=== PATIENT | female | born 1985 | race Caucasian/White ===

== ENCOUNTER 2016-06-29 08:20 | Emergency (ER) | payer OTHER ==
[2016-06-29] MEDS ORDERED: IPRATROPIUM 0.5MG/ALBUTEROL 2.5MG INH SOL UD 3ML (DUONEB)(J7620) As Ordered ONE (09:00)
[2016-06-29] MEDS ORDERED: methylPREDNISolone INJ 125 MG/2 ML VIAL (J2930) As Ordered ONE (09:15)
[2016-06-29 09:34] LABS: BASO % 0.3 % (0.0-1.0); EOS # 0.1 K/mm3 (0.0-0.50); EOS % 0.8 % (0.0-3.0); LARGE UNSTAINED CELL # 0.2 K/mm3 (0.0-0.4); LARGE UNSTAINED CELL % 2.2 % (0.0-4.0); LYMPH # 3.1 K/mm3 (1.5-4.5); LYMPH % 33.6 % (24.0-44.0); MEAN CORPUSCULAR HEMOGLOBIN 22.7 pg (27.0-33.0); MEAN CORPUSCULAR HGB CONC 31.3 g/dl (32.0-36.5); MEAN CORPUSCULAR VOLUME 72.8 fl (80.0-96.0); MONO # 0.4 K/mm3 (0.0-0.8); MONO % 4.6 % (0.0-5.0); NEUTROPHILS # 5.3 K/mm3 (1.8-7.7); NEUTROPHILS % 58.5 % (36.0-66.0); PLATELET COUNT, AUTOMATED 290 k/mm3 (150-450); RED CELL DISTRIBUTION WIDTH 16.3 % (11.5-14.5); WHITE BLOOD COUNT 9.1 K/mm3 (4.0-10.0)
[2016-06-29 10:00] LABS: ANION GAP 11 MEQ/L (8-16); BLOOD UREA NITROGEN 15 MG/DL (7-18); CALCIUM LEVEL 8.4 MG/DL (8.5-10.1); CARBON DIOXIDE LEVEL 25 MEQ/L (21-32); CHLORIDE LEVEL 105 MEQ/L (98-107); CREATININE FOR GFR 0.94 MG/DL (0.55-1.02); GLOMERULAR FILTRATION RATE > 60.0 (>60); GLUCOSE, FASTING 104 MG/DL (70-105); POTASSIUM SERUM 3.2 MEQ/L (3.5-5.1); SODIUM LEVEL 141 MEQ/L (136-145)
--- NOTE | 2016-06-29 10:22 | REP ---
Chest x-ray: Two views. History: Shortness of breath. Comparison study: June 05, 2016. Findings: EKG monitoring electrodes overlie the chest. The lungs are symmetrically aerated and clear. Heart is not enlarged. Pulmonary vasculature is not increased. No significant bony abnormality is seen. Impression: No active disease. Signed by Kristofer Garcia MD 06/29/2016 10:13 A
[2016-06-29] MEDS ORDERED: POTASSIUM CHLORIDE 10 MEQ SR TABLET As Ordered ONE (10:34)
[2016-06-29] MEDS ORDERED: guaiFENesin SYRUP 200 MG/10 ML UDC As Ordered ONE (11:12)
--- NOTE | 2016-06-29 11:29 | EDDOCDS ---
Nurse's Notes [facility] Name: Conchis Morel Age: 31 yrs Sex: Female : 1985 Arrival Date: 06/29/2016 Time: 08:20 Bed 9 Private MD: Reema Parra Diagnosis: Unspecified asthma with (acute) exacerbation;Shortness of breath;Hypokalemia Presentation: 06/29 08:27 Presenting complaint: Patient states: Pt presents stating difficulty breathing this dls morning pt uses oxygen most of the time has had several breathing treatment this morning and still feels SOB. Adult Sepsis Screening: The patient does not have new or worsening altered mentation. Patient's respiratory rate is less than 22. Systolic blood pressure is greater than 100. Patient has a qSOFA score of 0- Negative Sepsis Screen. Suicide/Homicide risk assessment- the patient denies having any suicidal and/or homicidal ideations and does not present with any other emotional, behavioral or mental health complaints. Status: The patient is a dependent. Transition of care: patient was not received from another setting of care. 08:27 Acuity: BOOGIE Level 3 dls 08:27 Method Of Arrival: Walkin/Carried/Asstd dls Triage Assessment: 08:34 General: Appears in no apparent distress, Behavior is cooperative. Pain: Denies pain. dls HIV screening NA for this visit Offered previously. 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 Lasix 40 mg oral tab 1 tab once daily 2. lisinopril 10 mg oral tab 1 tab once daily 3. Singulair 10 mg Oral tab 1 tab once daily 4. Breo Ellipta 200-25 mcg/dose inhalation dsdv 1 puff once daily 5. Flonase 50 mcg/actuation Nasal spsn 1 spray 2 times per day 6. vivance 40mg daily 7. Topamax 50 mg oral tab 1 tab daily 8. Claritin 10 mg oral tab 1 tab once daily 9. Topamax 100 mg Oral tab 1 tab nightly 10. albuterol sulfate 90 mcg/actuation Inhl HFAA 2 puffs every 4 hours 11. albuterol sulfate 2.5 mg /3 mL (0.083 %) Inhl nebu 3 mL as needed 12. Nexium 20 mg Oral cpDR 1 cap once daily - PMHx: Asthma; Hypertension; Sleep Apnea w/ CPAP; - PSHx: Appendectomy; eye surgery; Tonsillectomy; deviated septum; D & C; lung biopsy; - Social history: Smoking status: Patient/guardian denies using No barriers to communication noted, The patient speaks fluent Swedish. - Family history: Not pertinent. - : The pt / caregiver states he / she is not on anticoagulants. Home medication list is obtained from the patient, [employer] import data. - Exposure Risk Screening:: None identified. Screenin:25 Screening information is obtained from the patient. Fall risk: No risks identified. jf3 Assistance ADL's: requires no assistance with activities of daily living. Abuse/DV Screen: The patient / caregiver reports he/she is: not in a situation that causes fear, pain or injury. Nutritional screening: No deficits noted. Advance Directives: There is no active DNR order. home support is adequate. Assessment: 11:25 General: Appears in no apparent distress, comfortable, Behavior is cooperative. Pain: jf3 Denies pain. Neurological: Level of Consciousness is awake, alert, Oriented to person, place, time. Cardiovascular: Capillary refill < 3 seconds. Respiratory: Airway is patent Respiratory effort is even, unlabored, Denies shortness of breath at rest. Derm: Skin is pink, warm & dry. Vital Signs: 08:34 BP 134 / 75; Pulse 94; Resp 20; Temp 96.9(O); Pulse Ox 97% on NC; Weight 122.02 kg (R); dls Height 4 ft. 10 in. (147.32 cm); Pain 0/10; 08:46 BP 130 / 81 (auto/); ml6 08:46 Pulse 106 MON; Resp 20; Pulse Ox 96% on 3 lpm NC; ml6 09:01 BP 108 / 64 (auto/); ml6 09:01 Pulse 104 MON; Resp 20; Pulse Ox 94% on 3 lpm NC; ml6 09:23 BP 116 / 55 (auto/); ml6 09:23 Pulse 92 MON; Resp 20; Pulse Ox 96% on 3 lpm NC; ml6 09:46 BP 127 / 60 (auto/); ml6 09:46 Pulse 88 MON; Resp 20; Pulse Ox 96% on 3 lpm NC; ml6 11:14 BP 106 / 57; Pulse 84; Resp 18; Temp 97.5(O); Pulse Ox 100% on 3 lpm NC; Pain 0/10; ct3 08:34 Body Mass Index 56.22 (122.02 kg, 147.32 cm) [facility] Vitals: 08:34 Log In Time: June 29, 2016 at 08:18. dls ED Course: 08:21 Patient visited by Loan Perez Reg. lg 08:21 Reema Parra is Private Physician. lg 08:21 Patient moved to Waiting lg 08:29 Triage Initiated dls 08:37 Patient moved to 9 dls 08:41 Erlinda Hardy PA-C is PHCP. dt4 08:41 Stevie Vyas MD is Attending Physician. dt4 08:41 Patient visited by Erlinda Hardy PA-C. dt4 08:48 Pt greeted and oriented to ED. Patient advised of names of staff involved in care, dem1 location of call hall, wait times and NPO status. Patient has correct armband on for positive identification. Placed in gown. Bed in low position. ekg monitor tech on. Pulse ox on. NIBP on. 08:49 Patient visited by Freida Lin. dem1 09:10 Inserted peripheral IV: 18gauge IV in right antecubital area and blood collected. ml6 Patient tolerated the procedure well. 09:30 [facility] [place] Agreement was scanned into [employer] and attached to record. dm19 09:31 Patient visited by Matt Garcia RN. ml6 09:31 Cardiac Injury Profile Sent. ml6 09:31 Troponin Sent. ml6 09:31 Basic Metabolic Profile Sent. ml6 09:33 Matt Garcia, RN is Primary Nurse. ml6 10:09 Patient visited by Fabiola Jones PCA. ct3 10:37 Patient visited by Erlinda Hardy PA-C. dt4 10:39 Paulino Dominique DO is Referral Physician. dt4 10:56 Chest, 2 View (pa\E\lat) Returned. EDMS 11:15 Patient visited by Fabiola Jones PCA. ct3 11:25 The patient / caregiver is instructed regarding the plan of care and ED course. jf3 11:25 Discontinued IV lock intact, bleeding controlled, pressure dressing applied, No jf3 redness/swelling at site. No procedures done that require assistance. Administered Medications: 09:00 Drug: Albuterol-Ipratropium 1 neb [ipratropium-albuterol 0.5 mg-3 mg(2.5 mg base)/3 mL kt1 nebulization soln (1 neb)] Route: Nebulizer; 09:10 Drug: Solu-MEDROL 125 mg [Solu-Medrol 500 mg intravenous solution (125 mg)] Route: IVP; ml6 Site: right antecubital; 10:10 Drug: Potassium Chloride 40 mEq [potassium chloride ER 10 mEq tablet,extended release ml6 (4 tabs)] Route: PO; 11:25 Drug: guaiFENesin 200 mg [guaifenesin 100 mg/5 mL oral liquid (10 mL)] Route: PO; jf3 RT: 09:00 Initial Med Neb Given as ordered Patient was instructed and evaluated on procedure. kt1 Respiratory: No deficits noted. Breath sounds are clear bilaterally. Order Results: Lab Order: CBC with Diff; SPEC'M 06/29/16 09:27 Test: WHITE BLOOD COUNT; Value: 9.1; Range: 4.0-10.0; Units: K/mm3; Status: F Test: RED BLOOD COUNT; Value: 4.95; Range: 4.00-5.40; Units: M/mm3; Status: F Test: HEMOGLOBIN; Value: 11.3; Range: 12.0-16.0; Abnormal: Below low normal; Units: g/dl; Status: F Test: HEMATOCRIT; Value: 36.0; Range: 36.0-47.0; Units: %; Status: F Test: MEAN CORPUSCULAR VOLUME; Value: 72.8; Range: 80.0-96.0; Abnormal: Below low normal; Units: fl; Status: F Test: MEAN CORPUSCULAR HEMOGLOBIN; Value: 22.7; Range: 27.0-33.0; Abnormal: Below low normal; Units: pg; Status: F Test: MEAN CORPUSCULAR HGB CONC; Value: 31.3; Range: 32.0-36.5; Abnormal: Below low normal; Units: g/dl; Status: F Test: RED CELL DISTRIBUTION WIDTH; Value: 16.3; Range: 11.5-14.5; Abnormal: Above high normal; Units: %; Status: F Test: PLATELET COUNT, AUTOMATED; Value: 290; Range: 150-450; Units: k/mm3; Status: F Test: NEUTROPHILS %; Value: 58.5; Range: 36.0-66.0; Units: %; Status: F Test: LYMPH %; Value: 33.6; Range: 24.0-44.0; Units: %; Status: F Test: MONO %; Value: 4.6; Range: 0.0-5.0; Units: %; Status: F Test: EOS %; Value: 0.8; Range: 0.0-3.0; Units: %; Status: F Test: BASO %; Value: 0.3; Range: 0.0-1.0; Units: %; Status: F Test: LARGE UNSTAINED CELL %; Value: 2.2; Range: 0.0-4.0; Units: %; Status: F Test: NEUTROPHILS #; Value: 5.3; Range: 1.8-7.7; Units: K/mm3; Status: F Test: LYMPH #; Value: 3.1; Range: 1.5-4.5; Units: K/mm3; Status: F Test: MONO #; Value: 0.4; Range: 0.0-0.8; Units: K/mm3; Status: F Test: EOS #; Value: 0.1; Range: 0.0-0.50; Units: K/mm3; Status: F Test: BASO #; Value: 0.0; Range: 0.0-0.2; Units: K/mm3; Status: F Test: LARGE UNSTAINED CELL #; Value: 0.2; Range: 0.0-0.4; Units: K/mm3; Status: F Lab Order: Basic Metabolic Profile; [facility]'06/29/16 09:27 Test: GLUCOSE, FASTING; Value: 104; Range: 70-105; Units: MG/DL; Status: F Test: BLOOD UREA NITROGEN; Value: 15; Range: 7-18; Units: MG/DL; Status: F Test: CREATININE FOR GFR; Value: 0.94; Range: 0.55-1.02; Units: MG/DL; Status: F Test: GLOMERULAR FILTRATION RATE; Value: > 60.0; Range: >60; Status: F Test: SODIUM LEVEL; Value: 141; Range: 136-145; Units: MEQ/L; Status: F Test: POTASSIUM SERUM; Value: 3.2; Range: 3.5-5.1; Abnormal: Below low normal; Units: MEQ/L; Status: F Test: CHLORIDE LEVEL; Value: 105; Range: 98-107; Units: MEQ/L; Status: F Test: CARBON DIOXIDE LEVEL; Value: 25; Range: 21-32; Units: MEQ/L; Status: F Test: ANION GAP; Value: 11; Range: 8-16; Units: MEQ/L; Status: F Test: CALCIUM LEVEL; Value: 8.4; Range: 8.5-10.1; Abnormal: Below low normal; Units: MG/DL; Status: F Test Note: ; Units are mL/min/1.73 m2 Chronic Kidney Disease Staging per NKF: Stage I & II GFR >=60 Normal to Mildly Decreased Stage III GFR 30-59 Moderately Decreased Stage IV GFR 15-29 Severely Decreased Stage V GFR <15 Very Little GFR Left ESRD GFR <15 on SPEEDER OPERATOR Lab Order: Troponin; SPEC'M 06/29/16 09:27 Test: TROPONIN I; Value: < 0.02; Range: < 0.10; Units: NG/ML; Status: F Test Note: ; Troponin I Reference Interval for Calm LOCI: 99th Percentile= 0.00-0.045 ng/ml Risk Stratification: <= 0.10 ng/ml Decreased Risk for Adverse Clinical Events. 0.10-1.50 ng/ml Increased Risk for Adverse Clinical Events. Evaluation of additional criterion and/or repeat testing in 2-6 hours is suggested to rule out myocardial damage. >= 1.50 ng/ml Indicative of Myocardial Injury. Lab Order: Cardiac Injury Profile; SPEC'M 06/29/16 09:27 Test: CPK CREATINE PHOSPHOKINASE; Value: 125; Range: 26-192; Units: U/L; Status: F Test: CK-MB VALUE MASS; Value: 1.0; Range: 0.0-3.6; Units: NG/ML; Status: F Test: MB/CK RELATIVE INDEX; Value: 0.80; Range: < OR =4; Status: F Test Note: ; DIAGNOSIS CRITERIA MMB ng/ml Relative Index (RI) NON-AMI < or = 5 N/A PAREDES ZONE > 5 < or = 4 AMI > 5 > 4 Radiology Order: Chest, 2 View (pa\E\lat) Test: Chest, 2 View (pa\E\lat) REASON FOR EXAMINATION: Shortness of Breath; Chest x-ray: Two views.; ; History: Shortness of breath.; ; Comparison study: June 05, 2016.; ; Findings: EKG monitoring electrodes overlie the chest. The lungs are; symmetrically aerated and clear. Heart is not enlarged. Pulmonary vasculature; is not increased. No significant bony abnormality is seen.; ; Impression:; ; No active disease.; ; ; Signed by; Kristofer Garcia MD 06/29/2016 10:13 A; Outcome: 10:40 Discharge ordered by Provider. dt4 11:27 Discharge Assessment: Patient awake, alert and oriented x 3. No cognitive and/or jf3 functional deficits noted. Patient verbalized understanding of disposition instructions. patient administered narcotics - no. The following High Risk Discharge criteria are identified: None. Discharged to home via wheelchair, with significant other. Condition: stable. Discharge instructions given to patient, significant other, Instructed on discharge instructions, follow up and referral plans. medication usage, Demonstrated understanding of instructions, medications, Pt was receptive of discharge instructions/ teaching. No special radiology studies were completed. Property :Personal belongings accompany Pt. 11:27 Patient left the ED. jf3 Signatures: Dispatcher [employer] EDDina Garcia, OSVALDO RN Loan Franklin, Arabella Gonzales lg kt1 Matt Garcia RN RN ml6 Fabiola Jones, LOCKSTITCH POCKET SETTER LOCKSTITCH POCKET SETTER ct3 Freida Lin dem1 Erlinda Hardy, PASamra PA-C dt4 Jon Gonzalez RN RN jf3 Erlinda Heck dm19 MTDD
--- NOTE | 2016-06-29 11:29 | EDDOCDS ---
Physician Documentation [facility] Name: Conchis Morel Age: 31 yrs Sex: Female : 1985 Arrival Date: 06/29/2016 Time: 08:20 Bed 9 Private MD: Reema Parra Disposition: 06/29/16 10:40 Discharged to Home/Self Care. Impression: Unspecified asthma with (acute) exacerbation, Shortness of breath, Hypokalemia. - Condition is Stable. - Discharge Instructions: Asthma, Adult, Shortness of Breath, Hypokalemia. - Prescriptions for Prednisone 20 mg Oral Tablet - take 3 tablets by ORAL route once daily for 4 days START ON 06/30/16; 12 tablet. ipratropium- albuterol 0.5 mg-3 mg(2.5 mg base)/3 mL Inhalation Solution for Nebulization - inhale 1 ampule by INHALATION route 3-4 times daily As needed; 1 box. - Medication Reconciliation, Local Pharmacy Hours form. - Follow up: Emergency Department; When: As needed; Reason: Worsening of conditions. Follow up: Private Physician; When: 1 - 2 days; Reason: Wound/Symptom Recheck, Recheck today's complaints, Continuance of care. Follow up: Paulino Olivo DO; When: AT YOUR SCHEDULED APPOINTMENT ON 07/02/[address]; Reason: Wound/Symptom Recheck, Further diagnostic work-up, Recheck today's complaints, Continuance of care. - Problem is new. - Symptoms have improved. - Notes: YOUR CHEST XRAY SHOWED NO ABNORMALITIES TODAY. THIS IS MOST LIKELY AN ASTHMA EXACERBATION. YOU HAVE BEEN PRESCRIBED THE DUONE[employer] NEBULIZER TREATMENTS. YOU MAY USE THESE DIRECTED IN PLACE OF THE REGULAR ALBUTEROL NEBULIZERS. THIS MAY HELP YOUR SYMPTOMS MORE THAN THE ALBUTEROL ALONE. FOLLOW UP FOR YOUR CT SCAN WITH DR. OLIVO NEXT WEEK AND RETURN TO THE ER WITH ANY WORSENING SYMPTOMS. Historical: - Allergies: Codeine Sulfate; - Home Meds: 1. Lasix 40 mg oral tab 1 tab once daily 2. lisinopril 10 mg oral tab 1 tab once daily 3. Singulair 10 mg Oral tab 1 tab once daily 4. Breo Ellipta 200-25 mcg/dose inhalation dsdv 1 puff once daily 5. Flonase 50 mcg/actuation Nasal spsn 1 spray 2 times per day 6. vivance 40mg daily 7. Topamax 50 mg oral tab 1 tab daily 8. Claritin 10 mg oral tab 1 tab once daily 9. Topamax 100 mg Oral tab 1 tab nightly 10. albuterol sulfate 90 mcg/actuation Inhl HFAA 2 puffs every 4 hours 11. albuterol sulfate 2.5 mg /3 mL (0.083 %) Inhl nebu 3 mL as needed 12. Nexium 20 mg Oral cpDR 1 cap once daily - PMHx: Asthma; Hypertension; Sleep Apnea w/ CPAP; - PSHx: Appendectomy; eye surgery; Tonsillectomy; deviated septum; D & C; lung biopsy; - Social history: Smoking status: Patient/guardian denies using No barriers to communication noted, The patient speaks fluent Icelandic. - Family history: Not pertinent. - : The pt / caregiver states he / she is not on anticoagulants. Home medication list is obtained from the patient, [employer] import data. - Exposure Risk Screening:: None identified. 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 10 in. (147.32 cm); Pain 0/10; 08:46 BP 130 / 81 (auto/); ml6 08:46 Pulse 106 MON; Resp 20; Pulse Ox 96% on 3 lpm NC; ml6 09:01 BP 108 / 64 (auto/); ml6 09:01 Pulse 104 MON; Resp 20; Pulse Ox 94% on 3 lpm NC; ml6 09:23 BP 116 / 55 (auto/); ml6 09:23 Pulse 92 MON; Resp 20; Pulse Ox 96% on 3 lpm NC; ml6 09:46 BP 127 / 60 (auto/); ml6 09:46 Pulse 88 MON; Resp 20; Pulse Ox 96% on 3 lpm NC; ml6 11:14 BP 106 / 57; Pulse 84; Resp 18; Temp 97.5(O); Pulse Ox 100% on 3 lpm NC; Pain 0/10; ct3 08:34 Body Mass Index 56.22 (122.02 kg, 147.32 cm) dls MDM: 08:52 IV Saline Lock ordered. dt4 08:52 Solu-MEDROL 125 mg IVP once ordered. dt4 08:52 Albuterol-Ipratropium 1 neb Nebulizer every 20 minutes x3 ordered. dt4 08:52 Call Respiratory ordered. dt4 08:53 Call Respiratory complete. ar3 08:53 Chest, 2 View (pa\E\lat) Ordered. EDMS 08:53 CBC with Diff Ordered. EDMS 08:53 Basic Metabolic Profile Ordered. EDMS 08:53 Troponin Ordered. EDMS 08:53 Cardiac Injury Profile Ordered. EDMS 08:57 Physical Security Specialist ordered. dt4 09:30 [facility] Payment Agreement was scanned into [employer] and attached to record. dm19 09:30 Financial registration complete. dm19 10:04 Potassium Chloride Extended Release Tablet 40 mEq PO once ordered. dt4 10:37 guaiFENesin Liquid 200 mg PO once ordered. dt4 Administered Medications: 09:00 Drug: Albuterol-Ipratropium 1 neb [ipratropium-albuterol 0.5 mg-3 mg(2.5 mg base)/3 mL kt1 nebulization soln (1 neb)] Route: Nebulizer; 09:10 Drug: Solu-MEDROL 125 mg [Solu-Medrol 500 mg intravenous solution (125 mg)] Route: IVP; ml6 Site: right antecubital; 10:10 Drug: Potassium Chloride 40 mEq [potassium chloride ER 10 mEq tablet,extended release ml6 (4 tabs)] Route: PO; 11:25 Drug: guaiFENesin 200 mg [guaifenesin 100 mg/5 mL oral liquid (10 mL)] Route: PO; jf3 Signatures: Dispatcher [employer] EDMS Dina Parra RN RN dls Tomasa Wong, STUDENT SERVICES COORDINATOR STUDENT SERVICES COORDINATOR ar3 Erlinda Hardy, PAMagoC PA-C dt4 Jon Gonzalez RN RN jf3 Erlinda Heck dm19 Arabella Flaherty kt1 Matt Garcia RN ml6 The chart was reviewed and I authenticate all verbal orders and agree with the evaluation and treatment provided.Attachments: 09:30 [facility] Payment Agreement dm19 MTDD
--- NOTE | 2016-07-02 10:55 | EDDOCDS ---
Nurse's Notes [facility] Name: Conchis Morel Age: 31 yrs Sex: Female : 1985 Arrival Date: 06/29/2016 Time: 08:20 Bed 9 Private MD: Reema Parra Diagnosis: Unspecified asthma with (acute) exacerbation;Shortness of breath;Hypokalemia Presentation: 06/29 08:27 Presenting complaint: Patient states: Pt presents stating difficulty breathing this dls morning pt uses oxygen most of the time has had several breathing treatment this morning and still feels SOB. Adult Sepsis Screening: The patient does not have new or worsening altered mentation. Patient's respiratory rate is less than 22. Systolic blood pressure is greater than 100. Patient has a qSOFA score of 0- Negative Sepsis Screen. Suicide/Homicide risk assessment- the patient denies having any suicidal and/or homicidal ideations and does not present with any other emotional, behavioral or mental health complaints. Status: The patient is a dependent. Transition of care: patient was not received from another setting of care. 08:27 Acuity: BOOGIE Level 3 dls 08:27 Method Of Arrival: Walkin/Carried/Asstd dls Triage Assessment: 08:34 General: Appears in no apparent distress, Behavior is cooperative. Pain: Denies pain. dls HIV screening NA for this visit Offered previously. 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 Lasix 40 mg oral tab 1 tab once daily 2. lisinopril 10 mg oral tab 1 tab once daily 3. Singulair 10 mg Oral tab 1 tab once daily 4. Breo Ellipta 200-25 mcg/dose inhalation dsdv 1 puff once daily 5. Flonase 50 mcg/actuation Nasal spsn 1 spray 2 times per day 6. vivance 40mg daily 7. Topamax 50 mg oral tab 1 tab daily 8. Claritin 10 mg oral tab 1 tab once daily 9. Topamax 100 mg Oral tab 1 tab nightly 10. albuterol sulfate 90 mcg/actuation Inhl HFAA 2 puffs every 4 hours 11. albuterol sulfate 2.5 mg /3 mL (0.083 %) Inhl nebu 3 mL as needed 12. Nexium 20 mg Oral cpDR 1 cap once daily - PMHx: Asthma; Hypertension; Sleep Apnea w/ CPAP; - PSHx: Appendectomy; eye surgery; Tonsillectomy; deviated septum; D & C; lung biopsy; - Social history: Smoking status: Patient/guardian denies using No barriers to communication noted, The patient speaks fluent Georgian. - Family history: Not pertinent. - : The pt / caregiver states he / she is not on anticoagulants. Home medication list is obtained from the patient, [email or web address] import data. - Exposure Risk Screening:: None identified. Screenin:25 Screening information is obtained from the patient. Fall risk: No risks identified. jf3 Assistance ADL's: requires no assistance with activities of daily living. Abuse/DV Screen: The patient / caregiver reports he/she is: not in a situation that causes fear, pain or injury. Nutritional screening: No deficits noted. Advance Directives: There is no active DNR order. home support is adequate. Assessment: 11:25 General: Appears in no apparent distress, comfortable, Behavior is cooperative. Pain: jf3 Denies pain. Neurological: Level of Consciousness is awake, alert, Oriented to person, place, time. Cardiovascular: Capillary refill < 3 seconds. Respiratory: Airway is patent Respiratory effort is even, unlabored, Denies shortness of breath at rest. Derm: Skin is pink, warm & dry. Vital Signs: 08:34 BP 134 / 75; Pulse 94; Resp 20; Temp 96.9(O); Pulse Ox 97% on NC; Weight 122.02 kg (R); dls Height 4 ft. 10 in. (147.32 cm); Pain 0/10; 08:46 BP 130 / 81 (auto/); ml6 08:46 Pulse 106 MON; Resp 20; Pulse Ox 96% on 3 lpm NC; ml6 09:01 BP 108 / 64 (auto/); ml6 09:01 Pulse 104 MON; Resp 20; Pulse Ox 94% on 3 lpm NC; ml6 09:23 BP 116 / 55 (auto/); ml6 09:23 Pulse 92 MON; Resp 20; Pulse Ox 96% on 3 lpm NC; ml6 09:46 BP 127 / 60 (auto/); ml6 09:46 Pulse 88 MON; Resp 20; Pulse Ox 96% on 3 lpm NC; ml6 11:14 BP 106 / 57; Pulse 84; Resp 18; Temp 97.5(O); Pulse Ox 100% on 3 lpm NC; Pain 0/10; ct3 08:34 Body Mass Index 56.22 (122.02 kg, 147.32 cm) [facility] Vitals: 08:34 Log In Time: June 29, 2016 at 08:18. dls ED Course: 08:21 Patient visited by Loan Perez Reg. lg 08:21 Reema Parra is Private Physician. lg 08:21 Patient moved to Waiting lg 08:29 Triage Initiated dls 08:37 Patient moved to 9 dls 08:41 Erlinda Hardy PA-C is PHCP. dt4 08:41 Stevie Vyas MD is Attending Physician. dt4 08:41 Patient visited by Erlinda Hardy PA-C. dt4 08:48 Pt greeted and oriented to ED. Patient advised of names of staff involved in care, dem1 location of call hall, wait times and NPO status. Patient has correct armband on for positive identification. Placed in gown. Bed in low position. 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 Pulse ox on. NIBP on. 08:49 Patient visited by Freida Lin. dem1 09:10 Inserted peripheral IV: 18gauge IV in right antecubital area and blood collected. ml6 Patient tolerated the procedure well. 09:30 [facility] [place] was scanned into [employer] and attached to record. dm19 09:31 Patient visited by Matt Garcia RN. ml6 09:31 Cardiac Injury Profile Sent. ml6 09:31 Troponin Sent. ml6 09:31 Basic Metabolic Profile Sent. ml6 09:33 Matt Garcia, RN is Primary Nurse. ml6 10:09 Patient visited by Fabiola Jones PCA. ct3 10:37 Patient visited by Erlinda Hardy PA-C. dt4 10:39 Paulino Dominique DO is Referral Physician. dt4 10:56 Chest, 2 View (pa\E\lat) Returned. EDMS 11:15 Patient visited by Fabiola Jones PCA. ct3 11:25 The patient / caregiver is instructed regarding the plan of care and ED course. jf3 11:25 Discontinued IV lock intact, bleeding controlled, pressure dressing applied, No jf3 redness/swelling at site. No procedures done that require assistance. 11:36 T-Sheet-- Draft Copy was scanned into [employer] and attached to record. seh Administered Medications: 09:00 Drug: Albuterol-Ipratropium 1 neb [ipratropium-albuterol 0.5 mg-3 mg(2.5 mg base)/3 mL kt1 nebulization soln (1 neb)] Route: Nebulizer; 09:10 Drug: Solu-MEDROL 125 mg [Solu-Medrol 500 mg intravenous solution (125 mg)] Route: IVP; ml6 Site: right antecubital; 10:10 Drug: Potassium Chloride 40 mEq [potassium chloride ER 10 mEq tablet,extended release ml6 (4 tabs)] Route: PO; 11:25 Drug: guaiFENesin 200 mg [guaifenesin 100 mg/5 mL oral liquid (10 mL)] Route: PO; jf3 RT: 09:00 Initial Med Neb Given as ordered Patient was instructed and evaluated on procedure. kt1 Respiratory: No deficits noted. Breath sounds are clear bilaterally. Order Results: Lab Order: CBC with Diff; SPEC'M 06/29/16 09:27 Test: WHITE BLOOD COUNT; Value: 9.1; Range: 4.0-10.0; Units: K/mm3; Status: F Test: RED BLOOD COUNT; Value: 4.95; Range: 4.00-5.40; Units: M/mm3; Status: F Test: HEMOGLOBIN; Value: 11.3; Range: 12.0-16.0; Abnormal: Below low normal; Units: g/dl; Status: F Test: HEMATOCRIT; Value: 36.0; Range: 36.0-47.0; Units: %; Status: F Test: MEAN CORPUSCULAR VOLUME; Value: 72.8; Range: 80.0-96.0; Abnormal: Below low normal; Units: fl; Status: F Test: MEAN CORPUSCULAR HEMOGLOBIN; Value: 22.7; Range: 27.0-33.0; Abnormal: Below low normal; Units: pg; Status: F Test: MEAN CORPUSCULAR HGB CONC; Value: 31.3; Range: 32.0-36.5; Abnormal: Below low normal; Units: g/dl; Status: F Test: RED CELL DISTRIBUTION WIDTH; Value: 16.3; Range: 11.5-14.5; Abnormal: Above high normal; Units: %; Status: F Test: PLATELET COUNT, AUTOMATED; Value: 290; Range: 150-450; Units: k/mm3; Status: F Test: NEUTROPHILS %; Value: 58.5; Range: 36.0-66.0; Units: %; Status: F Test: LYMPH %; Value: 33.6; Range: 24.0-44.0; Units: %; Status: F Test: MONO %; Value: 4.6; Range: 0.0-5.0; Units: %; Status: F Test: EOS %; Value: 0.8; Range: 0.0-3.0; Units: %; Status: F Test: BASO %; Value: 0.3; Range: 0.0-1.0; Units: %; Status: F Test: LARGE UNSTAINED CELL %; Value: 2.2; Range: 0.0-4.0; Units: %; Status: F Test: NEUTROPHILS #; Value: 5.3; Range: 1.8-7.7; Units: K/mm3; Status: F Test: LYMPH #; Value: 3.1; Range: 1.5-4.5; Units: K/mm3; Status: F Test: MONO #; Value: 0.4; Range: 0.0-0.8; Units: K/mm3; Status: F Test: EOS #; Value: 0.1; Range: 0.0-0.50; Units: K/mm3; Status: F Test: BASO #; Value: 0.0; Range: 0.0-0.2; Units: K/mm3; Status: F Test: LARGE UNSTAINED CELL #; Value: 0.2; Range: 0.0-0.4; Units: K/mm3; Status: F Lab Order: Basic Metabolic Profile; SPEC'M 06/29/16 09:27 Test: GLUCOSE, FASTING; Value: 104; Range: 70-105; Units: MG/DL; Status: F Test: BLOOD UREA NITROGEN; Value: 15; Range: 7-18; Units: MG/DL; Status: F Test: CREATININE FOR GFR; Value: 0.94; Range: 0.55-1.02; Units: MG/DL; Status: F Test: GLOMERULAR FILTRATION RATE; Value: > 60.0; Range: >60; Status: F Test: SODIUM LEVEL; Value: 141; Range: 136-145; Units: MEQ/L; Status: F Test: POTASSIUM SERUM; Value: 3.2; Range: 3.5-5.1; Abnormal: Below low normal; Units: MEQ/L; Status: F Test: CHLORIDE LEVEL; Value: 105; Range: 98-107; Units: MEQ/L; Status: F Test: CARBON DIOXIDE LEVEL; Value: 25; Range: 21-32; Units: MEQ/L; Status: F Test: ANION GAP; Value: 11; Range: 8-16; Units: MEQ/L; Status: F Test: CALCIUM LEVEL; Value: 8.4; Range: 8.5-10.1; Abnormal: Below low normal; Units: MG/DL; Status: F Test Note: ; Units are mL/min/1.73 m2 Chronic Kidney Disease Staging per NKF: Stage I & II GFR >=60 Normal to Mildly Decreased Stage III GFR 30-59 Moderately Decreased Stage IV GFR 15-29 Severely Decreased Stage V GFR <15 Very Little GFR Left ESRD GFR <15 on FACILITY REHAB DIRECTOR Lab Order: Troponin; SPEC'M 06/29/16 09:27 Test: TROPONIN I; Value: < 0.02; Range: < 0.10; Units: NG/ML; Status: F Test Note: ; Troponin I Reference Interval for [place] LOCI: 99th Percentile= 0.00-0.045 ng/ml Risk Stratification: <= 0.10 ng/ml Decreased Risk for Adverse Clinical Events. 0.10-1.50 ng/ml Increased Risk for Adverse Clinical Events. Evaluation of additional criterion and/or repeat testing in 2-6 hours is suggested to rule out myocardial damage. >= 1.50 ng/ml Indicative of Myocardial Injury. Lab Order: Cardiac Injury Profile; SPEC'M 06/29/16 09:27 Test: CPK CREATINE PHOSPHOKINASE; Value: 125; Range: 26-192; Units: U/L; Status: F Test: CK-MB VALUE MASS; Value: 1.0; Range: 0.0-3.6; Units: NG/ML; Status: F Test: MB/CK RELATIVE INDEX; Value: 0.80; Range: < OR =4; Status: F Test Note: ; DIAGNOSIS CRITERIA MMB ng/ml Relative Index (RI) NON-AMI < or = 5 N/A PAREDES ZONE > 5 < or = 4 AMI > 5 > 4 Radiology Order: Chest, 2 View (pa\E\lat) Test: Chest, 2 View (pa\E\lat) REASON FOR EXAMINATION: Shortness of Breath; Chest x-ray: Two views.; ; History: Shortness of breath.; ; Comparison study: June 05, 2016.; ; Findings: EKG monitoring electrodes overlie the chest. The lungs are; symmetrically aerated and clear. Heart is not enlarged. Pulmonary vasculature; is not increased. No significant bony abnormality is seen.; ; Impression:; ; No active disease.; ; ; Signed by; Kristofer Garcia MD 06/29/2016 10:13 A; Outcome: 10:40 Discharge ordered by Provider. dt4 11:27 Discharge Assessment: Patient awake, alert and oriented x 3. No cognitive and/or jf3 functional deficits noted. Patient verbalized understanding of disposition instructions. patient administered narcotics - no. The following High Risk Discharge criteria are identified: None. Discharged to home via wheelchair, with significant other. Condition: stable. Discharge instructions given to patient, significant other, Instructed on discharge instructions, follow up and referral plans. medication usage, Demonstrated understanding of instructions, medications, Pt was receptive of discharge instructions/ teaching. No special radiology studies were completed. Property :Personal belongings accompany Pt. 11:27 Patient left the ED. jf3 Signatures: Dispatcher [employer] EDDina Garcia, RN RN Loan Franklin, Ernesto Reg Arabella Clarke kt1 Matt Garcia RN RN ml6 Fabiola Jones, PRODUCTION SHIFT SUPERVISOR PRODUCTION SHIFT SUPERVISOR ct3 Freida Lin1 Erlinda Hardy, PA-Edgar PA-C dt4 Jon Gonzalez,OSVALDO RN jf3 Yara Suero Diane dm19 Chart Complete MTDD
--- NOTE | 2016-07-02 10:55 | EDDOCDS ---
Physician Documentation [facility] Name: Conchis Morel Age: 31 yrs Sex: Female : 1985 Arrival Date: 06/29/2016 Time: 08:20 Bed 9 Private MD: Reema Parra Disposition: 06/29/16 10:40 Discharged to Home/Self Care. Impression: Unspecified asthma with (acute) exacerbation, Shortness of breath, Hypokalemia. - Condition is Stable. - Discharge Instructions: Asthma, Adult, Shortness of Breath, Hypokalemia. - Prescriptions for Prednisone 20 mg Oral Tablet - take 3 tablets by ORAL route once daily for 4 days START ON 06/30/16; 12 tablet. ipratropium- albuterol 0.5 mg-3 mg(2.5 mg base)/3 mL Inhalation Solution for Nebulization - inhale 1 ampule by INHALATION route 3-4 times daily As needed; 1 box. - Medication Reconciliation, Local Pharmacy Hours form. - Follow up: Emergency Department; When: As needed; Reason: Worsening of conditions. Follow up: Private Physician; When: 1 - 2 days; Reason: Wound/Symptom Recheck, Recheck today's complaints, Continuance of care. Follow up: Paulino Olivo DO; When: AT YOUR SCHEDULED APPOINTMENT ON 07/02/[address]; Reason: Wound/Symptom Recheck, Further diagnostic work-up, Recheck today's complaints, Continuance of care. - Problem is new. - Symptoms have improved. - Notes: YOUR CHEST XRAY SHOWED NO ABNORMALITIES TODAY. THIS IS MOST LIKELY AN ASTHMA EXACERBATION. YOU HAVE BEEN PRESCRIBED THE DUONEB NEBULIZER TREATMENTS. YOU MAY USE THESE DIRECTED IN PLACE OF THE REGULAR ALBUTEROL NEBULIZERS. THIS MAY HELP YOUR SYMPTOMS MORE THAN THE ALBUTEROL ALONE. FOLLOW UP FOR YOUR CT SCAN WITH DR. OLIVO NEXT WEEK AND RETURN TO THE ER WITH ANY WORSENING SYMPTOMS. Historical: - Allergies: Codeine Sulfate; - Home Meds: 1. Lasix 40 mg oral tab 1 tab once daily 2. lisinopril 10 mg oral tab 1 tab once daily 3. Singulair 10 mg Oral tab 1 tab once daily 4. Breo Ellipta 200-25 mcg/dose inhalation dsdv 1 puff once daily 5. Flonase 50 mcg/actuation Nasal spsn 1 spray 2 times per day 6. vivance 40mg daily 7. Topamax 50 mg oral tab 1 tab daily 8. Claritin 10 mg oral tab 1 tab once daily 9. Topamax 100 mg Oral tab 1 tab nightly 10. albuterol sulfate 90 mcg/actuation Inhl HFAA 2 puffs every 4 hours 11. albuterol sulfate 2.5 mg /3 mL (0.083 %) Inhl nebu 3 mL as needed 12. Nexium 20 mg Oral cpDR 1 cap once daily - PMHx: Asthma; Hypertension; Sleep Apnea w/ CPAP; - PSHx: Appendectomy; eye surgery; Tonsillectomy; deviated septum; D & C; lung biopsy; - Social history: Smoking status: Patient/guardian denies using No barriers to communication noted, The patient speaks fluent Egyptian. - Family history: Not pertinent. - : The pt / caregiver states he / she is not on anticoagulants. Home medication list is obtained from the patient, [employer] import data. - Exposure Risk Screening:: None identified. 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 10 in. (147.32 cm); Pain 0/10; 08:46 BP 130 / 81 (auto/); ml6 08:46 Pulse 106 MON; Resp 20; Pulse Ox 96% on 3 lpm NC; ml6 09:01 BP 108 / 64 (auto/); ml6 09:01 Pulse 104 MON; Resp 20; Pulse Ox 94% on 3 lpm NC; ml6 09:23 BP 116 / 55 (auto/); ml6 09:23 Pulse 92 MON; Resp 20; Pulse Ox 96% on 3 lpm NC; ml6 09:46 BP 127 / 60 (auto/); ml6 09:46 Pulse 88 MON; Resp 20; Pulse Ox 96% on 3 lpm NC; ml6 11:14 BP 106 / 57; Pulse 84; Resp 18; Temp 97.5(O); Pulse Ox 100% on 3 lpm NC; Pain 0/10; ct3 08:34 Body Mass Index 56.22 (122.02 kg, 147.32 cm) dls MDM: 08:52 IV Saline Lock ordered. dt4 08:52 Solu-MEDROL 125 mg IVP once ordered. dt4 08:52 Albuterol-Ipratropium 1 neb Nebulizer every 20 minutes x3 ordered. dt4 08:52 Call Respiratory ordered. dt4 08:53 Call Respiratory complete. ar3 08:53 Chest, 2 View (pa\E\lat) Ordered. EDMS 08:53 CBC with Diff Ordered. EDMS 08:53 Basic Metabolic Profile Ordered. EDMS 08:53 Troponin Ordered. EDMS 08:53 Cardiac Injury Profile Ordered. EDMS 08:57 Airline Counter Agent ordered. dt4 09:30 [facility] Payment Agreement was scanned into [employer] and attached to record. dm19 09:30 Financial registration complete. dm19 10:04 Potassium Chloride Extended Release Tablet 40 mEq PO once ordered. dt4 10:37 guaiFENesin Liquid 200 mg PO once ordered. dt4 11:36 T-Sheet-- Draft Copy was scanned into [employer] and attached to record. [facility] Administered Medications: 09:00 Drug: Albuterol-Ipratropium 1 neb [ipratropium-albuterol 0.5 mg-3 mg(2.5 mg base)/3 mL kt1 nebulization soln (1 neb)] Route: Nebulizer; 09:10 Drug: Solu-MEDROL 125 mg [Solu-Medrol 500 mg intravenous solution (125 mg)] Route: IVP; ml6 Site: right antecubital; 10:10 Drug: Potassium Chloride 40 mEq [potassium chloride ER 10 mEq tablet,extended release ml6 (4 tabs)] Route: PO; 11:25 Drug: guaiFENesin 200 mg [guaifenesin 100 mg/5 mL oral liquid (10 mL)] Route: PO; jf3 Signatures: Dispatcher [employer] EDMS Dina Parra RN RN dls Tomasa Wong, DELVIN SPECIALIST ICU ar3 Erlinda Hardy, PA-C PA-C dt4 Jon Gonzalez RN RN jf3 Yara Suero Diane dm19 Arabella Flaherty kt1 Matt Garcia RN ml6 The chart was reviewed and I authenticate all verbal orders and agree with the evaluation and treatment provided.Attachments: 09:30 [facility] [place] dm19 11:36 T-Sheet-- Draft Copy [facility] Chart Complete MTDD
--- NOTE | 2016-07-02 10:55 | EDDOCDS ---
Physician Documentation [facility] Name: Conchis Morel Age: 31 yrs Sex: Female : 1985 Arrival Date: 06/29/2016 Time: 08:20 Bed 9 Private MD: Reema Parra Disposition: 06/29/16 10:40 Discharged to Home/Self Care. Impression: Unspecified asthma with (acute) exacerbation, Shortness of breath, Hypokalemia. - Condition is Stable. - Discharge Instructions: Asthma, Adult, Shortness of Breath, Hypokalemia. - Prescriptions for Prednisone 20 mg Oral Tablet - take 3 tablets by ORAL route once daily for 4 days START ON 06/30/16; 12 tablet. ipratropium- albuterol 0.5 mg-3 mg(2.5 mg base)/3 mL Inhalation Solution for Nebulization - inhale 1 ampule by INHALATION route 3-4 times daily As needed; 1 box. - Medication Reconciliation, Local Pharmacy Hours form. - Follow up: Emergency Department; When: As needed; Reason: Worsening of conditions. Follow up: Private Physician; When: 1 - 2 days; Reason: Wound/Symptom Recheck, Recheck today's complaints, Continuance of care. Follow up: Paulino Olivo DO; When: AT YOUR SCHEDULED APPOINTMENT ON 07/02/[address]; Reason: Wound/Symptom Recheck, Further diagnostic work-up, Recheck today's complaints, Continuance of care. - Problem is new. - Symptoms have improved. - Notes: YOUR CHEST XRAY SHOWED NO ABNORMALITIES TODAY. THIS IS MOST LIKELY AN ASTHMA EXACERBATION. YOU HAVE BEEN PRESCRIBED THE DUONEB NEBULIZER TREATMENTS. YOU MAY USE THESE DIRECTED IN PLACE OF THE REGULAR ALBUTEROL NEBULIZERS. THIS MAY HELP YOUR SYMPTOMS MORE THAN THE ALBUTEROL ALONE. FOLLOW UP FOR YOUR CT SCAN WITH DR. OLIVO NEXT WEEK AND RETURN TO THE ER WITH ANY WORSENING SYMPTOMS. Historical: - Allergies: Codeine Sulfate; - Home Meds: 1. Lasix 40 mg oral tab 1 tab once daily 2. lisinopril 10 mg oral tab 1 tab once daily 3. Singulair 10 mg Oral tab 1 tab once daily 4. Breo Ellipta 200-25 mcg/dose inhalation dsdv 1 puff once daily 5. Flonase 50 mcg/actuation Nasal spsn 1 spray 2 times per day 6. vivance 40mg daily 7. Topamax 50 mg oral tab 1 tab daily 8. Claritin 10 mg oral tab 1 tab once daily 9. Topamax 100 mg Oral tab 1 tab nightly 10. albuterol sulfate 90 mcg/actuation Inhl HFAA 2 puffs every 4 hours 11. albuterol sulfate 2.5 mg /3 mL (0.083 %) Inhl nebu 3 mL as needed 12. Nexium 20 mg Oral cpDR 1 cap once daily - PMHx: Asthma; Hypertension; Sleep Apnea w/ CPAP; - PSHx: Appendectomy; eye surgery; Tonsillectomy; deviated septum; D & C; lung biopsy; - Social history: Smoking status: Patient/guardian denies using No barriers to communication noted, The patient speaks fluent Bolivian. - Family history: Not pertinent. - : The pt / caregiver states he / she is not on anticoagulants. Home medication list is obtained from the patient, [employer] import data. - Exposure Risk Screening:: None identified. 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 10 in. (147.32 cm); Pain 0/10; 08:46 BP 130 / 81 (auto/); ml6 08:46 Pulse 106 MON; Resp 20; Pulse Ox 96% on 3 lpm NC; ml6 09:01 BP 108 / 64 (auto/); ml6 09:01 Pulse 104 MON; Resp 20; Pulse Ox 94% on 3 lpm NC; ml6 09:23 BP 116 / 55 (auto/); ml6 09:23 Pulse 92 MON; Resp 20; Pulse Ox 96% on 3 lpm NC; ml6 09:46 BP 127 / 60 (auto/); ml6 09:46 Pulse 88 MON; Resp 20; Pulse Ox 96% on 3 lpm NC; ml6 11:14 BP 106 / 57; Pulse 84; Resp 18; Temp 97.5(O); Pulse Ox 100% on 3 lpm NC; Pain 0/10; ct3 08:34 Body Mass Index 56.22 (122.02 kg, 147.32 cm) dls MDM: 08:52 IV Saline Lock ordered. dt4 08:52 Solu-MEDROL 125 mg IVP once ordered. dt4 08:52 Albuterol-Ipratropium 1 neb Nebulizer every 20 minutes x3 ordered. dt4 08:52 Call Respiratory ordered. dt4 08:53 Call Respiratory complete. ar3 08:53 Chest, 2 View (pa\E\lat) Ordered. EDMS 08:53 CBC with Diff Ordered. EDMS 08:53 Basic Metabolic Profile Ordered. EDMS 08:53 Troponin Ordered. EDMS 08:53 Cardiac Injury Profile Ordered. EDMS 08:57 Tablet Technician ordered. dt4 09:30 [facility] Payment Agreement was scanned into [employer] and attached to record. dm19 09:30 Financial registration complete. dm19 10:04 Potassium Chloride Extended Release Tablet 40 mEq PO once ordered. dt4 10:37 guaiFENesin Liquid 200 mg PO once ordered. dt4 11:36 T-Sheet-- Draft Copy was scanned into [employer] and attached to record. [facility] Administered Medications: 09:00 Drug: Albuterol-Ipratropium 1 neb [ipratropium-albuterol 0.5 mg-3 mg(2.5 mg base)/3 mL kt1 nebulization soln (1 neb)] Route: Nebulizer; 09:10 Drug: Solu-MEDROL 125 mg [Solu-Medrol 500 mg intravenous solution (125 mg)] Route: IVP; ml6 Site: right antecubital; 10:10 Drug: Potassium Chloride 40 mEq [potassium chloride ER 10 mEq tablet,extended release ml6 (4 tabs)] Route: PO; 11:25 Drug: guaiFENesin 200 mg [guaifenesin 100 mg/5 mL oral liquid (10 mL)] Route: PO; jf3 Signatures: Dispatcher [employer] EDMS Dina Parra RN RN dls Tomasa Wong, DELVIN LOGISTICS ANALYST ar3 Erlinda Hardy, PA-C PA-C dt4 Jon Gonzalez RN RN jf3 Yara Suero Diane dm19 Arabella Flaherty kt1 Matt Garcia RN ml6 The chart was reviewed and I authenticate all verbal orders and agree with the evaluation and treatment provided.Attachments: 09:30 [facility] [place] dm19 11:36 T-Sheet-- Draft Copy [facility] Chart Complete MTDD
== END 2016-06-29 11:27 | disposition home or self-care (01) ==
LOC: M ED 08:20
DX: J45.901 Unspecified asthma with (acute) exacerbation (principal); E87.6 Hypokalemia; I10 Essential (primary) hypertension; G47.30 Sleep apnea, unspecified; E66.01 Morbid (severe) obesity due to excess calories; Z79.899 Other long term (current) drug therapy; Z79.51 Long term (current) use of inhaled steroids; Z88.5 Allergy status to narcotic agent; F17.200 Nicotine dependence, unspecified, uncomplicated; Z68.43 Body mass index [BMI] 50.0-59.9, adult
CPT/HCPCS: 36415; 71020; 80048; 82550; 82553; 85025; 93041; 94640; 96374; 99284; J2930

== ENCOUNTER → 2016-07-02 | Outpatient (CLI) | payer OTHER ==
--- NOTE | 2016-07-02 17:33 | REP ---
CT chest without contrast, 07/02/2016: Indication: Severe persistent asthma, uncomplicated. Comparison made with prior CT s of chest 05/22/2016, 04/27/2015, CTA chest 11/25/2014. Technique: 3 mm contiguous spiral axial sections performed through chest without contrast. Findings: The thoracic aorta is without aneurysm. There are no pathologically enlarged mediastinal hilar lymph nodes. The heart is of normal size. Mild patchy interstitial infiltrates are seen bilaterally, slightly improved from prior studies 05/22/2016 and 04/27/2015, and significantly improved when compared with 11/25/2014. Mild bibasilar fibroatelectatic changes and/or scarring are also noted. There are no alveolar infiltrates or pleural effusions. 4 mm pulmonary nodule present within the lateral basilar segment left lower lobe on image 71, series 201 and abutting the major fissure, unchanged. Visualized portions of the liver, spleen, pancreas, gallbladder, and adrenal glands are normal. There are no lytic or blastic lesions of bone. Impression: 1. Mild bilateral patchy interstitial infiltrates which have not improved compared with prior studies. 2. Mild bibasilar fibroatelectatic changes. 3. Stable 4 mm pulmonary nodule in the lateral basilar segment of the left lower lobe, unchanged from CT 04/27/2015. May consider follow up CT chest in 12 months for pulmonary nodule. Signed by Nayeli Albarado MD 07/02/2016 10:04 P
== END ==
LOC: M RAD 14:52
PROVIDERS: ATTEND Internal Medicine Pulmonary Disease
DX: J45.50 Severe persistent asthma, uncomplicated (principal); R91.1 Solitary pulmonary nodule

== ENCOUNTER 2016-07-14 15:34 | Inpatient (IN) | payer OTHER ==
[~2016-07-14] VITALS: Ht 147.3 cm; Wt 116.0 kg
[2016-07-14 16:38] LABS: MEAN CORPUSCULAR HEMOGLOBIN 22.2 pg (27.0-33.0); MEAN CORPUSCULAR VOLUME 74.1 fl (80.0-96.0); RED CELL DISTRIBUTION WIDTH 17.7 % (11.5-14.5); WHITE BLOOD COUNT 12.3 K/mm3 (4.0-10.0)
[2016-07-14 16:51] LABS: CONTROL LINE HCG INT CTR LINE PRESENT
[2016-07-14 17:07] LABS: ALBUMIN 4.2 GM/DL (3.2-5.2); ALBUMIN/GLOBULIN RATIO 1.31 (1.00-1.93); ALKALINE PHOSPHATASE 83 U/L (45-117); ALT/SGPT 37 U/L (12-78); ANION GAP 13 MEQ/L (8-16); AST/SGOT 18 U/L (15-37); BILIRUBIN,DIRECT 0.3 MG/DL (0.0-0.2); BILIRUBIN,TOTAL 1.3 MG/DL (0.2-1.0); BLOOD UREA NITROGEN 13 MG/DL (7-18); CALCIUM LEVEL 8.9 MG/DL (8.5-10.1); CARBON DIOXIDE LEVEL 25 MEQ/L (21-32); CHLORIDE LEVEL 103 MEQ/L (98-107); GLOMERULAR FILTRATION RATE > 60.0 (>60); GLUCOSE, FASTING 92 MG/DL (70-105); POTASSIUM SERUM 3.6 MEQ/L (3.5-5.1); SODIUM LEVEL 141 MEQ/L (136-145); TOTAL PROTEIN 7.4 GM/DL (6.4-8.2)
[2016-07-14 18:32] LABS: AMPHETAMINES LEVEL URINE NEGATIVE (NEGATIVE); BENZODIAZEPINES URINE NEGATIVE (NEGATIVE); COCAINE METABOLITE URINE NEGATIVE (NEGATIVE); CONTROL LINE INT CTR LINE PRESENT; METHADONE URINE NEGATIVE (NEGATIVE); OPIATES URINE NEGATIVE (NEGATIVE); TRICYCLIC ANTIDEPRESS URINE NEGATIVE (NEGATIVE)
[2016-07-14] MEDS ORDERED: QUEtiapine FUMARATE 100 MG TAB PO PRN (19:30)
[2016-07-14] MEDS ORDERED: MAALOX 30 ML SUSP *UDC PO PRN (19:30)
[2016-07-14] MEDS ORDERED: MOM 30ML SUSPENSION UDC PO PRN (19:30)
[2016-07-14] MEDS ORDERED: ACETAMINOPHEN TAB 650MG DOSE (2X325MG) PO PRN (19:30)
[2016-07-14] MEDS ORDERED: TOPA100T8 PO (19:35)
[2016-07-14] MEDS ORDERED: TOPA50TA7 PO (19:35)
[2016-07-14] MEDS ORDERED: SING10TA32 PO (19:40)
[2016-07-14] MEDS ORDERED: PRED10PA PO (19:40)
[2016-07-14] MEDS ORDERED: PROA1AER INH (19:40)
[2016-07-14] MEDS ORDERED: CLAR1TAB2 PO (19:40)
[2016-07-14] MEDS ORDERED: LISI10TA4 PO (19:40)
[2016-07-14] MEDS ORDERED: ALBU83IN INH (19:40)
[2016-07-14] MEDS ORDERED: BREO1INH3 INH (19:40)
[2016-07-14] MEDS ORDERED: VYVA40CA3 PO (19:40)
[2016-07-14] MEDS ORDERED: NEXI20CA PO (19:40)
[2016-07-14] MEDS ORDERED: LASI40TA PO (19:40)
[2016-07-14] MEDS ORDERED: FLON1SPR (19:40)
--- NOTE | 2016-07-14 20:19 | EDDOCDS ---
Nurse's Notes [facility] Name: Conchis Morel Age: 31 yrs Sex: Female : 1985 Arrival Date: 07/14/2016 Time: 15:34 Bed [facility] Private MD: Reema Parra ANP- Diagnosis: Unspecified psychosis not due to a substance or known physiological condition Presentation: 07/14 15:50 Presenting complaint: Patient states: stopped Vyvance and Topamax on Friday because she kr3 ' was not loosing weight'. Reports wants to get closer to God and her plan was to burn all her stuffed animals and smashed TV's in home. Denies SI or HI. Reports has been fasting and has had only sips of water for several days. Reports had depression and anxiety as teenager with admission but no recent problems. [employer] for reports he was contacted by patient's father in law of because of his concern. is in [place] for training and he was contacted and spoke with . Again today father in law contacted [employer] because of bizarre phone conversation and was contacted. was concerned because he thought patient may have killed a dog in the home. Mental Health Triage Level: Level 2: see note. Adult Sepsis Screening: The patient does not have new or worsening altered mentation. Patient's respiratory rate is less than 22. Systolic blood pressure is greater than 100. Patient has a qSOFA score of 0- Negative Sepsis Screen. Suicide/Homicide risk assessment- The patient reports that he/she has not been admitted to an inpatient mental health facility in the last 30 days. Status: The patient is a dependent. Transition of care: patient was not received from another setting of care. 15:50 Acuity: BOOGIE Level 3 kr3 15:50 Method Of Arrival: Walkin/Carried/Asstd kr3 16:18 Red Flag criteria, patient assessed and taken directly to a bed. kr3 Triage Assessment: 15:55 General: Appears in no apparent distress, comfortable, Behavior is cooperative. Pain: kr3 Denies pain. HIV screening NA for this visit Offered previously. The patient is triaged at the bedside. See Assessment in Nurses Notes section of ED record. Neurological: Level of Consciousness is awake, alert. Respiratory: Respiratory effort is even, unlabored. Derm: Skin is normal. REGISTRAR NURSES' REGISTRY: 15:56 patient reports menses is 'all the time'. kr3 Historical: - Allergies: Codeine Sulfate; - Home Meds: 1. Topamax 50 mg Oral tab 1 tab daily stopped on Friday 2. Topamax 100 mg Oral tab 1 tab nightly stopped on Friday 3. Vyvanse 40 mg oral cap 1 cap once daily stopped on Friday 4. albuterol sulfate 90 mcg/actuation Inhl HFAA 2 puffs every 4 hours pt reports she forgot to take her meds for the last couple. (Last dose: Unknown) 5. albuterol sulfate 2.5 mg /3 mL (0.083 %) Inhl nebu 3 mL as needed pt reports she forgot to take her meds for the last couple. (Last dose: Unknown) 6. Breo Ellipta 200-25 mcg/dose inhalation dsdv 1 puff once daily pt reports she forgot to take her meds for the last couple. (Last dose: Unknown) 7. Claritin 10 mg Oral tab 1 tab once daily pt reports she forgot to take her meds for the last couple. (Last dose: Unknown) 8. Flonase 50 mcg/actuation Nasal spsn 1 spray 2 times per day pt reports she forgot to take her meds for the last couple. (Last dose: Unknown) 9. Lasix 40 mg Oral tab 1 tab once daily pt reports she forgot to take her meds for the last couple. (Last dose: Unknown) 10. lisinopril 10 mg Oral tab 1 tab once daily pt reports she forgot to take her meds for the last couple. (Last dose: Unknown) 11. Nexium 20 mg Oral cpDR 1 cap once daily pt reports she forgot to take her meds for the last couple. (Last dose: Unknown) 12. Singulair 10 mg Oral tab 1 tab once daily pt reports she forgot to take her meds for the last couple. (Last dose: Unknown) 13. vivance 40mg daily - PMHx: Asthma; Hypertension; Sleep Apnea w/ CPAP; Depression; Anxiety; - PSHx: Appendectomy; eye surgery; Tonsillectomy; deviated septum; D & C; lung biopsy; - Social history: Smoking status: Patient states was never smoker of tobacco. No barriers to communication noted, The patient speaks fluent Vietnamese, Speaks appropriately for age. - Family history: No immediate family members are acutely ill. - : The pt / caregiver states he / she is not on anticoagulants. Home medication list is obtained from the patient. - Exposure Risk Screening:: None identified. Screenin:39 Screening information is obtained from the patient. Fall risk: No risks identified. mb9 Assistance ADL's: requires no assistance with activities of daily living. Abuse/DV Screen: The patient / caregiver reports he/she is: not in a situation that causes fear, pain or injury. Nutritional screening: No deficits noted. Advance Directives: There is no active DNR order. home support is adequate. Assessment: 16:35 General: Appears in no apparent distress, Behavior is flat. General: when asked why she mb9 is here pt states, "I did some things I shouldn't have done". when asked to elaborate pt states, "I gave all the money we have to the [employer]. I was gonna burn all of my stuffed animals because they were idols and god told me to. I was also gonna burn the tree. I think my is gonna divorce me.". . Pain: Denies pain. Respiratory: Airway is patent Respiratory effort is even, unlabored. 18:38 Reassessment: Patient appears in no apparent distress at this time. General: Appears in mb9 no apparent distress, Behavior is appropriate for age, cooperative, pt resting comfortably. security observing.. Respiratory: Airway is patent Respiratory effort is even, unlabored. 20:08 General: Appears in no apparent distress, comfortable, Behavior is appropriate for age, mf4 cooperative, resting on stretcher awaiting for admission to [facility] . Respiratory: Airway is patent Respiratory effort is even, unlabored. Mental Health Eval: 16:52 Status: The patient is a dependent. [facility] Behavioral Health: The jl patient is not an established patient of [facility] Behavioral Health. Referral Information: Evaluation referral is generated by her [id number] (Mohan Morel: [phone]). The patient was referred for evaluation because her [id number] reported that his son (the patient's , who is currently in [place] for training) contacted him with concerns. He reported that patient's stated that he feared that patient may have killed one of their dogs & asked that he go & check on her. He stated that patient had been acting oddly for a couple of days, & when he met with her today, appeared to have deteriorated further. Subjective: The patients chief complaint is "I think I've went a little nuts". Delusions are elicited, generally religiously based. Patient's mood is anxious. hallucinations are denied, and not evident during the interview. Patient is easily approached, although difficult to follow at times & is somewhat loose in her associations. She states that she had been on Vivance & Topmax for weight loss, prescribed her PCP. She denies having any psychiatric hx since being in High School, when she was briefly admitted for depression & self-mutilation. She states that her phoned her from [place] on Friday & told her to flush her medications down the toilet,& she has been without them since. She relates feeling "odd" since the meds were D/C'd. She reports that she emptied their bank accounts ($500-$600) and gave it away to a foundation "That will help rebuild [place]". This occurred either Friday or yesterday, she is unable to recall which day. She states that she had planned to burn their [place] tree & all of her stuffed animals, as well as smashing the televisions, in order to be, "Close to God". When asked to elaborate, she became flustered & unable to explain this. She denied being a temple person, noting, "I believe in God, but I don't go to taoism or anything". She then continued to say that she wanted to find a way to be closer to God several times. She said that she went to several churches today, "But none felt right, so I left". She is grossly oriented, however appears to be having difficulty with her thoughts. She is currently staying alone in her 's absence. Mental Health history: depression, self -mutilation, Mental Health Admissions: [place], as a teenager Current Outpatient Mental Health Services: None. Current living environment is The patient currently lives with her , who is away for several weeks at [facility]. Patient presents to Emergency Department with the following symptoms within the past 2 weeks: anxiety, delusions of temple theme. non-compliance, poor concentration, sleep disturbance - erratic. Substance abuse: Pt denies. Mental status exam: Patients appearance is obese, Patient's behavior is cooperative, Speech is unspontaneous Affect is broad. Mood is anxious. Hallucinations are denied. Appetite is normal. Memory is fair. Energy level is normal. Content of thought is religiously preoccupied Thought process is loose. Cognitive level is oriented to person, place, time and situation Patient's insight is poor. Judgement is poor. Rapport with interviewer is good. Suicidal Ideation is denied. Homicidal ideation is denied. 19:04 Disposition: Medically cleared for disposition by Tone Rebolledo MD Psychiatric Consult jl is performed by phone with Dr Isac Garcia MD. [facility] Admission Criteria: The patient displays symptoms of severe psychiatric disorder resulting in disordered behavior and significant interference with his / her ability to maintain self care. Delusions. The patient requires continuous observation and/or control to protect self, others or property. The patient's care requires a multi-modal treatment plan under close supervision and coordination due to the complexity and severity of the patient's symptoms. Legal Status: Patient's legal status will be Emergency admission: 39. [place] Safe [place] Safe [place] is not applicable because the patient does not display any suicidal or homicidal ideations and does not pose a risk to self or others. DSM-V Differential Diagnosis: Unspecified Psychotic Disorder (F29). Insurance Pre-Certification: Not Required. Social Work Consult: 17:54 Social Work Note: [employer] contacted by this va underwriter. Per Maddy Arcos [facility] ac human resources representative, message will be given to pt's and his chain of command requesting that pt's return from [facility] in [place], [place]. Reference # is [id number]. Vital Signs: 15:36 BP 148 / 86; Pulse 104; Resp 18 S; Temp 99.6(O); Pulse Ox 92% on R/A; Weight 115.67 kg gr2 (R); Height 4 ft. 10 in. (147.32 cm) (R); Pain 3/10; 18:39 BP 140 / 92; Pulse 91; Resp 17; Temp 99.4; Pulse Ox 97% ; Pain 0/10; mb9 15:36 Body Mass Index 53.29 (115.67 kg, 147.32 cm) gr2 Vitals: 15:36 Log In Time: July 14, 2016 at 15:36. RN notified that patient meets Red Flag gr2 criteria. ED Course: 15:35 Patient visited by Sheryl Godinez. gr2 15:35 Reema Parra is Private Physician. gr2 15:35 Patient moved to Waiting gr2 15:40 Patient visited by Sheryl Godinez. gr2 15:40 Patient moved to Pre RCE gr2 15:41 Patient moved to [facility] dpm 15:43 Tone Rebolledo MD is Attending Physician. br1 15:55 Triage Initiated kr3 16:04 Patient visited by Zia Payne. dpm 16:06 Pt greeted and oriented to ED. Patient advised of names of staff involved in care, dpm location of call hall, wait times and NPO status. Patient has correct armband on for positive identification. Placed in gown. Placed in psych safe attire. Side rails up X 1. Security observing. Property removed, inventory done, secured in belongings bag- placed in locked locker. Placed in locker 3. Chelsea (HYDRAULIC ELEVATOR CONSTRUCTOR) observed pt while changing. Psych Safety Check: Location: Psych Room. Visual Assessment: Cooperative. 16:13 Patient visited by Tone Rebolledo MD. br1 16:27 Patient visited by Zia Payne. dpm 16:35 Acetaminophen Level Sent. mb9 16:35 Basic Metabolic Profile Sent. mb9 16:39 The patient / caregiver is instructed regarding the plan of care and ED course. mb9 16:40 [facility] Payment Agreement was scanned into [employer] and attached to record. ks16 16:43 Patient visited by Zia Payne. dpm 16:58 Patient visited by Zia Payne. dpm 17:13 Patient visited by Zia Payne. dpm 17:39 Patient visited by Zia Payne. dpm 17:56 Patient visited by Chelsea Valenzuela. nb2 17:56 Psych Safety Check: Location: Psych Room. Visual Assessment: Cooperative. nb2 18:10 Patient visited by Zia Payne. dpm 18:29 Patient visited by Zia Payne. dpm 18:44 Patient visited by Zia Payne. dpm 18:55 Isac Garcia MD is Hospitalizing Provider. br1 18:57 Patient visited by Zia Payne. dpm 19:10 Patient visited by Vlad Crawley. rn1 19:22 E Legal paperwork was scanned into [employer] and attached to record. jl 19:23 Patient visited by Vlad Crawley. rn1 19:31 Patient visited by Vlad Crawley. rn1 19:45 Patient visited by Vlad Crawley. rn1 19:59 Patient visited by Vlad Crawley. rn1 20:17 No IV's were initiated during this patient's visit. No procedures done that require 4 assistance. Attachments: 19:22 [facility] Legal paperwork jl Order Results: Lab Order: Acetaminophen Level; SPEC'M 07/14/16 16:23 Test: ACETAMINOPHEN LEVEL; Value: < 2.0; Range: 10.0-30.0; Abnormal: Below low normal; Units: UG/ML; Status: F Lab Order: Basic Metabolic Profile; SPEC'M 07/14/16 16:23 Test: GLUCOSE, FASTING; Value: 92; Range: 70-105; Units: MG/DL; Status: F Test: BLOOD UREA NITROGEN; Value: 13; Range: 7-18; Units: MG/DL; Status: F Test: CREATININE FOR GFR; Value: 1.00; Range: 0.55-1.02; Units: MG/DL; Status: F Test: SODIUM LEVEL; Range: 136-145; Units: MEQ/L; Status: I Test: POTASSIUM SERUM; Range: 3.5-5.1; Units: MEQ/L; Status: I Test: CHLORIDE LEVEL; Range: 98-107; Units: MEQ/L; Status: I Test: CARBON DIOXIDE LEVEL; Range: 21-32; Units: MEQ/L; Status: I Test: ANION GAP; Range: 8-16; Units: MEQ/L; Status: I Test: CALCIUM LEVEL; Range: 8.5-10.1; Units: MG/DL; Status: I Test: GLOMERULAR FILTRATION RATE; Value: > 60.0; Range: >60; Status: F Test: SODIUM LEVEL; Value: 141; Range: 136-145; Units: MEQ/L; Status: F Test: POTASSIUM SERUM; Value: 3.6; Range: 3.5-5.1; Units: MEQ/L; Status: F Test: CHLORIDE LEVEL; Value: 103; Range: 98-107; Units: MEQ/L; Status: F Test: CARBON DIOXIDE LEVEL; Value: 25; Range: 21-32; Units: MEQ/L; Status: F Test: ANION GAP; Value: 13; Range: 8-16; Units: MEQ/L; Status: F Test: CALCIUM LEVEL; Value: 8.9; Range: 8.5-10.1; Units: MG/DL; Status: F Test Note: ; Units are mL/min/1.73 m2 Chronic Kidney Disease Staging per NKF: Stage I & II GFR >=60 Normal to Mildly Decreased Stage III GFR 30-59 Moderately Decreased Stage IV GFR 15-29 Severely Decreased Stage V GFR <15 Very Little GFR Left ESRD GFR <15 on LINE PULLER Lab Order: Complete Blood Count; SPEC'M 07/14/16 16:23 Test: WHITE BLOOD COUNT; Value: 12.3; Range: 4.0-10.0; Abnormal: Above high normal; Units: K/mm3; Status: F Test: RED BLOOD COUNT; Value: 5.31; Range: 4.00-5.40; Units: M/mm3; Status: F Test: HEMOGLOBIN; Value: 11.8; Range: 12.0-16.0; Abnormal: Below low normal; Units: g/dl; Status: F Test: HEMATOCRIT; Value: 39.3; Range: 36.0-47.0; Units: %; Status: F Test: MEAN CORPUSCULAR VOLUME; Value: 74.1; Range: 80.0-96.0; Abnormal: Below low normal; Units: fl; Status: F Test: MEAN CORPUSCULAR HEMOGLOBIN; Value: 22.2; Range: 27.0-33.0; Abnormal: Below low normal; Units: pg; Status: F Test: MEAN CORPUSCULAR HGB CONC; Value: 30.0; Range: 32.0-36.5; Abnormal: Below low normal; Units: g/dl; Status: F Test: RED CELL DISTRIBUTION WIDTH; Value: 17.7; Range: 11.5-14.5; Abnormal: Above high normal; Units: %; Status: F Test: PLATELET COUNT, AUTOMATED; Value: 301; Range: 150-450; Units: k/mm3; Status: F Lab Order: Drug Eval Toxicology ED Only; SPEC'M 07/14/16 18:07 Test: AMPHETAMINES LEVEL URINE; Value: NEGATIVE; Range: NEGATIVE; Status: F Test: BARBITURATES URINE; Value: NEGATIVE; Range: NEGATIVE; Status: F Test: BENZODIAZEPINES URINE; Value: NEGATIVE; Range: NEGATIVE; Status: F Test: CANNABINOIDS URINE; Value: NEGATIVE; Range: NEGATIVE; Status: F Test: COCAINE METABOLITE URINE; Value: NEGATIVE; Range: NEGATIVE; Status: F Test: METHADONE URINE; Value: NEGATIVE; Range: NEGATIVE; Status: F Test: OPIATES URINE; Value: NEGATIVE; Range: NEGATIVE; Status: F Test: TRICYCLIC ANTIDEPRESS URINE; Value: NEGATIVE; Range: NEGATIVE; Status: F Test Note: ; ALL PRESUMPTIVE POSITIVE FINDINGS ARE UNCONFIRMED NORMAL VALUES THRESHOLD IN NG/ML AMPHETAMINES 1000 METHAMPHETAMINES 1000 BARBITURATES 300 BENZODIAZEPINES 300 CANNABINOIDS (THC) 50 COCAINE METABOLITE 300 METHADONE 300 OPIATES 300 PHENCYCLIDINE 25 TRICYCLIC ANTIDEPRESSANTS 1000 RESULTS ARE FOR MEDICAL PURPOSES ONLY. ALL URINE SPECIMENS WILL BE SAVED FOR 3 DAYS. IF CONFIRMATION OF A PRESUMPTIVE POSTIVE SCREEN RESULT IS DESIRED, CALL CHEMISTRY ([phone]) AND REQUEST URINE TO BE SENT TO REFERENCE LAB. FOR A LIST OF CLOSELY RELATED COMPOUNDS PLEASE CALL THE LAB. Lab Order: Ethyl Alcohol (ethanol); SPEC'M 07/14/16 16:23 Test: ETHYL ALCOHOL (ETHANOL); Value: < 0.003; Range: 0.000-0.010; Units: %; Status: F Lab Order: HCG,Serum Qualitative; SPEC'M 07/14/16 16:23 Test: HCG, SERUM QUALITATIVE; Value: NEGATIVE; Range: NEGATIVE; Status: F Lab Order: Liver Profile; SPEC'M 07/14/16 16:23 Test: AST/SGOT; Value: 18; Range: 15-37; Units: U/L; Status: F Test: ALT/SGPT; Value: 37; Range: 12-78; Units: U/L; Status: F Test: ALKALINE PHOSPHATASE; Value: 83; Range: 45-117; Units: U/L; Status: F Test: BILIRUBIN,TOTAL; Value: 1.3; Range: 0.2-1.0; Abnormal: Above high normal; Units: MG/DL; Status: F Test: BILIRUBIN,DIRECT; Value: 0.3; Range: 0.0-0.2; Abnormal: Above high normal; Units: MG/DL; Status: F Test: TOTAL PROTEIN; Value: 7.4; Range: 6.4-8.2; Units: GM/DL; Status: F Test: ALBUMIN; Value: 4.2; Range: 3.2-5.2; Units: GM/DL; Status: F Test: ALBUMIN/GLOBULIN RATIO; Value: 1.31; Range: 1.00-1.93; Status: F Lab Order: Salicylate Level; SPEC'M 07/14/16 16:23 Test: SALICYLATE LEVEL; Value: < 1.7; Range: 5.0-30.0; Abnormal: Below low normal; Units: MG/DL; Status: F Lab Order: Thyroid Stimulating Hormone; SPEC'M 07/14/16 16:23 Test: THYROID STIMULATING HORMONE; Value: 1.740; Range: 0.358-3.740; Units: uIU/ML; Status: F Outcome: 18:55 Decision to Hospitalize by Provider. br1 20:17 Discharge Assessment: Patient awake, alert and oriented x 3. No cognitive and/or mf4 functional deficits noted. Patient verbalized understanding of disposition instructions. patient administered narcotics - no. The following High Risk Discharge criteria are identified: None. Admitted to Psych accompanied by tech, via wheelchair. Condition: good Condition: stable. No special radiology studies were completed. 20:19 Patient left the ED. mf4 Signatures: Lorenzo Dsouza, PSA PSA Henri Mendieta PSA PSA Yvonne Albert,OSVALDO RN kr3 Tone Rebolledo MD MD br1 Lenny Irby,CURT HERCULESN mf4 Zia Payne dpm, Gainslee gr2 Dean Ruvalcaba,OSVALDO RN mb9 Vlad Crawley rn1 Janee More, Reg Reg ks16 Chelsea Valenzuela nb2 Corrections: (The following items were deleted from the chart) 19:21 16:52 Subjective: The patients chief complaint is "I think I've went a little nuts". jl Delusions are elicited, generally religiously based. Patient's mood is anxious. hallucinations are denied, and not evident during the interview. Patient is easily approached, although difficult to follow at times & is somewhat loose in her associations. She states that she had been on Vivance & Topmax for weight loss, prescribed her PCP. She denies having any psychiatric hx since being in [employer], when she was briefly admitted for depression & self-mutilation. She states that her phoned her from [place] on Friday & told her to flush her medications down the toilet,& she has been without them since. She relates feeling "odd" since the meds were D/C'd. She states that she had planned to burn their [place] tree & all of her stuffed animals, as well as smashing the televisions, in order to be, "Close to God". When asked to elaborate, she became flustered & unable to explain this. She denied being a temple person, noting, "I believe in God, but I don't go to taoism or anything". She then continued to say that she wanted to find a way to be closer to God several times. She said that she went to several churches today, "But none felt right, so I left". She is grossly oriented, however appears to be having difficulty with her thoughts. She is currently staying alone in her 's absence. misa MTDD
--- NOTE | 2016-07-14 20:19 | EDDOCDS ---
Physician Documentation [facility] Name: Conchis Morel Age: 31 yrs Sex: Female : 1985 Arrival Date: 07/14/2016 Time: 15:34 Bed [facility] Private MD: [facility] Disposition: 07/14/16 18:55 Hospitalization ordered by Isac Garcia for Inpatient Admission. Preliminary diagnosis is Unspecified psychosis not due to a substance or known physiological condition. - Bed requested for Admit. - Status is Inpatient Admission. mf4 - Condition is Stable. - Problem is new. - Symptoms are unchanged. Historical: - Allergies: Codeine Sulfate; - Home Meds: 1. Topamax 50 mg Oral tab 1 tab daily stopped on Friday 2. Topamax 100 mg Oral tab 1 tab nightly stopped on Friday 3. Vyvanse 40 mg oral cap 1 cap once daily stopped on Friday 4. albuterol sulfate 90 mcg/actuation Inhl HFAA 2 puffs every 4 hours pt reports she forgot to take her meds for the last couple. (Last dose: Unknown) 5. albuterol sulfate 2.5 mg /3 mL (0.083 %) Inhl nebu 3 mL as needed pt reports she forgot to take her meds for the last couple. (Last dose: Unknown) 6. Breo Ellipta 200-25 mcg/dose inhalation dsdv 1 puff once daily pt reports she forgot to take her meds for the last couple. (Last dose: Unknown) 7. Claritin 10 mg Oral tab 1 tab once daily pt reports she forgot to take her meds for the last couple. (Last dose: Unknown) 8. Flonase 50 mcg/actuation Nasal spsn 1 spray 2 times per day pt reports she forgot to take her meds for the last couple. (Last dose: Unknown) 9. Lasix 40 mg Oral tab 1 tab once daily pt reports she forgot to take her meds for the last couple. (Last dose: Unknown) 10. lisinopril 10 mg Oral tab 1 tab once daily pt reports she forgot to take her meds for the last couple. (Last dose: Unknown) 11. Nexium 20 mg Oral cpDR 1 cap once daily pt reports she forgot to take her meds for the last couple. (Last dose: Unknown) 12. Singulair 10 mg Oral tab 1 tab once daily pt reports she forgot to take her meds for the last couple. (Last dose: Unknown) 13. vivance 40mg daily - PMHx: Asthma; Hypertension; Sleep Apnea w/ CPAP; Depression; Anxiety; - PSHx: Appendectomy; eye surgery; Tonsillectomy; deviated septum; D & C; lung biopsy; - Social history: Smoking status: Patient states was never smoker of tobacco. No barriers to communication noted, The patient speaks fluent Dominican, Speaks appropriately for age. - Family history: No immediate family members are acutely ill. - : The pt / caregiver states he / she is not on anticoagulants. Home medication list is obtained from the patient. - Exposure Risk Screening:: None identified. 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 kr3 Vital Signs: 15:36 BP 148 / 86; Pulse 104; Resp 18 S; Temp 99.6(O); Pulse Ox 92% on R/A; Weight 115.67 kg gr2 / 255.01 lbs (R); Height 4 ft. 10 in. (147.32 cm) (R); Pain 3/10; 18:39 BP 140 / 92; Pulse 91; Resp 17; Temp 99.4; Pulse Ox 97% ; Pain 0/10; mb9 15:36 Body Mass Index 53.29 (115.67 kg, 147.32 cm) gr2 MDM: 16:04 REGULAR DIET PLASTIC NIEVES+DIET ordered. EDMS 16:13 Consult PFS/PSA/High School Social Studies Teacher ordered. br1 16:13 Consult PFS/PSA/High School Social Studies Teacher: Patient's case requires discussion with on-call br1 Psychiatrist ordered. 16:13 PSA/PFS to call Nursing Adult Basic Education Instructor, to enter patient data on [place] Safe [place] if patient br1 involuntarily admitted or transferred for SI or HI ordered. 16:13 Confirm accurate psychiatric medication list and times of last dosage ordered. br1 16:13 Detain Pt Until Medically/PFS Cleared ordered. br1 16:14 Acetaminophen Level Ordered. EDMS 16:14 Basic Metabolic Profile Ordered. EDMS 16:14 Complete Blood Count Ordered. EDMS 16:14 Drug Eval Toxicology ED Only Ordered. EDMS 16:14 Ethyl Alcohol (ethanol) Ordered. EDMS 16:14 HCG,Serum Qualitative Ordered. EDMS 16:14 Liver Profile Ordered. EDMS 16:14 Salicylate Level Ordered. EDMS 16:14 Thyroid Stimulating Hormone Ordered. EDMS 16:39 Financial registration complete. [email or web address] 16:40 [facility] Payment Agreement was scanned into [employer] and attached to record. [email or web address] 17:08 Complete Blood Count Reviewed. br1 17:08 HCG,Serum Qualitative Reviewed. br1 17:20 Acetaminophen Level Reviewed. br1 17:20 Liver Profile Reviewed. br1 17:20 Salicylate Level Reviewed. br1 17:20 Basic Metabolic Profile Reviewed. br1 17:20 Ethyl Alcohol (ethanol) Reviewed. br1 17:20 HCG,Serum Qualitative Reviewed. br1 17:20 Thyroid Stimulating Hormone Reviewed. br1 18:48 Drug Eval Toxicology ED Only Reviewed. br1 19:17 Admit to [facility]: ordered. EDMS 19:22 [facility] Legal paperwork was scanned into [employer] and attached to record. jl 19:29 REGULAR DIET ordered. EDMS 19:30 Consult PFS/PSA/High School Social Studies Teacher complete. jl 19:30 Consult PFS/PSA/High School Social Studies Teacher: Patient's case requires discussion with on-call jl Psychiatrist complete. 19:30 PSA/PFS to call Nursing Adult Basic Education Instructor, to enter patient data [place] Safe [place] if patient jl involuntarily admitted or transferred for SI or HI complete. Signatures: Dispatcher [employer] EDCO Henri Chew, PSA PSA Yvonne Albert,OSVALDO RN kr3 Tone Rebolledo MD MD br1 Lenny Irby,SENIOR BRANCH MANAGER SENIOR BRANCH MANAGER mf4 Dean Ruvalcaba RN RN mb9 Janee More, Reg Reg [email or web address] The chart was reviewed and I authenticate all verbal orders and agree with the evaluation and treatment provided.Attachments: 16:40 [facility] Payment Agreement [email or web address] MTDD
[2016-07-14 20:31] VITALS: BP 139/82
[2016-07-14] MEDS ORDERED: ALBUTEROL SULFATE 2.5 MG/0.5 ML INH NEB SOLN NEB PRN (21:00)
[2016-07-14] MEDS ORDERED: ALBUTEROL 90 MCG/ACT 8GM HFA INHALER INH PRN (21:00)
[2016-07-14] MEDS: FLUTICASONE PROP 0.05% NASAL SPRAY 16 GM (FLONASE) SCH (22:23)
[2016-07-14] MEDS: risperiDONE 1 MG TAB PO SCH (22:23)
[2016-07-15 06:32] VITALS: BP 113/53
[2016-07-15] MEDS: LORATADINE 10 MG TAB PO SCH (08:03)
[2016-07-15] MEDS: FLUTICASONE PROP 0.05% NASAL SPRAY 16 GM (FLONASE) SCH ×2 (08:04→21:47)
[2016-07-15] MEDS: OMEPRAZOLE 20 MG CAP PO SCH (08:04)
[2016-07-15] MEDS: MONTELUKAST 10 MG TAB PO SCH (08:04)
[2016-07-15] MEDS: FUROSEMIDE 40 MG TAB PO SCH (08:04)
[2016-07-15] MEDS: risperiDONE 1 MG TAB PO SCH ×2 (08:04→21:47)
[2016-07-15] MEDS: LISINOPRIL 10 MG TAB PO SCH (08:04)
[2016-07-15] MEDS ORDERED: BREO ELIPTA INH SCH (09:00)
[2016-07-15] MEDS: ADVAIR DISKUS 100/50 INH PWD INH SCH ×2 (09:00→21:47)
--- NOTE | 2016-07-15 10:13 | HPEPDOC ---
Medical History and Physical Date of Admission Jul 14, 2016 at 20:20 History and Physical PCP: Manuel Parra NP ATTENDING: Dr. Hardy Munguia HPI: 31yoF admitted to [facility] for Unspecified psychosis, being medically examined today. Patient states she has had some loose stools for the past couple of weeks. She denies any fevers or chills. Denies any abdominal pain. She has been eating and drinking. No nausea or vomiting. No melena or hematochezia. Denies any fevers, chills, weakness, fatigue, CAMPOS, CP, SOB, cough, palpitations, changes in bladder habits. PMHx: Depression Anxiety Self mutilation Asthma Allergic rhinitis HTN GERD JERI/CPAP Obesity, BMI 53.2 PSHX: Appendectomy eye surgery tonsillectomy deviated septum D&C Lung biopsy- Dr Dominique- chronic inflammation/interstitial fibrosis. 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 ROS: As noted in HPI, otherwise 11pt ROS of systems reviewed and remarkable only for LMP unknown. PE: GEN: 31 yo F, appears stated age. Well-nourished, well developed. No acute distress. Alert and oriented x 3. Pleasant, interactive. HEENT: Normocephalic, atraumatic. Pupils are equal, round, and reactive to light. Extraocular movements are intact. No nystagmus appreciated. Sclera are nonicteric. Conjunctiva without injection. Nose midline. Nasal turbinates without bogginess. EACs both patent BL. TMs both visualized and randall with good cone of light, no bulging or erythema. No facial asymmetry. Moist mucous membranes. Dentition fair. Pharynx pink and moist, no cobblestoning. Neck supple , trachea midline. No lymphadenopathy or thyromegaly appreciated. CHEST: Regular rate and rhythm, +S1, +S2 LUNGS: Clear to auscultation bilaterally. No wheezes, rales, or rhonchi. Breathing appears symmetric and easy. Patient is speaking in full sentences. No accessory muscle use. ABD: Round, soft, non-tender, non-distended. +Bowel sounds throughout. No rebound or guarding. No costovertebral angle tenderness. EXT: Pulses 2+ bilaterally dorsalis pedis and radial. No lower extremity edema appreciated. SKIN: [place], dry, warm. Capillary refill <2sec. No rashes. NEURO: Alert and oriented x 3. Cranial nerves III-XII are intact. No focal deficits appreciated. EKG: Pending. A&P: 31yoF admitted to [facility] for Unspecified psychosis 1. Psych. Plan per Psychiatry. Obtain baseline EKG to assure the safety of psychiatric medications as they can prolong the QT interval. Add RPR/Vitamin B12. Pt has not had any previous imaging of the brain completed. 2. Asthma. Continue albuterol 2 puffs every 4 hours as needed. Continue albuterol nebulizer every 4 hours as needed. Advair 100/50 one inhalation twice a day. Singulair 10 mg daily. 3. JERI/CPAP. CPAP from home with home settings. 4. GERD. Continue PPI daily. 5. Hypertension. Continue Lasix 40 mg daily. Lisinopril 10 mg daily with hold parameters. 6. Obesity. BMI 53.2. Complicates care. 7. Loose stool. Patient is somewhat vague with details. She does not report any abdominal pain, nausea, vomiting, fevers, chills. No abdominal discomfort on exam. Recheck CBC/CMP. GI panel. Encourage by mouth fluids. 8. Leukocytosis. Recheck CBC. Add UA/UC. 9. Follow up with PCP on discharge. Manuel Parra NP. 10. Staff member was present throughout exam,Josie RILEY. Vital Signs Vital Signs Label Value Date Time Patient Temperature 99.4 degrees F 07/15/16 0632 Temperature Source Tympanic 07/15/16 0632 Pulse 94 07/15/16 0632 Respiratory Rate 18 bpm 07/15/16 0632 Blood Pressure Assessment 113/53 (73) 07/15/16 0632 Laboratory Data Labs 24H Laboratory Tests 2 07/14/16 16:23: Acetaminophen Level < 2.0L, Aspartate Amino Transf (AST/SGOT) 18, Alanine Aminotransferase (ALT/SGPT) 37, Alkaline Phosphatase 83, Total Bilirubin 1.3H, Direct Bilirubin 0.3H, Albumin 4.2, Albumin/Globulin Ratio 1.31, Anion Gap 13, Calcium Level 8.9, Ethyl Alcohol Level < 0.003, Glomerular Filtration Rate > 60.0, Human Chorionic Gonadotropin, Qual NEGATIVE, Salicylates Level < 1.7L, Thyroid Stimulating Hormone (TSH) 1.740, Total Protein 7.4 07/14/16 18:07: Urine Amphetamine Level NEGATIVE, Urine Benzodiazepines Screen NEGATIVE, Urine Cannabinoids NEGATIVE, Urine Cocaine Metabolite NEGATIVE, Urine Opiates Screen NEGATIVE, Urine Barbiturates, Qualitative NEGATIVE, Urine Methadone Screen NEGATIVE, Urine Tricyclic Antidepressants NEGATIVE CBC/BMP Laboratory Tests 07/14/16 16:23 Red Blood Count 5.31, Mean Corpuscular Volume 74.1 L, Mean Corpuscular Hemoglobin 22.2 L, Mean Corpuscular Hemoglobin Concent 30.0 L, Red Cell Distribution Width 17.7 H Home Medications Scheduled (Vyvanse) 40 Mg Cap 40 MG PO DAILY (Flonase Allergy Relief) 50 Mcg/Act Spr 50 MCG NA BID Esomeprazole Magnesium Trihydr (Nexium) 20 Mg Cap 20 MG PO DAILY Fluticasone/Vilanterol (Breo Ellipta 200-25 Mcg/INH) 1 Inh Inh 1 PUFF INH DAILY Furosemide (Lasix) 40 Mg Tab 40 MG PO DAILY Lisinopril (Lisinopril) 10 Mg Tab 10 MG PO DAILY Loratadine (Claritin) 10 Mg Tab 10 MG PO DAILY Montelukast Sodium (Singulair) 10 Mg Tab 10 MG PO DAILY Prednisone (Prednisone) 10 Mg Oscar 10 MG PO ASDIRECTED pt on tapering dose. unsure when she started. last taken 07/12 Topiramate (Topamax) 50 Mg Tab 50 MG PO DAILY Topiramate (Topamax) 100 Mg Tab 100 MG PO QHS Scheduled PRN Albuterol Sulfate (Proair Hfa) 108 Mcg/Act Aer 2 PUFF INH Q4H PRN PRN SHORTNESS OF BREATH Albuterol Sulfate (Albuterol Sulfate) 2.5 Mg/3 Ml Nebu 2.5 MG INH PRN PRN PRN SHORTNESS OF BREATH Allergies Coded Allergies: Codeine (Verified Allergy, Unknown, 01/24/14) Ami Navarrete Jul 15, 2016 10:13
[2016-07-15 12:10] LABS: VITAMIN B12 LEVEL 1144 PG/ML (247-911)
[2016-07-15 18:00] VITALS: BP 135/60
--- NOTE | 2016-07-15 18:15 | HPEPDOC ---
[facility] History & Physical History and Physical DATE OF ADMISSION: Jul 14, 2016 at 20:20 Patient name: BRIDGETTE PAYNE CHIEF COMPLAINT: "[Acute onset of psychotic symptoms in association with newly started prescription Vyvanse]." HISTORY OF THE PRESENT ILLNESS: [31]-year-old [ female with no past psychiatric history presents to [facility] emergency department, brought by her 's captain. Patient presented after calling her mother-in- law to whom she expressed symptoms of increased agitation, confusion, insomnia, and racing thoughts. Per [id number] patient had been displaying these symptoms for the last 7 days or so. Per patient, she had recently been seen by a new provider in [facility]. She was referred to this provider by her PCM, Yon Parra, for weight loss counseling. Patient reports that the appointment was 06/23/2016. She reports that at this appointment she was prescribed Vyvanse and her prescription of Topamax, started by her PCM, was increased from 50 mg twice a day to 50 mg every morning and 100 mg po at bedtime. Patient reports that she finally discontinued these 2 medications on , 07/11/2016. Patient endorsed increased insomnia reporting sleeping 2- 3 hours per night over the last week. She reported to her xhjqsr-ny-ovy and erfehf-sf-bqx that she felt people were tunneling under her home and getting into her food and water poisoning her. She also expressed thoughts of burning all her stuffed animals as she felt they were "false idols". She also was noted to be religiously preoccupied attending advent 3-4 times per day. She attended advent 3 times on day of admission. Patient had also reported donating over $ 2000 to restorationist programs to help Jews in [place]. Per patient's opzyvd-xm-aqm, patient and her mother had been fighting which is usually a trigger for patient. Patient reports she had thoughts of getting closer to God and endorses that she had been experiencing racing thoughts and increasing anxiety. In the emergency department patient denied suicidal and homicidal ideations. Patient also reports a history of anxiety and depression in high school but denies any symptoms since high school. Per cwpfji-tr-hsa patient had called her who is in [place] on maneuvers. During this discussion she reported thoughts to kill the dogs and cats in their home. This prompted to call his captvasyl, who was able to bring patient into the emergency department for psychiatric evaluation. 's name is Timbo phone number #[phone]. This provider attempted to call patient's Cody but the call went to voicemail. This provider was unable to leave a voicemail at phone number provided #[phone] for patient's Cody. On interview this afternoon, patient denies ongoing racing thoughts. She reports some sedation but was told this was likely secondary to newly started Risperdal 1 mg by mouth twice a day. Patient informed Vyvanse and Topamax were discontinued. Patient reports the referral to weight loss counseling was supposed to be purely for counseling but that provider started her on Vyvanse and increased Topamax as well. Patient denies current paranoid ideations. She denies history of auditory or visual hallucinations. She currently denies, and denied in the emergency department, any suicidal or homicidal ideations. Patient has history of asthma, COPD, and ARDS. This provider will call Capt. Izquierdo again to ask if he is available to bring patient's CPAP machine and for use during this admission.] PAST PSYCHIATRIC HISTORY: [[facility]. ] Patient seen for the first time 06/23/2016. This is patient's only contact with outpatient or inpatient mental health care. Patient was on Vyvanse and Topamax for weight loss purposes. Patient reports history of depression and anxiety in high school. She reports no ongoing symptoms associated with depression or anxiety since high school. Patient reports no history of other psychotropic medication use. SUICIDE HX: denies Trauma HX: Patient denies history of physical abuse, emotional abuse, and sexual abuse. MEDICAL HISTORY: [Asthma, ARDS, obesity] HOME MEDICATIONS: Topamax Vyvanse ALLERGIES: Codeine FAMILY PSYCHIATRIC HISTORY: Polysubstance abuse issues reported with father. Anxiety and depression issues reported by patient with mother. SOCIAL HISTORY: [Patient lives with her and her animals dogs and cats. 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 Patient's father passed due to complications with polysubstance abuse. Patient and mother have a tumultuous relationship. She reports she does not want medical information shared with her mother should she call. Patient's is away in [place] for maneuvers. Patient reports no medical legal or occupational stressors currently. She reports average financial stressors currently. ] SUBSTANCE ABUSE HISTORY: [Patient denies substance abuse issues.] LEGAL HISTORY: [no current issues.] VITAL SIGNS: Within normal limits LABORATORY DATA: Within normal limits REVIEW OF SYSTEMS: [Please see physical exam findings documented by emergency department provider on emergency department H&P.] MENTAL STATUS EXAMINATION: pleasant, cooperative, well kempt, obese female, looks stated age, in NAD. Speech: Is RRR. Thought processes: [Linear and goal directed] Rate of thoughts: [wnl]. Thought content: [Appropriate]. Abstract reasoning: [Intact]. Abnormal or psychotic thoughts: [Denies current paranoid delusions but paranoid delusions were reported on admission.] Judgment: [Fair] Insight: [Fair] Oriented to: [A&O 3] Recent and Remote Memory: [Immediate, short-term and long-term memory is intact] . Attention Span and Concentration: [Fair]. Fund of knowledge: [Adequate] Mood: [Anxious]. Affect: [Anxious]. PROBLEM LIST: 1. [Resolving psychosis]. 2. [Anxiety]. 3. [Obesity, with desire to lose weight by diet/exercise means at this point]. ASSESSMENT: [Medication induced psychotic disorder (Vyvanse)]. MANAGEMENT PLAN: 1. [Admitted to inpatient mental health unit]. 2. [Discontinued Topamax and Vyvanse]. Continue all remaining home medications as prescribed. 3. [Start Risperdal 1 mg by mouth twice a day for agitation and psychotic symptoms]. 4. Collateral information from Cody and stepfather Mohan. 5. Contact Capt. Izquierdo for his ability to bring patient's CPAP machine to the unit for patient's use during this admission. 6. CPAP while asleep. 7. Oxygen sats twice a day. 8. Diet education per dietary consult. ESTIMATED LENGTH OF STAY: [3]-[5] days. Laboratory Data 24H Labs Laboratory Tests 2 07/14/16 18:07: Urine Amphetamine Level NEGATIVE, Urine Benzodiazepines Screen NEGATIVE, Urine Cannabinoids NEGATIVE, Urine Cocaine Metabolite NEGATIVE, Urine Opiates Screen NEGATIVE, Urine Barbiturates, Qualitative NEGATIVE, Urine Methadone Screen NEGATIVE, Urine Tricyclic Antidepressants NEGATIVE 07/15/16 00:00: Urine Amorphous Sediment SMALLH, Urine Appearance CLEAR, Urine Color SHARYN, Urine pH 6.0, Urine Specific [place] 1.003, Urine Protein NEGATIVE, Urine Glucose (UA) NEGATIVE, Urine Ketones NEGATIVE, Urine Urobilinogen 0.2, Urine Bilirubin NEGATIVE, Urine Leukocyte Esterase 1+H, Urine Bacteria (Auto) 1+H, Urine Blood 3+H, Urine Calcium Carbonate Cryst(Auto) , Urine Calcium Oxalate Cryst (Auto) , Urine Calcium Phosphate Saima (Auto) , Urine Cellular Casts , Urine Cystine Crystals , Urine Granular Casts (Auto) , Urine Hyaline Casts (Auto ) 0, Urine Leucine Crystals , Urine Mucus (Auto) , Urine Nitrite NEGATIVE, Urine Oval Fat Bodies (Auto) , Urine RBC (Auto) 4H, Urine Renal Epithelial Cells , Urine Sperm (Auto) , Urine Squamous Epithelial Cells 1, Urine Transitional Epithelial Cells , Urine Trichomonas (Auto) , Urine Triple Phosphate Cryst (Auto) , Urine Tyrosine Crystals , Urine Uric Acid Crystals ( Auto) , Urine WBC (Auto) 2, Urine Waxy Casts (Auto) , Urine Yeast-Like Cells ( Auto) Medications Scheduled (Vyvanse) 40 Mg Cap 40 MG PO DAILY (Reported) (Flonase Allergy Relief) 50 Mcg/Act Spr 50 MCG NA BID (Reported) Esomeprazole Magnesium Trihydr (Nexium) 20 Mg Cap 20 MG PO DAILY (Reported) Fluticasone/Vilanterol (Breo Ellipta 200-25 Mcg/INH) 1 Inh Inh 1 PUFF INH DAILY (Reported) Furosemide (Lasix) 40 Mg Tab 40 MG PO DAILY (Reported) Lisinopril (Lisinopril) 10 Mg Tab 10 MG PO DAILY (Reported) Loratadine (Claritin) 10 Mg Tab 10 MG PO DAILY (Reported) Montelukast Sodium (Singulair) 10 Mg Tab 10 MG PO DAILY (Reported) Prednisone (Prednisone) 10 Mg Oscar 10 MG PO ASDIRECTED (Reported) pt on tapering dose. unsure when she started. last taken 07/12 Topiramate (Topamax) 50 Mg Tab 50 MG PO DAILY (Reported) Topiramate (Topamax) 100 Mg Tab 100 MG PO QHS (Reported) Scheduled PRN Albuterol Sulfate (Proair Hfa) 108 Mcg/Act Aer 2 PUFF INH Q4H PRN PRN SHORTNESS OF BREATH (Reported) Albuterol Sulfate (Albuterol Sulfate) 2.5 Mg/3 Ml Nebu 2.5 MG INH PRN PRN PRN SHORTNESS OF BREATH (Reported) Allergies Coded Allergies: Codeine (Verified Allergy, Unknown, 01/24/14) KARMEN CEDILLO MD Jul 15, 2016 18:15
--- NOTE | 2016-07-15 18:43 | ECGEPIP ---
Stationary ECG Study [facility] Test Date: 2016-07-15 Pat Name: BRIDGETTE PAYNE Department: Room: [place] [id number] Gender: F [employer]ist: : 1985 Requested By: Ami Navarrete Order Number: [id number] Reading MD: Alex Rivera Measurements Intervals [place] Rate: 85 P: 20 CT: 166 QRS: 88 QRSD: 99 T: 7 QT: 351 QTc: 419 Interpretive Statements SINUS RHYTHM INCOMPLETE RIGHT BUNDLE BRANCH BLOCK NONSPECIFIC T-WAVE ABNORMALITY NO PRIOR TRACING Electronically Signed On 07-15-2016 18:42:48 EST by Alex Rivera
[2016-07-16 06:21] VITALS: BP 124/60
[2016-07-16 07:39] LABS: BASO % 0.3 % (0.0-1.0); EOS # 0.1 K/mm3 (0.0-0.50); EOS % 0.6 % (0.0-3.0); LARGE UNSTAINED CELL # 0.2 K/mm3 (0.0-0.4); LARGE UNSTAINED CELL % 1.9 % (0.0-4.0); LYMPH # 2.1 K/mm3 (1.5-4.5); LYMPH % 22.4 % (24.0-44.0); MEAN CORPUSCULAR HEMOGLOBIN 22.9 pg (27.0-33.0); MEAN CORPUSCULAR VOLUME 73.8 fl (80.0-96.0); MONO # 0.4 K/mm3 (0.0-0.8); MONO % 4.1 % (0.0-5.0); NEUTROPHILS # 6.6 K/mm3 (1.8-7.7); NEUTROPHILS % 70.7 % (36.0-66.0); PLATELET COUNT, AUTOMATED 261 k/mm3 (150-450); RED CELL DISTRIBUTION WIDTH 16.5 % (11.5-14.5); WHITE BLOOD COUNT 9.3 K/mm3 (4.0-10.0)
[2016-07-16 08:06] LABS: ALBUMIN 3.9 GM/DL (3.2-5.2); ALBUMIN/GLOBULIN RATIO 1.34 (1.00-1.93); ALKALINE PHOSPHATASE 71 U/L (45-117); ALT/SGPT 36 U/L (12-78); ANION GAP 12 MEQ/L (8-16); AST/SGOT 16 U/L (15-37); BILIRUBIN,TOTAL 1.2 MG/DL (0.2-1.0); BLOOD UREA NITROGEN 12 MG/DL (7-18); CALCIUM LEVEL 8.9 MG/DL (8.5-10.1); CARBON DIOXIDE LEVEL 27 MEQ/L (21-32); CHLORIDE LEVEL 102 MEQ/L (98-107); GLOMERULAR FILTRATION RATE > 60.0 (>60); GLUCOSE, FASTING 94 MG/DL (70-105); POTASSIUM SERUM 3.2 MEQ/L (3.5-5.1); SODIUM LEVEL 141 MEQ/L (136-145); TOTAL PROTEIN 6.8 GM/DL (6.4-8.2)
[2016-07-16] MEDS: ADVAIR DISKUS 100/50 INH PWD INH SCH ×2 (08:42→21:27)
[2016-07-16] MEDS: MONTELUKAST 10 MG TAB PO SCH (08:42)
[2016-07-16] MEDS: LORATADINE 10 MG TAB PO SCH (08:42)
[2016-07-16] MEDS: LISINOPRIL 10 MG TAB PO SCH (08:42)
[2016-07-16] MEDS: OMEPRAZOLE 20 MG CAP PO SCH (08:42)
[2016-07-16] MEDS: risperiDONE 1 MG TAB PO SCH ×2 (08:42→21:27)
[2016-07-16] MEDS: FUROSEMIDE 40 MG TAB PO SCH (08:43)
[2016-07-16] MEDS: FLUTICASONE PROP 0.05% NASAL SPRAY 16 GM (FLONASE) SCH ×2 (08:43→21:27)
[2016-07-16] MEDS ORDERED: POTASSIUM CHLORIDE 10 MEQ SR TABLET PO ONE (10:30)
[2016-07-16 18:00] VITALS: BP 123/67
--- NOTE | 2016-07-16 21:20 | EDDOCDS ---
Physician Documentation [facility] Name: Conchis Morel Age: 31 yrs Sex: Female : 1985 Arrival Date: 07/14/2016 Time: 15:34 Bed [facility] Disposition: 07/14/16 18:55 Hospitalization ordered by Isac Garcia for Inpatient Admission. Preliminary diagnosis is Unspecified psychosis not due to a substance or known physiological condition. - Bed requested for Admit. - Status is Inpatient Admission. mf4 - Condition is Stable. - Problem is new. - Symptoms are unchanged. Historical: - Allergies: Codeine Sulfate; - Home Meds: 1. Topamax 50 mg Oral tab 1 tab daily stopped on Friday 2. Topamax 100 mg Oral tab 1 tab nightly stopped on Friday 3. Vyvanse 40 mg oral cap 1 cap once daily stopped on Friday 4. albuterol sulfate 90 mcg/actuation Inhl HFAA 2 puffs every 4 hours pt reports she forgot to take her meds for the last couple. (Last dose: Unknown) 5. albuterol sulfate 2.5 mg /3 mL (0.083 %) Inhl nebu 3 mL as needed pt reports she forgot to take her meds for the last couple. (Last dose: Unknown) 6. Breo Ellipta 200-25 mcg/dose inhalation dsdv 1 puff once daily pt reports she forgot to take her meds for the last couple. (Last dose: Unknown) 7. Claritin 10 mg Oral tab 1 tab once daily pt reports she forgot to take her meds for the last couple. (Last dose: Unknown) 8. Flonase 50 mcg/actuation Nasal spsn 1 spray 2 times per day pt reports she forgot to take her meds for the last couple. (Last dose: Unknown) 9. Lasix 40 mg Oral tab 1 tab once daily pt reports she forgot to take her meds for the last couple. (Last dose: Unknown) 10. lisinopril 10 mg Oral tab 1 tab once daily pt reports she forgot to take her meds for the last couple. (Last dose: Unknown) 11. Nexium 20 mg Oral cpDR 1 cap once daily pt reports she forgot to take her meds for the last couple. (Last dose: Unknown) 12. Singulair 10 mg Oral tab 1 tab once daily pt reports she forgot to take her meds for the last couple. (Last dose: Unknown) 13. vivance 40mg daily - PMHx: Asthma; Hypertension; Sleep Apnea w/ CPAP; Depression; Anxiety; - PSHx: Appendectomy; eye surgery; Tonsillectomy; deviated septum; D & C; lung biopsy; - Social history: Smoking status: Patient states was never smoker of tobacco. No barriers to communication noted, The patient speaks fluent Egyptian, Speaks appropriately for age. - Family history: No immediate family members are acutely ill. - : The pt / caregiver states he / she is not on anticoagulants. Home medication list is obtained from the patient. - Exposure Risk Screening:: None identified. 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 kr3 Vital Signs: 15:36 BP 148 / 86; Pulse 104; Resp 18 S; Temp 99.6(O); Pulse Ox 92% on R/A; Weight 115.67 kg gr2 / 255.01 lbs (R); Height 4 ft. 10 in. (147.32 cm) (R); Pain 3/10; 18:39 BP 140 / 92; Pulse 91; Resp 17; Temp 99.4; Pulse Ox 97% ; Pain 0/10; mb9 15:36 Body Mass Index 53.29 (115.67 kg, 147.32 cm) gr2 MDM: 16:04 REGULAR DIET PLASTIC NIEVES+DIET ordered. EDMS 16:13 Consult PFS/PSA/Punch Molder ordered. br1 16:13 Consult PFS/PSA/Punch Molder: Patient's case requires discussion with on-call br1 Psychiatrist ordered. 16:13 PSA/PFS to call Nursing Survey Party Chief, to enter patient data on [place] if patient br1 involuntarily admitted or transferred for SI or HI ordered. 16:13 Confirm accurate psychiatric medication list and times of last dosage ordered. br1 16:13 Detain Pt Until Medically/PFS Cleared ordered. br1 16:14 Acetaminophen Level Ordered. EDMS 16:14 Basic Metabolic Profile Ordered. EDMS 16:14 Complete Blood Count Ordered. EDMS 16:14 Drug Eval Toxicology ED Only Ordered. EDMS 16:14 Ethyl Alcohol (ethanol) Ordered. EDMS 16:14 HCG,Serum Qualitative Ordered. EDMS 16:14 Liver Profile Ordered. EDMS 16:14 Salicylate Level Ordered. EDMS 16:14 Thyroid Stimulating Hormone Ordered. EDMS 16:39 Financial registration complete. [email or web address] 16:40 [facility] Payment Agreement was scanned into [employer] and attached to record. [email or web address] 17:08 Complete Blood Count Reviewed. br1 17:08 HCG,Serum Qualitative Reviewed. br1 17:20 Acetaminophen Level Reviewed. br1 17:20 Liver Profile Reviewed. br1 17:20 Salicylate Level Reviewed. br1 17:20 Basic Metabolic Profile Reviewed. br1 17:20 Ethyl Alcohol (ethanol) Reviewed. br1 17:20 HCG,Serum Qualitative Reviewed. br1 17:20 Thyroid Stimulating Hormone Reviewed. br1 18:48 Drug Eval Toxicology ED Only Reviewed. br1 19:17 Admit to [facility]: ordered. EDMS 19:22 [facility] Legal paperwork was scanned into [email or web address] and attached to record. jl 19:29 REGULAR DIET ordered. EDMS 19:30 Consult PFS/PSA/Punch Molder complete. jl 19:30 Consult PFS/PSA/Punch Molder: Patient's case requires discussion with on-call jl Psychiatrist complete. 19:30 PSA/PFS to call Nursing Survey Party Chief, to enter patient data [place] Safe [place] if patient jl involuntarily admitted or transferred for SI or HI complete. 07/15 12:08 T-Sheet-- Draft Copy was scanned into [employer] and attached to record. gb Signatures: Dispatcher [employer] EDWV Henri Chew, PSA PSA jl Kiya Ching, Reg Reg gb Yvonne Rosa,RN RN kr3 Tone Rebolledo MD MD br1 Lenny Irby LPN PARLIAMENTARY ARCHIVIST mf4 Dean RuvalcabaRN RN mb9 Janee More, Reg Reg [email or web address] The chart was reviewed and I authenticate all verbal orders and agree with the evaluation and treatment provided.Attachments: 07/14 16:40 [facility] Payment Agreement [email or web address] 07/15 12:08 T-Sheet-- Draft Copy gb Chart Complete MTDD
--- NOTE | 2016-07-16 21:20 | EDDOCDS ---
Physician Documentation [facility] Name: Conchis Morel Age: 31 yrs Sex: Female : 1985 Arrival Date: 07/14/2016 Time: 15:34 Bed [facility] Disposition: 07/14/16 18:55 Hospitalization ordered by Isac Garcia for Inpatient Admission. Preliminary diagnosis is Unspecified psychosis not due to a substance or known physiological condition. - Bed requested for Admit. - Status is Inpatient Admission. mf4 - Condition is Stable. - Problem is new. - Symptoms are unchanged. Historical: - Allergies: Codeine Sulfate; - Home Meds: 1. Topamax 50 mg Oral tab 1 tab daily stopped on Friday 2. Topamax 100 mg Oral tab 1 tab nightly stopped on Friday 3. Vyvanse 40 mg oral cap 1 cap once daily stopped on Friday 4. albuterol sulfate 90 mcg/actuation Inhl HFAA 2 puffs every 4 hours pt reports she forgot to take her meds for the last couple. (Last dose: Unknown) 5. albuterol sulfate 2.5 mg /3 mL (0.083 %) Inhl nebu 3 mL as needed pt reports she forgot to take her meds for the last couple. (Last dose: Unknown) 6. Breo Ellipta 200-25 mcg/dose inhalation dsdv 1 puff once daily pt reports she forgot to take her meds for the last couple. (Last dose: Unknown) 7. Claritin 10 mg Oral tab 1 tab once daily pt reports she forgot to take her meds for the last couple. (Last dose: Unknown) 8. Flonase 50 mcg/actuation Nasal spsn 1 spray 2 times per day pt reports she forgot to take her meds for the last couple. (Last dose: Unknown) 9. Lasix 40 mg Oral tab 1 tab once daily pt reports she forgot to take her meds for the last couple. (Last dose: Unknown) 10. lisinopril 10 mg Oral tab 1 tab once daily pt reports she forgot to take her meds for the last couple. (Last dose: Unknown) 11. Nexium 20 mg Oral cpDR 1 cap once daily pt reports she forgot to take her meds for the last couple. (Last dose: Unknown) 12. Singulair 10 mg Oral tab 1 tab once daily pt reports she forgot to take her meds for the last couple. (Last dose: Unknown) 13. vivance 40mg daily - PMHx: Asthma; Hypertension; Sleep Apnea w/ CPAP; Depression; Anxiety; - PSHx: Appendectomy; eye surgery; Tonsillectomy; deviated septum; D & C; lung biopsy; - Social history: Smoking status: Patient states was never smoker of tobacco. No barriers to communication noted, The patient speaks fluent Macedonian, Speaks appropriately for age. - Family history: No immediate family members are acutely ill. - : The pt / caregiver states he / she is not on anticoagulants. Home medication list is obtained from the patient. - Exposure Risk Screening:: None identified. 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 kr3 Vital Signs: 15:36 BP 148 / 86; Pulse 104; Resp 18 S; Temp 99.6(O); Pulse Ox 92% on R/A; Weight 115.67 kg gr2 / 255.01 lbs (R); Height 4 ft. 10 in. (147.32 cm) (R); Pain 3/10; 18:39 BP 140 / 92; Pulse 91; Resp 17; Temp 99.4; Pulse Ox 97% ; Pain 0/10; mb9 15:36 Body Mass Index 53.29 (115.67 kg, 147.32 cm) gr2 MDM: 16:04 REGULAR DIET PLASTIC NIEVES+DIET ordered. EDMS 16:13 Consult PFS/PSA/Handyman ordered. br1 16:13 Consult PFS/PSA/Handyman: Patient's case requires discussion with on-call br1 Psychiatrist ordered. 16:13 PSA/PFS to call Nursing It Generalist, to enter [place] data [place] if patient br1 involuntarily admitted or transferred for SI or HI ordered. 16:13 Confirm accurate psychiatric medication list and times of last dosage ordered. br1 16:13 Detain Pt Until Medically/PFS Cleared ordered. br1 16:14 Acetaminophen Level Ordered. EDMS 16:14 Basic Metabolic Profile Ordered. EDMS 16:14 Complete Blood Count Ordered. EDMS 16:14 Drug Eval Toxicology ED Only Ordered. EDMS 16:14 Ethyl Alcohol (ethanol) Ordered. EDMS 16:14 HCG,Serum Qualitative Ordered. EDMS 16:14 Liver Profile Ordered. EDMS 16:14 Salicylate Level Ordered. EDMS 16:14 Thyroid Stimulating Hormone Ordered. EDMS 16:39 Financial registration complete. [email or web address] 16:40 [facility] Payment Agreement was scanned into [employer] and attached to record. [email or web address] 17:08 Complete Blood Count Reviewed. br1 17:08 HCG,Serum Qualitative Reviewed. br1 17:20 Acetaminophen Level Reviewed. br1 17:20 Liver Profile Reviewed. br1 17:20 Salicylate Level Reviewed. br1 17:20 Basic Metabolic Profile Reviewed. br1 17:20 Ethyl Alcohol (ethanol) Reviewed. br1 17:20 HCG,Serum Qualitative Reviewed. br1 17:20 Thyroid Stimulating Hormone Reviewed. br1 18:48 Drug Eval Toxicology ED Only Reviewed. br1 19:17 Admit to [facility]: ordered. EDMS 19:22 [facility] Legal paperwork was scanned into [email or web address] and attached to record. jl 19:29 REGULAR DIET ordered. EDMS 19:30 Consult PFS/PSA/Handyman complete. jl 19:30 Consult PFS/PSA/Handyman: Patient's case requires discussion with on-call jl Psychiatrist complete. 19:30 PSA/PFS to call Nursing It Generalist, to enter [place] data [place] if patient jl involuntarily admitted or transferred for SI or HI complete. 07/15 12:08 T-Sheet-- Draft Copy was scanned into [employer] and attached to record. gb Signatures: Dispatcher [employer] EDDC Henri Chew, PSA PSA jl Kiya Ching, Reg Reg gb Yvonne Rosa,RN RN kr3 Tone Rebolledo MD MD br1 Lenny Irby LPN ONCOLOGY REP SPECIALIST mf4 Dean RuvalcabaRN RN mb9 Janee More, Reg Reg [email or web address] The chart was reviewed and I authenticate all verbal orders and agree with the evaluation and treatment provided.Attachments: 07/14 16:40 [facility] Payment Agreement [email or web address] 07/15 12:08 T-Sheet-- Draft Copy gb Chart Complete MTDD
--- NOTE | 2016-07-16 21:20 | EDDOCDS ---
Nurse's Notes [facility] Name: Conchis Morel Age: 31 yrs Sex: Female : 1985 Arrival Date: 07/14/2016 Time: 15:34 Bed [facility] Private MD: Reema Parra ANP- Diagnosis: Unspecified psychosis not due to a substance or known physiological condition Presentation: 07/14 15:50 Presenting complaint: Patient states: stopped Vyvance and Topamax on Friday because she kr3 ' was not loosing weight'. Reports wants to get closer to God and her plan was to burn all her stuffed animals and smashed TV's in home. Denies SI or HI. Reports has been fasting and has had only sips of water for several days. Reports had depression and anxiety as teenager with admission but no recent problems. [employer] for reports he was contacted by patient's father in law of because of his concern. is in [place] for training and he was contacted and spoke with . Again today father in law contacted [employer] because of bizarre phone conversation and was contacted. was concerned because he thought patient may have killed a dog in the home. Mental Health Triage Level: Level 2: see note. Adult Sepsis Screening: The patient does not have new or worsening altered mentation. Patient's respiratory rate is less than 22. Systolic blood pressure is greater than 100. Patient has a qSOFA score of 0- Negative Sepsis Screen. Suicide/Homicide risk assessment- The patient reports that he/she has not been admitted to an inpatient mental health facility in the last 30 days. Status: The patient is a dependent. Transition of care: patient was not received from another setting of care. 15:50 Acuity: BOOGIE Level 3 kr3 15:50 Method Of Arrival: Walkin/Carried/Asstd kr3 16:18 Red Flag criteria, patient assessed and taken directly to a bed. kr3 Triage Assessment: 15:55 General: Appears in no apparent distress, comfortable, Behavior is cooperative. Pain: kr3 Denies pain. HIV screening NA for this visit Offered previously. The patient is triaged at the bedside. See Assessment in Nurses Notes section of ED record. Neurological: Level of Consciousness is awake, alert. Respiratory: Respiratory effort is even, unlabored. Derm: Skin is normal. 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 kr3 Historical: - Allergies: Codeine Sulfate; - Home Meds: 1. Topamax 50 mg Oral tab 1 tab daily stopped on Friday 2. Topamax 100 mg Oral tab 1 tab nightly stopped on Friday 3. Vyvanse 40 mg oral cap 1 cap once daily stopped on Friday 4. albuterol sulfate 90 mcg/actuation Inhl HFAA 2 puffs every 4 hours pt reports she forgot to take her meds for the last couple. (Last dose: Unknown) 5. albuterol sulfate 2.5 mg /3 mL (0.083 %) Inhl nebu 3 mL as needed pt reports she forgot to take her meds for the last couple. (Last dose: Unknown) 6. Breo Ellipta 200-25 mcg/dose inhalation dsdv 1 puff once daily pt reports she forgot to take her meds for the last couple. (Last dose: Unknown) 7. Claritin 10 mg Oral tab 1 tab once daily pt reports she forgot to take her meds for the last couple. (Last dose: Unknown) 8. Flonase 50 mcg/actuation Nasal spsn 1 spray 2 times per day pt reports she forgot to take her meds for the last couple. (Last dose: Unknown) 9. Lasix 40 mg Oral tab 1 tab once daily pt reports she forgot to take her meds for the last couple. (Last dose: Unknown) 10. lisinopril 10 mg Oral tab 1 tab once daily pt reports she forgot to take her meds for the last couple. (Last dose: Unknown) 11. Nexium 20 mg Oral cpDR 1 cap once daily pt reports she forgot to take her meds for the last couple. (Last dose: Unknown) 12. Singulair 10 mg Oral tab 1 tab once daily pt reports she forgot to take her meds for the last couple. (Last dose: Unknown) 13. vivance 40mg daily - PMHx: Asthma; Hypertension; Sleep Apnea w/ CPAP; Depression; Anxiety; - PSHx: Appendectomy; eye surgery; Tonsillectomy; deviated septum; D & C; lung biopsy; - Social history: Smoking status: Patient states was never smoker of tobacco. No barriers to communication noted, The patient speaks fluent Paragu[place], Speaks appropriately for age. - Family history: No immediate family members are acutely ill. - : The pt / caregiver states he / she is not on anticoagulants. Home medication list is obtained from the patient. - Exposure Risk Screening:: None identified. Screenin:39 Screening information is obtained from the patient. Fall risk: No risks identified. mb9 Assistance ADL's: requires no assistance with activities of daily living. Abuse/DV Screen: The patient / caregiver reports he/she is: not in a situation that causes fear, pain or injury. Nutritional screening: No deficits noted. Advance Directives: There is no active DNR order. home support is adequate. Assessment: 16:35 General: Appears in no apparent distress, Behavior is flat. General: when asked why she mb9 is here pt states, "I did some things I shouldn't have done". when asked to elaborate pt states, "I gave all the money we have to the [employer] [place]. I was gonna burn all of my stuffed animals because they were idols and god told me to. I was also gonna burn the tree. I think my is gonna divorce me.". . Pain: Denies pain. Respiratory: Airway is patent Respiratory effort is even, unlabored. 18:38 Reassessment: Patient appears in no apparent distress at this time. General: Appears in mb9 no apparent distress, Behavior is appropriate for age, cooperative, pt resting comfortably. security observing.. Respiratory: Airway is patent Respiratory effort is even, unlabored. 20:08 General: Appears in no apparent distress, comfortable, Behavior is appropriate for age, mf4 cooperative, resting on stretcher awaiting for admission to [facility] . Respiratory: Airway is patent Respiratory effort is even, unlabored. Mental Health Eval: 16:52 Status: The patient is a dependent. [facility] Behavioral Health: The jl patient is not an established patient of [facility] Behavioral Health. Referral Information: Evaluation referral is generated by her [id number] (Mohan Morel: [phone]). The patient was referred for evaluation because her [id number] reported that his son (the patient's , who is currently in [place] for training) contacted him with concerns. He reported that patient's stated that he feared that patient may have killed one of their dogs & asked that he go & check on her. He stated that patient had been acting oddly for a couple of days, & when he met with her today, appeared to have deteriorated further. Subjective: The patients chief complaint is "I think I've went a little nuts". Delusions are elicited, generally religiously based. Patient's mood is anxious. hallucinations are denied, and not evident during the interview. Patient is easily approached, although difficult to follow at times & is somewhat loose in her associations. She states that she had been on Vivance & Topmax for weight loss, prescribed her PCP. She denies having any psychiatric hx since being in High School, when she was briefly admitted for depression & self-mutilation. She states that her phoned her from [place] on Friday & told her to flush her medications down the toilet,& she has been without them since. She relates feeling "odd" since the meds were D/C'd. She reports that she emptied their bank accounts ($500-$600) and gave it away to a foundation "That will help rebuild [place]". This occurred either Friday or yesterday, she is unable to recall which day. She states that she had planned to burn their [place] tree & all of her stuffed animals, as well as smashing the televisions, in order to be, "Close to God". When asked to elaborate, she became flustered & unable to explain this. She denied being a christianity person, noting, "I believe in God, but I don't go to buddhist or anything". She then continued to say that she wanted to find a way to be closer to God several times. She said that she went to several churches today, "But none felt right, so I left". She is grossly oriented, however appears to be having difficulty with her thoughts. She is currently staying alone in her 's absence. Mental Health history: depression, self -mutilation, Mental Health Admissions: [place], as a teenager Current Outpatient Mental Health Services: None. Current living environment is The patient currently lives with her , who is away for several weeks at [facility]. Patient presents to Emergency Department with the following symptoms within the past 2 weeks: anxiety, delusions of christianity theme. non-compliance, poor concentration, sleep disturbance - erratic. Substance abuse: Pt denies. Mental status exam: Patients appearance is obese, Patient's behavior is cooperative, Speech is unspontaneous Affect is broad. Mood is anxious. Hallucinations are denied. Appetite is normal. Memory is fair. Energy level is normal. Content of thought is religiously preoccupied Thought process is loose. Cognitive level is oriented to person, place, time and situation Patient's insight is poor. Judgement is poor. Rapport with interviewer is good. Suicidal Ideation is denied. Homicidal ideation is denied. 19:04 Disposition: Medically cleared for disposition by Tone Rebolledo MD Psychiatric Consult jl is performed by phone with Dr Isac Garcia MD. [facility] Admission Criteria: The patient displays symptoms of severe psychiatric disorder resulting in disordered behavior and significant interference with his / her ability to maintain self care. Delusions. The patient requires continuous observation and/or control to protect self, others or property. The patient's care requires a multi-modal treatment plan under close supervision and coordination due to the complexity and severity of the patient's symptoms. Legal Status: Patient's legal status will be Emergency admission: 39. [place] Safe [place] because the patient does not display any suicidal or homicidal ideations and does not pose a risk to self or others. DSM-V Differential Diagnosis: Unspecified Psychotic Disorder (F29). Insurance Pre-Certification: Not Required. Social Work Consult: 17:54 Social Work Note: [place] contacted by this appeals writer. Per Maddy Arcos [facility] ac veterans contact representative, message will be given to pt's and his chain of command requesting that pt's return from [facility] in [place], [place]. Reference # is [id number]. Vital Signs: 15:36 BP 148 / 86; Pulse 104; Resp 18 S; Temp 99.6(O); Pulse Ox 92% on R/A; Weight 115.67 kg gr2 (R); Height 4 ft. 10 in. (147.32 cm) (R); Pain 3/10; 18:39 BP 140 / 92; Pulse 91; Resp 17; Temp 99.4; Pulse Ox 97% ; Pain 0/10; mb9 15:36 Body Mass Index 53.29 (115.67 kg, 147.32 cm) gr2 Vitals: 15:36 Log In Time: July 14, 2016 at 15:36. RN notified that patient meets Red Flag gr2 criteria. ED Course: 15:35 Patient visited by Sheryl Godinez. gr2 15:35 Reema Parra is Private Physician. gr2 15:35 Patient moved to Waiting gr2 15:40 Patient visited by Sheryl Godinez. gr2 15:40 Patient moved to Pre RCE gr2 15:41 Patient moved to [facility] dpm 15:43 Tone Rebolledo MD is Attending Physician. br1 15:55 Triage Initiated kr3 16:04 Patient visited by Zia Payne. dpm 16:06 Pt greeted and oriented to ED. Patient advised of names of staff involved in care, dpm location of call hall, wait times and NPO status. Patient has correct armband on for positive identification. Placed in gown. Placed in psych safe attire. Side rails up X 1. Security observing. Property removed, inventory done, secured in belongings bag- placed in locked locker. Placed in locker 3. Chelsea ([employer] INSPECTOR) observed pt while changing. Psych Safety Check: Location: Psych Room. Visual Assessment: Cooperative. 16:13 Patient visited by Tone Rebolledo MD. br1 16:27 Patient visited by Zia Payne. dpm 16:35 Acetaminophen Level Sent. mb9 16:35 Basic Metabolic Profile Sent. mb9 16:39 The patient / caregiver is instructed regarding the plan of care and ED course. mb9 16:40 [facility] Payment Agreement was scanned into [employer] and attached to record. ks16 16:43 Patient visited by Zia Payne. dpm 16:58 Patient visited by Zia Payne. dpm 17:13 Patient visited by Zia Payne. dpm 17:39 Patient visited by Zia Payne. dpm 17:56 Patient visited by Chelsea Valenzuela. nb2 17:56 Psych Safety Check: Location: Psych Room. Visual Assessment: Cooperative. nb2 18:10 Patient visited by Zia Payne. dpm 18:29 Patient visited by Zia Payne. dpm 18:44 Patient visited by Zia Payne. dpm 18:55 Isac Garcia MD is Hospitalizing Provider. br1 18:57 Patient visited by Zia Payne. dpm 19:10 Patient visited by Vlad Crawley. rn1 19:22 E Legal paperwork was scanned into [employer] and attached to record. jl 19:23 Patient visited by Vlad Crawley. rn1 19:31 Patient visited by Vlad Crawley. rn1 19:45 Patient visited by Vlad Crawley. rn1 19:59 Patient visited by Vlad Crawley. rn1 20:17 No IV's were initiated during this patient's visit. No procedures done that require 4 assistance. 07/15 12:08 T-Sheet-- Draft Copy was scanned into [employer] and attached to record. gb Attachments: 19:22 [facility] Legal paperwork jl Order Results: Lab Order: Acetaminophen Level; SPEC'M 07/14/16 16:23 Test: ACETAMINOPHEN LEVEL; Value: < 2.0; Range: 10.0-30.0; Abnormal: Below low normal; Units: UG/ML; Status: F Lab Order: Basic Metabolic Profile; SPEC'M 07/14/16 16:23 Test: GLUCOSE, FASTING; Value: 92; Range: 70-105; Units: MG/DL; Status: F Test: BLOOD UREA NITROGEN; Value: 13; Range: 7-18; Units: MG/DL; Status: F Test: CREATININE FOR GFR; Value: 1.00; Range: 0.55-1.02; Units: MG/DL; Status: F Test: SODIUM LEVEL; Range: 136-145; Units: MEQ/L; Status: I Test: POTASSIUM SERUM; Range: 3.5-5.1; Units: MEQ/L; Status: I Test: CHLORIDE LEVEL; Range: 98-107; Units: MEQ/L; Status: I Test: CARBON DIOXIDE LEVEL; Range: 21-32; Units: MEQ/L; Status: I Test: ANION GAP; Range: 8-16; Units: MEQ/L; Status: I Test: CALCIUM LEVEL; Range: 8.5-10.1; Units: MG/DL; Status: I Test: GLOMERULAR FILTRATION RATE; Value: > 60.0; Range: >60; Status: F Test: SODIUM LEVEL; Value: 141; Range: 136-145; Units: MEQ/L; Status: F Test: POTASSIUM SERUM; Value: 3.6; Range: 3.5-5.1; Units: MEQ/L; Status: F Test: CHLORIDE LEVEL; Value: 103; Range: 98-107; Units: MEQ/L; Status: F Test: CARBON DIOXIDE LEVEL; Value: 25; Range: 21-32; Units: MEQ/L; Status: F Test: ANION GAP; Value: 13; Range: 8-16; Units: MEQ/L; Status: F Test: CALCIUM LEVEL; Value: 8.9; Range: 8.5-10.1; Units: MG/DL; Status: F Test Note: ; Units are mL/min/1.73 m2 Chronic Kidney Disease Staging per NKF: Stage I & II GFR >=60 Normal to Mildly Decreased Stage III GFR 30-59 Moderately Decreased Stage IV GFR 15-29 Severely Decreased Stage V GFR <15 Very Little GFR Left ESRD GFR <15 on DATA SUPPORT SPECIALIST Lab Order: Complete Blood Count; [facility] 07/14/16 16:23 Test: WHITE BLOOD COUNT; Value: 12.3; Range: 4.0-10.0; Abnormal: Above high normal; Units: K/mm3; Status: F Test: RED BLOOD COUNT; Value: 5.31; Range: 4.00-5.40; Units: M/mm3; Status: F Test: HEMOGLOBIN; Value: 11.8; Range: 12.0-16.0; Abnormal: Below low normal; Units: g/dl; Status: F Test: HEMATOCRIT; Value: 39.3; Range: 36.0-47.0; Units: %; Status: F Test: MEAN CORPUSCULAR VOLUME; Value: 74.1; Range: 80.0-96.0; Abnormal: Below low normal; Units: fl; Status: F Test: MEAN CORPUSCULAR HEMOGLOBIN; Value: 22.2; Range: 27.0-33.0; Abnormal: Below low normal; Units: pg; Status: F Test: MEAN CORPUSCULAR HGB CONC; Value: 30.0; Range: 32.0-36.5; Abnormal: Below low normal; Units: g/dl; Status: F Test: RED CELL DISTRIBUTION WIDTH; Value: 17.7; Range: 11.5-14.5; Abnormal: Above high normal; Units: %; Status: F Test: PLATELET COUNT, AUTOMATED; Value: 301; Range: 150-450; Units: k/mm3; Status: F Lab Order: Drug Eval Toxicology ED Only; SPEC'M 07/14/16 18:07 Test: AMPHETAMINES LEVEL URINE; Value: NEGATIVE; Range: NEGATIVE; Status: F Test: BARBITURATES URINE; Value: NEGATIVE; Range: NEGATIVE; Status: F Test: BENZODIAZEPINES URINE; Value: NEGATIVE; Range: NEGATIVE; Status: F Test: CANNABINOIDS URINE; Value: NEGATIVE; Range: NEGATIVE; Status: F Test: COCAINE METABOLITE URINE; Value: NEGATIVE; Range: NEGATIVE; Status: F Test: METHADONE URINE; Value: NEGATIVE; Range: NEGATIVE; Status: F Test: OPIATES URINE; Value: NEGATIVE; Range: NEGATIVE; Status: F Test: TRICYCLIC ANTIDEPRESS URINE; Value: NEGATIVE; Range: NEGATIVE; Status: F Test Note: ; ALL PRESUMPTIVE POSITIVE FINDINGS ARE UNCONFIRMED NORMAL VALUES THRESHOLD IN NG/ML AMPHETAMINES 1000 METHAMPHETAMINES 1000 BARBITURATES 300 BENZODIAZEPINES 300 CANNABINOIDS (THC) 50 COCAINE METABOLITE 300 METHADONE 300 OPIATES 300 PHENCYCLIDINE 25 TRICYCLIC ANTIDEPRESSANTS 1000 RESULTS ARE FOR MEDICAL PURPOSES ONLY. ALL URINE SPECIMENS WILL BE SAVED FOR 3 DAYS. IF CONFIRMATION OF A PRESUMPTIVE POSTIVE SCREEN RESULT IS DESIRED, CALL CHEMISTRY ([phone]) AND REQUEST URINE TO BE SENT TO REFERENCE LAB. FOR A LIST OF CLOSELY RELATED COMPOUNDS PLEASE CALL THE LAB. Lab Order: Ethyl Alcohol (ethanol); SPEC'M 07/14/16 16:23 Test: ETHYL ALCOHOL (ETHANOL); Value: < 0.003; Range: 0.000-0.010; Units: %; Status: F Lab Order: HCG,Serum Qualitative; SPEC'M 07/14/16 16:23 Test: HCG, SERUM QUALITATIVE; Value: NEGATIVE; Range: NEGATIVE; Status: F Lab Order: Liver Profile; SPEC'M 07/14/16 16:23 Test: AST/SGOT; Value: 18; Range: 15-37; Units: U/L; Status: F Test: ALT/SGPT; Value: 37; Range: 12-78; Units: U/L; Status: F Test: ALKALINE PHOSPHATASE; Value: 83; Range: 45-117; Units: U/L; Status: F Test: BILIRUBIN,TOTAL; Value: 1.3; Range: 0.2-1.0; Abnormal: Above high normal; Units: MG/DL; Status: F Test: BILIRUBIN,DIRECT; Value: 0.3; Range: 0.0-0.2; Abnormal: Above high normal; Units: MG/DL; Status: F Test: TOTAL PROTEIN; Value: 7.4; Range: 6.4-8.2; Units: GM/DL; Status: F Test: ALBUMIN; Value: 4.2; Range: 3.2-5.2; Units: GM/DL; Status: F Test: ALBUMIN/GLOBULIN RATIO; Value: 1.31; Range: 1.00-1.93; Status: F Lab Order: Salicylate Level; SPEC'M 07/14/16 16:23 Test: SALICYLATE LEVEL; Value: < 1.7; Range: 5.0-30.0; Abnormal: Below low normal; Units: MG/DL; Status: F Lab Order: Thyroid Stimulating Hormone; SPEC'M 07/14/16 16:23 Test: THYROID STIMULATING HORMONE; Value: 1.740; Range: 0.358-3.740; Units: uIU/ML; Status: F Outcome: 07/14 18:55 Decision to Hospitalize by Provider. br1 20:17 Discharge Assessment: Patient awake, alert and oriented x 3. No cognitive and/or mf4 functional deficits noted. Patient verbalized understanding of disposition instructions. patient administered narcotics - no. The following High Risk Discharge criteria are identified: None. Admitted to Psych accompanied by tech, via wheelchair. Condition: good Condition: stable. No special radiology studies were completed. 20:19 Patient left the ED. mf4 Signatures: Lorenzo Dsouza, PSA PSA ac Henri Chew, PSA PSA jl Kiya Ching, Reg Reg gb Yvonne RosaRN RN kr3 Tone Rebolledo MD MD br1 Lenny Irby LPN LPN mf4 Zia Payne dpSheryl Yo gr2 Dean Ruvalcaba,OSVALDO RN mb9 Vlad Crawley rn1 Janee More, Reg Reg ks16 Chelsea Valenzuela nb2 Corrections: (The following items were deleted from the chart) 19:21 16:52 Subjective: The patients chief complaint is "I think I've went a little nuts". jl Delusions are elicited, generally religiously based. Patient's mood is anxious. hallucinations are denied, and not evident during the interview. Patient is easily approached, although difficult to follow at times & is somewhat loose in her associations. She states that she had been on Vivance & Topmax for weight loss, prescribed her PCP. She denies having any psychiatric hx since being in High School, when she was briefly admitted for depression & self-mutilation. She states that her phoned her from [place] on Friday & told her to flush her medications down the toilet,& she has been without them since. She relates feeling "odd" since the meds were D/C'd. She states that she had planned to burn their [place] tree & all of her stuffed animals, as well as smashing the televisions, in order to be, "Close to God". When asked to elaborate, she became flustered & unable to explain this. She denied being a christianity person, noting, "I believe in God, but I don't go to buddhist or anything". She then continued to say that she wanted to find a way to be closer to God several times. She said that she went to several churches today, "But none felt right, so I left". She is grossly oriented, however appears to be having difficulty with her thoughts. She is currently staying alone in her 's absence. misa Chart Complete MTDD
[2016-07-16] MEDS: traZODone 50 MG TAB PO SCH (21:27)
--- NOTE | 2016-07-16 23:17 | IPNPDOC ---
[facility] Progress Note Progress Note DATE: 07/16/16 SUBJECTIVE: Patient reports mood as anxious. Patient disclosed using breathing techniques as a coping mechanism for her ongoing anxiety. She has identified her 's absence due to deployment as a trigger, in association with having a negative reaction to newly rx'd Vyvanse as triggers for her recent psychotic symptoms. She has no history of mental health issues. She does recall her impulsive behaviors, odd thoughts, nondenominational preoccupations and paranoid delusions. Patient still focused on discharge. She expresses good judgment stating that for her, the most important thing is getting better mentally. She continues to express increased insight. She reports recently calling her mother and apologizing to her for their recent relational issues. She reports that she has been in touch with [facility] in regard to likely withdrawing from classes this semester. She reports future plans of focusing on losing weight via diet and exercise. Patient reports no medication side effects. She reports ongoing issues initiating and maintaining sleep. She reports approximately 4-5 hours of sleep last night. Appetite within normal limits. She denies issues with staff or peers on the unit. Patient denies SI/HI, she also denies AH/VH. No bizarre behavior, thoughts, affect, or delusional thoughts expressed during this interview. VITAL SIGNS: Please see below. CURRENT MEDICATIONS: See below. MENTAL STATUS EXAMINATION: Patient is a pleasant, cooperative, obese, causasian female in NAD]. Speech: Is RRR and spontaneous]. Thought processes: [Linear & Goal directed.] Thought content: [Logical, appropriate]. Description of associations: [Intact]. Description of abnormal or psychotic thoughts: [no perceptual issues] Judgment: [Fair] Insight: [Fair] Oriented to: [Time, place and person.] Recent and Remote Memory: [intact]. Attention Span and Concentration: [Fair]. Fund of knowledge: [Adequate] Mood: [Anxious]. Affect: [Anxious]. 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 PLAN: [-Start Trazodone 50mg po qhs for sleep latency/maintenance issues. -Continue remaining psychotropic regimen as currently written. -Continue CPAP while asleep. -Continue all home medical medications as written. EDOD: 07/18/16 to her home]. TIME SPENT: [30] minutes Vital Signs Vital Signs Date Time Temp Pulse Resp B/P Pulse Ox O2 Delivery O2 Flow Rate FiO2 07/16/16 18:00 98.6 90 16 123/67 94 07/16/16 06:54 Room Air Laboratory Data 24H Labs Laboratory Tests 2 07/16/16 07:17: Blood Urea Nitrogen 12, Creatinine 0.90, Sodium Level 141, Potassium Level 3.2L , Chloride Level 102, Carbon Dioxide Level 27, Calcium Level 8.9, Aspartate Amino Transf (AST/SGOT) 16, Alanine Aminotransferase (ALT/SGPT) 36, Alkaline Phosphatase 71, Total Bilirubin 1.2H, Total Protein 6.8, Albumin 3.9, Albumin/ Globulin Ratio 1.34, Anion Gap 12, White Blood Count 9.3, Red Blood Count 5.01, Hemoglobin 11.5L, Hematocrit 37.0, Mean Corpuscular Volume 73.8L, Mean Corpuscular Hemoglobin 22.9L, Mean Corpuscular Hemoglobin Concent 31.0L, Red Cell Distribution Width 16.5H, Platelet Count 261, Neutrophils (%) (Auto) 70.7H , Lymphocytes (%) (Auto) 22.4L, Monocytes (%) (Auto) 4.1, Eosinophils (%) (Auto ) 0.6, Basophils (%) (Auto) 0.3, Neutrophils # (Auto) 6.6, Lymphocytes # (Auto) 2.1, Monocytes # (Auto) 0.4, Eosinophils # (Auto) 0.1, Basophils # (Auto) 0.0, Glomerular Filtration Rate > 60.0, Large Unclassified Cells # 0.2, Large Unclassified Cells % 1.9 CBC/BMP Laboratory Tests 07/16/16 07:17 Calcium Level 8.9, Aspartate Amino Transf (AST/SGOT) 16, Alanine Aminotransferase (ALT/SGPT) 36, Alkaline Phosphatase 71, Total Bilirubin 1.2 H, Total Protein 6.8, Albumin 3.9, Red Blood Count 5.01, Mean Corpuscular Volume 73.8 L, Mean Corpuscular Hemoglobin 22.9 L, Mean Corpuscular Hemoglobin Concent 31.0 L, Red Cell Distribution Width 16.5 H, Neutrophils (%) (Auto) 70.7 H, Lymphocytes (%) (Auto) 22.4 L, Monocytes (%) (Auto) 4.1, Eosinophils (%) (Auto) 0.6, Basophils (%) (Auto) 0.3, Neutrophils # (Auto) 6.6, Lymphocytes # (Auto) 2.1, Monocytes # (Auto) 0.4, Eosinophils # (Auto) 0.1, Basophils # (Auto) 0.0 Current Medications Current Medications Acetaminophen (Tylenol) 650 mg Q6HP PRN PO HEADACHE or DISCOMFORT; Start at 19:30; Stop 08/13/16 at 19:29 Al Hydrox/Mg Hydrox/Simethicone (Mylanta) 30 ml Q4HP PRN PO HEARTBURN/ INDIGESTION; Start 07/14/16 at 19:30; Stop 08/13/16 at 19:29 Albuterol Sulfate (Proventil Neb) 2.5 mg Q4HP PRN NEB SOB/WHEEZING; Start 07/14 at 21:00; Stop 08/13/16 at 20:59 Albuterol Sulfate (Proventil, Ventolin Hfa) 2 puff Q4HP PRN INH SHORTNESS OF BREATH; Start 07/14/16 at 21:00; Stop 08/13/16 at 20:59 Fluticasone Propionate (Flonase 0.05% Nasal [place]) 1 spray BID NA Last administered on 07/16/16 21:27; Start 07/14/16 at 21:00; Stop 08/13/16 at 20:59 Furosemide (Lasix) 40 mg DAILY PO Last administered on 07/16/16 08:43; Start 07/15/16 at 09:00; Stop 08/14/16 at 08:59 Home Med (Med Rec Complete!) ASDIRECTED XX ; Start 07/14/16 at 19:45; Stop at 21:00; Status DC Lisinopril (Prinivil) 10 mg DAILY PO Last administered on 07/16/16 08:42; Start 07/15/16 at 09:00; Stop 08/14/16 at 08:59 Loratadine (Claritin) 10 mg DAILY PO Last administered on 07/16/16 08:42; Start 07/15/16 at 09:00; Stop 08/14/16 at 08:59 Magnesium Hydroxide (Milk Of Magnesia) 30 ml DAILYPRN PRN PO CONSTIPATION; Start 07/14/16 at 19:30; Stop 08/13/16 at 19:29 Miscellaneous (Unresolved Patient Own Med Order) SEE LABEL COMMENTS UNRESOLVED XX ; Start 07/14/16 at 00:01; Stop 07/15/16 at 10:38; Status DC Montelukast Sodium (Singulair) 10 mg DAILY PO Last administered on 07/16/16 08 :42; Start 07/15/16 at 09:00; Stop 08/14/16 at 08:59 Olanzapine (ZyPREXA ZYDIS) 5 mg Q6HP PRN PO High anxiety/agitation ; Start 07/14/16 at 19:30; Stop 08/13/16 at 19:29 Omeprazole (PriLOSEC) 20 mg DAILY PO Last administered on 07/16/16 08:42; Start 07/15/16 at 09:00; Stop 08/14/16 at 08:59 Patient Own Medication (Patient'S Own Med) 1 ea DAILY INH ; Start 07/15/16 at 09 :00; Stop 07/15/16 at 10:38; Status DC Quetiapine Fumarate (SEROquel) 100 mg QHSP PRN PO INSOMNIA; Start 07/14/16 at 19:30; Stop 08/13/16 at 19:29 Risperidone (RisperDAL) 1 mg BID PO Last administered on 07/16/16 21:27; Start 07/14/16 at 21:00; Stop 08/13/16 at 20:59 Salmeterol Xinafoate/ Fluticasone (Advair Diskus 100/50) 1 puff BID INH Last administered on 07/16/16 21:27; Start 07/15/16 at 09:00; Stop 08/14/16 at 08:59 Trazodone HCl (Desyrel) 50 mg QHS PO Last administered on 07/16/16 21:27; Start 07/16/16 at 21:00; Stop 08/15/16 at 20:59 Allergies Coded Allergies: Codeine (Verified Allergy, Unknown, 01/24/14) KARMEN CEDILLO MD Jul 16, 2016 23:17
[2016-07-17 06:25] VITALS: BP 144/94
[2016-07-17] MEDS: LORATADINE 10 MG TAB PO SCH (09:06)
[2016-07-17] MEDS: LISINOPRIL 10 MG TAB PO SCH (09:06)
[2016-07-17] MEDS: risperiDONE 1 MG TAB PO SCH ×2 (09:06→21:40)
[2016-07-17] MEDS: FLUTICASONE PROP 0.05% NASAL SPRAY 16 GM (FLONASE) SCH ×2 (09:06→20:05)
[2016-07-17] MEDS: OMEPRAZOLE 20 MG CAP PO SCH (09:06)
[2016-07-17] MEDS: MONTELUKAST 10 MG TAB PO SCH (09:06)
[2016-07-17] MEDS: FUROSEMIDE 40 MG TAB PO SCH (09:06)
[2016-07-17] MEDS: ADVAIR DISKUS 100/50 INH PWD INH SCH ×2 (09:06→21:40)
[2016-07-17 09:18] LABS: ANION GAP 11 MEQ/L (8-16); BLOOD UREA NITROGEN 10 MG/DL (7-18); CALCIUM LEVEL 9.2 MG/DL (8.5-10.1); CARBON DIOXIDE LEVEL 28 MEQ/L (21-32); CHLORIDE LEVEL 102 MEQ/L (98-107); CREATININE FOR GFR 0.92 MG/DL (0.55-1.02); GLOMERULAR FILTRATION RATE > 60.0 (>60); GLUCOSE, FASTING 96 MG/DL (70-105); POTASSIUM SERUM 3.7 MEQ/L (3.5-5.1); SODIUM LEVEL 141 MEQ/L (136-145)
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
[2016-07-17] MEDS: OLANZapine ORAL DISINTEGRATING TAB 5MG PO PRN (15:37)
[2016-07-17 18:24] VITALS: BP 110/56
[2016-07-17] MEDS: traZODone 50 MG TAB PO SCH (21:40)
[2016-07-18 06:51] VITALS: BP 125/73
[2016-07-18] MEDS: risperiDONE 1 MG TAB PO SCH ×2 (11:47→19:50)
[2016-07-18] MEDS: LISINOPRIL 10 MG TAB PO SCH (11:47)
[2016-07-18] MEDS: MONTELUKAST 10 MG TAB PO SCH (11:47)
[2016-07-18] MEDS: OMEPRAZOLE 20 MG CAP PO SCH (11:47)
[2016-07-18] MEDS: FUROSEMIDE 40 MG TAB PO SCH (11:48)
[2016-07-18] MEDS: FLUTICASONE PROP 0.05% NASAL SPRAY 16 GM (FLONASE) SCH ×2 (11:48→19:50)
[2016-07-18] MEDS: LORATADINE 10 MG TAB PO SCH (11:48)
[2016-07-18] MEDS: ADVAIR DISKUS 100/50 INH PWD INH SCH ×2 (11:48→19:51)
[2016-07-18 18:00] VITALS: BP_SYST 122; BP_SYST 139; BP_DIAS 84; BP_DIAS 88
[2016-07-18] MEDS: traZODone 50 MG TAB PO SCH (19:50)
--- NOTE | 2016-07-18 23:12 | IPNPDOC ---
[facility] Progress Note Progress Note DATE: 07/18/16 SUBJECTIVE: Patient reported feeling sedated on higher dose of Risperdal. She was encouraged to maintain compliance as she would notice lesser sedation daily as her body gets used to the new dose. Patient became abruptly agitated and responded "no I don't need medications and I want off this pill". Patient then stated "I'm not supposed to be here" and became tearful. Patient again commented on her belief that staff during yesterday's family meeting, who offered a an electric medication dispenser which beeps when med is due, was referring to sending her home with a bomb. When asked to explain why she felt staff would be trying to send her home with a bomb, patient responded "because you said it beeps when its ready" Pulse oximetry was taken at that time and O2 sat noted to be 90%. Patient denied CAMPOS/CP and SOB. Patient had fair sleep last night. Patient's home CPAP machine has been brought in by her . Patient denies SI/HI, she also denies AH/VH. Patient's asked this provider to again approach patient in regard to allowing keys to their rental car to be removed from hospital storage. Patient became agitated when requested she allow staff to get the rental car keys from her hospital locker. Per she stated she wanted a divorce and became agitated. He did not want to further agitate her, but reports the rental company will not replace the keys and needs the original keys and rental car returned. VITAL SIGNS: Please see below. CURRENT MEDICATIONS: See below. MENTAL STATUS EXAMINATION: Patient is a apprehensive, anxious ]. Speech: Is slow, but non-spontaneous]. Thought processes: [concrete, confused, disorganized, TOMAS] Thought content: [paraniod ideation that staff during yesterday's family meeting who offered a an electric medication dispenser which beeps when med is due, was referring to sending her home with a bomb. When asked to explain why she she felt staff would be trying to send her home with a bomb, patient responded "because you said it would beeps when its ready".]. Description of associations: [TOMAS]. Description of abnormal or psychotic thoughts: [paranoid ideations and disorganized thinking] Judgment: [poor] Insight: [poor] Oriented to: [place and person.] Recent and Remote Memory: [fair]. Attention Span and Concentration: [fair]. Fund of knowledge: [adequate] Mood: [irritable]. Affect: [agitated]. 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 PLAN: [-Continue Risperdal at 2mg po BID for psychosis. -Continue all psychotropic meds as written currently. -Continue CPAP while asleep. -Continue monitoring of pulse oximetry throughout the day. -Continue all home medical medications as written. EDOD: Friday07/24/2016. TIME SPENT: [30] minutes. Vital Signs Vital Signs Date Time Temp Pulse Resp B/P Pulse Ox O2 Delivery O2 Flow Rate FiO2 07/18/16 18:00 96.9 80 14 122/88 07/18/16 18:00 92 Room Air 07/18/16 06:51 95 Current Medications Current Medications Acetaminophen (Tylenol) 650 mg Q6HP PRN PO HEADACHE or DISCOMFORT; Start at 19:30; Stop 08/13/16 at 19:29 Al Hydrox/Mg Hydrox/Simethicone (Mylanta) 30 ml Q4HP PRN PO HEARTBURN/ INDIGESTION; Start 07/14/16 at 19:30; Stop 08/13/16 at 19:29 Albuterol Sulfate (Proventil Neb) 2.5 mg Q4HP PRN NEB SOB/WHEEZING; Start 07/14 at 21:00; Stop 08/13/16 at 20:59 Albuterol Sulfate (Proventil, Ventolin Hfa) 2 puff Q4HP PRN INH SHORTNESS OF BREATH; Start 07/14/16 at 21:00; Stop 08/13/16 at 20:59 Fluticasone Propionate (Flonase 0.05% Nasal [place]) 1 spray BID NA Last administered on 07/18/16 19:50; Start 07/14/16 at 21:00; Stop 08/13/16 at 20:59 Furosemide (Lasix) 40 mg DAILY PO Last administered on 07/18/16 11:48; Start 07/15/16 at 09:00; Stop 08/14/16 at 08:59 Home Med (Med Rec Complete!) ASDIRECTED XX ; Start 07/14/16 at 19:45; Stop at 21:00; Status DC Lisinopril (Prinivil) 10 mg DAILY PO Last administered on 07/18/16 11:47; Start 07/15/16 at 09:00; Stop 08/14/16 at 08:59 Loratadine (Claritin) 10 mg DAILY PO Last administered on 07/18/16 11:48; Start 07/15/16 at 09:00; Stop 08/14/16 at 08:59 Magnesium Hydroxide (Milk Of Magnesia) 30 ml DAILYPRN PRN PO CONSTIPATION; Start 07/14/16 at 19:30; Stop 08/13/16 at 19:29 Miscellaneous (Unresolved Patient Own Med Order) SEE LABEL COMMENTS UNRESOLVED XX ; Start 07/14/16 at 00:01; Stop 07/15/16 at 10:38; Status DC Montelukast Sodium (Singulair) 10 mg DAILY PO Last administered on 07/18/16 11 :47; Start 07/15/16 at 09:00; Stop 08/14/16 at 08:59 Olanzapine (ZyPREXA ZYDIS) 5 mg Q6HP PRN PO High anxiety/agitation Last administered on 07/17/16 15:37; Start 07/14/16 at 19:30; Stop 08/13/16 at 19:29 Omeprazole (PriLOSEC) 20 mg DAILY PO Last administered on 07/18/16 11:47; Start 07/15/16 at 09:00; Stop 08/14/16 at 08:59 Patient Own Medication (Patient'S Own Med) 1 ea DAILY INH ; Start 07/15/16 at 09 :00; Stop 07/15/16 at 10:38; Status DC Quetiapine Fumarate (SEROquel) 100 mg QHSP PRN PO INSOMNIA; Start 07/14/16 at 19:30; Stop 08/13/16 at 19:29 Risperidone (RisperDAL) 1 mg BID PO Last administered on 07/18/16 19:50; Start 1/22/17 at 21:00; Stop 08/13/16 at 20:59 Salmeterol Xinafoate/ Fluticasone (Advair Diskus 100/50) 1 puff BID INH Last administered on 07/18/16 19:51; Start 07/15/16 at 09:00; Stop 08/14/16 at 08:59 Trazodone HCl (Desyrel) 50 mg QHS PO Last administered on 07/18/16 19:50; Start 07/16/16 at 21:00; Stop 08/15/16 at 20:59 Allergies Coded Allergies: Codeine (Verified Allergy, Unknown, 01/24/14) KARMEN CEDILLO MD Jul 18, 2016 23:12
[2016-07-19] MEDS: LORATADINE 10 MG TAB PO SCH (09:00)
[2016-07-19] MEDS: ADVAIR DISKUS 100/50 INH PWD INH SCH ×2 (09:00→22:25)
[2016-07-19] MEDS: FLUTICASONE PROP 0.05% NASAL SPRAY 16 GM (FLONASE) SCH ×2 (09:00→22:25)
[2016-07-19] MEDS: FUROSEMIDE 40 MG TAB PO SCH (10:01)
[2016-07-19] MEDS: risperiDONE 1 MG TAB PO SCH (10:01)
[2016-07-19] MEDS: OMEPRAZOLE 20 MG CAP PO SCH (10:01)
[2016-07-19] MEDS: MONTELUKAST 10 MG TAB PO SCH (10:02)
[2016-07-19] MEDS: LISINOPRIL 10 MG TAB PO SCH (10:02)
[2016-07-19 18:22] VITALS: BP 120/80
[2016-07-19] MEDS ORDERED: risperiDONE 3 MG TAB PO SCH (21:00)
[2016-07-20 06:36] VITALS: BP 138/72
[2016-07-20] MEDS: LORATADINE 10 MG TAB PO SCH (09:00)
[2016-07-20] MEDS: MONTELUKAST 10 MG TAB PO SCH (09:00)
[2016-07-20] MEDS: FLUTICASONE PROP 0.05% NASAL SPRAY 16 GM (FLONASE) SCH ×2 (10:05→21:19)
[2016-07-20] MEDS: FUROSEMIDE 40 MG TAB PO SCH (10:05)
[2016-07-20] MEDS: ADVAIR DISKUS 100/50 INH PWD INH SCH ×2 (10:05→21:20)
[2016-07-20] MEDS: risperiDONE 1 MG TAB PO SCH (10:06)
[2016-07-20] MEDS: LISINOPRIL 10 MG TAB PO SCH (10:06)
[2016-07-20] MEDS: OMEPRAZOLE 20 MG CAP PO SCH (10:06)
[2016-07-20 18:16] VITALS: BP 120/60
[2016-07-20] MEDS: risperiDONE 2 MG TAB PO SCH (21:19)
[2016-07-21 06:07] VITALS: BP 121/64
[2016-07-21] MEDS: MONTELUKAST 10 MG TAB PO SCH (08:45)
[2016-07-21] MEDS: OMEPRAZOLE 20 MG CAP PO SCH (08:45)
[2016-07-21] MEDS: LISINOPRIL 10 MG TAB PO SCH (08:45)
[2016-07-21] MEDS: risperiDONE 1 MG TAB PO SCH (08:45)
[2016-07-21] MEDS: LORATADINE 10 MG TAB PO SCH (08:45)
[2016-07-21] MEDS: FUROSEMIDE 40 MG TAB PO SCH (08:46)
[2016-07-21] MEDS: ADVAIR DISKUS 100/50 INH PWD INH SCH ×2 (08:49→21:11)
[2016-07-21] MEDS: FLUTICASONE PROP 0.05% NASAL SPRAY 16 GM (FLONASE) SCH ×2 (08:49→21:11)
[2016-07-21 18:00] VITALS: BP 112/74
[2016-07-21] MEDS: risperiDONE 2 MG TAB PO SCH (21:10)
[2016-07-22 06:00] VITALS: BP 130/87
[2016-07-22] MEDS: FUROSEMIDE 40 MG TAB PO SCH (08:58)
[2016-07-22] MEDS: LISINOPRIL 10 MG TAB PO SCH (08:58)
[2016-07-22] MEDS: risperiDONE 1 MG TAB PO SCH (08:58)
[2016-07-22] MEDS: FLUTICASONE PROP 0.05% NASAL SPRAY 16 GM (FLONASE) SCH ×2 (08:58→22:23)
[2016-07-22] MEDS: ADVAIR DISKUS 100/50 INH PWD INH SCH ×2 (08:58→22:24)
[2016-07-22] MEDS: MONTELUKAST 10 MG TAB PO SCH (08:58)
[2016-07-22] MEDS: LORATADINE 10 MG TAB PO SCH (08:58)
[2016-07-22] MEDS: OMEPRAZOLE 20 MG CAP PO SCH (08:59)
[2016-07-22 18:00] VITALS: BP 132/84
[2016-07-22] MEDS: risperiDONE 2 MG TAB PO SCH (22:24)
[2016-07-23 06:00] VITALS: BP 112/56
--- NOTE | 2016-07-23 07:32 | IPNPDOC ---
[facility] Progress Note Progress Note DATE OF SERVICE: 07/19/16 SUBJECTIVE: Patient reports intolerable daytime sedation on 2 mg Risperdal in the morning and 2 mg of Risperdal every evening. Patient informed the dose would be changed to 1 mg in the morning and 3 mg every evening to lessen the significance of daytime sedation my having a larger dose at night help with sleep. Patient noted to be confused on interview. Pulse oximetry was taken at time of interview and noted to be within normal limits. Patient did not express paranoid ideations during interview. Patient's primary concern is sedation from Risperdal. Thought process is linear and goal-directed. No other signs of psychosis reported or noted on exam. Patient denies other medication side effects. Appetite and sleep are within normal limits. Patient denies SI/HI, she also denies AH/VH. OBJECTIVE: VITAL SIGNS: Please see below. CURRENT MEDICATIONS: See below. MENTAL STATUS EXAMINATION: Patient s/p short lived episode of confusion, looks stated age, in no acute distress]. Speech: Slow volume is soft, prosody within normal limits, speech is spontaneous ]. Thought processes: concrete, confused Thought content: concern with overwhelming sedation Description of associations: Appropriate. Description of abnormal or psychotic thoughts: No stated paranoid ideations today and no observed disorganized thinking today Judgment: fair Insight: poor Oriented to: place and person. Recent and Remote Memory: fair. Attention Span and Concentration: fair. 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 -Monitor for resolution of this date of side effect to Risperdal. -All scheduled pulse oximetry have been within normal limits. -Continue monitoring of pulse oximetry throughout the day. -Continue CPAP while asleep. -Continue all home medical medications as written. EDOD: 07/24/2016 TIME SPENT: 30 minutes. Vital Signs Vital Signs Date Time Temp Pulse Resp B/P Pulse Ox O2 Delivery O2 Flow Rate FiO2 07/23/16 06:00 98.4 82 16 112/56 97 Room Air 07/22/16 11:43 2.0 100 Current Medications Current Medications Medications (Trade) Dose Ordered Sig/Litzy Route PRN Reason Start Time Stop Time Status Last Admin Dose Admin Acetaminophen (Tylenol) 650 mg Q6HP PRN PO HEADACHE or DISCOMFORT 07/14/16 19:30 08/13/16 19:29 Al Hydrox/Mg Hydrox/Simethicone (Mylanta) 30 ml Q4HP PRN PO HEARTBURN/INDIGESTION 07/14/16 19:30 08/13/16 19:29 Albuterol Sulfate (Proventil Neb) 2.5 mg Q4HP PRN NEB SOB/WHEEZING 07/14/16 21:00 08/13/16 20:59 Albuterol Sulfate (Proventil, Ventolin Hfa) 2 puff Q4HP PRN INH SHORTNESS OF BREATH 07/14/16 21:00 08/13/16 20:59 07/22/16 11:36 Fluticasone Propionate (Flonase 0.05% Nasal [place]) 1 spray BID NA 07/14/16 21:00 08/13/16 20:59 07/22/16 22:23 Furosemide (Lasix) 40 mg DAILY PO 07/15/16 09:00 08/14/16 08:59 07/22/16 08:58 Home Med (Med Rec Complete!) ASDIRECTED XX 07/14/16 19:45 07/14/16 21:00 DC Lisinopril (Prinivil) 10 mg DAILY PO 07/15/16 09:00 08/14/16 08:59 07/22/16 08:58 Loratadine (Claritin) 10 mg DAILY PO 07/15/16 09:00 08/14/16 08:59 07/22/16 08:58 Magnesium Hydroxide (Milk Of Magnesia) 30 ml DAILYPRN PRN PO CONSTIPATION 07/14/16 19:30 08/13/16 19:29 Miscellaneous (Unresolved Patient Own Med Order) SEE LABEL COMMENTS UNRESOLVED XX 07/14/16 00:01 07/15/16 10:38 DC Montelukast Sodium (Singulair) 10 mg DAILY PO 07/15/16 09:00 08/14/16 08:59 07/22/16 08:58 Olanzapine (ZyPREXA ZYDIS) 5 mg Q6HP PRN PO High anxiety/agitation 07/14/16 19:30 08/13/16 19:29 07/17/16 15:37 Omeprazole (PriLOSEC) 20 mg DAILY PO 07/15/16 09:00 08/14/16 08:59 07/22/16 08:59 Patient Own Medication (Patient'S Own Med) 1 ea DAILY INH 07/15/16 09:00 07/15/16 10:38 DC Quetiapine Fumarate (SEROquel) 100 mg QHSP PRN PO INSOMNIA 07/14/16 19:30 07/19/16 12:47 DC Risperidone (RisperDAL) 1 mg BID PO 07/14/16 21:00 07/19/16 12:47 DC 07/19/16 10:01 Risperidone (RisperDAL) 1 mg QAM PO 07/20/16 09:00 08/19/16 08:59 07/22/16 08:58 Risperidone (RisperDAL) 2 mg QHS PO 07/20/16 21:00 08/19/16 20:59 07/22/16 22:24 Risperidone (RisperDAL) 3 mg QHS PO 07/19/16 21:00 07/20/16 12:08 DC 07/19/16 22:24 Salmeterol Xinafoate/ Fluticasone (Advair Diskus 100/50) 1 puff BID INH 07/15/16 09:00 08/14/16 08:59 07/22/16 22:24 Trazodone HCl (Desyrel) 50 mg QHS PO 07/16/16 21:00 07/19/16 12:48 DC 07/18/16 19:50 Allergies Coded Allergies: Codeine (Verified Allergy, Unknown, 01/24/14) KARMEN CEDILLO MD Jul 23, 2016 07:32 Coded Allergies: Codeine (Verified Allergy, Unknown, 01/24/14) KARMEN CEDILLO MD Jul 23, 2016 07:32
--- NOTE | 2016-07-23 07:49 | IPNPDOC ---
[facility] Progress Note Progress Note DATE OF SERVICE: 07/22/16 SUBJECTIVE: Patient reported feeling less sedated on Risperdal. Her dose over the weekend was 1 mg by mouth every a.m. and 2 mg by mouth every evening at bedtime. Today on interview patient reports confusion about her medications and their indications. These were explained and patient displayed less anxiety and reported understanding. Patient's affect is bright. Patient continues to be compliant with CPAP at night. Scheduled pulse oximetry values have all been within normal limits. Patient's confusion likely not associated with hypoxemia. Family history of psychosis. Patient likely has had some underlying psychosis manifesting as episodic confusion for some time now. No significant expression of paranoid ideations over the last 48 hours. Patient's primary issue with Risperdal, sedation, is resolving. Patient denies other medication side effects. Appetite and sleep are within normal limits. Patient denies SI/HI, she also denies AH/VH. OBJECTIVE: VITAL SIGNS: Please see below. CURRENT MEDICATIONS: See below. MENTAL STATUS EXAMINATION: Patient is superficially bright and affect, looks stated age, in no acute distress]. Speech: RRR, continuous]. Thought processes: concrete, confused Thought content: Expressed confusion regarding medications and their indications , once explained patient acknowledged understanding and was reassured. Description of associations: Appropriate. Description of abnormal or psychotic thoughts: No stated paranoid ideations today and no observed disorganized thinking Judgment: fair Insight: poor Oriented to: place and person. Recent and Remote Memory: fair. Attention Span and Concentration: fair. Fund of knowledge: adequate Mood: euthymic. Affect: broad. 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 -All scheduled pulse oximetry have been within normal limits. -Continue monitoring of pulse oximetry throughout the day. -Continue CPAP while asleep. -Continue all home medical medications as written. EDOD: 07/24/2016 TIME SPENT: 30 minutes. Vital Signs Vital Signs Date Time Temp Pulse Resp B/P Pulse Ox O2 Delivery O2 Flow Rate FiO2 07/23/16 06:00 98.4 82 16 112/56 97 Room Air 07/22/16 11:43 2.0 100 Current Medications Current Medications Medications (Trade) Dose Ordered Sig/Litzy Route PRN Reason Start Time Stop Time Status Last Admin Dose Admin Acetaminophen (Tylenol) 650 mg Q6HP PRN PO HEADACHE or DISCOMFORT 07/14/16 19:30 08/13/16 19:29 Al Hydrox/Mg Hydrox/Simethicone (Mylanta) 30 ml Q4HP PRN PO HEARTBURN/INDIGESTION 07/14/16 19:30 08/13/16 19:29 Albuterol Sulfate (Proventil Neb) 2.5 mg Q4HP PRN NEB SOB/WHEEZING 07/14/16 21:00 08/13/16 20:59 Albuterol Sulfate (Proventil, Ventolin Hfa) 2 puff Q4HP PRN INH SHORTNESS OF BREATH 07/14/16 21:00 08/13/16 20:59 07/22/16 11:36 Fluticasone Propionate (Flonase 0.05% Nasal [place]) 1 spray BID NA 07/14/16 21:00 08/13/16 20:59 07/22/16 22:23 Furosemide (Lasix) 40 mg DAILY PO 07/15/16 09:00 08/14/16 08:59 07/22/16 08:58 Home Med (Med Rec Complete!) ASDIRECTED XX 07/14/16 19:45 07/14/16 21:00 DC Lisinopril (Prinivil) 10 mg DAILY PO 07/15/16 09:00 08/14/16 08:59 07/22/16 08:58 Loratadine (Claritin) 10 mg DAILY PO 07/15/16 09:00 08/14/16 08:59 07/22/16 08:58 Magnesium Hydroxide (Milk Of Magnesia) 30 ml DAILYPRN PRN PO CONSTIPATION 07/14/16 19:30 08/13/16 19:29 Miscellaneous (Unresolved Patient Own Med Order) SEE LABEL COMMENTS UNRESOLVED XX 07/14/16 00:01 07/15/16 10:38 DC Montelukast Sodium (Singulair) 10 mg DAILY PO 07/15/16 09:00 08/14/16 08:59 07/22/16 08:58 Olanzapine (ZyPREXA ZYDIS) 5 mg Q6HP PRN PO High anxiety/agitation 07/14/16 19:30 08/13/16 19:29 07/17/16 15:37 Omeprazole (PriLOSEC) 20 mg DAILY PO 07/15/16 09:00 08/14/16 08:59 07/22/16 08:59 Patient Own Medication (Patient'S Own Med) 1 ea DAILY INH 07/15/16 09:00 07/15/16 10:38 DC Quetiapine Fumarate (SEROquel) 100 mg QHSP PRN PO INSOMNIA 07/14/16 19:30 07/19/16 12:47 DC Risperidone (RisperDAL) 1 mg BID PO 07/14/16 21:00 07/19/16 12:47 DC 07/19/16 10:01 Risperidone (RisperDAL) 1 mg QAM PO 07/20/16 09:00 08/19/16 08:59 07/22/16 08:58 Risperidone (RisperDAL) 2 mg QHS PO 07/20/16 21:00 08/19/16 20:59 07/22/16 22:24 Risperidone (RisperDAL) 3 mg QHS PO 07/19/16 21:00 07/20/16 12:08 DC 07/19/16 22:24 Salmeterol Xinafoate/ Fluticasone (Advair Diskus 100/50) 1 puff BID INH 07/15/16 09:00 08/14/16 08:59 07/22/16 22:24 Trazodone HCl (Desyrel) 50 mg QHS PO 07/16/16 21:00 07/19/16 12:48 DC 07/18/16 19:50 Allergies Coded Allergies: Codeine (Verified Allergy, Unknown, 01/24/14) KARMEN CEDILLO MD Jul 23, 2016 07:49
[2016-07-23] MEDS: ADVAIR DISKUS 100/50 INH PWD INH SCH ×2 (08:02→21:09)
[2016-07-23] MEDS: FUROSEMIDE 40 MG TAB PO SCH (08:03)
[2016-07-23] MEDS: risperiDONE 1 MG TAB PO SCH (08:03)
[2016-07-23] MEDS: FLUTICASONE PROP 0.05% NASAL SPRAY 16 GM (FLONASE) SCH ×2 (08:03→21:09)
[2016-07-23] MEDS: OMEPRAZOLE 20 MG CAP PO SCH (08:03)
[2016-07-23] MEDS: LORATADINE 10 MG TAB PO SCH (08:05)
[2016-07-23] MEDS: LISINOPRIL 10 MG TAB PO SCH (08:05)
[2016-07-23] MEDS: MONTELUKAST 10 MG TAB PO SCH (08:05)
[2016-07-23 18:00] VITALS: BP 139/76
[2016-07-23] MEDS: risperiDONE 2 MG TAB PO SCH (21:09)
[2016-07-24] MEDS: OLANZapine ORAL DISINTEGRATING TAB 5MG PO PRN (01:13)
[2016-07-24 06:40] VITALS: BP 153/95
[2016-07-24 08:19] VITALS: BP 153/95
[2016-07-24] MEDS: LISINOPRIL 10 MG TAB PO SCH (08:19)
[2016-07-24] MEDS: risperiDONE 1 MG TAB PO SCH (08:19)
[2016-07-24] MEDS: OMEPRAZOLE 20 MG CAP PO SCH (08:19)
[2016-07-24] MEDS: LORATADINE 10 MG TAB PO SCH (08:19)
[2016-07-24] MEDS: ADVAIR DISKUS 100/50 INH PWD INH SCH (08:20)
[2016-07-24] MEDS: MONTELUKAST 10 MG TAB PO SCH (08:20)
[2016-07-24] MEDS: FUROSEMIDE 40 MG TAB PO SCH (08:20)
[2016-07-24] MEDS: FLUTICASONE PROP 0.05% NASAL SPRAY 16 GM (FLONASE) SCH (08:20)
[2016-07-24] MEDS ORDERED: RISP1TAB41 PO (13:07)
[2016-07-24] MEDS ORDERED: RISP2TAB30 PO (13:07)
--- NOTE | 2016-07-29 06:21 | IPNPDOC ---
[facility] Progress Note Progress Note DATE OF SERVICE: 07/23/16 HISTORY: . VITAL SIGNS: See below. NEW TEST RESULTS: . CURRENT MEDICATIONS: See below. MENTAL STATUS EXAMINATION: Patient is a -year old female, who is [pleasant, cooperative, well kempt], [tall , overweight, thin, elderly, obese, frail build]. Speech: Is [pressured, tangential, circumstantial, flight of ideas, [normal in rate, volume, and articulation, and is coherent and spontaneous]. Language skills are [intact]. Thought processes including: [clear, Not goal-directed or Goal directed]. Thought content: [irrational, logical, illogical, tangential, paranoid]. Abstract reasoning, and computation: . Description of associations: [loose, tangential, circumstantial, intact]. Description of abnormal or psychotic thoughts: [hallucinations, delusions, preoccupation with violence, homicidal or suicidal ideation, and obsessions]. Judgment: [fair, good, very limited, poor,]. Insight: [very limited, good, fair. poor]. Orientation to [time, place and person]. Recent and remote memory: [Immediate, short-term and long-term memory is intact] . Attention span and concentration: [Poor, good, fair]. Language: [Normal]. Fund of knowledge: [adequate, intact, poor, fair, good]. Mood: [irrational, elated, irritable, distracted, depressed, anxious, restricted , neutral, fully communicative]. Affect: [appropriate, reactive, flat, constricted, animated, irrational, expansive, restricted, depressed, anxious, agitated, hypomania, lability]. DIAGNOSES: 1. . 2. . 3. . ASSESSMENT: MANAGEMENT PLAN: . TIME SPENT: minutes. Vital Signs Vital Signs Date Time Temp Pulse Resp B/P Pulse Ox O2 Delivery O2 Flow Rate FiO2 07/24/16 08:19 153/95 07/24/16 06:40 98.6 110 20 07/23/16 18:00 97 07/23/16 09:34 Room Air Current Medications Current Medications Medications (Trade) Dose Ordered Sig/Litzy Route PRN Reason Start Time Stop Time Status Last Admin Dose Admin Acetaminophen (Tylenol) 650 mg Q6HP PRN PO HEADACHE or DISCOMFORT 07/14/16 19:30 07/24/16 14:26 DC Al Hydrox/Mg Hydrox/Simethicone (Mylanta) 30 ml Q4HP PRN PO HEARTBURN/INDIGESTION 07/14/16 19:30 07/24/16 14:26 DC Albuterol Sulfate (Proventil Neb) 2.5 mg Q4HP PRN NEB SOB/WHEEZING 07/14/16 21:00 07/24/16 14:26 DC Albuterol Sulfate (Proventil, Ventolin Hfa) 2 puff Q4HP PRN INH SHORTNESS OF BREATH 07/14/16 21:00 07/24/16 14:26 DC 07/22/16 11:36 Fluticasone Propionate (Flonase 0.05% Nasal [place]) 1 spray BID NA 07/14/16 21:00 07/24/16 14:26 DC 07/24/16 08:20 Furosemide (Lasix) 40 mg DAILY PO 07/15/16 09:00 07/24/16 14:26 DC 07/24/16 08:20 Home Med (Med Rec Complete!) ASDIRECTED XX 07/14/16 19:45 07/14/16 21:00 DC Lisinopril (Prinivil) 10 mg DAILY PO 07/15/16 09:00 07/24/16 14:26 DC 07/24/16 08:19 Loratadine (Claritin) 10 mg DAILY PO 07/15/16 09:00 07/24/16 14:26 DC 07/24/16 08:19 Magnesium Hydroxide (Milk Of Magnesia) 30 ml DAILYPRN PRN PO CONSTIPATION 07/14/16 19:30 07/24/16 14:26 DC 07/23/16 08:45 Miscellaneous (Unresolved Patient Own Med Order) SEE LABEL COMMENTS UNRESOLVED XX 07/14/16 00:01 07/15/16 10:38 DC Montelukast Sodium (Singulair) 10 mg DAILY PO 07/15/16 09:00 07/24/16 14:26 DC 07/24/16 08:20 Olanzapine (ZyPREXA ZYDIS) 5 mg Q6HP PRN PO High anxiety/agitation 07/14/16 19:30 07/24/16 14:26 DC 07/24/16 01:13 Omeprazole (PriLOSEC) 20 mg DAILY PO 07/15/16 09:00 2/1/17 14:26 DC 07/24/16 08:19 Patient Own Medication (Patient'S Own Med) 1 ea DAILY INH 07/15/16 09:00 07/15/16 10:38 DC Quetiapine Fumarate (SEROquel) 100 mg QHSP PRN PO INSOMNIA 07/14/16 19:30 07/19/16 12:47 DC Risperidone (RisperDAL) 1 mg BID PO 07/14/16 21:00 07/19/16 12:47 DC 07/19/16 10:01 Risperidone (RisperDAL) 1 mg QAM PO 07/20/16 09:00 07/24/16 14:26 DC 07/24/16 08:19 Risperidone (RisperDAL) 2 mg QHS PO 07/20/16 21:00 07/24/16 14:26 DC 07/23/16 21:09 Risperidone (RisperDAL) 3 mg QHS PO 07/19/16 21:00 07/20/16 12:08 DC 07/19/16 22:24 Salmeterol Xinafoate/ Fluticasone (Advair Diskus 100/50) 1 puff BID INH 07/15/16 09:00 07/24/16 14:26 DC 07/24/16 08:20 Trazodone HCl (Desyrel) 50 mg QHS PO 07/16/16 21:00 07/19/16 12:48 DC 07/18/16 19:50 Allergies Coded Allergies: Codeine (Verified Allergy, Unknown, 01/24/14) Fluticasone (Unverified Adverse Reaction, Unknown, MAKES "LUNGS HURT", 07/27) Lisdexamfetamine (Unverified Adverse Reaction, Unknown, CONFUSION, 07/27/16) Salmeterol (Unverified Adverse Reaction, Unknown, MAKES "LUNGS HURT", ) Topiramate (Unverified Adverse Reaction, Unknown, CONFUSION, 07/27/16) KARMEN CEDILLO MD Jul 29, 2016 06:21
--- NOTE | 2016-07-29 06:22 | DS.PDOC ---
[facility] Discharge Summary Discharge Summary DATE OF ADMISSION: Jul 14, 2016 at 20:20 DATE OF DISCHARGE: Jul 24, 2016 at 13:49 DISCHARGE DIAGNOSES: [ -Psychotic d/o, unspecified r/o Schizophrenia -Anxiety d/o, unspecified]. HISTORY: [31]-year-old [ female with no past psychiatric history presents to [facility] emergency department, brought by her 's captain. Patient presented after calling her yvrwgd-ne-aem to whom she expressed symptoms of increased agitation, confusion, insomnia, and racing thoughts. Per [id number] patient had been displaying these symptoms for the last 7 days or so. Per patient, she had recently been seen by a new provider in [facility]. She was referred to this provider by her PCM, Yon Parra , for weight loss counseling. Patient reports that the appointment was 2016. She reports that at this appointment she was prescribed Vyvanse and her prescription of Topamax, started by her PCM, was increased from 50 mg twice a day to 50 mg every morning and 100 mg po at bedtime. Patient reports that she finally discontinued these 2 medications on , 07/11/2016. Patient endorsed increased insomnia reporting sleeping 2-3 hours per night over the last week. She reported to her gwgays-er-cyi and uvbswc-iz-pva that she felt people were tunneling under her home and getting into her food and water poisoning her. She also expressed thoughts of burning all her stuffed animals as she felt they were "false idols". She also was noted to be religiously preoccupied attending [employer] 3-4 times per day. She attended [employer] 3 times on day of admission. Patient had also reported donating over $2000 to orthodox programs to help Jews in [place]. Per patient's jcclzi-wo-gnb, patient and her mother had been fighting which is usually a trigger for patient. Patient reports she had thoughts of getting closer to God and endorses that she had been experiencing racing thoughts and increasing anxiety. In the emergency department patient denied suicidal and homicidal ideations. Patient also reports a history of anxiety and depression in high school but denies any symptoms since high school. Per puhsjg-td-one patient had called her who is in [place] on maneuvers. During this discussion she reported thoughts to kill the dogs and cats in their home. This prompted to call his captvasyl, who was able to bring patient into the emergency department for psychiatric evaluation. 's name is Timbo phone number #[phone]. This provider attempted to call patient's Cody but the call went to voicemail. This provider was unable to leave a voicemail at phone number provided #[phone] for patient's Cody. On interview this afternoon, patient denies ongoing racing thoughts. She reports some sedation but was told this was likely secondary to newly started Risperdal 1 mg by mouth twice a day. Patient informed Vyvanse and Topamax were discontinued. Patient reports the referral to weight loss counseling was supposed to be purely for counseling but that provider started her on Vyvanse and increased Topamax as well. Patient denies current paranoid ideations. She denies history of auditory or visual hallucinations. She currently denies, and denied in the emergency department, any suicidal or homicidal ideations. Patient has history of asthma, COPD, and ARDS. This provider will call Capt. Izquierdo again to ask if he is available to bring patient's CPAP machine and for use during this admission. HOSPITAL COURSE: Patient admitted to the inpatient mental health unit. She early in the admission frequently expressed paranoid ideations and was noticeably fearful around staff and peers. Vyvanse was discontinued, a likely cause of her increased anxiety / hypomanic / paranoid ideations. Patient started on Risperdal 1mg po BID which was uptitrated to 1mg po daily and 2mg po qhs for paranoia. Patient's episodes of paranoia and episodes of confusion/ disorganized thought slowly resolved over the course of the admission. Patient' s mood improved over the course of the admission. Patient's pulmonary meds continued inpatient as written at home. Patient refused to wear O2 when ambulating. Pulse oximetry wnl when checked BID as ordered. Patient compliant with CPAP at night. Patient on day of discharge had no confusion or paranoia for >48hrs. Patient was observed to be social with peers on the unit and she participated in groups. On day of discharge patient denied SI and HI. He was medication compliant and she reported no medication side effects on day of discharge. Sleep and appetite returned within normal limits. Patient will discharge to her home where she lives with her .. Outpatient mental healthcare and PCP follow-up appointments made by shoe lay out planner. ] PERTINENT LABS: All within normal limits CONSULTANTS: None MENTAL STATUS EXAMINATION on discharge: Patient's affect is bright, calm and cooperative, looks stated age, in no acute distress]. Speech: RRR, continuous]. Thought processes: concrete, confused Thought content: Expressed confusion regarding medications and their indications , once explained patient acknowledged understanding and was reassured. Description of associations: Appropriate. Description of abnormal or psychotic thoughts: No paranoid ideations expressed today, no noted episodes of confused or disorganized thinking Judgment: fair Insight: fair Oriented to: place, person, and time. Recent and Remote Memory: fair. Attention Span and Concentration: fair. Fund of knowledge: adequate Mood: euthymic. Affect: broad. MEDICATIONS ON DISCHARGE: -Continue Risperdal at 1mg po each morning and 2mg po qhs for psychosis. -Patient instructed to continue all home pulmonary meds and BP med as prescribed prior to admission. FOLLOWUP ARRANGEMENTS: Patient has mental health care and PCP follow-up appointments within 14 days of this discharge. Appointments arranged by shoe lay out planner. TIME SPENT: 60 minutes. Medications Scheduled (Flonase Allergy Relief) 50 Mcg/Act Spr 50 MCG NA BID Asthma (Reported) Azithromycin (Zithromax Z-Oscar) 250 Mg Tab #1 250 MG PO ASDIRECTED Day 1- take two tablets once. Day 2, 3, 4 , 5 take one tablet once daily Esomeprazole Magnesium Trihydr (Nexium) 20 Mg Cap 20 MG PO DAILY GERD (Reported ) Fluticasone/Vilanterol (Breo Ellipta 200-25 Mcg/INH) 1 Inh Inh 1 PUFF INH DAILY asthma (Reported) Furosemide (Lasix) 40 Mg Tab 40 MG PO DAILY HTN (Reported) Lisinopril (Lisinopril) 10 Mg Tab 10 MG PO DAILY Htn (Reported) Loratadine (Claritin) 10 Mg Tab 10 MG PO DAILY asthma (Reported) Montelukast Sodium (Singulair) 10 Mg Tab 10 MG PO DAILY asthma (Reported) Omalizumab (Xolair) 150 Mg Charisma 150 MG SC Q2WK (Reported) PT HASN'T RECEIVED IN MORE THAN 2 WEEKS Prednisone (Prednisone) 20 Mg Tab #3 20 MG PO DAILY Risperidone (Risperdal) 1 Mg Tab 1 MG PO QAM (Reported) Risperidone (Risperdal) 2 Mg Tab 2 MG PO QHS (Reported) Scheduled PRN Albuterol Sulfate (Proair Hfa) 108 Mcg/Act Aer 2 PUFF INH Q4H PRN PRN SHORTNESS OF BREATH (Reported) Albuterol/Ipratropium (Ipratropium [place]/Albut 0.5-2.5 (3) mg/3Ml) 1 Charisma Charisma 1 CHARISMA INH PRN SHORTNESS OF BREATH (Reported) Allergies Coded Allergies: Codeine (Verified Allergy, Unknown, 01/24/14) Fluticasone (Unverified Adverse Reaction, Unknown, MAKES "LUNGS HURT", 07/27) Lisdexamfetamine (Unverified Adverse Reaction, Unknown, CONFUSION, 07/27/16) Salmeterol (Unverified Adverse Reaction, Unknown, MAKES "LUNGS HURT", ) Topiramate (Unverified Adverse Reaction, Unknown, CONFUSION, 07/27/16) KARMEN CEDILLO MD Jul 29, 2016 06:22
== END 2016-07-24 13:49 | disposition home or self-care (01) | DRG 885 ==
LOC: M ED 15:34 → M PSY 20:20
PROVIDERS: ADMIT Psychiatry & Neurology Psychiatry; ATTEND Psychiatry & Neurology Psychiatry
DX: F29 Unspecified psychosis not due to a substance or known physiological condition (principal); Z68.43 Body mass index [BMI] 50.0-59.9, adult; K21.9 Gastro-esophageal reflux disease without esophagitis; G47.33 Obstructive sleep apnea (adult) (pediatric); J45.909 Unspecified asthma, uncomplicated; E66.9 Obesity, unspecified; I10 Essential (primary) hypertension

== ENCOUNTER 2016-07-27 10:06 | Inpatient (IN) | payer OTHER ==
[~2016-07-27] VITALS: Ht 147.3 cm; Wt 120.6 kg
[~2016-07-27 10:06] MED LIST: ALBU83IN INH; BREO1INH3 INH; CLAR1TAB2 PO; FLON1SPR; LASI40TA PO; LISI10TA4 PO; NEXI20CA PO; PRED10PA PO; PROA1AER INH; RISP1TAB41 PO; RISP2TAB30 PO; SING10TA32 PO; TOPA100T8 PO; TOPA50TA7 PO; VYVA40CA3 PO
[2016-07-27] MEDS ORDERED: methylPREDNISolone INJ 125 MG/2 ML VIAL (J2930) As Ordered ONE (10:51)
[2016-07-27] MEDS ORDERED: IPRATROPIUM 0.5MG/ALBUTEROL 2.5MG INH SOL UD 3ML (DUONEB)(J7620) As Ordered ONE (10:52)
[2016-07-27] MEDS ORDERED: RISP1TAB41 PO (11:21)
[2016-07-27] MEDS ORDERED: IPRASOL4 INH (11:21)
[2016-07-27] MEDS ORDERED: XOLA150S SC (11:21)
[2016-07-27] MEDS ORDERED: RISP2TAB30 PO (11:21)
[2016-07-27 11:42] LABS: BASO % 0.5 % (0.0-1.0); EOS # 0.1 K/mm3 (0.0-0.50); EOS % 1.2 % (0.0-3.0); LARGE UNSTAINED CELL # 0.2 K/mm3 (0.0-0.4); LARGE UNSTAINED CELL % 3.1 % (0.0-4.0); LYMPH # 2.6 K/mm3 (1.5-4.5); LYMPH % 36.4 % (24.0-44.0); MEAN CORPUSCULAR HEMOGLOBIN 22.4 pg (27.0-33.0); MEAN CORPUSCULAR HGB CONC 29.9 g/dl (32.0-36.5); MEAN CORPUSCULAR VOLUME 75.1 fl (80.0-96.0); MONO # 0.6 K/mm3 (0.0-0.8); MONO % 7.9 % (0.0-5.0); NEUTROPHILS # 3.6 K/mm3 (1.8-7.7); NEUTROPHILS % 50.9 % (36.0-66.0); PLATELET COUNT, AUTOMATED 277 k/mm3 (150-450); RED CELL DISTRIBUTION WIDTH 15.8 % (11.5-14.5)
[2016-07-27 12:01] LABS: ANION GAP 9 MEQ/L (8-16); BLOOD UREA NITROGEN 17 MG/DL (7-18); CALCIUM LEVEL 8.5 MG/DL (8.5-10.1); CARBON DIOXIDE LEVEL 27 MEQ/L (21-32); CHLORIDE LEVEL 106 MEQ/L (98-107); CREATININE FOR GFR 0.76 MG/DL (0.55-1.02); GLOMERULAR FILTRATION RATE > 60.0 (>60); GLUCOSE, FASTING 104 MG/DL (70-105); POTASSIUM SERUM 4.3 MEQ/L (3.5-5.1); SODIUM LEVEL 142 MEQ/L (136-145)
[2016-07-27] MEDS ORDERED: ISOVUE-370 76% 100ML VIAL (Q9967) As Ordered ONE (13:24)
[2016-07-27] MEDS ORDERED: IPRATROPIUM 0.5MG/ALBUTEROL 2.5MG INH SOL UD 3ML (DUONEB)(J7620) NEB PRN (13:30)
[2016-07-27] MEDS ORDERED: ACETAMINOPHEN TAB 650MG DOSE (2X325MG) PO PRN (13:30)
--- NOTE | 2016-07-27 13:49 | REP ---
CHEST X-RAY: Two views. HISTORY: Shortness of breath. Comparison study June 29, 2016. FINDINGS: EKG monitoring electrodes overlie the chest. The lungs are symmetrically aerated and free of infiltrate. Pleural angles are sharp. Heart size is normal. No significant bony abnormality is seen. IMPRESSION: No active disease. Signed by Kristofer Garcia MD 07/27/2016 02:28 P
--- NOTE | 2016-07-27 14:03 | REP ---
CT PULMONARY ANGIOGRAM: With IV contrast. HISTORY: Chest pain. COMPARISON STUDIES: Comparison CT study without contrast July 02, 2016. Contrast dose: 75 mL of Isovue [address] TECHNIQUE: Helical scanning is acquired and overlapping 1.5 mm and contiguous 3 mm axial images are reformatted. In addition, a 3- work station is deployed to generate thick slab maximum intensity projection images in sagittal and coronal imaging projections. CT PULMONARY ANGIOGRAPHIC FINDINGS: There is good opacification of the pulmonary arterial tree. There is no CT evidence of pulmonary embolism. Maximum intensity projection images show no vessel cutoff or filling defect to suggest a pulmonary arterial thrombus. Thoracic aorta is normal in course and caliber and enhances homogeneously. No aneurysm or dissection is seen. No hilar or mediastinal mass is observed. No pleural or pericardial effusion is seen. Visualized upper abdominal structures are unremarkable. There are patchy areas of ground-glass opacity throughout the lung meza consistent with diffuse alveolar pulmonary edema or developing infiltrates. There is gross abnormality with low inspiratory level and this is no doubt contributing as well. The prior study describes a 4 mm nodular density in the left lower lobe. This cannot be seen on today's study. IMPRESSION: 1. No CT evidence of pulmonary embolus. 2. Patchy areas of ground-glass opacity bilaterally. Relatively low inspiratory level is contributing, however, cannot exclude a diffuse alveolar edema or developing infiltrates. Signed by Kristofer Garcia MD 07/27/2016 02:29 P
[2016-07-27 14:12] LABS: ABG BASE EXCESS -2.4 (-2.0-2.0); ABG HCO3 20.9 MEQ/L (22.0-26.0); ABG PARTIAL PRESSURE CO2 31.4 mmHg (35.0-45.0); ABG STANDARD HCO3 22.4 MEQ/L (22.0-26.0); ABG TOTAL CO2 21.9 MEQ/L (22.0-29.0); ABG pH (ARTERIAL) 7.441 UNITS (7.350-7.450)
[2016-07-27 14:18] LABS: RETIC HEMOGLOBIN CONTENT CHr 21.8 PG (24-36)
--- NOTE | 2016-07-27 14:29 | HPEPDOC ---
General Date of Admission Jul 27, 2016 at 13:29 Chief Complaint The patient is a 31-year-old female Presented to the ER with complaints of shortness of breath and productive cough History of Present Illness Patient is a 31 year old female with a PMHx of Asthma, Allergic Rhinitis, HTn, GERD, JERI on CPAP, Obesity, Depression / Anxiety, Hx of ARDS who presented to the ER with complaints of shortness of breath and productive cough over the last 1 week duration. Patient noted that [facility] to [facility]24 and did not receive adequate medications there. She notes she was on Advair and not Breo; and attributes all her breathing difficulties to that. Patient noted that over the course of 1 week, her breathing has slowly deteriorated, and she developed a productive cough with yellow sputum. She denies any blood in the sputum. She has pleuritic chest pain, when she takes a deep breath or cough. She denies any fever or chills at home. No palpitations. She denies any recent immobility. At home she uses supplemental oxygen of 2 liters at night and with over eversion , she does not use it regularly. However over the past 1 week, she has been using it continuously. She denies any nausea, vomiting, abdominal pain, constipation, diarrhea or urinary symptoms. She does note heavy menstruation. Home Medications Scheduled (Flonase Allergy Relief) 50 Mcg/Act Spr 50 MCG NA BID Asthma (Reported) Esomeprazole Magnesium Trihydr (Nexium) 20 Mg Cap 20 MG PO DAILY GERD (Reported ) Fluticasone/Vilanterol (Breo Ellipta 200-25 Mcg/INH) 1 Inh Inh 1 PUFF INH DAILY asthma (Reported) Furosemide (Lasix) 40 Mg Tab 40 MG PO DAILY HTN (Reported) Lisinopril (Lisinopril) 10 Mg Tab 10 MG PO DAILY Htn (Reported) Loratadine (Claritin) 10 Mg Tab 10 MG PO DAILY asthma (Reported) Montelukast Sodium (Singulair) 10 Mg Tab 10 MG PO DAILY asthma (Reported) Omalizumab (Xolair) 150 Mg Charisma 150 MG SC Q2WK (Reported) PT HASN'T RECEIVED IN MORE THAN 2 WEEKS Risperidone (Risperdal) 1 Mg Tab 1 MG PO QAM (Reported) Risperidone (Risperdal) 2 Mg Tab 2 MG PO QHS (Reported) Scheduled PRN Albuterol Sulfate (Proair Hfa) 108 Mcg/Act Aer 2 PUFF INH Q4H PRN PRN SHORTNESS OF BREATH (Reported) Albuterol/Ipratropium (Ipratropium Panther/Albut 0.5-2.5 (3) mg/3Ml) 1 Charisma Charisma 1 CHARISMA INH PRN SHORTNESS OF BREATH (Reported) Allergies Coded Allergies: Codeine (Verified Allergy, Unknown, 01/24/14) [place] [facility] (Unverified Adverse Reaction, Unknown, CONFUSION, ) Fluticasone (Unverified Adverse Reaction, Unknown, MAKES "LUNGS HURT", 07/27) Lisdexamfetamine (Unverified Adverse Reaction, Unknown, CONFUSION, 07/27/16) Milk Protein Extract (Unverified Adverse Reaction, Unknown, MAKES "LUNGS HURT", 07/27/16) Red Dye (Unverified Adverse Reaction, Unknown, CONFUSION, 07/27/16) Salmeterol (Unverified Adverse Reaction, Unknown, MAKES "LUNGS HURT", ) Topiramate (Unverified Adverse Reaction, Unknown, CONFUSION, 07/27/16) Yellow Dye (Unverified Adverse Reaction, Unknown, CONFUSION, 07/27/16) Past Medical History Medical History Asthma, Allergic Rhinitis, HTn, GERD, JERI on CPAP, Obesity, Depression / Anxiety , Hx of ARDS Surgical History Appendectomy Bilateral eye surgeries for cross eye Tonsillectomy Deviated septum repair Dilatation and curettage Lung biopsy with Dr. Dominique (few months prior); found to have revealed inflammation and interstitial fibrosis Family History Family History - Mother with history of disability because of back problems - Father with a history of pancreatic cancer Social History Social History - Denies the use of alcohol or illicit drugs; Quit smoking; smoked for 10 years at less than 0.25 ppd - Denies recent travel or sick contacts - Lives with - Occupation; Student Review of Symptoms Other systems Constitutional: Denies weight loss, change in appetite, or recent trauma Eyes: No visual changes or eye pain Ears, Nose, Throat: Denies nose bleeds, or difficulty swallowing Cardiovascular: Denies chest pain, sweating, or orthopnea Respiratory: Positive productive cough, wheezing, and shortness of breath GI: Donaldo nausea, vomiting, abdominal pain, diarrhea or constipation : Denies pain with urination or frequency Musculoskeletal: Denies joint pain or swelling Neuro / Psych: Denies muscle weakness or sensory loss Skin: No skin rashes noted All other review of systems negative; otherwise stated in history of present illness Vital Signs - Vitals: BP 135/75, HR 76, RR 19, Sat 95%NC3L, Temp 98.1F - General: Lying in bed, No acute distress, Speaking in full sentences, AAOx3 - HEENT: NC, AT, PERRLA, EOMI - CVS: RRR, +S1S2, - Murmurs / rubs / gallops - Lungs: Fair air entry bilaterally, Clear to auscultation, No wheezing / rales / rhonchi - Abdomen: Soft, Non-distended, Non-tender, + Bowel sounds x 4 - Extremities: + PPx4, No lower extremity edema, No calf tenderness - Neuro: No focal motor or sensory deficit - Skin: No visible rashes Laboratory Data Labs 24H Laboratory Tests 2 07/27/16 11:23: Absolute Reticulocyte Count 94H, Percent Reticulocyte Count 2.00H, Reticulocyte Hgb Content (CHr) 21.8L 07/27/16 11:28: B-Type Natriuretic Peptide 19.5, White Blood Count 7.0, Red Blood Count 4.57, Hemoglobin 10.3L, Hematocrit 34.3L, Mean Corpuscular Volume 75.1L, Mean Corpuscular Hemoglobin 22.4L, Mean Corpuscular Hemoglobin Concent 29.9L, Red Cell Distribution Width 15.8H, Platelet Count 277, Neutrophils (%) (Auto) 50.9, Lymphocytes (%) (Auto) 36.4, Monocytes (%) (Auto) 7.9H, Eosinophils (%) (Auto) 1.2, Basophils (%) (Auto) 0.5, Neutrophils # (Auto) 3.6, Lymphocytes # (Auto) 2.6, Monocytes # (Auto) 0.6, Eosinophils # (Auto) 0.1, Basophils # (Auto) 0.0, Large Unclassified Cells # 0.2, Large Unclassified Cells % 3.1 07/27/16 11:29: Anion Gap 9, Blood Urea Nitrogen 17, Creatinine 0.76, Sodium Level 142, Potassium Level 4.3, Chloride Level 106, Carbon Dioxide Level 27, Calcium Level 8.5, Glomerular Filtration Rate > 60.0 07/27/16 14:04: Arterial Blood pH 7.441, Arterial Blood Partial Pressure CO2 31.4L, Arterial Blood Partial Pressure O2 76.0, Arterial Blood Total CO2 21.9L, Arterial Blood HCO3 20.9L, Arterial Blood Base Excess -2.4L, Arterial Blood Oxygen Saturation 95.1, Blood Gas Bicarbonate Standard 22.4 CBC/BMP Laboratory Tests 07/27/16 11:28 Red Blood Count 4.57, Mean Corpuscular Volume 75.1 L, Mean Corpuscular Hemoglobin 22.4 L, Mean Corpuscular Hemoglobin Concent 29.9 L, Red Cell Distribution Width 15.8 H, Neutrophils (%) (Auto) 50.9, Lymphocytes (%) (Auto) 36.4, Monocytes (%) (Auto) 7.9 H, Eosinophils (%) (Auto) 1.2, Basophils (%) ( Auto) 0.5, Neutrophils # (Auto) 3.6, Lymphocytes # (Auto) 2.6, Monocytes # (Auto ) 0.6, Eosinophils # (Auto) 0.1, Basophils # (Auto) 0.0 07/27/16 11:29 Calcium Level 8.5 Microbiology Microbiology 07/27/16 Blood Culture, Received Pending 07/27/16 Blood Culture, Received Pending 07/27/16 Influenza Virus Type A Antigen - Final, Complete 07/27/16 Influenza Virus Type B Antigen - Final, Complete Plan / VTE VTE Prophylaxis Ordered?: Yes Plan Plan Dyspnea likely 2/2 acute exacerbation of asthma, possible pneumonia - Presented to the hospital for shortness of breath, productive cough, no reported fevers - Physical exam currently does not reveal any wheezing or rhonchi, was noted to have wheezing upon arrival - Has received Solumedrol and Duoneb therapy in the ER - Will check sputum culture, blood cultures - Will start solumedrol, Duoneb and Levaquin for now Microcytic anemia likely 2/2 iron deficiency - History of heavy menstruation - Will check iron panel, reticulocyte count - Will monitor for now Allergic Rhinitis - c/w antihistamines - She takes Xolair every 2 weeks, last use was >4 weeks ago - Follows with Dr. Dominique as an outpatient HTN - Will c/w home BP meds (Lisinopril and Furosemide) with holding parameters JERI on CPAP - Allow home CPAP use Hx of ARDS - Reported that this occurred in 2010 - She was an inpatient for pneumonia and was on a ventilator in [facility] Obesity Depression / Anxiety - recent admission at [facility] - will c/w risperidone GERD - Will start protonix DVT prophylaxis - Will start Lovenox Will sign out to ZULAY Abreu MD Jul 27, 2016 14:29
[2016-07-27 14:31] LABS: PERCENT SATURATION 6.8 % (13.2-37.4)
--- NOTE | 2016-07-27 14:46 | EDDOCDS ---
Nurse's Notes [facility] Name: Conchis Morel Age: 31 yrs Sex: Female : 1985 Arrival Date: 07/27/2016 Time: 10:06 Bed 12 Private MD: Reema Parra Diagnosis: Asthma Presentation: 07/27 10:14 Presenting complaint: Patient states: feeling SOB x 2 days history of ARDS room air [facility] oxygen 83% using home oxygen 3l/min via nasal cannula up to 94%,Cough with yellow phlegm. Adult Sepsis Screening: The patient does not have new or worsening altered mentation. Patient's respiratory rate is less than 22. Systolic blood pressure is greater than 100. Patient has a qSOFA score of 0- Negative Sepsis Screen. Suicide/Homicide risk assessment- the patient denies having any suicidal and/or homicidal ideations and does not present with any other emotional, behavioral or mental health complaints. Status: The patient is a dependent. Transition of care: patient was not received from another setting of care. 10:14 Acuity: BOOGIE Level 3 [facility] 10:14 Method Of Arrival: Walkin/Carried/Asstd [facility] Triage Assessment: 10:24 General: Appears well nourished, well groomed, Behavior is appropriate for age. Pain: [facility] Location: lungs when she takes a deep breath Pain currently is 4 out of 10 on a pain scale. HIV screening NA for this visit Offered previously. Neurological: Level of Consciousness is awake, alert, Oriented to person, place, time. Respiratory: Onset: The symptoms/episode began/occurred 2 days ago, Reports cough that is yellow phlegm pain with respiration Pain is 4 out of 10 on a pain scale. Derm: Skin is pink, warm & dry. 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 albuterol sulfate 90 mcg/actuation Inhl HFAA 2 puffs every 4 hours pt reports she forgot to take her meds for the last couple. (Last dose: 07/26/2016) 2. albuterol sulfate 2.5 mg /3 mL (0.083 %) Inhl nebu 3 mL as needed (Last dose: 07/27/2016 09:00) 3. Breo Ellipta 200-25 mcg/dose inhalation dsdv 1 puff once daily . (Last dose: 07/27/2016 08:00) 4. Claritin 10 mg Oral tab 1 tab once daily (Last dose: 07/27/2016 08:00) 5. Flonase 50 mcg/actuation Nasal spsn 1 spray 2 times per day (Last dose: 07/27/2016 08:00) 6. Lasix 40 mg Oral tab 1 tab once daily (Last dose: 07/27/2016 08:00) 7. lisinopril 10 mg Oral tab 1 tab once daily (Last dose: 07/27/2016 08:00) 8. Nexium 20 mg Oral cpDR 1 cap once daily . (Last dose: 07/27/2016 08:00) 9. Singulair 10 mg Oral tab 1 tab once daily (Last dose: 07/27/2016 08:00) 10. antidepressant 1 mg AM and 2mg bedtime. (Last dose: 07/27/2016 08:00) - PMHx: ARDS; GERD; - PSHx: Appendectomy; eye surgery; Tonsillectomy; deviated septum; D & C; lung biopsy; - Social history: Smoking status: Patient states former smoker of tobacco. No barriers to communication noted, The patient speaks fluent Zambian. - Family history: Not pertinent. - : The pt / caregiver states he / she is not on anticoagulants. Home medication list is obtained from the patient, Note please call Tootie cardona for antidepressant med. - Exposure Risk Screening:: None identified. Screenin:49 Screening information is obtained from the patient. Fall risk: No risks identified. kr3 Assistance ADL's: requires no assistance with activities of daily living. Abuse/DV Screen: The patient / caregiver reports he/she is: not in a situation that causes fear, pain or injury. home support is adequate. 11:01 Nutritional screening: No deficits noted. Advance Directives: Currently, there is no kr3 health care proxy. There is no Power of [place]. Assessment: 10:59 General: Appears in no apparent distress, comfortable, Behavior is appropriate for age, kr3 cooperative. Neurological: Level of Consciousness is awake, alert. Cardiovascular: Rhythm is regular. Respiratory: Airway is patent Respiratory effort is even, labored, Reports shortness of breath on exertion. Respiratory: Reports shortness of breath. GI: Abdomen is obese. Derm: Skin is pink, warm & dry. 11:12 Pain: Location: lungs Pain currently is 6 out of 10 on a pain scale. kr3 11:41 Reassessment: ambulated to bathroom with assist of pushing wheelchair. kr3 12:30 Reassessment: Patient appears in no apparent distress at this time. resting on kr3 stretcher with eyes closed. 13:09 Reassessment: Patient appears in no apparent distress at this time. Respiratory: Airway kr3 is patent Respiratory effort is even, labored, Breath sounds are clear bilaterally. Derm: Skin is normal. 13:33 Reassessment: wheelchair to bathroom and than CT scan. Patient tolerated movement well. kr3 14:17 Reassessment: Patient appears in no apparent distress at this time. talking with Dr tammy flynn regarding admission. 14:38 Reassessment: Patient appears in no apparent distress at this time. Neurological: Level kr3 of Consciousness is awake, alert. Respiratory: Airway is patent Respiratory effort is even. Derm: Skin is normal. Vital Signs: 10:08 BP 137 / 70; Pulse 89; Resp 19; Temp 98.1(T); Pulse Ox 94% on 3 lpm NC; Weight 120.2 kg lr2 (R); Height 4 ft. 10 in. (147.32 cm); 10:49 Pulse Ox 96% on 3 lpm NC; kr3 10:50 Pulse Ox 95% on 3 lpm NC; kr3 10:51 BP 112 / 54 (auto/); kr3 11:06 BP 113 / 53 (auto/); kr3 11:06 Pulse 88 MON; Pulse Ox 93% on 3 lpm NC; kr3 11:21 BP 126 / 68 (auto/); kr3 11:21 Pulse 86 MON; Pulse Ox 92% on 3 lpm NC; kr3 11:32 Pulse 80 MON; Pulse Ox 90% on 3 lpm NC; kr3 11:39 BP 131 / 67 (auto/); kr3 12:09 BP 135 / 75 (auto/); kr3 12:09 Pulse 76 MON; Pulse Ox 95% on 3 lpm NC; kr3 13:09 BP 130 / 78 (auto/); kr3 13:09 Pulse 84 MON; Pulse Ox 95% on 3 lpm NC; kr3 13:16 Pulse 78 MON; Pulse Ox 94% on 3 lpm NC; kr3 13:32 BP 126 / 75 (auto/); kr3 14:02 BP 137 / 81 (auto/); kr3 14:03 Pulse 96 MON; Pulse Ox 94% on 3 lpm NC; kr3 14:12 Pulse 94 MON; Pulse Ox 97% on 3 lpm NC; kr3 14:32 BP 121 / 68 (auto/); kr3 14:33 Pulse 100 MON; Pulse Ox 91% on 3 lpm NC; kr3 10:08 Body Mass Index 55.38 (120.20 kg, 147.32 cm) lr2 Vitals: 10:15 Log In Time: July 27, 2016 at 10:06. lr2 ED Course: 10:07 Patient visited by Greta Londono. lr2 10:07 Patient moved to Waiting lr2 10:08 Reema Parra is Private Physician. lr2 10:10 Patient moved to Pre RCE lr2 10:17 Triage Initiated kpj 10:27 Yvonne Rosa,RN is Primary Nurse. kpj 10:27 Patient moved to 12 kpj 10:28 Yara Zabala MD is Attending Physician. sd1 10:44 Patient visited by Yara Zabala MD. sd1 10:49 The patient / caregiver is instructed regarding the plan of care and ED course. kr3 Accompanied by Family Member, Patient has correct armband on for positive identification. Placed in gown. Bed in low position. Call light in reach. Side rails up X 1. 10:49 -Blood Culture Sent. kr3 10:52 Patient visited by Freida Lin. dem1 10:52 Patient visited by Freida Lin. dem1 10:52 pumper gager on. Pulse ox on. NIBP on. dem1 10:52 EKG done. (by ED staff). Reviewed by Yara Zabala MD. dem1 10:56 Patient visited by Chelsea Valenzuela. nb2 11:06 Inserted peripheral IV: 20gauge IV in left forearm and blood collected. Patient ml6 tolerated the procedure well. 11:12 O2 via nasal cannula \T\ 3L/min. kr3 11:41 Patient visited by Yvonne Rosa RN. kr3 11:41 Assisted to bathroom. kr3 11:46 [place] [place] Agreement was scanned into [employer] and attached to record. mm15 12:31 Patient visited by Yvonne Rosa RN. kr3 13:08 Patient visited by Yvonne Rosa,OSVALDO. kr3 13:08 -Influenza A&B Rapid Antigen - Nose Sent. kr3 13:26 Jenni Flynn is Hospitalizing Provider. sd1 13:33 Assisted to bathroom. kr3 13:52 -Arterial Blood Gas Sent. cs15 14:00 Chest, 2 View (pa\E\lat) Returned. EDMS 14:18 No procedures done that require assistance. kr3 14:43 CT Chest Angio R/O PE Returned. EDMS Administered Medications: 10:50 Drug: Albuterol-Ipratropium 1 neb [ipratropium-albuterol 0.5 mg-3 mg(2.5 mg base)/3 mL kt1 nebulization soln (1 neb)] Route: Nebulizer; 11:00 Follow up: Response: Nebulizer completed kt1 11:05 Drug: Albuterol-Ipratropium 1 neb [ipratropium-albuterol 0.5 mg-3 mg(2.5 mg base)/3 mL kt1 nebulization soln (1 neb)] Route: Nebulizer; 11:15 Follow up: Response: Nebulizer completed kt1 11:11 Drug: Solu-MEDROL 125 mg [Solu-Medrol 500 mg intravenous solution (125 mg)] Route: IVP; kr3 Site: left forearm; 11:25 Drug: Albuterol-Ipratropium 1 neb [ipratropium-albuterol 0.5 mg-3 mg(2.5 mg base)/3 mL kt1 nebulization soln (1 neb)] Route: Nebulizer; RT: 10:57 Initial Med Neb Given as ordered Patient tolerated procedure well without adverse kt1 effect. Respiratory: No deficits noted. Breath sounds are clear bilaterally. 11:05 Subsequent Med Neb Given as ordered Patient tolerated procedure well without adverse kt1 effect. 11:05 Respiratory: Breath sounds are clear bilaterally. kt1 11:25 Subsequent Med Neb Given as ordered Patient tolerated procedure well without adverse kt1 effect. 13:52 ABG's drawn from left radial artery allens test done and positive pressure held for 5 cs15 minutes no bleeding noted pressure bandage applied specimen sent pt. tolerated well. 13:52 O2 via nasal cannula \T\ 2L/min. cs15 Order Results: Lab Order: B-Type Natiuretic Peptide; SPEC'M 07/27/16 11:28 Test: BRAIN NATRIURETIC PEPTIDE; Value: 19.5; Range: <100; Units: PG/ML; Status: F Lab Order: Basic Metabolic Profile; SPEC'M 07/27/16 11:29 Test: GLUCOSE, FASTING; Value: 104; Range: 70-105; Units: MG/DL; Status: F Test: BLOOD UREA NITROGEN; Value: 17; Range: 7-18; Units: MG/DL; Status: F Test: CREATININE FOR GFR; Value: 0.76; Range: 0.55-1.02; Units: MG/DL; Status: F Test: GLOMERULAR FILTRATION RATE; Value: > 60.0; Range: >60; Status: F Test: SODIUM LEVEL; Value: 142; Range: 136-145; Units: MEQ/L; Status: F Test: POTASSIUM SERUM; Value: 4.3; Range: 3.5-5.1; Units: MEQ/L; Status: F Test: CHLORIDE LEVEL; Value: 106; Range: 98-107; Units: MEQ/L; Status: F Test: CARBON DIOXIDE LEVEL; Value: 27; Range: 21-32; Units: MEQ/L; Status: F Test: ANION GAP; Value: 9; Range: 8-16; Units: MEQ/L; Status: F Test: CALCIUM LEVEL; Value: 8.5; Range: 8.5-10.1; Units: MG/DL; Status: F Test Note: ; Units are mL/min/1.73 m2 Chronic Kidney Disease Staging per NKF: Stage I & II GFR >=60 Normal to Mildly Decreased Stage III GFR 30-59 Moderately Decreased Stage IV GFR 15-29 Severely Decreased Stage V GFR <15 Very Little GFR Left ESRD GFR <15 on 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 Lab Order: CBC with Diff; SPEC'M 07/27/16 11:28 Test: WHITE BLOOD COUNT; Value: 7.0; Range: 4.0-10.0; Units: K/mm3; Status: F Test: RED BLOOD COUNT; Value: 4.57; Range: 4.00-5.40; Units: M/mm3; Status: F Test: HEMOGLOBIN; Value: 10.3; Range: 12.0-16.0; Abnormal: Below low normal; Units: g/dl; Status: F Test: HEMATOCRIT; Value: 34.3; Range: 36.0-47.0; Abnormal: Below low normal; Units: %; Status: F Test: MEAN CORPUSCULAR VOLUME; Value: 75.1; Range: 80.0-96.0; Abnormal: Below low normal; Units: fl; Status: F Test: MEAN CORPUSCULAR HEMOGLOBIN; Value: 22.4; Range: 27.0-33.0; Abnormal: Below low normal; Units: pg; Status: F Test: MEAN CORPUSCULAR HGB CONC; Value: 29.9; Range: 32.0-36.5; Abnormal: Below low normal; Units: g/dl; Status: F Test: RED CELL DISTRIBUTION WIDTH; Value: 15.8; Range: 11.5-14.5; Abnormal: Above high normal; Units: %; Status: F Test: PLATELET COUNT, AUTOMATED; Value: 277; Range: 150-450; Units: k/mm3; Status: F Test: NEUTROPHILS %; Value: 50.9; Range: 36.0-66.0; Units: %; Status: F Test: LYMPH %; Value: 36.4; Range: 24.0-44.0; Units: %; Status: F Test: MONO %; Value: 7.9; Range: 0.0-5.0; Abnormal: Above high normal; Units: %; Status: F Test: EOS %; Value: 1.2; Range: 0.0-3.0; Units: %; Status: F Test: BASO %; Value: 0.5; Range: 0.0-1.0; Units: %; Status: F Test: LARGE UNSTAINED CELL %; Value: 3.1; Range: 0.0-4.0; Units: %; Status: F Test: NEUTROPHILS #; Value: 3.6; Range: 1.8-7.7; Units: K/mm3; Status: F Test: LYMPH #; Value: 2.6; Range: 1.5-4.5; Units: K/mm3; Status: F Test: MONO #; Value: 0.6; Range: 0.0-0.8; Units: K/mm3; Status: F Test: EOS #; Value: 0.1; Range: 0.0-0.50; Units: K/mm3; Status: F Test: BASO #; Value: 0.0; Range: 0.0-0.2; Units: K/mm3; Status: F Test: LARGE UNSTAINED CELL #; Value: 0.2; Range: 0.0-0.4; Units: K/mm3; Status: F Lab Order: -Influenza A&B Rapid Antigen - Nose; SPEC'07/27/16 13:03 Test: INFLUENZA A RAPID SCR by ICA; Value: INFLUENZA A RESULTS NEGATIVE; Status: F Test: INFLUENZA A RAPID SCR by ICA; Value: Comments:; Status: F Test: INFLUENZA B RAPID SCR by ICA; Value: INFLUENZA B RESULTS NEGATIVE; Status: F Test Note: ; The Influenza test is a direct rapid immunoassay for the qualitative detection of Influenza viral antigen. Cell culture (Viral Culture) testing should be considered to confirm NEGATIVE results and to assist in detecting other viruses that can provide similar clinical symptoms. Please contact the lab within 24 hours ([phone]) if confirmatory testing is desired. Lab Order: TOTAL IRON BINDING CAPACIT; SPEC'07/27/16 11:23 Test: IRON (FE); Value: 22; Range: 50-170; Abnormal: Below low normal; Units: UG/DL; Status: F Test: TOTAL IRON BINDING CAPACITY; Value: 325; Range: 250-450; Units: UG/DL; Status: F Test: PERCENT SATURATION; Value: 6.8; Range: 13.2-37.4; Abnormal: Below low normal; Units: %; Status: F Lab Order: FERRITIN; SPEC07/27/16 11:23 Test: FERRITIN; Value: 3; Range: 8-252; Abnormal: Below low normal; Units: NG/ML; Status: F Lab Order: RETICULOCYTE COUNT; SPEC'07/27/16 11:23 Test: RETICULOCYTE % [id number]; Value: 2.00; Range: 0.5-1.5; Abnormal: Above high normal; Units: %; Status: F Test: RETICULOCYTE ABSOLUTE [id number]; Value: 94; Range: 17-77; Abnormal: Above high normal; Units: x10(9)/L; Status: F Test: RETIC HEMOGLOBIN CONTENT CHr; Value: 21.8; Range: 24-36; Abnormal: Below low normal; Units: PG; Status: F Lab Order: ARTERIAL BLOOD GAS; SPEC'M 07/27/16 14:04 Test: ABG pH (ARTERIAL); Value: 7.441; Range: 7.350-7.450; Units: UNITS; Status: F Test: ABG PARTIAL PRESSURE CO2; Value: 31.4; Range: 35.0-45.0; Abnormal: Below low normal; Units: mmHg; Status: F Test: ABG PARTIAL PRESSURE O2; Value: 76.0; Range: 75.0-100.0; Units: mmHg; Status: F Test: ABG TOTAL CO2; Value: 21.9; Range: 22.0-29.0; Abnormal: Below low normal; Units: MEQ/L; Status: F Test: ABG HCO3; Value: 20.9; Range: 22.0-26.0; Abnormal: Below low normal; Units: MEQ/L; Status: F Test: ABG BASE EXCESS; Value: -2.4; Range: -2.0-2.0; Abnormal: Below low normal; Status: F Test: ABG STANDARD HCO3; Value: 22.4; Range: 22.0-26.0; Units: MEQ/L; Status: F Test: ABG O2 SATURATION; Value: 95.1; Range: 95.0-99.0; Units: %; Status: F Radiology Order: Chest, 2 View (pa\E\lat) Test: Chest, 2 View (pa\E\lat) REASON FOR EXAMINATION: Shortness of Breath; CHEST X-RAY: Two views.; ; HISTORY: Shortness of breath.; ; Comparison study June 29, 2016.; ; FINDINGS: EKG monitoring electrodes overlie the chest. The lungs are; symmetrically aerated and free of infiltrate. Pleural angles are sharp. Heart; size is normal. No significant bony abnormality is seen.; ; IMPRESSION:; ; No active disease.; ; ; Signed by; Kristofer Garcia MD 07/27/2016 02:28 P; Radiology Order: CT Chest Angio R/O PE Test: CT Chest Angio R/O PE REASON FOR EXAMINATION: Chest Pain; CT PULMONARY ANGIOGRAM: With IV contrast.; ; HISTORY: Chest pain.; ; COMPARISON STUDIES: Comparison CT study without contrast July 02, 2016.; ; Contrast dose: 75 mL of Isovue 370 are administered intravenously.; ; CT TECHNIQUE: Helical scanning is acquired and overlapping 1.5 mm and contiguous; 3 mm axial images are reformatted. In addition, a 3- work station is deployed to; generate thick slab maximum intensity projection images in sagittal and coronal; imaging projections.; ; CT PULMONARY ANGIOGRAPHIC FINDINGS: There is good opacification of the pulmonary; arterial tree. There is no CT evidence of pulmonary embolism. Maximum intensity; projection images show no vessel cutoff or filling defect to suggest a pulmonary; arterial thrombus. Thoracic aorta is normal in course and caliber and enhances; homogeneously. No aneurysm or dissection is seen. No hilar or mediastinal mass; is observed. No pleural or pericardial effusion is seen. Visualized upper; abdominal structures are unremarkable.; ; There are patchy areas of ground-glass opacity throughout the lung meza; consistent with diffuse alveolar pulmonary edema or developing infiltrates.; There is gross abnormality with low inspiratory level and this is no doubt; contributing as well. The prior study describes a 4 mm nodular density in the; left lower lobe. This cannot be seen on today's study.; ; IMPRESSION:; ; 1. No CT evidence of pulmonary embolus.; ; 2. Patchy areas of ground-glass opacity bilaterally. Relatively low inspiratory; level is contributing, however, cannot exclude a diffuse alveolar edema or; developing infiltrates.; ; ; Signed by; Kristofer Garcia MD 07/27/2016 02:29 P; Outcome: 13:26 Decision to Hospitalize by Provider. sd1 13:34 CT Study completed. kr3 14:38 Discharge Assessment: patient administered narcotics - no. The following High Risk kr3 Discharge criteria are identified: None. Admitted to Med/Surg accompanied by tech, via wheelchair, with oxygen, with chart. Condition: stable. Property :Personal belongings accompany Pt. 14:45 Patient left the ED. kr3 Signatures: Dispatcher [employer] EDMS Yara Zabala MD MD sd1 Aubrie Garcia RN RN Arabella Pearson kt1 Yvonne Rosa,RN RN kr3 Matt Garcia, RN RN ml6 Freida Lin1 Nova Ramirez mm15 Michi Hernandez,RT RT cs15 Chelsea Valenzuela nb2 Greta Londono lr2 MTDD
--- NOTE | 2016-07-27 14:46 | EDDOCDS ---
Physician Documentation [facility] Name: Conchis Morel Age: 31 yrs Sex: Female : 1985 Arrival Date: 07/27/2016 Time: 10:06 Bed 12 Private MD: Reema Parra Disposition: 07/27/16 13:26 Hospitalization ordered by Jenni Woody for Inpatient Admission. Preliminary diagnosis is Asthma. - Bed requested for 5 Adams. - Status is Inpatient Admission. kr3 - Condition is Stable. - Problem is an acute exacerbation. - Symptoms are unchanged. Historical: - Allergies: Codeine Sulfate (Swelling); Vyvanse (confused); Topamax (confused); - Home Meds: 1. albuterol sulfate 90 mcg/actuation Inhl HFAA 2 puffs every 4 hours pt reports she forgot to take her meds for the last couple. (Last dose: 07/26/2016) 2. albuterol sulfate 2.5 mg /3 mL (0.083 %) Inhl nebu 3 mL as needed (Last dose: 07/27/2016 09:00) 3. Breo Ellipta 200-25 mcg/dose inhalation dsdv 1 puff once daily . (Last dose: 07/27/2016 08:00) 4. Claritin 10 mg Oral tab 1 tab once daily (Last dose: 07/27/2016 08:00) 5. Flonase 50 mcg/actuation Nasal spsn 1 spray 2 times per day (Last dose: 07/27/2016 08:00) 6. Lasix 40 mg Oral tab 1 tab once daily (Last dose: 07/27/2016 08:00) 7. lisinopril 10 mg Oral tab 1 tab once daily (Last dose: 07/27/2016 08:00) 8. Nexium 20 mg Oral cpDR 1 cap once daily . (Last dose: 07/27/2016 08:00) 9. Singulair 10 mg Oral tab 1 tab once daily (Last dose: 07/27/2016 08:00) 10. antidepressant 1 mg AM and 2mg bedtime. (Last dose: 07/27/2016 08:00) - PMHx: ARDS; GERD; - PSHx: Appendectomy; eye surgery; Tonsillectomy; deviated septum; D & C; lung biopsy; - Social history: Smoking status: Patient states former smoker of tobacco. No barriers to communication noted, The patient speaks fluent Mongolian. - Family history: Not pertinent. - : The pt / caregiver states he / she is not on anticoagulants. Home medication list is obtained from the patient, Note please call Tootie cardona for antidepressant med. - Exposure Risk Screening:: None identified. 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 10 in. (147.32 cm); 10:49 Pulse Ox 96% on 3 lpm NC; kr3 10:50 Pulse Ox 95% on 3 lpm NC; kr3 10:51 BP 112 / 54 (auto/); kr3 11:06 BP 113 / 53 (auto/); kr3 11:06 Pulse 88 MON; Pulse Ox 93% on 3 lpm NC; kr3 11:21 BP 126 / 68 (auto/); kr3 11:21 Pulse 86 MON; Pulse Ox 92% on 3 lpm NC; kr3 11:32 Pulse 80 MON; Pulse Ox 90% on 3 lpm NC; kr3 11:39 BP 131 / 67 (auto/); kr3 12:09 BP 135 / 75 (auto/); kr3 12:09 Pulse 76 MON; Pulse Ox 95% on 3 lpm NC; kr3 13:09 BP 130 / 78 (auto/); kr3 13:09 Pulse 84 MON; Pulse Ox 95% on 3 lpm NC; kr3 13:16 Pulse 78 MON; Pulse Ox 94% on 3 lpm NC; kr3 13:32 BP 126 / 75 (auto/); kr3 14:02 BP 137 / 81 (auto/); kr3 14:03 Pulse 96 MON; Pulse Ox 94% on 3 lpm NC; kr3 14:12 Pulse 94 MON; Pulse Ox 97% on 3 lpm NC; kr3 14:32 BP 121 / 68 (auto/); kr3 14:33 Pulse 100 MON; Pulse Ox 91% on 3 lpm NC; kr3 10:08 Body Mass Index 55.38 (120.20 kg, 147.32 cm) lr2 MDM: 10:43 -Blood Culture (Adults Only), peripheral from different site, or from device/port/PICC sd1 etc. if present ordered. 10:43 Traffic Attendant/Pulse Ox/q 15 min VS ordered. sd1 10:43 IV Saline Lock ordered. sd1 10:43 Oxygen at 4L/Min NC or Home dosage ordered. sd1 10:43 Rhythm Strip to chart ordered. sd1 10:43 Solu-MEDROL 125 mg IVP once ordered. sd1 10:43 Albuterol-Ipratropium 1 neb Nebulizer every 20 minutes x3 ordered. sd1 10:43 B-Type Natiuretic Peptide Ordered. EDMS 10:43 Basic Metabolic Profile Ordered. EDMS 10:43 CBC with Diff Ordered. EDMS 10:43 -Blood Culture Ordered. EDMS 10:44 Chest, 2 View (pa\E\lat) Ordered. EDMS 10:44 ECG WITH READING ER PHYS+CARDIAG ordered. EDMS 10:44 BED REQUEST+ADM ordered. EDMS 10:44 -Blood Culture (Adults Only), peripheral from different site, or from device/port/PICC ar3 etc. if present complete. 10:45 BLOOD CULTURES Ordered. EDMS 11:04 Financial registration complete. mm15 11:46 [facility] [place] Payment Agreement was scanned into [employer] and attached to record. mm15 12:07 CBC with Diff Reviewed. sd1 12:07 B-Type Natiuretic Peptide Reviewed. sd1 12:07 Basic Metabolic Profile Reviewed. sd1 12:37 -Influenza A&B Rapid Antigen - Nose Ordered. EDMS 13:11 Call Respiratory ordered. sd1 13:12 -Arterial Blood Gas Ordered. EDMS 13:12 Call Respiratory complete. ar3 13:16 CT Chest Angio R/O PE Ordered. EDMS 13:50 Admission / Observation Status ordered. EDMS 13:50 2 GRAM SODIUM DIET ordered. EDMS 13:58 SPUTUM CULTURE AND GRAM STAIN Ordered. EDMS 14:00 IRON (FE) Ordered. EDMS 14:00 TOTAL IRON BINDING CAPACIT Ordered. EDMS 14:00 FERRITIN Ordered. EDMS 14:00 RETICULOCYTE COUNT Ordered. EDMS 14:03 ARTERIAL BLOOD GAS Ordered. EDMS Administered Medications: 10:50 Drug: Albuterol-Ipratropium 1 neb [ipratropium-albuterol 0.5 mg-3 mg(2.5 mg base)/3 mL kt1 nebulization soln (1 neb)] Route: Nebulizer; 11:00 Follow up: Response: Nebulizer completed 11:05 Drug: Albuterol-Ipratropium 1 neb [ipratropium-albuterol 0.5 mg-3 mg(2.5 mg base)/3 mL kt1 nebulization soln (1 neb)] Route: Nebulizer; 11:15 Follow up: Response: Nebulizer completed 11:11 Drug: Solu-MEDROL 125 mg [Solu-Medrol 500 mg intravenous solution (125 mg)] Route: IVP; kr3 Site: left forearm; 11:25 Drug: Albuterol-Ipratropium 1 neb [ipratropium-albuterol 0.5 mg-3 mg(2.5 mg base)/3 mL kt1 nebulization soln (1 neb)] Route: Nebulizer; Signatures: Dispatcher [employer] [facility] Yara Zabala MD MD sd1 Aubrie Garcia, RN RN Yvonne Sterling,RN RN kr3 Tomasa Wong, RUG RENOVATOR RUG RENOVATOR ar3 Sarah Quach,RN RN js13 Nova Ramirez mm15 Arabella Flaherty kt1 The chart was reviewed and I authenticate all verbal orders and agree with the evaluation and treatment provided.Attachments: 11:46 [facility] Payment Agreement mm15 MTDD
[2016-07-27 14:50] VITALS: BP 134/66
[2016-07-27] MEDS: methylPREDNISolone INJ 125 MG/2 ML VIAL (J2930) IV SCH (17:00)
[2016-07-27] MEDS ORDERED: LevoFLOXacin 750 MG in APPROPRIATE DILUENT 1 EA IV SCH (17:00)
[2016-07-27 18:00] VITALS: BP 123/67
[2016-07-27] MEDS: IPRATROPIUM 0.5MG/ALBUTEROL 2.5MG INH SOL UD 3ML (DUONEB)(J7620) NEB SCH (19:23)
[2016-07-27] MEDS ORDERED: risperiDONE 2 MG TAB PO SCH (21:00)
[2016-07-27 22:00] VITALS: BP 127/68
[2016-07-27] MEDS: FLUTICASONE PROP 0.05% NASAL SPRAY 16 GM (FLONASE) SCH (23:56)
[2016-07-28] MEDS: methylPREDNISolone INJ 125 MG/2 ML VIAL (J2930) IV SCH ×2 (01:24→09:00)
[2016-07-28] MEDS: IPRATROPIUM 0.5MG/ALBUTEROL 2.5MG INH SOL UD 3ML (DUONEB)(J7620) NEB SCH ×3 (01:49→12:39)
[2016-07-28 02:00] VITALS: BP 120/62
[2016-07-28 06:00] VITALS: BP 112/55
--- NOTE | 2016-07-28 06:26 | ECGEPIP ---
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 RBBB NONSPECIFIC T-WAVE ABNORMALITIES SIMILAR TO 07/15/16 Electronically Signed On 07-28-2016 6:26:09 EST by Juan Manuel Perkins
[2016-07-28 06:40] LABS: BASO % 0.1 % (0.0-1.0); EOS % 0.1 % (0.0-3.0); LARGE UNSTAINED CELL % 0.4 % (0.0-4.0); LYMPH # 0.8 K/mm3 (1.5-4.5); LYMPH % 9.4 % (24.0-44.0); MEAN CORPUSCULAR HEMOGLOBIN 22.1 pg (27.0-33.0); MEAN CORPUSCULAR VOLUME 73.7 fl (80.0-96.0); MONO # 0.2 K/mm3 (0.0-0.8); NEUTROPHILS # 7.1 K/mm3 (1.8-7.7); NEUTROPHILS % 88.1 % (36.0-66.0); PLATELET COUNT, AUTOMATED 336 k/mm3 (150-450); RED CELL DISTRIBUTION WIDTH 15.6 % (11.5-14.5); WHITE BLOOD COUNT 8.1 K/mm3 (4.0-10.0)
[2016-07-28 06:59] LABS: ALBUMIN 3.3 GM/DL (3.2-5.2); ALBUMIN/GLOBULIN RATIO 1.14 (1.00-1.93); ALKALINE PHOSPHATASE 58 U/L (45-117); ALT/SGPT 32 U/L (12-78); ANION GAP 9 MEQ/L (8-16); AST/SGOT 13 U/L (15-37); BILIRUBIN,TOTAL 0.5 MG/DL (0.2-1.0); BLOOD UREA NITROGEN 12 MG/DL (7-18); CARBON DIOXIDE LEVEL 26 MEQ/L (21-32); CHLORIDE LEVEL 108 MEQ/L (98-107); CREATININE FOR GFR 0.82 MG/DL (0.55-1.02); GLOMERULAR FILTRATION RATE > 60.0 (>60); GLUCOSE, FASTING 138 MG/DL (70-105); MAGNESIUM LEVEL 1.4 MG/DL (1.8-2.4); POTASSIUM SERUM 4.3 MEQ/L (3.5-5.1); SODIUM LEVEL 143 MEQ/L (136-145); TOTAL PROTEIN 6.2 GM/DL (6.4-8.2)
[2016-07-28] MEDS ORDERED: FUROSEMIDE 40 MG TAB PO SCH (09:00)
[2016-07-28] MEDS ORDERED: risperiDONE 1 MG TAB PO SCH (09:00)
[2016-07-28] MEDS ORDERED: MONTELUKAST 10 MG TAB PO SCH (09:00)
[2016-07-28] MEDS ORDERED: PANTOPRAZOLE 40MG TAB (PROTONIX) PO SCH (09:00)
[2016-07-28] MEDS ORDERED: LORATADINE 10 MG TAB PO SCH (09:00)
[2016-07-28] MEDS ORDERED: LISINOPRIL 10 MG TAB PO SCH (09:00)
[2016-07-28] MEDS ORDERED: MAGNESIUM OXIDE 400 MG TAB (MAG-OX) PO SCH (09:00)
[2016-07-28] MEDS ORDERED: ENOXAPARIN 40 MG/0.4 ML SYRINGE (J1650) SC SCH (09:00)
[2016-07-28 09:30] LABS: ERYTHROCYTE SEDIMENTATION RATE 12 mm/hr (0-20)
[2016-07-28 10:17] VITALS: BP 112/55
[2016-07-28] MEDS: FLUTICASONE PROP 0.05% NASAL SPRAY 16 GM (FLONASE) SCH (10:18)
[2016-07-28 12:00] VITALS: BP 137/63
[2016-07-28] MEDS ORDERED: PRED20TA PO (12:14)
[2016-07-28] MEDS ORDERED: ZITHTAB PO (12:14)
--- NOTE | 2016-07-28 18:26 | DSES ---
DATE OF ADMISSION: 07/27/2016 DATE OF DISCHARGE: 07/28/2016 PRIMARY CARE PROVIDER: Lorenzo Parra. OUTPATIENT SEWER LINE PHOTO INSPECTOR: Dr. Paulino Dominique. CONSULTANTS: None. PROCEDURES: None. COMPLICATIONS: None. ADMISSION/DISCHARGE DIAGNOSES: 1. Asthma exacerbation. 2. Bilateral pleural infiltrate. 3. Hypertension. 4. Obstructive sleep apnea (JERI) on continuous positive airway pressure (CPAP). 5. Morbid obesity. 6. Anxiety/depression. 7. History of acute respiratory distress syndrome (ARDS ). 8. History of allergic rhinitis. 9. Interstitial fibrosis. HOSPITALIZATION COURSE: The patient is a 31-year-old female with recent hospitalization in the inpatient mental health unit (IM) from 07/14/2016, to 07/24/2016, for medication-related psychosis. Per patient, when the patient was in the IM, her medication regimen and medical treatment had not been the same as her regular home medication, and the patient was given Advair instead of Breo, all the changes causing her to have worsening difficulty breathing, and the patient came to [facility] on 07/27/2016, for acute shortness of breath with productive cough. During admission, CT angiogram done found the patient has a patchy area of ground-glass opacity bilaterally. The patient was admitted to the medical surgical floor, and patient was started on Levaquin with intravenous (IV) steroids. The patient was started on intermittent nebulizer treatment as needed. With all the medical management, the patient stated she has significant improvement of her breathing. The patient was able to wean off oxygen support from the nasal cannula. On 07/28/2016, the patient is breathing comfortably on room air, and after discussion with the patient's and the patient, the patient has a secure appointment with Dr. Paulino Dominique on 07/29/2016, around 10:30 a.m., and the patient feels stable to go home with tapering steroids and oral antibiotics. OBJECTIVE: VITAL SIGNS: Temperature is 99, pulse 84, respirations 18, blood pressure 112/55, pulse oximetry 94% on room air. GENERAL: No sign of acute distress. Alert and oriented times three. Morbidly obese. HEENT: Normocephalic, atraumatic. Extraocular motor grossly intact. CARDIOVASCULAR: Positive S1, S2. Regular rate. LUNGS: Still mild expiratory wheezes. No rhonchi. ABDOMEN: Obese, soft, nontender, nondistended. Bowel sounds present. EXTREMITIES: No edema, no cyanosis. LABORATORY DATA: WBC 8.1, hemoglobin 10.5, hematocrit 34.9, platelet count 336. Sodium 143, potassium 4.3, chloride 108, carbon dioxide 26, BUN 12, creatinine 0.82, GFR greater than 60, fasting glucose 138, calcium 9, magnesium 1.4. AST is 13, ALT 32, alkaline phosphatase 58. C-reactive protein 0.5. Total protein is 6.2, albumin 3.3. MICROBIOLOGY: Influenza is negative. Blood cultures negative after 24 hours times two sets. IMAGING: Chest x-ray showed no acute disease. CT angiogram of the chest showed no evidence of pulmonary embolism (PE). Patchy area of ground-glass opacity bilaterally. Relative low inspiratory level is contributing; however, cannot exclude diffuse alveolar edema or developing infiltrate. DISCHARGE INSTRUCTIONS: Discontinue lines. Discharge home. Activity as tolerated. Low-salt diet as tolerated. The patient shall follow with Dr. Paulino Dominique on 07/29/2016, in the morning. The patient shall follow with primary care provider, Lorenzo Parra, on 08/01/2016. All appointments are made and confirmed by the patient. DISCHARGE MEDICATIONS: - Z-Oscar one pack as instructed - prednisone 20 mg by mouth daily for three days and taper after the shot examiner followup - ProAir two puff inhalation every four hours as needed - albuterol/ipratropium inhalation as needed for shortness of breath - Nexium 20 mg by mouth daily - Flonase 15 mcg per nasal twice a day - Breo one puff inhalation daily - Lasix 40 mg by mouth daily - lisinopril 10 mg by mouth daily - Claritin 10 mg by mouth daily - Singulair 10 mg by mouth daily - Xolair 150 mg subcutaneous every two weeks - risperidone 1 mg by mouth every morning - risperidone 2 mg by mouth at bedtime CONDITION ON DISCHARGE: Stable. DISCHARGE TIME: Greater than 30 minutes.
--- NOTE | 2016-07-29 15:45 | EDDOCDS ---
Physician Documentation [facility] Name: Conchis Morel Age: 31 yrs Sex: Female : 1985 Arrival Date: 07/27/2016 Time: 10:06 Bed 12 Private MD: Reema Parra Disposition: 07/27/16 13:26 Hospitalization ordered by Jenni Woody for Inpatient Admission. Preliminary diagnosis is Asthma. - Bed requested for 5 Adams. - Status is Inpatient Admission. kr3 - Condition is Stable. - Problem is an acute exacerbation. - Symptoms are unchanged. Historical: - Allergies: Codeine Sulfate (Swelling); Vyvanse (confused); Topamax (confused); - Home Meds: 1. albuterol sulfate 90 mcg/actuation Inhl HFAA 2 puffs every 4 hours pt reports she forgot to take her meds for the last couple. (Last dose: 07/26/2016) 2. albuterol sulfate 2.5 mg /3 mL (0.083 %) Inhl nebu 3 mL as needed (Last dose: 07/27/2016 09:00) 3. Breo Ellipta 200-25 mcg/dose inhalation dsdv 1 puff once daily . (Last dose: 07/27/2016 08:00) 4. Claritin 10 mg Oral tab 1 tab once daily (Last dose: 07/27/2016 08:00) 5. Flonase 50 mcg/actuation Nasal spsn 1 spray 2 times per day (Last dose: 07/27/2016 08:00) 6. Lasix 40 mg Oral tab 1 tab once daily (Last dose: 07/27/2016 08:00) 7. lisinopril 10 mg Oral tab 1 tab once daily (Last dose: 07/27/2016 08:00) 8. Nexium 20 mg Oral cpDR 1 cap once daily . (Last dose: 07/27/2016 08:00) 9. Singulair 10 mg Oral tab 1 tab once daily (Last dose: 07/27/2016 08:00) 10. antidepressant 1 mg AM and 2mg bedtime. (Last dose: 07/27/2016 08:00) - PMHx: ARDS; GERD; - PSHx: Appendectomy; eye surgery; Tonsillectomy; deviated septum; D & C; lung biopsy; - Social history: Smoking status: Patient states former smoker of tobacco. No barriers to communication noted, The patient speaks fluent Greek. - Family history: Not pertinent. - : The pt / caregiver states he / she is not on anticoagulants. Home medication list is obtained from the patient, Note please call Tootie cardona for antidepressant med. - Exposure Risk Screening:: None identified. HATCH SUPERVISOR: 07/27 10:24 L[facility] Vital Signs: 10:08 BP 137 / 70; Pulse 89; Resp 19; Temp 98.1(T); Pulse Ox 94% on 3 lpm NC; Weight 120.2 kg lr2 / 265 lbs (R); Height 4 ft. 10 in. (147.32 cm); 10:49 Pulse Ox 96% on 3 lpm NC; kr3 10:50 Pulse Ox 95% on 3 lpm NC; kr3 10:51 BP 112 / 54 (auto/); kr3 11:06 BP 113 / 53 (auto/); kr3 11:06 Pulse 88 MON; Pulse Ox 93% on 3 lpm NC; kr3 11:21 BP 126 / 68 (auto/); kr3 11:21 Pulse 86 MON; Pulse Ox 92% on 3 lpm NC; kr3 11:32 Pulse 80 MON; Pulse Ox 90% on 3 lpm NC; kr3 11:39 BP 131 / 67 (auto/); kr3 12:09 BP 135 / 75 (auto/); kr3 12:09 Pulse 76 MON; Pulse Ox 95% on 3 lpm NC; kr3 13:09 BP 130 / 78 (auto/); kr3 13:09 Pulse 84 MON; Pulse Ox 95% on 3 lpm NC; kr3 13:16 Pulse 78 MON; Pulse Ox 94% on 3 lpm NC; kr3 13:32 BP 126 / 75 (auto/); kr3 14:02 BP 137 / 81 (auto/); kr3 14:03 Pulse 96 MON; Pulse Ox 94% on 3 lpm NC; kr3 14:12 Pulse 94 MON; Pulse Ox 97% on 3 lpm NC; kr3 14:32 BP 121 / 68 (auto/); kr3 14:33 Pulse 100 MON; Pulse Ox 91% on 3 lpm NC; kr3 10:08 Body Mass Index 55.38 (120.20 kg, 147.32 cm) lr2 MDM: 10:43 -Blood Culture (Adults Only), peripheral from different site, or from device/port/PICC sd1 etc. if present ordered. 10:43 Dance Artist/Pulse Ox/q 15 min VS ordered. sd1 10:43 IV Saline Lock ordered. sd1 10:43 Oxygen at 4L/Min NC or Home dosage ordered. sd1 10:43 Rhythm Strip to chart ordered. sd1 10:43 Solu-MEDROL 125 mg IVP once ordered. sd1 10:43 Albuterol-Ipratropium 1 neb Nebulizer every 20 minutes x3 ordered. sd1 10:43 B-Type Natiuretic Peptide Ordered. EDMS 10:43 Basic Metabolic Profile Ordered. EDMS 10:43 CBC with Diff Ordered. EDMS 10:43 -Blood Culture Ordered. EDMS 10:44 Chest, 2 View (pa\E\lat) Ordered. EDMS 10:44 ECG WITH READING ER PHYS+CARDIAG ordered. EDMS 10:44 BED REQUEST+ADM ordered. EDMS 10:44 -Blood Culture (Adults Only), peripheral from different site, or from device/port/PICC ar3 etc. if present complete. 10:45 BLOOD CULTURES Ordered. EDMS 11:04 Financial registration complete. mm15 11:46 [facility] Payment Agreement was scanned into [employer] and attached to record. mm15 12:07 CBC with Diff Reviewed. sd1 12:07 B-Type Natiuretic Peptide Reviewed. sd1 12:07 Basic Metabolic Profile Reviewed. sd1 12:37 -Influenza A&B Rapid Antigen - Nose Ordered. EDMS 13:11 Call Respiratory ordered. sd1 13:12 -Arterial Blood Gas Ordered. EDMS 13:12 Call Respiratory complete. ar3 13:16 CT Chest Angio R/O PE Ordered. EDMS 13:50 Admission / Observation Status ordered. EDMS 13:50 2 GRAM SODIUM DIET ordered. EDMS 13:58 SPUTUM CULTURE AND GRAM STAIN Ordered. EDMS 14:00 IRON (FE) Ordered. EDMS 14:00 TOTAL IRON BINDING CAPACIT Ordered. EDMS 14:00 FERRITIN Ordered. EDMS 14:00 RETICULOCYTE COUNT Ordered. EDMS 14:03 ARTERIAL BLOOD GAS Ordered. EDMS 17:46 T-Sheet-- Draft Copy was scanned into [employer] and attached to record. klr Administered Medications: 10:50 Drug: Albuterol-Ipratropium 1 neb [ipratropium-albuterol 0.5 mg-3 mg(2.5 mg base)/3 mL kt1 nebulization soln (1 neb)] Route: Nebulizer; 11:00 Follow up: Response: Nebulizer completed kt1 11:05 Drug: Albuterol-Ipratropium 1 neb [ipratropium-albuterol 0.5 mg-3 mg(2.5 mg base)/3 mL kt1 nebulization soln (1 neb)] Route: Nebulizer; 11:15 Follow up: Response: Nebulizer completed kt1 11:11 Drug: Solu-MEDROL 125 mg [Solu-Medrol 500 mg intravenous solution (125 mg)] Route: IVP; kr3 Site: left forearm; 11:25 Drug: Albuterol-Ipratropium 1 neb [ipratropium-albuterol 0.5 mg-3 mg(2.5 mg base)/3 mL kt1 nebulization soln (1 neb)] Route: Nebulizer; Signatures: Dispatcher [employer] EDVA Yara Zabala MD MD sd1 Aubrie Garcia RN RN Yvonne Sterling,RN RN kr3 Tomasa Wong, DELVIN CHIEF COMMUNICATIONS OFFICER ar3 Sarah QuachRN RN [id number] Nova Ramirez mm15 Vandana Easley Kristin 1 The chart was reviewed and I authenticate all verbal orders and agree with the evaluation and treatment provided.Attachments: 11:46 [facility] Payment Agreement mm15 17:46 T-Sheet-- Draft Copy klr Chart Complete MTDD
--- NOTE | 2016-07-29 15:45 | EDDOCDS ---
Physician Documentation [facility] Name: Conchis Morel Age: 31 yrs Sex: Female : 1985 Arrival Date: 07/27/2016 Time: 10:06 Bed 12 Private MD: Reema Parra Disposition: 07/27/16 13:26 Hospitalization ordered by Jenni Woody for Inpatient Admission. Preliminary diagnosis is Asthma. - Bed requested for 5 Adams. - Status is Inpatient Admission. kr3 - Condition is Stable. - Problem is an acute exacerbation. - Symptoms are unchanged. Historical: - Allergies: Codeine Sulfate (Swelling); Vyvanse (confused); Topamax (confused); - Home Meds: 1. albuterol sulfate 90 mcg/actuation Inhl HFAA 2 puffs every 4 hours pt reports she forgot to take her meds for the last couple. (Last dose: 07/26/2016) 2. albuterol sulfate 2.5 mg /3 mL (0.083 %) Inhl nebu 3 mL as needed (Last dose: 07/27/2016 09:00) 3. Breo Ellipta 200-25 mcg/dose inhalation dsdv 1 puff once daily . (Last dose: 07/27/2016 08:00) 4. Claritin 10 mg Oral tab 1 tab once daily (Last dose: 07/27/2016 08:00) 5. Flonase 50 mcg/actuation Nasal spsn 1 spray 2 times per day (Last dose: 07/27/2016 08:00) 6. Lasix 40 mg Oral tab 1 tab once daily (Last dose: 07/27/2016 08:00) 7. lisinopril 10 mg Oral tab 1 tab once daily (Last dose: 07/27/2016 08:00) 8. Nexium 20 mg Oral cpDR 1 cap once daily . (Last dose: 07/27/2016 08:00) 9. Singulair 10 mg Oral tab 1 tab once daily (Last dose: 07/27/2016 08:00) 10. antidepressant 1 mg AM and 2mg bedtime. (Last dose: 07/27/2016 08:00) - PMHx: ARDS; GERD; - PSHx: Appendectomy; eye surgery; Tonsillectomy; deviated septum; D & C; lung biopsy; - Social history: Smoking status: Patient states former smoker of tobacco. No barriers to communication noted, The patient speaks fluent Thai. - Family history: Not pertinent. - : The pt / caregiver states he / she is not on anticoagulants. Home medication list is obtained from the patient, Note please call Tootie cardona for antidepressant med. - Exposure Risk Screening:: None identified. 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 10 in. (147.32 cm); 10:49 Pulse Ox 96% on 3 lpm NC; kr3 10:50 Pulse Ox 95% on 3 lpm NC; kr3 10:51 BP 112 / 54 (auto/); kr3 11:06 BP 113 / 53 (auto/); kr3 11:06 Pulse 88 MON; Pulse Ox 93% on 3 lpm NC; kr3 11:21 BP 126 / 68 (auto/); kr3 11:21 Pulse 86 MON; Pulse Ox 92% on 3 lpm NC; kr3 11:32 Pulse 80 MON; Pulse Ox 90% on 3 lpm NC; kr3 11:39 BP 131 / 67 (auto/); kr3 12:09 BP 135 / 75 (auto/); kr3 12:09 Pulse 76 MON; Pulse Ox 95% on 3 lpm NC; kr3 13:09 BP 130 / 78 (auto/); kr3 13:09 Pulse 84 MON; Pulse Ox 95% on 3 lpm NC; kr3 13:16 Pulse 78 MON; Pulse Ox 94% on 3 lpm NC; kr3 13:32 BP 126 / 75 (auto/); kr3 14:02 BP 137 / 81 (auto/); kr3 14:03 Pulse 96 MON; Pulse Ox 94% on 3 lpm NC; kr3 14:12 Pulse 94 MON; Pulse Ox 97% on 3 lpm NC; kr3 14:32 BP 121 / 68 (auto/); kr3 14:33 Pulse 100 MON; Pulse Ox 91% on 3 lpm NC; kr3 10:08 Body Mass Index 55.38 (120.20 kg, 147.32 cm) lr2 MDM: 10:43 -Blood Culture (Adults Only), peripheral from different site, or from device/port/PICC sd1 etc. if present ordered. 10:43 Needle Leader/Pulse Ox/q 15 min VS ordered. sd1 10:43 IV Saline Lock ordered. sd1 10:43 Oxygen at 4L/Min NC or Home dosage ordered. sd1 10:43 Rhythm Strip to chart ordered. sd1 10:43 Solu-MEDROL 125 mg IVP once ordered. sd1 10:43 Albuterol-Ipratropium 1 neb Nebulizer every 20 minutes x3 ordered. sd1 10:43 B-Type Natiuretic Peptide Ordered. EDMS 10:43 Basic Metabolic Profile Ordered. EDMS 10:43 CBC with Diff Ordered. EDMS 10:43 -Blood Culture Ordered. EDMS 10:44 Chest, 2 View (pa\E\lat) Ordered. EDMS 10:44 ECG WITH READING ER PHYS+CARDIAG ordered. EDMS 10:44 BED REQUEST+ADM ordered. EDMS 10:44 -Blood Culture (Adults Only), peripheral from different site, or from device/port/PICC ar3 etc. if present complete. 10:45 BLOOD CULTURES Ordered. EDMS 11:04 Financial registration complete. mm15 11:46 [facility] was scanned into [employer] and attached to record. mm15 12:07 CBC with Diff Reviewed. sd1 12:07 B-Type Natiuretic Peptide Reviewed. sd1 12:07 Basic Metabolic Profile Reviewed. sd1 12:37 -Influenza A&B Rapid Antigen - Nose Ordered. EDMS 13:11 Call Respiratory ordered. sd1 13:12 -Arterial Blood Gas Ordered. EDMS 13:12 Call Respiratory complete. ar3 13:16 CT Chest Angio R/O PE Ordered. EDMS 13:50 Admission / Observation Status ordered. EDMS 13:50 2 GRAM SODIUM DIET ordered. EDMS 13:58 SPUTUM CULTURE AND GRAM STAIN Ordered. EDMS 14:00 IRON (FE) Ordered. EDMS 14:00 TOTAL IRON BINDING CAPACIT Ordered. EDMS 14:00 FERRITIN Ordered. EDMS 14:00 RETICULOCYTE COUNT Ordered. EDMS 14:03 ARTERIAL BLOOD GAS Ordered. EDMS 17:46 T-Sheet-- Draft Copy was scanned into [employer] and attached to record. klr Administered Medications: 10:50 Drug: Albuterol-Ipratropium 1 neb [ipratropium-albuterol 0.5 mg-3 mg(2.5 mg base)/3 mL kt1 nebulization soln (1 neb)] Route: Nebulizer; 11:00 Follow up: Response: Nebulizer completed kt1 11:05 Drug: Albuterol-Ipratropium 1 neb [ipratropium-albuterol 0.5 mg-3 mg(2.5 mg base)/3 mL kt1 nebulization soln (1 neb)] Route: Nebulizer; 11:15 Follow up: Response: Nebulizer completed kt1 11:11 Drug: Solu-MEDROL 125 mg [Solu-Medrol 500 mg intravenous solution (125 mg)] Route: IVP; kr3 Site: left forearm; 11:25 Drug: Albuterol-Ipratropium 1 neb [ipratropium-albuterol 0.5 mg-3 mg(2.5 mg base)/3 mL kt1 nebulization soln (1 neb)] Route: Nebulizer; Signatures: Dispatcher [employer] EDGA Yara Zabala MD MD sd1 Aubrie Garcia RN RN Yvonne Sterling,RN RN kr3 Tomasa Wong, [employer] SERVICES ASSOCIATE ar3 Sarah QuachRN RN [id number] Nova Ramirez mm15 Vandana Easley Kristin 1 The chart was reviewed and I authenticate all verbal orders and agree with the evaluation and treatment provided.Attachments: 11:46 [facility] [place] Agreement mm15 17:46 T-Sheet-- Draft Copy klr Chart Complete MTDD
--- NOTE | 2016-07-29 15:45 | EDDOCDS ---
Nurse's Notes [facility] Name: Conchis Morel Age: 31 yrs Sex: Female : 1985 Arrival Date: 07/27/2016 Time: 10:06 Bed 12 Private MD: Reema Parra Diagnosis: Asthma Presentation: 07/27 10:14 Presenting complaint: Patient states: feeling SOB x 2 days history of ARDS room air [facility] oxygen 83% using home oxygen 3l/min via nasal cannula up to 94%,Cough with yellow phlegm. Adult Sepsis Screening: The patient does not have new or worsening altered mentation. Patient's respiratory rate is less than 22. Systolic blood pressure is greater than 100. Patient has a qSOFA score of 0- Negative Sepsis Screen. Suicide/Homicide risk assessment- the patient denies having any suicidal and/or homicidal ideations and does not present with any other emotional, behavioral or mental health complaints. Status: The patient is a dependent. Transition of care: patient was not received from another setting of care. 10:14 Acuity: BOOGIE Level 3 [facility] 10:14 Method Of Arrival: Walkin/Carried/Asstd [facility] Triage Assessment: 10:24 General: Appears well nourished, well groomed, Behavior is appropriate for age. Pain: [facility] Location: lungs when she takes a deep breath Pain currently is 4 out of 10 on a pain scale. HIV screening NA for this visit Offered previously. Neurological: Level of Consciousness is awake, alert, Oriented to person, place, time. Respiratory: Onset: The symptoms/episode began/occurred 2 days ago, Reports cough that is yellow phlegm pain with respiration Pain is 4 out of 10 on a pain scale. Derm: Skin is pink, warm & dry. 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 albuterol sulfate 90 mcg/actuation Inhl HFAA 2 puffs every 4 hours pt reports she forgot to take her meds for the last couple. (Last dose: 07/26/2016) 2. albuterol sulfate 2.5 mg /3 mL (0.083 %) Inhl nebu 3 mL as needed (Last dose: 07/27/2016 09:00) 3. Breo Ellipta 200-25 mcg/dose inhalation dsdv 1 puff once daily . (Last dose: 07/27/2016 08:00) 4. Claritin 10 mg Oral tab 1 tab once daily (Last dose: 07/27/2016 08:00) 5. Flonase 50 mcg/actuation Nasal spsn 1 spray 2 times per day (Last dose: 07/27/2016 08:00) 6. Lasix 40 mg Oral tab 1 tab once daily (Last dose: 07/27/2016 08:00) 7. lisinopril 10 mg Oral tab 1 tab once daily (Last dose: 07/27/2016 08:00) 8. Nexium 20 mg Oral cpDR 1 cap once daily . (Last dose: 07/27/2016 08:00) 9. Singulair 10 mg Oral tab 1 tab once daily (Last dose: 07/27/2016 08:00) 10. antidepressant 1 mg AM and 2mg bedtime. (Last dose: 07/27/2016 08:00) - PMHx: ARDS; GERD; - PSHx: Appendectomy; eye surgery; Tonsillectomy; deviated septum; D & C; lung biopsy; - Social history: Smoking status: Patient states former smoker of tobacco. No barriers to communication noted, The patient speaks fluent Croatian. - Family history: Not pertinent. - : The pt / caregiver states he / she is not on anticoagulants. Home medication list is obtained from the patient, Note please call Tootie cardona for antidepressant med. - Exposure Risk Screening:: None identified. Screenin:49 Screening information is obtained from the patient. Fall risk: No risks identified. kr3 Assistance ADL's: requires no assistance with activities of daily living. Abuse/DV Screen: The patient / caregiver reports he/she is: not in a situation that causes fear, pain or injury. home support is adequate. 11:01 Nutritional screening: No deficits noted. Advance Directives: Currently, there is no kr3 health care proxy. There is no Power of Search Optimization Analyst. Assessment: 10:59 General: Appears in no apparent distress, comfortable, Behavior is appropriate for age, kr3 cooperative. Neurological: Level of Consciousness is awake, alert. Cardiovascular: Rhythm is regular. Respiratory: Airway is patent Respiratory effort is even, labored, Reports shortness of breath on exertion. Respiratory: Reports shortness of breath. GI: Abdomen is obese. Derm: Skin is pink, warm & dry. 11:12 Pain: Location: lungs Pain currently is 6 out of 10 on a pain scale. kr3 11:41 Reassessment: ambulated to bathroom with assist of pushing wheelchair. kr3 12:30 Reassessment: Patient appears in no apparent distress at this time. resting on kr3 stretcher with eyes closed. 13:09 Reassessment: Patient appears in no apparent distress at this time. Respiratory: Airway kr3 is patent Respiratory effort is even, labored, Breath sounds are clear bilaterally. Derm: Skin is normal. 13:33 Reassessment: wheelchair to bathroom and than CT scan. Patient tolerated movement well. kr3 14:17 Reassessment: Patient appears in no apparent distress at this time. talking with Dr tammy flynn regarding admission. 14:38 Reassessment: Patient appears in no apparent distress at this time. Neurological: Level kr3 of Consciousness is awake, alert. Respiratory: Airway is patent Respiratory effort is even. Derm: Skin is normal. Vital Signs: 10:08 BP 137 / 70; Pulse 89; Resp 19; Temp 98.1(T); Pulse Ox 94% on 3 lpm NC; Weight 120.2 kg lr2 (R); Height 4 ft. 10 in. (147.32 cm); 10:49 Pulse Ox 96% on 3 lpm NC; kr3 10:50 Pulse Ox 95% on 3 lpm NC; kr3 10:51 BP 112 / 54 (auto/); kr3 11:06 BP 113 / 53 (auto/); kr3 11:06 Pulse 88 MON; Pulse Ox 93% on 3 lpm NC; kr3 11:21 BP 126 / 68 (auto/); kr3 11:21 Pulse 86 MON; Pulse Ox 92% on 3 lpm NC; kr3 11:32 Pulse 80 MON; Pulse Ox 90% on 3 lpm NC; kr3 11:39 BP 131 / 67 (auto/); kr3 12:09 BP 135 / 75 (auto/); kr3 12:09 Pulse 76 MON; Pulse Ox 95% on 3 lpm NC; kr3 13:09 BP 130 / 78 (auto/); kr3 13:09 Pulse 84 MON; Pulse Ox 95% on 3 lpm NC; kr3 13:16 Pulse 78 MON; Pulse Ox 94% on 3 lpm NC; kr3 13:32 BP 126 / 75 (auto/); kr3 14:02 BP 137 / 81 (auto/); kr3 14:03 Pulse 96 MON; Pulse Ox 94% on 3 lpm NC; kr3 14:12 Pulse 94 MON; Pulse Ox 97% on 3 lpm NC; kr3 14:32 BP 121 / 68 (auto/); kr3 14:33 Pulse 100 MON; Pulse Ox 91% on 3 lpm NC; kr3 10:08 Body Mass Index 55.38 (120.20 kg, 147.32 cm) lr2 Vitals: 10:15 Log In Time: July 27, 2016 at 10:06. lr2 ED Course: 10:07 Patient visited by Greta Londono. lr2 10:07 Patient moved to Waiting lr2 10:08 Reema Parra is Private Physician. lr2 10:10 Patient moved to Pre RCE lr2 10:17 Triage Initiated kpj 10:27 Yvonne Rosa,RN is Primary Nurse. kpj 10:27 Patient moved to 12 kpj 10:28 Yara Zabala MD is Attending Physician. sd1 10:44 Patient visited by Yara Zabala MD. sd1 10:49 The patient / caregiver is instructed regarding the plan of care and ED course. kr3 Accompanied by Family Member, Patient has correct armband on for positive identification. Placed in gown. Bed in low position. Call light in reach. Side rails up X 1. 10:49 -Blood Culture Sent. kr3 10:52 Patient visited by Freida Lin. dem1 10:52 Patient visited by Freida Lin. 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 Pulse ox on. NIBP on. dem1 10:52 EKG done. (by ED staff). Reviewed by Yara Zabala MD. dem1 10:56 Patient visited by Chelsea Valenzuela. nb2 11:06 Inserted peripheral IV: 20gauge IV in left forearm and blood collected. Patient ml6 tolerated the procedure well. 11:12 O2 via nasal cannula \T\ 3L/min. kr3 11:41 Patient visited by Yvonne Rosa RN. kr3 11:41 Assisted to bathroom. kr3 11:46 [facility] [place] Agreement was scanned into [employer] and attached to record. mm15 12:31 Patient visited by Yvonne Rosa RN. kr3 13:08 Patient visited by Yvonne Rosa,OSVALDO. kr3 13:08 -Influenza A&B Rapid Antigen - Nose Sent. kr3 13:26 Jenni Flynn is Hospitalizing Provider. sd1 13:33 Assisted to bathroom. kr3 13:52 -Arterial Blood Gas Sent. cs15 14:00 Chest, 2 View (pa\E\lat) Returned. EDMS 14:18 No procedures done that require assistance. kr3 14:43 CT Chest Angio R/O PE Returned. EDMS 17:46 T-Sheet-- Draft Copy was scanned into [employer] and attached to record. klr Administered Medications: 10:50 Drug: Albuterol-Ipratropium 1 neb [ipratropium-albuterol 0.5 mg-3 mg(2.5 mg base)/3 mL kt1 nebulization soln (1 neb)] Route: Nebulizer; 11:00 Follow up: Response: Nebulizer completed kt1 11:05 Drug: Albuterol-Ipratropium 1 neb [ipratropium-albuterol 0.5 mg-3 mg(2.5 mg base)/3 mL kt1 nebulization soln (1 neb)] Route: Nebulizer; 11:15 Follow up: Response: Nebulizer completed kt1 11:11 Drug: Solu-MEDROL 125 mg [Solu-Medrol 500 mg intravenous solution (125 mg)] Route: IVP; kr3 Site: left forearm; 11:25 Drug: Albuterol-Ipratropium 1 neb [ipratropium-albuterol 0.5 mg-3 mg(2.5 mg base)/3 mL kt1 nebulization soln (1 neb)] Route: Nebulizer; RT: 10:57 Initial Med Neb Given as ordered Patient tolerated procedure well without adverse kt1 effect. Respiratory: No deficits noted. Breath sounds are clear bilaterally. 11:05 Subsequent Med Neb Given as ordered Patient tolerated procedure well without adverse kt1 effect. 11:05 Respiratory: Breath sounds are clear bilaterally. kt1 11:25 Subsequent Med Neb Given as ordered Patient tolerated procedure well without adverse kt1 effect. 13:52 ABG's drawn from left radial artery allens test done and positive pressure held for 5 cs15 minutes no bleeding noted pressure bandage applied specimen sent pt. tolerated well. 13:52 O2 via nasal cannula \T\ 2L/min. cs15 Order Results: Lab Order: B-Type Natiuretic Peptide; SPEC'M 07/27/16 11:28 Test: BRAIN NATRIURETIC PEPTIDE; Value: 19.5; Range: <100; Units: PG/ML; Status: F Lab Order: Basic Metabolic Profile; SPEC'M 07/27/16 11:29 Test: GLUCOSE, FASTING; Value: 104; Range: 70-105; Units: MG/DL; Status: F Test: BLOOD UREA NITROGEN; Value: 17; Range: 7-18; Units: MG/DL; Status: F Test: CREATININE FOR GFR; Value: 0.76; Range: 0.55-1.02; Units: MG/DL; Status: F Test: GLOMERULAR FILTRATION RATE; Value: > 60.0; Range: >60; Status: F Test: SODIUM LEVEL; Value: 142; Range: 136-145; Units: MEQ/L; Status: F Test: POTASSIUM SERUM; Value: 4.3; Range: 3.5-5.1; Units: MEQ/L; Status: F Test: CHLORIDE LEVEL; Value: 106; Range: 98-107; Units: MEQ/L; Status: F Test: CARBON DIOXIDE LEVEL; Value: 27; Range: 21-32; Units: MEQ/L; Status: F Test: ANION GAP; Value: 9; Range: 8-16; Units: MEQ/L; Status: F Test: CALCIUM LEVEL; Value: 8.5; Range: 8.5-10.1; Units: MG/DL; Status: F Test Note: ; Units are mL/min/1.73 m2 Chronic Kidney Disease Staging per NKF: Stage I & II GFR >=60 Normal to Mildly Decreased Stage III GFR 30-59 Moderately Decreased Stage IV GFR 15-29 Severely Decreased Stage V GFR <15 Very Little GFR Left ESRD GFR <15 on SLAB TRIPPER Lab Order: CBC with Diff; SPEC'M 07/27/16 11:28 Test: WHITE BLOOD COUNT; Value: 7.0; Range: 4.0-10.0; Units: K/mm3; Status: F Test: RED BLOOD COUNT; Value: 4.57; Range: 4.00-5.40; Units: M/mm3; Status: F Test: HEMOGLOBIN; Value: 10.3; Range: 12.0-16.0; Abnormal: Below low normal; Units: g/dl; Status: F Test: HEMATOCRIT; Value: 34.3; Range: 36.0-47.0; Abnormal: Below low normal; Units: %; Status: F Test: MEAN CORPUSCULAR VOLUME; Value: 75.1; Range: 80.0-96.0; Abnormal: Below low normal; Units: fl; Status: F Test: MEAN CORPUSCULAR HEMOGLOBIN; Value: 22.4; Range: 27.0-33.0; Abnormal: Below low normal; Units: pg; Status: F Test: MEAN CORPUSCULAR HGB CONC; Value: 29.9; Range: 32.0-36.5; Abnormal: Below low normal; Units: g/dl; Status: F Test: RED CELL DISTRIBUTION WIDTH; Value: 15.8; Range: 11.5-14.5; Abnormal: Above high normal; Units: %; Status: F Test: PLATELET COUNT, AUTOMATED; Value: 277; Range: 150-450; Units: k/mm3; Status: F Test: NEUTROPHILS %; Value: 50.9; Range: 36.0-66.0; Units: %; Status: F Test: LYMPH %; Value: 36.4; Range: 24.0-44.0; Units: %; Status: F Test: MONO %; Value: 7.9; Range: 0.0-5.0; Abnormal: Above high normal; Units: %; Status: F Test: EOS %; Value: 1.2; Range: 0.0-3.0; Units: %; Status: F Test: BASO %; Value: 0.5; Range: 0.0-1.0; Units: %; Status: F Test: LARGE UNSTAINED CELL %; Value: 3.1; Range: 0.0-4.0; Units: %; Status: F Test: NEUTROPHILS #; Value: 3.6; Range: 1.8-7.7; Units: K/mm3; Status: F Test: LYMPH #; Value: 2.6; Range: 1.5-4.5; Units: K/mm3; Status: F Test: MONO #; Value: 0.6; Range: 0.0-0.8; Units: K/mm3; Status: F Test: EOS #; Value: 0.1; Range: 0.0-0.50; Units: K/mm3; Status: F Test: BASO #; Value: 0.0; Range: 0.0-0.2; Units: K/mm3; Status: F Test: LARGE UNSTAINED CELL #; Value: 0.2; Range: 0.0-0.4; Units: K/mm3; Status: F Lab Order: -Influenza A&B Rapid Antigen - Nose; SPEC'07/27/16 13:03 Test: INFLUENZA A RAPID SCR by ICA; Value: INFLUENZA A RESULTS NEGATIVE; Status: F Test: INFLUENZA A RAPID SCR by ICA; Value: Comments:; Status: F Test: INFLUENZA B RAPID SCR by ICA; Value: INFLUENZA B RESULTS NEGATIVE; Status: F Test Note: ; The Influenza test is a direct rapid immunoassay for the qualitative detection of Influenza viral antigen. Cell culture (Viral Culture) testing should be considered to confirm NEGATIVE results and to assist in detecting other viruses that can provide similar clinical symptoms. Please contact the lab within 24 hours ([phone]) if confirmatory testing is desired. Lab Order: TOTAL IRON BINDING CAPACIT; SPEC'M 07/27/16 11:23 Test: IRON (FE); Value: 22; Range: 50-170; Abnormal: Below low normal; Units: UG/DL; Status: F Test: TOTAL IRON BINDING CAPACITY; Value: 325; Range: 250-450; Units: UG/DL; Status: F Test: PERCENT SATURATION; Value: 6.8; Range: 13.2-37.4; Abnormal: Below low normal; Units: %; Status: F Lab Order: FERRITIN; SPEC'07/27/16 11:23 Test: FERRITIN; Value: 3; Range: 8-252; Abnormal: Below low normal; Units: NG/ML; Status: F Lab Order: RETICULOCYTE COUNT; SPEC'07/27/16 11:23 Test: RETICULOCYTE % [id number]; Value: 2.00; Range: 0.5-1.5; Abnormal: Above high normal; Units: %; Status: F Test: RETICULOCYTE ABSOLUTE [id number]; Value: 94; Range: 17-77; Abnormal: Above high normal; Units: x10(9)/L; Status: F Test: RETIC HEMOGLOBIN CONTENT CHr; Value: 21.8; Range: 24-36; Abnormal: Below low normal; Units: PG; Status: F Lab Order: ARTERIAL BLOOD GAS; SPEC'M 07/27/16 14:04 Test: ABG pH (ARTERIAL); Value: 7.441; Range: 7.350-7.450; Units: UNITS; Status: F Test: ABG PARTIAL PRESSURE CO2; Value: 31.4; Range: 35.0-45.0; Abnormal: Below low normal; Units: mmHg; Status: F Test: ABG PARTIAL PRESSURE O2; Value: 76.0; Range: 75.0-100.0; Units: mmHg; Status: F Test: ABG TOTAL CO2; Value: 21.9; Range: 22.0-29.0; Abnormal: Below low normal; Units: MEQ/L; Status: F Test: ABG HCO3; Value: 20.9; Range: 22.0-26.0; Abnormal: Below low normal; Units: MEQ/L; Status: F Test: ABG BASE EXCESS; Value: -2.4; Range: -2.0-2.0; Abnormal: Below low normal; Status: F Test: ABG STANDARD HCO3; Value: 22.4; Range: 22.0-26.0; Units: MEQ/L; Status: F Test: ABG O2 SATURATION; Value: 95.1; Range: 95.0-99.0; Units: %; Status: F Radiology Order: Chest, 2 View (pa\E\lat) Test: Chest, 2 View (pa\E\lat) REASON FOR EXAMINATION: Shortness of Breath; CHEST X-RAY: Two views.; ; HISTORY: Shortness of breath.; ; Comparison study June 29, 2016.; ; FINDINGS: EKG monitoring electrodes overlie the chest. The lungs are; symmetrically aerated and free of infiltrate. Pleural angles are sharp. Heart; size is normal. No significant bony abnormality is seen.; ; IMPRESSION:; ; No active disease.; ; ; Signed by; Kristofer Garcia MD 07/27/2016 02:28 P; Radiology Order: CT Chest Angio R/O PE Test: CT Chest Angio R/O PE REASON FOR EXAMINATION: Chest Pain; CT PULMONARY ANGIOGRAM: With IV contrast.; ; HISTORY: Chest pain.; ; COMPARISON STUDIES: Comparison CT study without contrast July 02, 2016.; ; Contrast dose: 75 mL of Isovue 370 are administered intravenously.; ; CT TECHNIQUE: Helical scanning is acquired and overlapping 1.5 mm and contiguous; 3 mm axial images are reformatted. In addition, a 3- work station is deployed to; generate thick slab maximum intensity projection images in sagittal and coronal; imaging projections.; ; CT PULMONARY ANGIOGRAPHIC FINDINGS: There is good opacification of the pulmonary; arterial tree. There is no CT evidence of pulmonary embolism. Maximum intensity; projection images show no vessel cutoff or filling defect to suggest a pulmonary; arterial thrombus. Thoracic aorta is normal in course and caliber and enhances; homogeneously. No aneurysm or dissection is seen. No hilar or mediastinal mass; is observed. No pleural or pericardial effusion is seen. Visualized upper; abdominal structures are unremarkable.; ; There are patchy areas of ground-glass opacity throughout the lung meza; consistent with diffuse alveolar pulmonary edema or developing infiltrates.; There is gross abnormality with low inspiratory level and this is no doubt; contributing as well. The prior study describes a 4 mm nodular density in the; left lower lobe. This cannot be seen on today's study.; ; IMPRESSION:; ; 1. No CT evidence of pulmonary embolus.; ; 2. Patchy areas of ground-glass opacity bilaterally. Relatively low inspiratory; level is contributing, however, cannot exclude a diffuse alveolar edema or; developing infiltrates.; ; ; Signed by; Kristofer Garcia MD 07/27/2016 02:29 P; Outcome: 13:26 Decision to Hospitalize by Provider. sd1 13:34 CT Study completed. kr3 14:38 Discharge Assessment: patient administered narcotics - no. The following High Risk kr3 Discharge criteria are identified: None. Admitted to Med/Surg accompanied by tech, via wheelchair, with oxygen, with chart. Condition: stable. Property :Personal belongings accompany Pt. 14:45 Patient left the ED. kr3 Signatures: Dispatcher [employer] EDYara Kenney MD MD sd1 Aburie Garcia, RN RN kpj Arabella Flaherty kt1 Yvonne Rosa,RN RN kr3 Matt Garcia, OSVALDO RN ml6 Riley, Freida white1 Nova Ramirez mm15 Michi Hernandez,RT RT cs15 Tracee, Chelsea Burks2 Greta Londono lr2 Chart Complete MTDD
== END 2016-07-28 13:45 | disposition home or self-care (01) | DRG 203 ==
LOC: M ED 10:06 → M ED INP 13:29 → M MS5PR 14:45
PROVIDERS: ADMIT Internal Medicine; ATTEND Internal Medicine
DX: J45.901 Unspecified asthma with (acute) exacerbation (principal); E66.01 Morbid (severe) obesity due to excess calories; F41.9 Anxiety disorder, unspecified; F32.9 Major depressive disorder, single episode, unspecified; I10 Essential (primary) hypertension; G47.33 Obstructive sleep apnea (adult) (pediatric); J84.10 Pulmonary fibrosis, unspecified; Z79.899 Other long term (current) drug therapy; K21.9 Gastro-esophageal reflux disease without esophagitis; D50.9 Iron deficiency anemia, unspecified

== ENCOUNTER 2016-08-01 14:14 | Inpatient (IN) | payer OTHER ==
[~2016-08-01 14:14] MED LIST changes: +IPRASOL4 INH; +PRED20TA PO; +XOLA150S SC; +ZITHTAB PO
[2016-08-01] MEDS ORDERED: ACETAMINOPHEN TAB 650MG DOSE (2X325MG) PO PRN (14:30)
[2016-08-01] MEDS ORDERED: BISACODYL 5 MG TAB PO PRN (14:30)
[2016-08-01] MEDS ORDERED: BISACODYL 10 MG SUPP PR PRN (14:30)
[2016-08-01] MEDS ORDERED: ONDANSETRON 4 MG TAB (S0181) PO PRN (14:30)
[2016-08-01] MEDS ORDERED: FLUCONAZOLE 50MG TABLET PO ONE (15:00)
[2016-08-01] MEDS ORDERED: IPRATROPIUM 0.5MG/ALBUTEROL 2.5MG INH SOL UD 3ML (DUONEB)(J7620) NEB PRN (15:00)
[2016-08-01 16:30] LABS: MEAN CORPUSCULAR HEMOGLOBIN 21.8 pg (27.0-33.0); MEAN CORPUSCULAR VOLUME 73.7 fl (80.0-96.0); WHITE BLOOD COUNT 12.4 K/mm3 (4.0-10.0)
[2016-08-01 16:31] LABS: ADD MORPHOLOGY? NO; BASO % 0.2 % (0.0-1.0); DIFF SLIDE NUMBER 272; EOS # 0.1 K/mm3 (0.0-0.50); EOS % 0.6 % (0.0-3.0); LARGE UNSTAINED CELL # 0.2 K/mm3 (0.0-0.4); LARGE UNSTAINED CELL % 1.7 % (0.0-4.0); LYMPH % 24.2 % (24.0-44.0); MEAN CORPUSCULAR HGB CONC 29.6 g/dl (32.0-36.5); MONO # 0.5 K/mm3 (0.0-0.8); MONO % 3.8 % (0.0-5.0); NEUTROPHILS # 8.7 K/mm3 (1.8-7.7); NEUTROPHILS % 69.6 % (36.0-66.0); PLATELET COUNT, AUTOMATED 357 k/mm3 (150-450); RED CELL DISTRIBUTION WIDTH 15.5 % (11.5-14.5)
[2016-08-01 16:39] LABS: INR 0.9
[2016-08-01] MEDS ORDERED: RISP1TAB3 PO (16:48)
[2016-08-01 16:50] LABS: ABG BASE EXCESS 1.2 (-2.0-2.0); ABG HCO3 24.8 MEQ/L (22.0-26.0); ABG PARTIAL PRESSURE CO2 35.8 mmHg (35.0-45.0); ABG PARTIAL PRESSURE O2 81.6 mmHg (75.0-100.0); ABG STANDARD HCO3 25.5 MEQ/L (22.0-26.0); ABG TOTAL CO2 25.9 MEQ/L (22.0-29.0); ABG pH (ARTERIAL) 7.459 UNITS (7.350-7.450)
[2016-08-01 17:03] VITALS: BP 135/80
[2016-08-01 17:04] LABS: ALBUMIN 3.4 GM/DL (3.2-5.2); ALBUMIN/GLOBULIN RATIO 1.17 (1.00-1.93); ALKALINE PHOSPHATASE 67 U/L (45-117); ALT/SGPT 27 U/L (12-78); ANION GAP 10 MEQ/L (8-16); AST/SGOT 11 U/L (15-37); BILIRUBIN,TOTAL 0.5 MG/DL (0.2-1.0); BLOOD UREA NITROGEN 19 MG/DL (7-18); CALCIUM LEVEL 8.7 MG/DL (8.5-10.1); CARBON DIOXIDE LEVEL 29 MEQ/L (21-32); CHLORIDE LEVEL 104 MEQ/L (98-107); CHOLESTEROL LEVEL 156 MG/DL (< 200); CREATININE FOR GFR 0.87 MG/DL (0.55-1.02); GLOMERULAR FILTRATION RATE > 60.0 (>60); GLUCOSE, FASTING 84 MG/DL (70-105); MAGNESIUM LEVEL 1.7 MG/DL (1.8-2.4); PHOSPHORUS LEVEL 4.3 MG/DL (2.5-4.9); POTASSIUM SERUM 3.9 MEQ/L (3.5-5.1); SODIUM LEVEL 143 MEQ/L (136-145); TOTAL PROTEIN 6.3 GM/DL (6.4-8.2); TRIGLYCERIDES LEVEL 329 MG/DL (<150)
[2016-08-01 17:16] LABS: ERYTHROCYTE SEDIMENTATION RATE 13 mm/hr (0-20)
[2016-08-01] MEDS: methylPREDNISolone INJ 125 MG/2 ML VIAL (J2930) IV SCH (17:40)
[2016-08-01] MEDS: IPRATROPIUM 0.5MG/ALBUTEROL 2.5MG INH SOL UD 3ML (DUONEB)(J7620) NEB SCH (20:00)
[2016-08-01] MEDS: BUDESONIDE 0.5 MG/2 ML INHALATION SUSPENSION INH SCH (20:37)
[2016-08-01] MEDS: FORMOTEROL FUMARATE 20 MCG/2 ML INHALATION SOLUTION (PERFOROMIST) INH SCH (20:37)
--- NOTE | 2016-08-01 20:39 | HPE ---
DATE OF ADMISSION: 08/01/2016 Raina is a 31-year-old female who is well known to my pulmonary service for three reasons, most pressing is her history of steroid responsive interstitial lung disease. Her first visit with me was in October of 2014 after she was found to have significant nocturnal hypoxia despite being treated for obstructive sleep apnea. She states at that time she had been on oxygen since she had pneumonia in 2010. There was some history of acute respiratory distress syndrome (ARDS), prolonged intubation requiring tracheostomy. Eventually in December of 2014, she had evidence of interstitial lung disease which had progressed into ground glass infiltrates. She underwent bronchoscopy by myself which showed fragments of lung parenchyma with chronic inflammation and interstitial fibrosis. Due to my suspicion of possible underlying pulmonary edema, she had a cardiology evaluation at that point in time. Cardiology felt this was noncardiogenic pulmonary edema, very likely similar to her prior presentation. She had been worked up for connective tissue disorders along with hypersensitivity pneumonitis at that time. Gradually her symptoms improved with steroids. We did discuss open lung biopsy, however, she wanted to see how she did on steroid therapy, which did improve her symptoms. After her interstitial lung disease significantly improved on chest CT and her diffusion impairment improved, she had symptoms of bronchospasm and asthma. She did carry a diagnosis of asthma. She underwent methacholine challenge which was positive for PC20 of 1.49. Since that time she has been worked up for severe persistent asthma and due to an elevated IGE and persistent symptoms was started on Xolair. She did well on Xolair and was actually off oxygen up until a few months ago. In June she noticed low peak flows into the 200s when she is usually above 400. She went to the emergency room. CT scan showed air trapping, but no significant recurrent interstitial lung disease. She was then sent to my office. I prescribed her prolonged steroid taper and she was on antibiotics at that point in time. Her therapy finished and unfortunately she had psychiatric symptoms from toxicity of her medication, was admitted to inpatient mental health unit (IMHU). She states that she did not receive her inhaled therapy as prescribed or prednisone and she just started getting more short of breath. She was shortly thereafter discharged, then came into the hospital on July 27 to the emergency room with worsening shortness of breath, symptoms of pleurisy and a cough that was minimally intermittently productive. She now complains of muscle aches, body aches and just feeling awful. She was started on steroids on Friday and states she took 60 mg prednisone yesterday. She denies headache, chills, but does feel overall cold. No chest discomfort currently. No lower extremity edema or calf pain. PAST MEDICAL HISTORY: 1. History of recurrent steroid responsive interstitial lung disease without significant fibrotic change on imaging. Status post bronchoscopy December 2014 with biopsy showing chronic inflammation with interstitial fibrosis. 2. History of severe persistent asthma. On Xolair therapy. 3. History of pneumonia with ARDS. Prolonged intubation requiring tracheostomy and percutaneous endoscopic gastrostomy (PEG) tube placement 2010. 4. Reported history of recurrent pneumonia which I suspect was recurrent interstitial lung disease. 5. Obstructive sleep apnea, on CPAP at 8. Compliant with therapy. 6. Remote history of eye surgery. 7. History of septal deviation with correction and soft palate reconstruction. 8. Appendectomy. 9. Tonsillectomy. 10. Hypothyroidism. 11. History of dilation and curettage (D and C). 12. Polycystic ovarian syndrome. 13. Anxiety and depression. 14. Gastroesophageal reflux. 15. Environmental allergies. 16. Restrictive impairment from obesity. CURRENT MEDICATIONS: - Xolair 300 mg every two weeks - Brio 200/25 inhaled daily - Nexium 20 mg by mouth daily - ProAir HFA every 4 hours as needed - DuoNebs as needed - Flonase 50 mcg intranasally twice a day - Lasix 40 mg by mouth daily - lisinopril 10 mg by mouth daily - loratadine 10 mg by mouth daily - montelukast 10 mg by mouth daily - Risperdal 1 mg by mouth every a.m. and 1 mg by mouth nightly ALLERGIES: CODEINE, SALMETEROL, TOPIRAMATE, LISDEXAMFETAMINE. SOCIAL HISTORY: Very remote history of smoking. No recent smoking. No alcohol use. Her is in the . Has been in [employer] training in [place] and often returns home. No significant respiratory symptoms in her . She has a cockatiel at home, but has been previously screened for hypersensitivity pneumonitis. She has two dogs, two cats. She reports a Freon exposure in 2010. She states she grew up around chickens and goats and she has been using a wood pellet stove for the past three months. No significant vinyl chloride exposures. No known asbestos exposures. 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 FAMILY HISTORY: Father had coronary artery disease and pancreatic cancer. Family history also positive for hypercholesterolemia and diabetes. REVIEW OF SYSTEMS: CONSTITUTIONAL: The patient has had obesity for some time. No fever or weight loss. She feels cold, but no shaking chills. EYES: No visual disturbance. No symptoms of uveitis. She wears glasses. HEENT: She denies hearing loss, tinnitus. No change in taste. She does have a sore throat. PULMONARY: As per HPI, but no hemoptysis, no history of tuberculosis exposures. GASTROINTESTINAL (GI): No abdominal pain, change in bowel habits, change in stool. No dysphagia. She does have occasional reflux. No history of jaundice or bloody stools. No vomiting. GENITOURINARY (): She has been having recent dysuria without hematuria. No incontinence or nocturia. No polyuria or oliguria. ENDOCRINE: She has polycystic ovarian syndrome or at least was diagnosed at one point in time. At this point in time she is on no treatment for this. Previously was on metformin. She does have a history of hypothyroidism. She denies any polyuria or polydipsia. No tremor. NEUROLOGICAL: She denies headache, numbness, tingling, vertigo. No unilateral weakness. No history of seizure activity. PSYCHIATRIC: She has been having difficulty with anxiety and depression and after starting medication had some psychosis. This may have been exacerbated by prednisone. ALLERGY/IMMUNOLOGY: Has recurrent history of pneumonias which I had suspected was recurrent exacerbations of interstitial lung disease. She has environmental allergies, frequent respiratory infections. No known immunodeficiency. HEME: Denies easy bruising, bleeding. No history of lymphadenopathy. She has not required blood transfusions. SKIN: Some dry skin on her hands from frequent hand washing. No other rashes, jaundice or bruising. No pruritic skin lesions. SLEEP: Has obstructive sleep apnea. Compliant with therapy. No new excessive daytime somnolence. PHYSICAL EXAMINATION: Temperature is 97.0, pulse 88, respiratory rate 20, blood pressure is 137/63, oxygen saturation was 96% on 3 liters. GENERAL: The patient is morbidly obese. Barrel chested. Sitting comfortably at bedside with oxygen placed. EYES: Pupils equal, reactive to light. Mucous membranes moist without lesions. ENT: Oral. There is minimal erythema of the posterior pharynx. No evidence of pustules. Tongue is midline. Mallampati 4. NECK: Trachea midline. No thyromegaly. Jugular veins are not distended. PULMONARY: Fairly clear to auscultation, surprisingly with few bibasilar rales. There is increased AP diameter. No rhonchi. No wheeze. There is a slight prolongation of the expiratory phase. CARDIOVASCULAR: Regular S1, S2 without audible murmur, rub or gallop. The point of maximal impulse (PMI) is difficult to palpate. I do not appreciate a heart murmur. She has normal carotid upstroke. ABDOMEN: Obese, soft, nontender, protuberant. No discernable masses or hepatosplenomegaly. MUSCULOSKELETAL: Ambulates with a normal gait for body habitus. No significant kyphosis, scoliosis. Motor strength appears normal. SKIN: Pale. No rashes, jaundice, bruising. NEUROLOGICAL: Oriented to person, place and time. Mood and affect are normal. EKG was ordered. Chest x-ray is ordered along with electrolytes panel and CBC, all pending. I reviewed CT scans from July 27, 2016 performed here at [facility] and compared it to CT scan performed July 02, 2016. There has been significant increase in pulmonary infiltrates suggesting acute inflammatory phenomenon. There is a chronic 4 mm nodule that has been present for some time. No significant fibrotic change. No honeycombing. No significant adenopathy. No pleural effusions. IMPRESSION: 1. 31-year-old female with interstitial lung disease, recurrent. Pulmonary infiltrates that are steroid responsive, now with worsening infiltrates on chest CT. Does not appear that she has infectious symptoms. However, she has some muscle aches. I will rule out a viral illness with a viral panel. However, I believe most likely her symptoms are secondary to an acute interstitial lung disease. I have initiated IV steroids, however, due to the recurrence of these findings, I fluoroscopic lung biopsy versus open lung biopsy is the best course of action at this point in time to help facilitate treatment of her recurrent disease. She has had significant side effects from prednisone therapy including weight gain and altered mood, even to the point of possibly psychosis. Hopefully the biopsy will be informative enough to help us as physicians to know how to further treat her recurrent disease. She did have some minimal clinical improvement with Lasix previously, therefore, while I have prescribed Lasix, I am ordering a BMP. Cardiology has seen her in the past, felt this was noncardiogenic pulmonary edema. I have ordered and echocardiogram to compare to her prior echocardiogram from 2015. Differential includes cryptogenic organizing pneumonia, nonspecific interstitial pneumonia, other idiopathic interstitial lung diseases, hypersensitivity pneumonitis, however, has been screened numerous times for this and interstitial lung disease secondary to connective tissue disorders, previous ANAs have been negative. She has also been screened for vasculitic diseases and has had negative ANCAs in the past. She remains hypoxic. We will continue to monitor her oxygen requirements. At this point in time, I believe it is ideal for biopsy prior to her becoming more hypoxic. At this point in time I believe she would tolerate one lung ventilation. 2. Gastroesophageal reflux. I have continued Protonix to help with GI prophylaxis especially while on steroids. 3. History of severe asthma. I have replaced her Breo with nebulized budesonide and formoterol. She will also have nebulized albuterol Ipratropium combination as needed. I do not believe she has any significant bronchospasm that would suggest an asthma exacerbation. She has been without her Xolair for a month and a half. I have held her Singulair due to the rare occurrence of interstitial lung disease associated with Singulair. 4. Obesity. 5. Obstructive sleep apnea. The patient will be maintained on her usual CPAP of 8 cm. 6. Hypothyroidism. Previously on levothyroxine, however, this is not on her medication list currently. I will check a TSH here in the hospital. 7. Hypertension. Will continue lisinopril.
--- NOTE | 2016-08-01 21:07 | CR ---
DATE OF CONSULTATION: 08/01/2016 REFERRING PHYSICIAN: Dr. Paulino Dominique CONSULTING PHYSICIAN: Vlad Brantley MD REASON FOR CONSULTATION: Persisting shortness of breath. HISTORY: The patient's most present story starts in the beginning of June when she appeared at the emergency room complaining of shortness of breath, which had gradually increased over a period of two days. She supposedly had known asthma and was on oxygen at home. At the time, she was given increased steroids. She was administered nebulizer treatments. Shortly thereafter she went to an unknown provider in [place] for consultation for weight control as she is morbidly obese. She was put on Vyvanse and her Topamax which had already been prescribed was increased. Shortly thereafter she appeared in the emergency room overtly psychotic and paranoid. She was admitted to the inpatient mental health unit (IMHU) and her Vyvanse and Topamax were discontinued. She was started on Risperdal. Her mental status markedly improved and she was then discharged home. She was again seen in the emergency room on 07/27/2016, again with increasing shortness of breath where she was admitted overnight for observation. She underwent a CT scan at that point in time which showed ground glass opacities throughout her entire lung. Nonetheless she was discharged with a diagnosis of asthma exacerbation. She was placed on a Z-pack along with prednisone 20 mg every day and her Breo along with her other medications were restarted. She was seen in Dr. Dominique' office this afternoon with increasing shortness of breath. She states she had been coughing throughout the last few days was bringing up yellow to white sputum. She does not complain of chest discomfort or chest pain. She is short of breath with the most minimal of exertion. She is wearing oxygen. Because of her steroid use she has gained 20 pounds. She is already morbidly obese. There has been no dysphagia and no fever, chills or sweats. On reviewing her CT scan in the office, Dr. Dominique came to the conclusion that the CT scan was completely incompatible with asthma so as her condition was deteriorating immediately placed in the hospital. Her respiratory history probably starts in 2010 when she was in [place] and complained of generalized aches and malaise. She was seen in the emergency room at [facility] in [place] three times where she was finally admitted. Evidently this happened in late June of 2010 and she remembers nothing between then and early August when she emerged from a coma in the ICU with a tracheostomy. I have no other information from [facility]. She does have two dogs, two cats and a bird at home. The bird is a cockatiel and she obtained the bird in 2009, approximately 6 months prior to her suffering the unknown illness in [place]. PAST MEDICAL ILLNESSES: 1. She is listed as having asthma, though that might be questioned. 2. Allergic rhinitis. 3. Hypertension. 4. Gastroesophageal reflux disease (GERD). 5. Obstructive sleep apnea (JERI), on continuous positive airway pressure (CPAP). 6. Morbid obesity. 7. Depression and anxiety. 8. The above history of probable acute respiratory distress syndrome (ARDS). PAST SURGICAL HISTORY: 1. Appendectomy. 2. Bilateral eye surgery for stigmatism. 3. Tonsillectomy. 4. Deviated septum repair. 5. Dilation and curettage (D and C). Secondary to a 6 week miscarriage. 6. Prior bronchoscopies where inflammation and interstitial fibrosis was found. ALLERGIES: CODEINE. FLUCONAZOLE, SALMETEROL, TOPIRAMATE AND LISDEXAMFETAMINE. FAMILY HISTORY: Father of pancreatic cancer. Mother is alive with various and numerous medical illnesses which the patient thinks is hypochondriasis. TRAVEL HISTORY: [place] [facility], [place] and [place]. She was born and raised in [place]. 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 There is no asbestos exposure. 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 MEDICATIONS AT HOME: - ProAir HFA 2 puffs every 4 hours as needed shortness of breath - Ipratropium albuterol 1 puff as needed - Nexium 20 mg every day - Flonase 50 mg twice a day - Breo Ellipta 200/25 1 puff every day - Lasix 40 mg every day - Lisinopril 10 mg every day - loratadine 10 mg every day - Singulair 10 mg every day - Xolair 150 mg subcutaneous every other week - Risperdal 1 mg every morning and 1 mg nightly HABITS: Smoked about a half pack per day for five years. Stopped in 2010. Denies alcohol intake. REVIEW OF SYSTEMS: Constitutional: Without fever, chills sweats or night sweats. With 20 pound weight gain. Eyes: Has astigmatism, without transient monocular blindness or prior jaundice. Nose: Without epistaxis. Mouth: Has her own teeth. Pulmonary: See HPI. Cardiac: Without orthopnea or paroxysmal nocturnal dyspnea. Without prior myocardial infarctions. She has been told her legs swell up although she is not aware of it. Gastrointestinal (GI): Without nausea, vomiting, diarrhea, constipation, melena or hematochezia, hematemesis or abdominal pain. She does have gallstones. Genitourinary (): Without hematuria, dysuria or prior history of renal stones. Endocrine: Without diabetes, but has been told that she has hypothyroidism, but was not able to refill her prescriptions as there were no refills called in. Neurologic: Without seizures, parlayses, or paresthesias. She has chronic weakness in the left ankle from being in a circular bed during her time in [place]. Psychiatric: Thought to have bipolar syndrome and attention deficit/hyperactivity disorder (ADHD). Hematological: Without prolonged bleeding times. Lymphatics: Without lumps, bumps in the neck, axilla or groin that she has noted. PHYSICAL EXAMINATION: Well-developed overly nourished white female who is morbidly obese who has trouble with conversation in that she is short of breath at rest. Vital signs: Temperature is 97.0, heart rate is 91 in a sinus rhythm. Respiratory rate that is 20, without the use of accessory muscles. She is 94% saturated on 4 liters nasal cannula and her blood pressure is 135/80. Eyes: Pupils equal, round and reactive to light. Extraocular muscles intact. Sclera anicteric. Nose: Without deformity. Head: Normocephalic. Mouth: Shows her mucous membranes to be pink and moist. Lips and commissures are without lesions. There is no thrush. Teeth are in good repair. Neck is supple. There is no jugular venous distention, no subcutaneous emphysema. Trachea is midline. There is no lymphadenopathy and no thyromegaly. She has 2+ carotid upstrokes and there are no carotid bruits. Lungs: Shows fine Velcro crackles during inspiration on both sides particularly in the lower lobes. Breath sounds are quite distant on the sides secondary to her morbid obesity. Percussion notes are full to the diaphragm. Cardiac examination: Shows distant heart sounds without murmurs, clicks, gallops or rubs. I cannot feel his point of maximal impulse (PMI), S1 and S2 are normal. Abdomen: Soft and nontender. Bowel sounds are positive. There is no hepatomegaly. There is no costovertebral angle (CVA) tenderness. No aortic or renal bruits. Extremities: Show maybe trace pretibial edema, although I think there is just a large amount of subcutaneous tissue. No differential swelling of the upper extremities. No calf tenderness. Neuro: Shows her to be awake and alert, oriented times three with appropriate mood, affect and conversational. Lymphatics: Show no cervical, supraclavicular, infraclavicular or axillary lymphadenopathy. There is no epitrochlear lymphadenopathy. Her white count today is 12.4 up from 8.1 on 07/28. Hemoglobin and hematocrit ate 10.3 and 34.8, essentially unchanged from that on 07/28. Platelet count is 357 and her differential shows 69% neutrophils, 24% lymphocytes. There are no immature forms or toxic granulations. ESR is 13. Her electrolytes today are normal with a BUN and creatinine of 19 and 0.87, a glucose of 84 and a calcium of 8.7 with a corresponding albumin of 3.4. Her TSH is elevated at 6.1. Her PT and INR are 12.3 and 0.9 respectively. Blood gases today show a pH of 7.46, pCO2 of 35, and pO2 of 81 on 4 liters nasal cannula with a base excess of 1.1. Her urinalysis on 07/15 showed 3+ urine blood, 1+ urine bacteria and 1+ leukocyte esterase. Her P ANCA and X ANCA are pending as are double stranded RNA and SCI-70 scleroderma antibody. Her KRISTAN screen on 12/16/2014 was negative. Her C-reactive protein on 07/28/2016 was 0.5, which was just outside the upper limits of normal in this institution. Her chest x-ray on 07/27 showed her lungs fully expanded to the chest wall. Given her morbid obesity, the costophrenic angles are clear and I do not see any specific infiltrates. She does have a little bit more haze in the lower hemithoraces. Her lateral chest x-ray may show some posterior infiltrative patterns, although it is difficult to see through her morbid obesity. Chest CT done under angiographic protocol shows bilateral ground glass opacities evenly distributed throughout the entire lung. There is no dependence seen. On top of these ground glass opacities there are other more opaque opacities, still looking alveolar. These are particularly notable in the middle lobe and in the lower lobe. I do not see mediastinal lymphadenopathy. There are no emphysematous changes. Great vessels are intact. There is no pericardial effusion. Below the diaphragm, her liver has no, there are no lesions and her adrenals have a normal configuration. The portion of her kidneys that are seen look to be normal. I do not see any gallstones in that portion of the gallbladder that is visualized on the study. IMPRESSION: 1. Bilateral ground glass infiltrates consistent with interstitial lung disease, unknown etiology. 2. Hypertension. 3. History of asthma, although that diagnosis may be doubtful. 4. Morbid obesity. 5. Gastroesophageal reflux disease. 6. Obstructive sleep apnea on CPAP. 7. Depression and anxiety. 8. Paranoid psychoses secondary to Vyvanse, now discontinued and resolved. 9. Hypothyroidism. PLAN AND DISCUSSION: We do not have any real idea as to what this ground glass appearance represents. Her shortness of breath has in the past been responsive to steroids, however, it does not seem to be this time. She does have the notable history of having obtained a cockatiel about six months prior to a very prolonged respiratory malady in [place]. We do not know what that illness was other than that she required ventilation and a tracheostomy and she was in a coma for nearly a month. This does not sound infectious, neither fungal or bacterial. There are no constitutional symptoms consistent with infection. She does have a positive travel history to the [place] [facility] and particularly the [facility] along with [place] where she could have been exposed to either histoplasmosis or coccidiomycosis. There is no mediastinal lymphadenopathy found on her chest CT however. I will start her on Synthroid if she has not been started already. Dr. Dominique needs to know the pathologic diagnosis. This does not look like interstitial fibrosis, but rather interstitial lung disease. I will therefore take her to the operating room tomorrow where we will undertake hopefully a video assisted thoracic surgery (VATS) wedge resection on the right side. I have explained to Ms. Veramaryjane the risks and benefits of the operation including the risk that she could be ventilator dependent in addition to the usual mortality, bleeding and infection, and pneumonia risks. She understands and is willing to proceed. I have also spoken to her in the accompaniment of her and he also understands.
[2016-08-01 21:23] VITALS: BP 130/75
[2016-08-01] MEDS ORDERED: HEPARIN SOD (PORCINE) 5000 UNITS/ML VIAL SC SCH ×2 (22:00)
[2016-08-01 23:59] VITALS: BP_SYST 133; BP_SYST 158; BP_DIAS 70; BP_DIAS 78
[2016-08-02] MEDS ORDERED: SLF 3 ML SYR IV PRN
[2016-08-02] MEDS: methylPREDNISolone INJ 125 MG/2 ML VIAL (J2930) IV SCH ×3 (00:31→16:39)
--- NOTE | 2016-08-02 02:15 | REP ---
Clinical: History of interstitial lung disease . Comparison: 07/27/2016 . Technique: PA and lateral. Findings: The mediastinum and cardiac silhouette are normal. The lung meza are clear and without acute consolidation, effusion, or pneumothorax. The skeletal structures are intact and normal. Impression: 1. No acute cardiopulmonary process. Signed by Alfonzo Gardiner MD 08/02/2016 02:08 A
[2016-08-02] MEDS: IPRATROPIUM 0.5MG/ALBUTEROL 2.5MG INH SOL UD 3ML (DUONEB)(J7620) NEB SCH ×4 (02:31→20:00)
[2016-08-02 04:42] VITALS: BP 139/75
[2016-08-02] MEDS ORDERED: MUPIROCIN 2% OINT 22 GM TUBE TOP SCH (06:00)
[2016-08-02] MEDS ORDERED: ceFAZolin SOD 1 GM in D5W MINI-BAG PLUS 50 ML IV SCH (06:00)
[2016-08-02 06:01] LABS: EOS # 0.1 K/mm3 (0.0-0.50); EOS % 0.5 % (0.0-3.0); LARGE UNSTAINED CELL # 0.1 K/mm3 (0.0-0.4); LARGE UNSTAINED CELL % 0.4 % (0.0-4.0); LYMPH # 1.2 K/mm3 (1.5-4.5); LYMPH % 8.5 % (24.0-44.0); MEAN CORPUSCULAR HEMOGLOBIN 21.9 pg (27.0-33.0); MEAN CORPUSCULAR HGB CONC 30.1 g/dl (32.0-36.5); MEAN CORPUSCULAR VOLUME 72.7 fl (80.0-96.0); MONO # 0.3 K/mm3 (0.0-0.8); NEUTROPHILS # 11.6 K/mm3 (1.8-7.7); NEUTROPHILS % 88.5 % (36.0-66.0); PLATELET COUNT, AUTOMATED 402 k/mm3 (150-450); RED CELL DISTRIBUTION WIDTH 15.7 % (11.5-14.5); WHITE BLOOD COUNT 13.2 K/mm3 (4.0-10.0)
[2016-08-02 06:21] LABS: ALBUMIN 3.1 GM/DL (3.2-5.2); ALBUMIN/GLOBULIN RATIO 0.91 (1.00-1.93); ALKALINE PHOSPHATASE 61 U/L (45-117); ALT/SGPT 25 U/L (12-78); ANION GAP 10 MEQ/L (8-16); AST/SGOT 11 U/L (15-37); BILIRUBIN,TOTAL 0.5 MG/DL (0.2-1.0); BLOOD UREA NITROGEN 17 MG/DL (7-18); CALCIUM LEVEL 8.8 MG/DL (8.5-10.1); CARBON DIOXIDE LEVEL 27 MEQ/L (21-32); CHLORIDE LEVEL 105 MEQ/L (98-107); CREATININE FOR GFR 0.77 MG/DL (0.55-1.02); GLOMERULAR FILTRATION RATE > 60.0 (>60); GLUCOSE, FASTING 143 MG/DL (70-105); POTASSIUM SERUM 4.2 MEQ/L (3.5-5.1); SODIUM LEVEL 142 MEQ/L (136-145); TOTAL PROTEIN 6.5 GM/DL (6.4-8.2)
[2016-08-02] MEDS: SLF 3 ML SYR IV SCH ×2 (06:48→09:15)
[2016-08-02] MEDS: FORMOTEROL FUMARATE 20 MCG/2 ML INHALATION SOLUTION (PERFOROMIST) INH SCH ×2 (07:29→20:53)
[2016-08-02] MEDS: BUDESONIDE 0.5 MG/2 ML INHALATION SUSPENSION INH SCH ×2 (07:29→20:53)
[2016-08-02 08:00] VITALS: BP 131/66
[2016-08-02] MEDS: PANTOPRAZOLE 40MG TAB (PROTONIX) PO SCH (09:12)
[2016-08-02] MEDS: LISINOPRIL 10 MG TAB PO SCH (09:12)
--- NOTE | 2016-08-02 09:37 | REP ---
CT study of the chest without contrast: History: Interstitial lung disease. Comparison CT studies are from July 27, 2016 and July 02, 2016. Comparison CT study is reviewed from May 22, 2016 and April 27, [address] findings: On today's CT study, the ground-glass opacity pattern described on the most recent study of July 27, 2016 is much improved. There are coarse linear fibrotic densities in the lower lobes bilaterally and to a lesser extent in the upper lobes in a pattern which is similar to July 02, 2016. Minimal ground-glass pattern persists in the upper lobes and lower lobes. There is no evidence of interlobular septal fibrosis or thickening. No evidence of bronchiectasis or endobronchial disease is seen. No new focal infiltrate is seen. No pleural or pericardial effusion is appreciated. Impression: The recent prominent pattern of ground-glass opacity/pulmonary edema is much improved. Findings today are essentially unchanged from the July 02, 2016 prior study where there are areas of linear fibrosis in the upper and lower lobes bilaterally. Some subtle ground-glass opacity changes persist. No new infiltrate. Signed by Kristofer Garcia MD 08/02/2016 10:25 A
[2016-08-02 10:39] LABS: FREE T4 0.99 NG/DL (0.76-1.46)
[2016-08-02] MEDS: FUROSEMIDE 40 MG TAB PO SCH (11:57)
[2016-08-02 12:00] VITALS: BP 129/68
[2016-08-02 14:37] LABS: INR 1.04
[2016-08-02 16:00] VITALS: BP 120/61
[2016-08-02 20:00] VITALS: BP 115/56
[2016-08-03] VITALS: BP 114/62
[2016-08-03] MEDS: methylPREDNISolone INJ 125 MG/2 ML VIAL (J2930) IV SCH ×2 (00:09→10:06)
[2016-08-03] MEDS: SLF 3 ML SYR IV SCH ×2 (00:09→06:43)
[2016-08-03] MEDS: IPRATROPIUM 0.5MG/ALBUTEROL 2.5MG INH SOL UD 3ML (DUONEB)(J7620) NEB SCH ×2 (02:33→07:08)
[2016-08-03 04:00] VITALS: BP 138/66
[2016-08-03] MEDS: FORMOTEROL FUMARATE 20 MCG/2 ML INHALATION SOLUTION (PERFOROMIST) INH SCH (07:07)
[2016-08-03] MEDS: BUDESONIDE 0.5 MG/2 ML INHALATION SUSPENSION INH SCH (07:07)
[2016-08-03 07:10] VITALS: BP_SYST 107; BP_SYST 123; BP_DIAS 64; BP_DIAS 68
[2016-08-03] MEDS ORDERED: PRED20TA PO (08:04)
[2016-08-03] MEDS ORDERED: BREO1INH3 INH (08:17)
--- NOTE | 2016-08-03 08:38 | DSES ---
DATE OF ADMISSION: 08/01/2016 DATE OF DISCHARGE: 08/03/2016 ADMISSION DIAGNOSES: Acute interstitial lung disease and hypoxia. HOSPITAL COURSE: Conchis is a 31-year-old female with recurrent interstitial lung disease that appears to be steroid responsive. She had increased shortness of breath and on Friday presented to the emergency room with a chest CT that showed significant ground glass opacities consistent with her acute interstitial lung disease. She then was sent home on steroids, followed up in my office. On presentation to my office, she was found to be hypoxic, short of breath and on review of the chest CT is felt that it was best that she be admitted for intravenous (IV) steroids and consideration of lung biopsy. Thoracic surgery was consulted for lung biopsy. However, the patient had such radiographic improvement and it was deemed that the surgical biopsy would not be informative enough compared to the risk of the surgery. There is serologic workup pending. My ultimate suspicion is that of either ABPA given her documented history of asthma with a positive methacholine challenge and evidence of bronchiectasis on chest CT versus a cryptogenic organizing pneumonia. Her CT abnormalities have always been significantly responsive to steroids. However, she has significant side effects from steroids, including morbid obesity and occasionally psychosis. She has been doing well on IV steroids. Will convert to oral prednisone with close clinical followup as an outpatient. Aspergillus panel, hypersensitivity pneumonitis panel and connective tissue disorder workup is still pending. She has been through connective tissue workup and hypersensitivity pneumonitis workup previously without any remarkable findings. DISCHARGE DIAGNOSES: 1. Acute interstitial lung disease steroid responsive. 2. Hypoxia requiring oxygen acute on chronic. 3. Severe persistent asthma. 4. Obstructive sleep apnea, compliant on continuous positive airway pressure (CPAP) of 8. 5. Gastroesophageal reflux. 6. Recent hospitalization for psychosis. 7. Restrictive lung impairment from obesity. 8. Remote history of hypothyroidism. Free T4 was normal off levothyroxine in the hospital. 9. History of polycystic ovarian syndrome. 10. Chronic rhinitis. 11. Hypertension. DISCHARGE MEDICATIONS: - New prescription prednisone 20 mg, 2 tablets by mouth daily for 2 weeks, 1-1/2 tablet daily for 2 weeks, then 1 tablet daily for 2 weeks until seen in followup. - albuterol sulfate inhaled every 2 hours as needed, shortness of breath - ipratropium albuterol nebulized every 4 hours as needed, shortness of breath - Breo 1 puff inhaled daily - Nexium 20 mg by mouth daily - Flonase 50 mcg spray 1 spray each nostril daily - Lasix 40 mg by mouth daily - loratadine 10 mg by mouth daily - montelukast 10 mg by mouth daily - Xolair 150 mg every 2 weeks (I will resume this in the office after followup.) - Stopped medication Lisinopril 10 mg by mouth daily and risperidone. HOME INSTRUCTIONS: Patient has been referred to [facility] for occupational therapy and will refer to pulmonary rehabilitation to improve conditioning with her underlying lung disease. Patient instruction; she was advised to call the office with any side effects from the prednisone or increased shortness of breath. We have extensively reviewed the potential side effects of the prednisone and discussed infectious surveillance. She expresses understanding. She will be discharged to the care of her .
[2016-08-03] MEDS: FUROSEMIDE 40 MG TAB PO SCH (10:05)
[2016-08-03] MEDS: PANTOPRAZOLE 40MG TAB (PROTONIX) PO SCH (10:05)
[2016-08-03 10:06] VITALS: BP 107/64
[2016-08-03] MEDS: LISINOPRIL 10 MG TAB PO SCH (10:06)
[2016-08-07 00:14] LABS: M003-IGE ASPERGILLUS fumigatus 0.19 kU/L (Class 0/I)
== END 2016-08-03 11:45 | disposition home health service (06) | DRG 198 ==
LOC: M PCU 14:44
PROVIDERS: ADMIT Internal Medicine Pulmonary Disease; ATTEND Internal Medicine Pulmonary Disease
DX: J84.9 Interstitial pulmonary disease, unspecified (principal); R09.02 Hypoxemia; G47.33 Obstructive sleep apnea (adult) (pediatric); K21.9 Gastro-esophageal reflux disease without esophagitis; J45.50 Severe persistent asthma, uncomplicated; I10 Essential (primary) hypertension; E66.9 Obesity, unspecified; J31.0 Chronic rhinitis; E28.2 Polycystic ovarian syndrome; E03.9 Hypothyroidism, unspecified; F41.8 Other specified anxiety disorders; Z79.899 Other long term (current) drug therapy; Z79.51 Long term (current) use of inhaled steroids; Z79.52 Long term (current) use of systemic steroids; Z99.89 Dependence on other enabling machines and devices; Z87.01 Personal history of pneumonia (recurrent); Z88.5 Allergy status to narcotic agent; Z88.8 Allergy status to other drugs, medicaments and biological substances; Z87.891 Personal history of nicotine dependence; Z82.49 Family history of ischemic heart disease and other diseases of the circulatory system; Z83.3 Family history of diabetes mellitus; Z83.49 Family history of other endocrine, nutritional and metabolic diseases; Z99.81 Dependence on supplemental oxygen

== ENCOUNTER 2016-08-08 21:40 | Emergency (ER) | payer OTHER ==
[~2016-08-08 21:40] MED LIST changes: +RISP1TAB3 PO
--- NOTE | 2016-08-08 22:47 | EDDOCDS ---
Nurse's Notes [facility] Name: Conchis Morel Age: 31 yrs Sex: Female : 1985 Arrival Date: 08/08/2016 Time: 21:40 Bed 4 Private MD: Reema Parra Diagnosis: Presentation: 08/08 21:43 Presenting complaint: states: anxiety, confusion for 2 days. recently admitted rs3 for lung inflammation discharged last Friday by Dr. Dominique. reports of breathing difficulty, on home oxygen 3L/nc 24 hrs. Mental Health Triage Level: Not applicable. Adult Sepsis Screening: The patient does not have new or worsening altered mentation. Patient's respiratory rate is less than 22. Systolic blood pressure is greater than 100. Patient has a qSOFA score of 0- Negative Sepsis Screen. Mental Health Triage Level: Not applicable. Suicide/Homicide risk assessment- the patient denies having any suicidal and/or homicidal ideations and does not present with any other emotional, behavioral or mental health complaints. Status: The patient is a dependent. Transition of care: patient was not received from another setting of care. 21:43 Acuity: BOOGIE Level 3 rs3 21:43 Method Of Arrival: Walkin/Carried/Asstd rs3 Triage Assessment: 21:50 General: Appears in no apparent distress. Pain: Denies pain. HIV screening NA for this rs3 visit Offered previously. 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 albuterol sulfate 90 mcg/actuation Inhl HFAA 2 puffs every 4 hours pt reports she forgot to take her meds for the last couple. 2. albuterol sulfate 2.5 mg /3 mL (0.083 %) Inhl nebu 3 mL as needed 3. Breo Ellipta 200-25 mcg/dose inhalation dsdv 1 puff once daily . 4. Singulair 10 mg Oral tab 1 tab once daily 5. Lasix 40 mg Oral tab 1 tab once daily 6. Nexium 20 mg Oral cpDR 1 cap once daily . 7. Flonase 50 mcg/actuation Nasal spsn 1 spray 2 times per day 8. Claritin 10 mg Oral tab 1 tab once daily 9. prednisone 20 mg Oral tab once daily - PMHx: ARDS; GERD; - PSHx: Appendectomy; eye surgery; Tonsillectomy; deviated septum; D & C; lung biopsy; - Social history: Smoking status: Patient states former smoker of tobacco. No barriers to communication noted, The patient speaks fluent Cymro. - Family history: Not pertinent. - : The pt / caregiver states he / she is not on anticoagulants. Home medication list is obtained from family members. - Exposure Risk Screening:: None identified. Screenin:02 Screening information is obtained from the patient. Fall risk: No risks identified. cf2 Assistance ADL's: requires no assistance with activities of daily living. Abuse/DV Screen: The patient / caregiver reports he/she is: not in a situation that causes fear, pain or injury. Nutritional screening: No deficits noted. Advance Directives: Further advance directive information is declined. home support is adequate. Assessment: 21:50 General: Appears obese, well developed, well groomed, Behavior is anxious. Pain: Denies cf2 pain. Neurological: No deficits noted. EENT: No deficits noted. Cardiovascular: No deficits noted. Respiratory: Onset: The symptoms/episode began/occurred yesterday, Airway is patent Respiratory effort is pursed lip, Respiratory pattern is tachypnea Breath sounds are clear Reports Patient states "increased anxiety over the past few days". GI: No deficits noted. Vital Signs: 21:42 BP 135 / 67; Pulse 92; Resp 20; Temp 98.0(O); Pulse Ox 95% on 3 lpm NC; Weight 120.2 kg lr2 (R); Height 4 ft. 10 in. (147.32 cm) (R); Pain 0/10; 22:01 BP 131 / 82 (auto/); cf2 22:02 Pulse 88 MON; Pulse Ox 94% ; cf2 22:08 Pulse 82 MON; Pulse Ox 93% ; cf2 22:13 Pulse 88 MON; Pulse Ox 95% ; cf2 22:16 Pulse 88 MON; Pulse Ox 95% ; cf2 22:18 Pulse 84 MON; Pulse Ox 93% ; cf2 22:20 Pulse 86 MON; Pulse Ox 93% ; cf2 21:42 Body Mass Index 55.38 (120.20 kg, 147.32 cm) lr2 Vitals: 21:42 Log In Time: August 08, 2016 at 21:40. lr2 ED Course: 21:41 Patient visited by Greta Londono. lr2 21:41 Patient moved to Waiting lr2 21:42 Reema Parra is Private Physician. lr2 21:42 Patient moved to Pre RCE lr2 21:47 Triage Initiated rs3 21:52 Patient moved to 4 ck1 21:53 Riaz Leblanc DO is Attending Physician. cs11 21:53 Patient visited by Riaz Leblanc DO. cs11 21:55 Elyse Dewitt,OSVALDO is Primary Nurse. cf2 21:55 Patient visited by Elyse Dewitt RN. cf2 22:02 The patient / caregiver is instructed regarding the plan of care and ED course. Patient cf2 has correct armband on for positive identification. Placed in gown. Bed in low position. Call light in reach. Side rails up X 1. Side rails up X2. Adult w/ patient. monitor technician on. Pulse ox on. NIBP on. Property :Personal belongings accompany Pt. Diet: Patient is NPO. 22:02 No IV's were initiated during this patient's visit. No procedures done that require cf2 assistance. 22:16 Patient visited by Elyse Dewitt RN. cf2 22:38 Patient visited by Elyse Dewitt,OSVALDO. cf2 22:45 Riaz Leblanc DO is Referral Physician. cf2 Order Results: There are currently no results for this order. Outcome: 22:02 Discharge Assessment: Patient awake, alert and oriented x 3. No cognitive and/or cf2 functional deficits noted. Patient verbalized understanding of disposition instructions. Patient awake and alert. Oriented to person, place and time. patient administered narcotics - no. The following High Risk Discharge criteria are identified: None. Discharged to. LWOT With Intervention: feels better. Condition: good Condition: stable. No special radiology studies were completed. 22:46 Patient left against medical advice. cf2 22:46 Patient left the ED. cf2 Signatures: Jennifer BuenrostroRN RN ck1 Shira Antunez RN RN rs3 Riaz Leblanc DO DO cs11 Elyse Dewitt,OSVALDO RN cf2 Greta Londono lr2 JESICA
--- NOTE | 2016-08-08 22:47 | EDDOCDS ---
Physician Documentation [facility] Name: Conchis Morel Age: 31 yrs Sex: Female : 1985 Arrival Date: 08/08/2016 Time: 21:40 Bed 4 Private MD: Reema Parra Disposition: 08/08/16 22:46 Patient has left against medical advice. - Patients states they are going to Home/Self Care. - Condition is Good. Medication Reconciliation, Local Pharmacy Hours form. Historical: - Allergies: Codeine Sulfate (Swelling); Topamax (confused); Vyvanse (confused); Advair Diskus (lung inflammation); - Home Meds: 1. albuterol sulfate 90 mcg/actuation Inhl HFAA 2 puffs every 4 hours pt reports she forgot to take her meds for the last couple. 2. albuterol sulfate 2.5 mg /3 mL (0.083 %) Inhl nebu 3 mL as needed 3. Breo Ellipta 200-25 mcg/dose inhalation dsdv 1 puff once daily . 4. Singulair 10 mg Oral tab 1 tab once daily 5. Lasix 40 mg Oral tab 1 tab once daily 6. Nexium 20 mg Oral cpDR 1 cap once daily . 7. Flonase 50 mcg/actuation Nasal spsn 1 spray 2 times per day 8. Claritin 10 mg Oral tab 1 tab once daily 9. prednisone 20 mg Oral tab once daily - PMHx: ARDS; GERD; - PSHx: Appendectomy; eye surgery; Tonsillectomy; deviated septum; D & C; lung biopsy; - Social history: Smoking status: Patient states former smoker of tobacco. No barriers to communication noted, The patient speaks fluent Setswana. - Family history: Not pertinent. - : The pt / caregiver states he / she is not on anticoagulants. Home medication list is obtained from family members. - Exposure Risk Screening:: None identified. 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 10 in. (147.32 cm) (R); Pain 0/10; 22:01 BP 131 / 82 (auto/); cf2 22:02 Pulse 88 MON; Pulse Ox 94% ; cf2 22:08 Pulse 82 MON; Pulse Ox 93% ; cf2 22:13 Pulse 88 MON; Pulse Ox 95% ; cf2 22:16 Pulse 88 MON; Pulse Ox 95% ; cf2 22:18 Pulse 84 MON; Pulse Ox 93% ; cf2 22:20 Pulse 86 MON; Pulse Ox 93% ; cf2 21:42 Body Mass Index 55.38 (120.20 kg, 147.32 cm) lr2 MDM: 22:15 Call Respiratory ordered. cs11 22:16 Chest, 2 View (pa\E\lat) Ordered. EDMS 22:16 -Arterial Blood Gas Ordered. EDMS 22:19 Call Respiratory complete. nb2 Signatures: Dispatcher [employer] EDMS Shira Antunez RN RN rs3 Riaz Leblanc, DO DO cs11 Elyse Dewitt RN RN cf2 Chelsea Valenzuela nb2 MTDD
--- NOTE | 2016-08-10 23:47 | EDDOCDS ---
Physician Documentation [facility] Name: Conchis Morel Age: 31 yrs Sex: Female : 1985 Arrival Date: 08/08/2016 Time: 21:40 Bed 4 Private MD: Reema Parra Disposition: 08/08/16 22:46 Patient has left against medical advice. - Patients states they are going to Home/Self Care. - Condition is Good. Medication Reconciliation, Local Pharmacy Hours form. Historical: - Allergies: Codeine Sulfate (Swelling); Topamax (confused); Vyvanse (confused); Advair Diskus (lung inflammation); - Home Meds: 1. albuterol sulfate 90 mcg/actuation Inhl HFAA 2 puffs every 4 hours pt reports she forgot to take her meds for the last couple. 2. albuterol sulfate 2.5 mg /3 mL (0.083 %) Inhl nebu 3 mL as needed 3. Breo Ellipta 200-25 mcg/dose inhalation dsdv 1 puff once daily . 4. Singulair 10 mg Oral tab 1 tab once daily 5. Lasix 40 mg Oral tab 1 tab once daily 6. Nexium 20 mg Oral cpDR 1 cap once daily . 7. Flonase 50 mcg/actuation Nasal spsn 1 spray 2 times per day 8. Claritin 10 mg Oral tab 1 tab once daily 9. prednisone 20 mg Oral tab once daily - PMHx: ARDS; GERD; - PSHx: Appendectomy; eye surgery; Tonsillectomy; deviated septum; D & C; lung biopsy; - Social history: Smoking status: Patient states former smoker of tobacco. No barriers to communication noted, The patient speaks fluent Indonesian. - Family history: Not pertinent. - : The pt / caregiver states he / she is not on anticoagulants. Home medication list is obtained from family members. - Exposure Risk Screening:: None identified. 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 10 in. (147.32 cm) (R); Pain 0/10; 22:01 BP 131 / 82 (auto/); cf2 22:02 Pulse 88 MON; Pulse Ox 94% ; cf2 22:08 Pulse 82 MON; Pulse Ox 93% ; cf2 22:13 Pulse 88 MON; Pulse Ox 95% ; cf2 22:16 Pulse 88 MON; Pulse Ox 95% ; cf2 22:18 Pulse 84 MON; Pulse Ox 93% ; cf2 22:20 Pulse 86 MON; Pulse Ox 93% ; cf2 21:42 Body Mass Index 55.38 (120.20 kg, 147.32 cm) lr2 MDM: 22:15 Call Respiratory ordered. cs11 22:16 Chest, 2 View (pa\E\lat) Ordered. EDMS 22:16 -Arterial Blood Gas Ordered. EDMS 22:19 Call Respiratory complete. nb2 Signatures: Dispatcher [employer] EDMS Shira Antunez RN RN rs3 Riaz Leblanc, DO DO cs11 Elyse Dewitt RN RN cf2 Chelsea Valenzuela nb2 Chart Complete [facility]
--- NOTE | 2016-08-10 23:47 | EDDOCDS ---
Nurse's Notes [facility] Name: Conchis Morel Age: 31 yrs Sex: Female : 1985 Arrival Date: 08/08/2016 Time: 21:40 Bed 4 Private MD: Reema Parra Diagnosis: Presentation: 08/08 21:43 Presenting complaint: states: anxiety, confusion for 2 days. recently admitted rs3 for lung inflammation discharged last Friday by Dr. Dominique. reports of breathing difficulty, on home oxygen 3L/nc 24 hrs. Mental Health Triage Level: Not applicable. Adult Sepsis Screening: The patient does not have new or worsening altered mentation. Patient's respiratory rate is less than 22. Systolic blood pressure is greater than 100. Patient has a qSOFA score of 0- Negative Sepsis Screen. Mental Health Triage Level: Not applicable. Suicide/Homicide risk assessment- the patient denies having any suicidal and/or homicidal ideations and does not present with any other emotional, behavioral or mental health complaints. Status: The patient is a dependent. Transition of care: patient was not received from another setting of care. 21:43 Acuity: BOOGIE Level 3 rs3 21:43 Method Of Arrival: Walkin/Carried/Asstd rs3 Triage Assessment: 21:50 General: Appears in no apparent distress. Pain: Denies pain. HIV screening NA for this rs3 visit Offered previously. 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 albuterol sulfate 90 mcg/actuation Inhl HFAA 2 puffs every 4 hours pt reports she forgot to take her meds for the last couple. 2. albuterol sulfate 2.5 mg /3 mL (0.083 %) Inhl nebu 3 mL as needed 3. Breo Ellipta 200-25 mcg/dose inhalation dsdv 1 puff once daily . 4. Singulair 10 mg Oral tab 1 tab once daily 5. Lasix 40 mg Oral tab 1 tab once daily 6. Nexium 20 mg Oral cpDR 1 cap once daily . 7. Flonase 50 mcg/actuation Nasal spsn 1 spray 2 times per day 8. Claritin 10 mg Oral tab 1 tab once daily 9. prednisone 20 mg Oral tab once daily - PMHx: ARDS; GERD; - PSHx: Appendectomy; eye surgery; Tonsillectomy; deviated septum; D & C; lung biopsy; - Social history: Smoking status: Patient states former smoker of tobacco. No barriers to communication noted, The patient speaks fluent Spanish. - Family history: Not pertinent. - : The pt / caregiver states he / she is not on anticoagulants. Home medication list is obtained from family members. - Exposure Risk Screening:: None identified. Screenin:02 Screening information is obtained from the patient. Fall risk: No risks identified. cf2 Assistance ADL's: requires no assistance with activities of daily living. Abuse/DV Screen: The patient / caregiver reports he/she is: not in a situation that causes fear, pain or injury. Nutritional screening: No deficits noted. Advance Directives: Further advance directive information is declined. home support is adequate. Assessment: 21:50 General: Appears obese, well developed, well groomed, Behavior is anxious. Pain: Denies cf2 pain. Neurological: No deficits noted. EENT: No deficits noted. Cardiovascular: No deficits noted. Respiratory: Onset: The symptoms/episode began/occurred yesterday, Airway is patent Respiratory effort is pursed lip, Respiratory pattern is tachypnea Breath sounds are clear Reports Patient states "increased anxiety over the past few days". GI: No deficits noted. Social Work Consult: 23:05 LWBS/AMA AMA: Patient is refusing further stabilizing treatment at [facility], although cl offered treatment regardless of method of payment or ability to pay. Patient is aware that this action is being undertaken against the advice of the medical staff at [facility]. Pt. has capacity to understand the potential consequences of this choice. pt did notify ED staff. Patient / guardian did sign Refusal of Services form. Pt left before being seen by PSA. Vital Signs: 21:42 BP 135 / 67; Pulse 92; Resp 20; Temp 98.0(O); Pulse Ox 95% on 3 lpm NC; Weight 120.2 kg lr2 (R); Height 4 ft. 10 in. (147.32 cm) (R); Pain 0/10; 22:01 BP 131 / 82 (auto/); cf2 22:02 Pulse 88 MON; Pulse Ox 94% ; cf2 22:08 Pulse 82 MON; Pulse Ox 93% ; cf2 22:13 Pulse 88 MON; Pulse Ox 95% ; cf2 22:16 Pulse 88 MON; Pulse Ox 95% ; cf2 22:18 Pulse 84 MON; Pulse Ox 93% ; cf2 22:20 Pulse 86 MON; Pulse Ox 93% ; cf2 21:42 Body Mass Index 55.38 (120.20 kg, 147.32 cm) lr2 Vitals: 21:42 Log In Time: August 08, 2016 at 21:40. lr2 ED Course: 21:41 Patient visited by Greta Londono. lr2 21:41 Patient moved to Waiting lr2 21:42 Reema Parra is Private Physician. lr2 21:42 Patient moved to Pre RCE lr2 21:47 Triage Initiated rs3 21:52 Patient moved to 4 ck1 21:53 Riaz Leblanc DO is Attending Physician. cs11 21:53 Patient visited by Riaz Leblanc DO. cs11 21:55 Elyse Dewitt,OSVALDO is Primary Nurse. cf2 21:55 Patient visited by Elyse Dewitt,OSVALDO. cf2 22:02 The patient / caregiver is instructed regarding the plan of care and ED course. Patient cf2 has correct armband on for positive identification. Placed in gown. Bed in low position. Call light in reach. Side rails up X 1. Side rails up X2. Adult w/ patient. awake overnight monitor on. Pulse ox on. NIBP on. Property :Personal belongings accompany Pt. Diet: Patient is NPO. 22:02 No IV's were initiated during this patient's visit. No procedures done that require cf2 assistance. 22:16 Patient visited by Elyse Dewitt,OSVALDO. cf2 22:38 Patient visited by Elyse Dewitt,OSVALDO. cf2 22:45 Riaz Leblanc DO is Referral Physician. cf2 Order Results: There are currently no results for this order. Outcome: 22:02 Discharge Assessment: Patient awake, alert and oriented x 3. No cognitive and/or cf2 functional deficits noted. Patient verbalized understanding of disposition instructions. Patient awake and alert. Oriented to person, place and time. patient administered narcotics - no. The following High Risk Discharge criteria are identified: None. Discharged to. LWOT With Intervention: feels better. Condition: good Condition: stable. No special radiology studies were completed. 22:46 Patient left against medical advice. cf2 22:46 Patient left the ED. cf2 Signatures: Jae Buck, PSA PSA cl Jennifer BuenrostroRN RN ck1 Shira Antunez RN RN rs3 Riaz Leblanc, DO cs11 Elyse Dewitt RN RN cf2 Greta Londono [facility] Chart Complete MTDD
--- NOTE | 2016-08-10 23:47 | EDDOCDS ---
Physician Documentation [facility] Name: Conchis Morel Age: 31 yrs Sex: Female : 1985 Arrival Date: 08/08/2016 Time: 21:40 Bed 4 Private MD: Reema Parra Disposition: 08/08/16 22:46 Patient has left against medical advice. - Patients states they are going to Home/Self Care. - Condition is Good. Medication Reconciliation, Local Pharmacy Hours form. Historical: - Allergies: Codeine Sulfate (Swelling); Topamax (confused); Vyvanse (confused); Advair Diskus (lung inflammation); - Home Meds: 1. albuterol sulfate 90 mcg/actuation Inhl HFAA 2 puffs every 4 hours pt reports she forgot to take her meds for the last couple. 2. albuterol sulfate 2.5 mg /3 mL (0.083 %) Inhl nebu 3 mL as needed 3. Breo Ellipta 200-25 mcg/dose inhalation dsdv 1 puff once daily . 4. Singulair 10 mg Oral tab 1 tab once daily 5. Lasix 40 mg Oral tab 1 tab once daily 6. Nexium 20 mg Oral cpDR 1 cap once daily . 7. Flonase 50 mcg/actuation Nasal spsn 1 spray 2 times per day 8. Claritin 10 mg Oral tab 1 tab once daily 9. prednisone 20 mg Oral tab once daily - PMHx: ARDS; GERD; - PSHx: Appendectomy; eye surgery; Tonsillectomy; deviated septum; D & C; lung biopsy; - Social history: Smoking status: Patient states former smoker of tobacco. No barriers to communication noted, The patient speaks fluent Romanian. - Family history: Not pertinent. - : The pt / caregiver states he / she is not on anticoagulants. Home medication list is obtained from family members. - Exposure Risk Screening:: None identified. 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 10 in. (147.32 cm) (R); Pain 0/10; 22:01 BP 131 / 82 (auto/); cf2 22:02 Pulse 88 MON; Pulse Ox 94% ; cf2 22:08 Pulse 82 MON; Pulse Ox 93% ; cf2 22:13 Pulse 88 MON; Pulse Ox 95% ; cf2 22:16 Pulse 88 MON; Pulse Ox 95% ; cf2 22:18 Pulse 84 MON; Pulse Ox 93% ; cf2 22:20 Pulse 86 MON; Pulse Ox 93% ; cf2 21:42 Body Mass Index 55.38 (120.20 kg, 147.32 cm) lr2 MDM: 22:15 Call Respiratory ordered. cs11 22:16 Chest, 2 View (pa\E\lat) Ordered. EDMS 22:16 -Arterial Blood Gas Ordered. EDMS 22:19 Call Respiratory complete. nb2 Signatures: Dispatcher [employer] EDMS Shira Antunez RN RN rs3 Riaz Leblanc, DO DO cs11 Elyse Dewitt RN RN cf2 Chelsea Valenzuela nb2 Chart [facility]
== END 2016-08-08 22:46 | disposition left against medical advice (07) ==
LOC: M ED 21:40
DX: F41.9 Anxiety disorder, unspecified (principal); K21.9 Gastro-esophageal reflux disease without esophagitis; J45.909 Unspecified asthma, uncomplicated; Z79.899 Other long term (current) drug therapy; Z87.891 Personal history of nicotine dependence; Z88.8 Allergy status to other drugs, medicaments and biological substances

== ENCOUNTER 2016-08-09 01:46 | Emergency (ER) | payer OTHER ==
[2016-08-09] MEDS ORDERED: LORazepam 1 MG TAB As Ordered ONE (03:05)
--- NOTE | 2016-08-09 03:24 | EDDOCDS ---
Physician Documentation [facility] Name: Conchis Morel Age: 31 yrs Sex: Female : 1985 Arrival Date: 08/09/2016 Time: 01:46 Bed 30 Private MD: Disposition: 08/09/16 03:09 Discharged to Home/Self Care. Impression: Anxiety disorder, unspecified. - Condition is Stable. - Medication Reconciliation, Local Pharmacy Hours form. - Follow up: Private Physician; When: As previously arranged. - Problem is an ongoing problem. - Symptoms have improved. Historical: - Allergies: Advair Diskus (lung inflammation); Codeine Sulfate (Swelling); Topamax (confused); Vyvanse (confused); - Home Meds: 1. albuterol sulfate 90 mcg/actuation Inhl HFAA 2 puffs every 4 hours pt reports she forgot to take her meds for the last couple. 2. albuterol sulfate 2.5 mg /3 mL (0.083 %) Inhl nebu 3 mL as needed 3. Claritin 10 mg Oral tab 1 tab once daily 4. Breo Ellipta 200-25 mcg/dose inhalation dsdv 1 puff once daily . 5. Flonase 50 mcg/actuation Nasal spsn 1 spray 2 times per day 6. Lasix 40 mg Oral tab 1 tab once daily 7. Nexium 20 mg Oral cpDR 1 cap once daily . 8. prednisone 20 mg Oral tab once daily 9. Singulair 10 mg Oral tab 1 tab once daily - PMHx: ARDS; GERD; Anxiety; - PSHx: Appendectomy; - Social history: Smoking status: Patient states former smoker of tobacco. No barriers to communication noted, The patient speaks fluent Spanish. - Family history: Not pertinent. - : The pt / caregiver states he / she is not on anticoagulants. Home medication list is obtained from [employer] import data. - Exposure Risk Screening:: None identified. 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 10 in. (147.32 cm); Pain 0/10; 03:22 BP 124 / 89; Pulse 80; Resp 18; Pulse Ox 96% on R/A; Pain 0/10; slm 01:54 Body Mass Index 55.38 (120.20 kg, 147.32 cm) ajs MDM: 03:03 LORazepam 2 mg PO once ordered. cs11 03:23 Financial registration complete. hs2 Administered Medications: 03:09 Drug: LORazepam 2 mg [lorazepam 1 mg tablet (2 tabs)] Route: PO; [facility] 03:21 Follow up: Response: Pt left department before re-evaluation is appropriate [facility] Signatures: Riaz Leblanc, DO cs11 Elizabeth Bentley,GAS OPERATIONS ANALYST GAS OPERATIONS ANALYST sl Nicole Gaines, Reg Reg hs2 Argentina Lynn,RN RN tm5 MTDD
--- NOTE | 2016-08-09 03:24 | EDDOCDS ---
Nurse's Notes [facility] Name: Conchis Morel Age: 31 yrs Sex: Female : 1985 Arrival Date: 08/09/2016 Time: 01:46 Bed 30 Private MD: Diagnosis: Anxiety disorder, unspecified Presentation: 08/09 01:54 Presenting complaint: Patient states: PER PT SHE WAS SEEN HERE EARLIER & SIGNED OUT AMA tm5 SAID THAT SHE WAS HERE FOR DIFFICULTLY BREATHING & ANXIETY ISSUES, PT HERE TONIGHT WITH SEEING DIFFERENT COLORS & STATES THAT SHE IS CONFUSED TO WHY THE COLORS ARE THERE. Presenting complaint: Patient states: PT'S STATES THAT ABOUT 20 HAT SHE WANTED TO COMMIT SUICIDE BUT PT DENIES SAYING THAT PT STATES THAT SHE DOESN'T REMEMBER SAYING THAT. Mental Health Triage Level: Level 1- Pt displays no suicidal or homicidal ideations and does not appear to be a danger to self or others. Adult Sepsis Screening: The patient does not have new or worsening altered mentation. Patient's respiratory rate is less than 22. Systolic blood pressure is greater than 100. Patient has a qSOFA score of 0- Negative Sepsis Screen. Mental Health Triage Level: Level 1- Pt displays no suicidal or homicidal ideations and does not appear to be a danger to self or others. Suicide/Homicide risk assessment- the patient denies having any suicidal and/or homicidal ideations and does not present with any other emotional, behavioral or mental health complaints. Status: Patient is not a community service director or dependent. Transition of care: patient was not received from another setting of care. 01:54 Acuity: BOOGIE Level 4 tm5 01:54 Method Of Arrival: Walkin/Carried/Asstd tm5 Triage Assessment: 02:04 General: Appears in no apparent distress, Behavior is anxious, cooperative. Pain: tm5 Denies pain. HIV screening NA for this visit Offered previously. The patient is triaged at the bedside. See Assessment in Nurses Notes section of ED record. Neurological: Level of Consciousness is awake, alert, Oriented to person, place, time. Respiratory: Airway is patent Respiratory effort is even, unlabored, Respiratory pattern is regular, symmetrical, Breath sounds are clear bilaterally. PT WEARING O2 \\T\\ 2L NC WHICH SHE WEARS ALL THE TIME. Derm: Skin is pink, warm & dry. 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 albuterol sulfate 90 mcg/actuation Inhl HFAA 2 puffs every 4 hours pt reports she forgot to take her meds for the last couple. 2. albuterol sulfate 2.5 mg /3 mL (0.083 %) Inhl nebu 3 mL as needed 3. Claritin 10 mg Oral tab 1 tab once daily 4. Breo Ellipta 200-25 mcg/dose inhalation dsdv 1 puff once daily . 5. Flonase 50 mcg/actuation Nasal spsn 1 spray 2 times per day 6. Lasix 40 mg Oral tab 1 tab once daily 7. Nexium 20 mg Oral cpDR 1 cap once daily . 8. prednisone 20 mg Oral tab once daily 9. Singulair 10 mg Oral tab 1 tab once daily - PMHx: ARDS; GERD; Anxiety; - PSHx: Appendectomy; - Social history: Smoking status: Patient states former smoker of tobacco. No barriers to communication noted, The patient speaks fluent Fijian. - Family history: Not pertinent. - : The pt / caregiver states he / she is not on anticoagulants. Home medication list is obtained from [employer] import data. - Exposure Risk Screening:: None identified. Screenin:06 Screening information is obtained from the patient. Fall risk: No risks identified. tm5 Assistance ADL's: requires no assistance with activities of daily living. Abuse/DV Screen: The patient / caregiver reports he/she is: not in a situation that causes fear, pain or injury. Nutritional screening: No deficits noted. Advance Directives: Currently, there is a health care proxy, PAULA HER . There is no active DNR order. home support is adequate. Assessment: 02:06 General: SEE TRIAGE ASSESSMENT . tm5 02:54 General: Appears Behavior is anxious, cooperative. Respiratory: Airway is patent slm Respiratory effort is even, unlabored. Derm: Skin is pink, warm & dry. 02:56 General: Appears in no apparent distress, Behavior is cooperative, Pt sitting on sls1 stretcher, SO at bedside, no apparent distress, will continue to monitor. Neurological: Level of Consciousness is awake, alert, Oriented to person, place, time. Respiratory: Airway is patent Respiratory effort is even, unlabored, Respiratory pattern is regular, symmetrical. Derm: No deficits noted. 03:22 Reassessment: Patient appears in no apparent distress at this time. General: pt appears slm calm at this time d/c instructions given d/c home with S/O . Psych: 02:08 Mental Health Triage Level: Level 1- Pt displays no suicidal or homicidal ideations and tm5 does not appear to be a danger to self or others. 02:08 Subjective: The patients chief complaint is PT STATES " I AM SEEING COLORS FOR NO REASON & I AM ANXIOUS ABOUT IT". Delusions are denied. Patient's mood is anxious. 02:08 Objective: Patient is cooperative, using poor eye contact, Speech is normal. Affect is appropriate. 02:08 Consultation: ED MD notified of patients status, 02:09 Emergency MH Worker made aware of pt status. Vital Signs: 01:54 BP 110 / 57; Pulse 97; Resp 18; Temp 96.4; Pulse Ox 96% ; Weight 120.2 kg; Height 4 ft. ajs 10 in. (147.32 cm); Pain 0/10; 03:22 BP 124 / 89; Pulse 80; Resp 18; Pulse Ox 96% on R/A; Pain 0/10; slm 01:54 Body Mass Index 55.38 (120.20 kg, 147.32 cm) [facility] Vitals: 02:04 Log In Time: August 09, 2016 at 02:06. tm5 ED Course: 01:50 Patient visited by Cortez Proctor, Reg. pm4 01:50 Patient moved to Waiting pm4 01:51 Patient moved to 30 sls1 01:54 Patient visited by Argentina Lynn,OSVALDO. tm5 01:55 Patient visited by Jasmyn Tobias. ajs 01:55 Pt greeted and oriented to ED. Patient advised of names of staff involved in care, aj location of call hall, wait times and NPO status. Accompanied by Family Member, Patient has correct armband on for positive identification. Bed in low position. Call light in reach. Side rails up X 1. 01:59 Triage Initiated tm5 02:02 Patient visited by Argentina Lynn RN. tm5 02:03 Patient visited by Matice,Argentina,RN. tm5 02:04 Family accompanied patient. tm5 02:06 Awaiting ED physician evaluation. tm5 02:06 The patient / caregiver is instructed regarding the plan of care and ED course. tm5 02:57 Patient visited by Meena Wilkinson RN. sls1 02:57 Riaz Leblanc DO is Attending Physician. cs11 02:57 Patient visited by Riaz Leblanc DO. cs11 03:21 Elizabeth Bentley LPN is Primary Nurse. m 03:23 Patient visited by Elizabeth Bentley LPN. slm 03:23 No IV's were initiated during this patient's visit. No procedures done that require slm assistance. Administered Medications: 03:09 Drug: LORazepam 2 mg [lorazepam 1 mg tablet (2 tabs)] Route: PO; slm 03:21 Follow up: Response: Pt left department before re-evaluation is appropriate slm Order Results: There are currently no results for this order. Outcome: 03:09 Discharge ordered by Provider. 11 03:23 Discharge Assessment: Patient awake, alert and oriented x 3. No cognitive and/or slm functional deficits noted. Patient verbalized understanding of disposition instructions. Patient awake and alert. patient administered narcotics - yes. Pt provided with safe discharge. The following High Risk Discharge criteria are identified: None. Discharged to home ambulatory, with significant other. Condition: good Condition: improved. Discharge instructions given to patient, Instructed on discharge instructions, follow up and referral plans. Demonstrated understanding of instructions, Pt was receptive of discharge instructions/ teaching. No special radiology studies were completed. Property :Personal belongings accompany Pt. 03:23 Patient left the ED. slm Signatures: Jasmyn Tobias Shannon, RN RN sls1 Riaz Leblanc DO DO cs11 Elizabeth Bentley LPN LPN [facility] Argentina Lynn,RN RN tm5 Cortez Proctor, Reg Reg pm4 [facility]
--- NOTE | 2016-08-11 04:24 | EDDOCDS ---
Nurse's Notes [facility] Name: Conchis Morel Age: 31 yrs Sex: Female : 1985 Arrival Date: 08/09/2016 Time: 01:46 Bed 30 Private MD: Diagnosis: Anxiety disorder, unspecified Presentation: 08/09 01:54 Presenting complaint: Patient states: PER PT SHE WAS SEEN HERE EARLIER & SIGNED OUT AMA tm5 SAID THAT SHE WAS HERE FOR DIFFICULTLY BREATHING & ANXIETY ISSUES, PT HERE TONIGHT WITH SEEING DIFFERENT COLORS & STATES THAT SHE IS CONFUSED TO WHY THE COLORS ARE THERE. Presenting complaint: Patient states: PT'S STATES THAT ABOUT 20 HAT SHE WANTED TO COMMIT SUICIDE BUT PT DENIES SAYING THAT PT STATES THAT SHE DOESN'T REMEMBER SAYING THAT. Mental Health Triage Level: Level 1- Pt displays no suicidal or homicidal ideations and does not appear to be a danger to self or others. Adult Sepsis Screening: The patient does not have new or worsening altered mentation. Patient's respiratory rate is less than 22. Systolic blood pressure is greater than 100. Patient has a qSOFA score of 0- Negative Sepsis Screen. Mental Health Triage Level: Level 1- Pt displays no suicidal or homicidal ideations and does not appear to be a danger to self or others. Suicide/Homicide risk assessment- the patient denies having any suicidal and/or homicidal ideations and does not present with any other emotional, behavioral or mental health complaints. Status: Patient is not a director human services or dependent. Transition of care: patient was not received from another setting of care. 01:54 Acuity: BOOGIE Level 4 tm5 01:54 Method Of Arrival: Walkin/Carried/Asstd tm5 Triage Assessment: 02:04 General: Appears in no apparent distress, Behavior is anxious, cooperative. Pain: tm5 Denies pain. HIV screening NA for this visit Offered previously. The patient is triaged at the bedside. See Assessment in Nurses Notes section of ED record. Neurological: Level of Consciousness is awake, alert, Oriented to person, place, time. Respiratory: Airway is patent Respiratory effort is even, unlabored, Respiratory pattern is regular, symmetrical, Breath sounds are clear bilaterally. PT WEARING O2 \\T\\ 2L NC WHICH SHE WEARS ALL THE TIME. Derm: Skin is pink, warm & dry. 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 albuterol sulfate 90 mcg/actuation Inhl HFAA 2 puffs every 4 hours pt reports she forgot to take her meds for the last couple. 2. albuterol sulfate 2.5 mg /3 mL (0.083 %) Inhl nebu 3 mL as needed 3. Claritin 10 mg Oral tab 1 tab once daily 4. Breo Ellipta 200-25 mcg/dose inhalation dsdv 1 puff once daily . 5. Flonase 50 mcg/actuation Nasal spsn 1 spray 2 times per day 6. Lasix 40 mg Oral tab 1 tab once daily 7. Nexium 20 mg Oral cpDR 1 cap once daily . 8. prednisone 20 mg Oral tab once daily 9. Singulair 10 mg Oral tab 1 tab once daily - PMHx: ARDS; GERD; Anxiety; - PSHx: Appendectomy; - Social history: Smoking status: Patient states former smoker of tobacco. No barriers to communication noted, The patient speaks fluent [place]ine[place]. - Family history: Not pertinent. - : The pt / caregiver states he / she is not on anticoagulants. Home medication list is obtained from [employer] import data. - Exposure Risk Screening:: None identified. Screenin:06 Screening information is obtained from the patient. Fall risk: No risks identified. tm5 Assistance ADL's: requires no assistance with activities of daily living. Abuse/DV Screen: The patient / caregiver reports he/she is: not in a situation that causes fear, pain or injury. Nutritional screening: No deficits noted. Advance Directives: Currently, there is a health care proxy, PAULA HER . There is no active DNR order. home support is adequate. Assessment: 02:06 General: SEE TRIAGE ASSESSMENT . tm5 02:54 General: Appears Behavior is anxious, cooperative. Respiratory: Airway is patent slm Respiratory effort is even, unlabored. Derm: Skin is pink, warm & dry. 02:56 General: Appears in no apparent distress, Behavior is cooperative, Pt sitting on sls1 stretcher, SO at bedside, no apparent distress, will continue to monitor. Neurological: Level of Consciousness is awake, alert, Oriented to person, place, time. Respiratory: Airway is patent Respiratory effort is even, unlabored, Respiratory pattern is regular, symmetrical. Derm: No deficits noted. 03:22 Reassessment: Patient appears in no apparent distress at this time. General: pt appears slm calm at this time d/c instructions given d/c home with S/O . Psych: 02:08 Mental Health Triage Level: Level 1- Pt displays no suicidal or homicidal ideations and tm5 does not appear to be a danger to self or others. 02:08 Subjective: The patients chief complaint is PT STATES " I AM SEEING COLORS FOR NO REASON & I AM ANXIOUS ABOUT IT". Delusions are denied. Patient's mood is anxious. 02:08 Objective: Patient is cooperative, using poor eye contact, Speech is normal. Affect is appropriate. 02:08 Consultation: ED MD notified of patients status, 02:09 Emergency MH Worker made aware of pt status. Vital Signs: 01:54 BP 110 / 57; Pulse 97; Resp 18; Temp 96.4; Pulse Ox 96% ; Weight 120.2 kg; Height 4 ft. ajs 10 in. (147.32 cm); Pain 0/10; 03:22 BP 124 / 89; Pulse 80; Resp 18; Pulse Ox 96% on R/A; Pain 0/10; slm 01:54 Body Mass Index 55.38 (120.20 kg, 147.32 cm) [facility] Vitals: 02:04 Log In Time: August 09, 2016 at 02:06. tm5 ED Course: 01:50 Patient visited by Cortez Proctor, Reg. pm4 01:50 Patient moved to Waiting pm4 01:51 Patient moved to 30 sls1 01:54 Patient visited by Argentina Lynn,OSVALDO. tm5 01:55 Patient visited by Jasmyn Tobias. ajs 01:55 Pt greeted and oriented to ED. Patient advised of names of staff involved in care, aj location of call hall, wait times and NPO status. Accompanied by Family Member, Patient has correct armband on for positive identification. Bed in low position. Call light in reach. Side rails up X 1. 01:59 Triage Initiated tm5 02:02 Patient visited by Argentina Lynn RN. tm5 02:03 Patient visited by Argentina Lynn RN. tm5 02:04 Family accompanied patient. tm5 02:06 Awaiting ED physician evaluation. tm5 02:06 The patient / caregiver is instructed regarding the plan of care and ED course. tm5 02:57 Patient visited by Meena Wilkinson RN. sls1 02:57 Riaz Leblanc DO is Attending Physician. cs11 02:57 Patient visited by Riaz Leblanc DO. cs11 03:21 Elizabeth Bentley LPN is Primary Nurse. slm 03:23 Patient visited by Elizabeth Bentley LPN. slm 03:23 No IV's were initiated during this patient's visit. No procedures done that require slm assistance. 03:51 [facility] Payment Agreement was scanned into [employer] and attached to record. pm4 14:52 T-Sheet-- Draft Copy was scanned into [employer] and attached to record. gb Administered Medications: 03:09 Drug: LORazepam 2 mg [lorazepam 1 mg tablet (2 tabs)] Route: PO; slm 03:21 Follow up: Response: Pt left department before re-evaluation is appropriate slm Order Results: There are currently no results for this order. Outcome: 03:09 Discharge ordered by Provider. cs11 03:23 Discharge Assessment: Patient awake, alert and oriented x 3. No cognitive and/or slm functional deficits noted. Patient verbalized understanding of disposition instructions. Patient awake and alert. patient administered narcotics - yes. Pt provided with safe discharge. The following High Risk Discharge criteria are identified: None. Discharged to home ambulatory, with significant other. Condition: good Condition: improved. Discharge instructions given to patient, Instructed on discharge instructions, follow up and referral plans. Demonstrated understanding of instructions, Pt was receptive of discharge instructions/ teaching. No special radiology studies were completed. Property :Personal belongings accompany Pt. 03:23 Patient left the ED. slm Signatures: Kiya Ching, Reg Reg gb Jasmyn Tobias ajMeena Zimmerman RN RN sls1 Riaz Leblanc DO DO cs11 Elizabeth Bentley LPN LPN m Argentina Lynn RN RN tm5 Cortez Proctor, Reg Reg pm4 Chart Complete MTDD
--- NOTE | 2016-08-11 04:24 | EDDOCDS ---
Physician Documentation [facility] Name: Conchis Morel Age: 31 yrs Sex: Female : 1985 Arrival Date: 08/09/2016 Time: 01:46 Bed 30 Private MD: Disposition: 08/09/16 03:09 Discharged to Home/Self Care. Impression: Anxiety disorder, unspecified. - Condition is Stable. - Medication Reconciliation, Local Pharmacy Hours form. - Follow up: Private Physician; When: As previously arranged. - Problem is an ongoing problem. - Symptoms have improved. Historical: - Allergies: Advair Diskus (lung inflammation); Codeine Sulfate (Swelling); Topamax (confused); Vyvanse (confused); - Home Meds: 1. albuterol sulfate 90 mcg/actuation Inhl HFAA 2 puffs every 4 hours pt reports she forgot to take her meds for the last couple. 2. albuterol sulfate 2.5 mg /3 mL (0.083 %) Inhl nebu 3 mL as needed 3. Claritin 10 mg Oral tab 1 tab once daily 4. Breo Ellipta 200-25 mcg/dose inhalation dsdv 1 puff once daily . 5. Flonase 50 mcg/actuation Nasal spsn 1 spray 2 times per day 6. Lasix 40 mg Oral tab 1 tab once daily 7. Nexium 20 mg Oral cpDR 1 cap once daily . 8. prednisone 20 mg Oral tab once daily 9. Singulair 10 mg Oral tab 1 tab once daily - PMHx: ARDS; GERD; Anxiety; - PSHx: Appendectomy; - Social history: Smoking status: Patient states former smoker of tobacco. No barriers to communication noted, The patient speaks fluent Greek. - Family history: Not pertinent. - : The pt / caregiver states he / she is not on anticoagulants. Home medication list is obtained from [employer] import data. - Exposure Risk Screening:: None identified. 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 10 in. (147.32 cm); Pain 0/10; 03:22 BP 124 / 89; Pulse 80; Resp 18; Pulse Ox 96% on R/A; Pain 0/10; slm 01:54 Body Mass Index 55.38 (120.20 kg, 147.32 cm) ajs MDM: 03:03 LORazepam 2 mg PO once ordered. cs11 03:23 Financial registration complete. hs2 03:51 [facility] Payment Agreement was scanned into [employer] and attached to record. pm4 14:52 T-Sheet-- Draft Copy was scanned into [employer] and attached to record. gb Administered Medications: 03:09 Drug: LORazepam 2 mg [lorazepam 1 mg tablet (2 tabs)] Route: PO; slm 03:21 Follow up: Response: Pt left department before re-evaluation is appropriate sl Signatures: Kiya Ching, Reg Reg gb Riaz Leblanc, DO cs11 Elizabeth Bentley LPN LIVESTOCK DEALER slm Nicole Gaines, Reg Reg hs2 Argentina Lynn,RN RN tm5 Cortez Proctor, Reg Reg pm4 The chart was reviewed and I authenticate all verbal orders and agree with the evaluation and treatment provided.Attachments: 03:51 [facility] Payment Agreement pm4 14:52 T-Sheet-- Draft Copy gb Chart Complete MTDD
--- NOTE | 2016-08-11 04:24 | EDDOCDS ---
Physician Documentation [facility] Name: Conchis Morel Age: 31 yrs Sex: Female : 1985 Arrival Date: 08/09/2016 Time: 01:46 Bed 30 Private MD: Disposition: 08/09/16 03:09 Discharged to Home/Self Care. Impression: Anxiety disorder, unspecified. - Condition is Stable. - Medication Reconciliation, Local Pharmacy Hours form. - Follow up: Private Physician; When: As previously arranged. - Problem is an ongoing problem. - Symptoms have improved. Historical: - Allergies: Advair Diskus (lung inflammation); Codeine Sulfate (Swelling); Topamax (confused); Vyvanse (confused); - Home Meds: 1. albuterol sulfate 90 mcg/actuation Inhl HFAA 2 puffs every 4 hours pt reports she forgot to take her meds for the last couple. 2. albuterol sulfate 2.5 mg /3 mL (0.083 %) Inhl nebu 3 mL as needed 3. Claritin 10 mg Oral tab 1 tab once daily 4. Breo Ellipta 200-25 mcg/dose inhalation dsdv 1 puff once daily . 5. Flonase 50 mcg/actuation Nasal spsn 1 spray 2 times per day 6. Lasix 40 mg Oral tab 1 tab once daily 7. Nexium 20 mg Oral cpDR 1 cap once daily . 8. prednisone 20 mg Oral tab once daily 9. Singulair 10 mg Oral tab 1 tab once daily - PMHx: ARDS; GERD; Anxiety; - PSHx: Appendectomy; - Social history: Smoking status: Patient states former smoker of tobacco. No barriers to communication noted, The patient speaks fluent [place]. - Family history: Not pertinent. - : The pt / caregiver states he / she is not on anticoagulants. Home medication list is obtained from [employer] import data. - Exposure Risk Screening:: None identified. 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 10 in. (147.32 cm); Pain 0/10; 03:22 BP 124 / 89; Pulse 80; Resp 18; Pulse Ox 96% on R/A; Pain 0/10; slm 01:54 Body Mass Index 55.38 (120.20 kg, 147.32 cm) ajs MDM: 03:03 LORazepam 2 mg PO once ordered. cs11 03:23 Financial registration complete. hs2 03:51 [facility] Payment Agreement was scanned into [employer] and attached to record. pm4 14:52 T-Sheet-- Draft Copy was scanned into [employer] and attached to record. gb Administered Medications: 03:09 Drug: LORazepam 2 mg [lorazepam 1 mg tablet (2 tabs)] Route: PO; slm 03:21 Follow up: Response: Pt left department before re-evaluation is appropriate sl Signatures: Kiya Ching, Reg Reg gb Riaz Leblanc, DO cs11 Elizabeth Bentley LPN DIESEL ENGINE ENGINEER slm Nicole Gaines, Reg Reg hs2 Argentina Lynn,RN RN tm5 Cortez Proctor, Reg Reg pm4 The chart was reviewed and I authenticate all verbal orders and agree with the evaluation and treatment provided.Attachments: 03:51 [facility] Payment Agreement pm4 14:52 T-Sheet-- Draft Copy gb Chart Complete MTDD
== END 2016-08-09 03:23 | disposition home or self-care (01) ==
LOC: M ED 01:46
DX: F41.9 Anxiety disorder, unspecified (principal); K21.9 Gastro-esophageal reflux disease without esophagitis; J80 Acute respiratory distress syndrome; Z92.240 Personal history of inhaled steroid therapy; Z79.52 Long term (current) use of systemic steroids; Z79.899 Other long term (current) drug therapy; Z88.5 Allergy status to narcotic agent; Z88.8 Allergy status to other drugs, medicaments and biological substances; Z87.891 Personal history of nicotine dependence

== ENCOUNTER 2016-08-09 16:39 | Emergency (ER) | payer OTHER ==
[2016-08-09] MEDS ORDERED: IPRATROPIUM 0.5MG/ALBUTEROL 2.5MG INH SOL UD 3ML (DUONEB)(J7620) As Ordered ONE (19:29)
[2016-08-09 19:58] LABS: VENOUS BASE EXCESS 0.2 (-2.0-2.0); VENOUS O2 SATURATION 75.7 % (60.0-80.0); VENOUS PARTIAL PRESSURE CO2 36.8 mmHg (38.0-50.0); VENOUS PARTIAL PRESSURE O2 42.8 mmHg (30.0-50.0); VENOUS STANDARD HCO3 24.2 MEQ/L; VENOUS TOTAL CO2 25.3 MEQ/L (24.0-28.0)
--- NOTE | 2016-08-09 20:07 | ECGEPIP ---
Stationary ECG Study [facility] - ED Test Date: 2016-08-09 Pat Name: BRIDGETTE PAYNE Department: Room: - Gender: F Dance Director: juliette : 1985 Requested By: MARK ANTHONY Jackson Order Number: [id number] Reading MD: Yara Zabala Measurements Intervals [place] Rate: 96 P: 14 AL: 165 QRS: 66 QRSD: 105 T: 2 QT: 335 QTc: 424 Interpretive Statements SINUS RHYTHM POSSIBLE RIGHT VENTRICULAR CONDUCTION DELAY NONSPECIFIC T-WAVE ABNORMALITY Electronically Signed On 08-09-2016 20:07:08 EST by Yara Zabala
--- NOTE | 2016-08-09 20:08 | REP ---
Clinical: Acute shortness of breath . Comparison: 08/01/2016 . Findings: The mediastinum and cardiac silhouette are stable and within normal limits for portable technique. The lung meza are clear without acute consolidation, effusion, or pneumothorax. Skeletal structures are intact. Impression: Normal portable chest x-ray Signed by Alfonzo Gardiner MD 08/09/2016 07:59 P
[2016-08-09 20:15] LABS: BASO % 0.1 % (0.0-1.0); LARGE UNSTAINED CELL # 0.1 K/mm3 (0.0-0.4); LARGE UNSTAINED CELL % 0.5 % (0.0-4.0); LYMPH # 1.8 K/mm3 (1.5-4.5); LYMPH % 10.8 % (24.0-44.0); MEAN CORPUSCULAR HEMOGLOBIN 21.1 pg (27.0-33.0); MEAN CORPUSCULAR HGB CONC 29.2 g/dl (32.0-36.5); MEAN CORPUSCULAR VOLUME 72.2 fl (80.0-96.0); MONO # 0.4 K/mm3 (0.0-0.8); MONO % 2.1 % (0.0-5.0); NEUTROPHILS # 14.6 K/mm3 (1.8-7.7); NEUTROPHILS % 86.5 % (36.0-66.0); PLATELET COUNT, AUTOMATED 407 k/mm3 (150-450); WHITE BLOOD COUNT 16.8 K/mm3 (4.0-10.0)
[2016-08-09 20:24] LABS: ANION GAP 9 MEQ/L (8-16); BLOOD UREA NITROGEN 25 MG/DL (7-18); CALCIUM LEVEL 9.6 MG/DL (8.5-10.1); CARBON DIOXIDE LEVEL 30 MEQ/L (21-32); CHLORIDE LEVEL 102 MEQ/L (98-107); GLUCOSE, FASTING 116 MG/DL (70-105); POTASSIUM SERUM 3.9 MEQ/L (3.5-5.1); SODIUM LEVEL 141 MEQ/L (136-145)
[2016-08-09 20:26] LABS: CREATININE FOR GFR 0.98 MG/DL (0.55-1.02); GLOMERULAR FILTRATION RATE > 60.0 (>60)
[2016-08-09] MEDS ORDERED: ISOVUE-370 76% 100ML VIAL (Q9967) As Ordered ONE (22:15)
--- NOTE | 2016-08-09 23:10 | REPUSA ---
CT angiogram of the chest Clinical statement: Chest pain and shortness of breath. Technique: Multiple axial CT images were obtained from the thoracic inlet through the upper abdomen a fter a bolus administration of nonionic intravenous contrast. Coronal and sagittal reconstructions we re also obtained. Comparison: 08/02/2016. Findings: The pulmonary arteries are well-opacified with contrast, with no intraluminal filling defec ts to suggest embolism. The thoracic aorta is unremarkable. Thyroid gland is within normal limits. Th ere is no thoracic lymphadenopathy. There are no pericardial or pleural effusions. The lungs are linda r. Limited imaging of the upper abdomen is unremarkable. There are no suspicious osseous lesions. Impression: Unremarkable CT examination of the chest. No evidence of pulmonary embolism.
--- NOTE | 2016-08-10 00:30 | EDDOCDS ---
Physician Documentation [facility] Name: Conchis Morel Age: 31 yrs Sex: Female : 1985 Arrival Date: 08/09/2016 Time: 16:39 Bed 8 Private MD: Reema Parra Disposition: 08/10/16 00:11 Discharged to Home/Self Care. Impression: Generalized anxiety disorder, Shortness of breath. - Condition is Stable. - Discharge Instructions: Panic Attacks, Shortness of Breath, Shortness of Breath, [id number], Generalized Anxiety Disorder, Panic Attacks, Qatt-by-Pbvm. - Medication Reconciliation, Local Pharmacy Hours form. - Follow up: Private Physician; When: 2 - 3 days; Reason: Continuance of care. - Problem is an acute exacerbation. - Symptoms have improved. Historical: - Allergies: Advair Diskus (lung inflammation); Codeine Sulfate (Swelling); Topamax (confused); Vyvanse (confused); - Home Meds: 1. albuterol sulfate 90 mcg/actuation Inhl HFAA 2 puffs every 4 hours 2. albuterol sulfate 2.5 mg /3 mL (0.083 %) Inhl nebu 3 mL as needed 3. Breo Ellipta 200-25 mcg/dose inhalation dsdv 1 puff once daily . 4. aripiprazole 2 mg Oral tab daily new rx 5. prazosin 2 mg Oral cap nightly 6. montelukast 10 mg oral tab 1 tab once daily 7. lorazepam 1 mg Oral tab nightly 8. prednisone 20 mg Oral tab once daily 9. Lasix 40 mg Oral tab 1 tab once daily 10. Flonase 50 mcg/actuation Nasal spsn 1 spray 2 times per day 11. loratadine 10 mg Oral tab 1 tab once daily 12. Nexium 20 mg Oral cpDR 1 cap once daily . 13. NC 3 liters - PMHx: Anxiety; ARDS; GERD; - PSHx: Appendectomy; 2 eye surgeries; D & C; tracheostomy with reversal; - Social history: Smoking status: Patient states former smoker of tobacco. No barriers to communication noted, The patient speaks fluent Serbian. - Family history: Not pertinent. - : The pt / caregiver states he / she is not on anticoagulants. Home medication list is obtained from pill bottles. - Exposure Risk Screening:: None identified. 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 10 in. (147.32 cm) (R); Pain 0/10; 19:54 BP 115 / 64 (auto/); ko2 19:54 Pulse 90 MON; Pulse Ox 95% ; ko2 20:09 BP 121 / 66 (auto/); ko2 20:09 Pulse 94 MON; Pulse Ox 93% ; ko2 20:24 BP 133 / 74 (auto/); ko2 20:24 Pulse 92 MON; Pulse Ox 98% ; ko2 20:39 BP 132 / 68 (auto/); ko2 20:39 Pulse 92 MON; Pulse Ox 95% ; ko2 20:54 BP 119 / 63 (auto/); ko2 20:54 Pulse 80 MON; Pulse Ox 94% ; ko2 21:08 Pulse 98 MON; Pulse Ox 96% ; ko2 21:09 BP 126 / 62 (auto/); ko2 21:23 Pulse 100 MON; Pulse Ox 97% ; ko2 21:24 BP 126 / 72 (auto/); ko2 21:39 BP 132 / 72 (auto/); ko2 21:39 Pulse 94 MON; Pulse Ox 96% ; ko2 21:54 BP 126 / 63 (auto/); ko2 21:54 Pulse 96 MON; Pulse Ox 96% ; ko2 22:09 BP 126 / 63 (auto/); ko2 22:09 Pulse 96 MON; Pulse Ox 97% ; ko2 22:32 BP 131 / 72 (auto/); ko2 22:33 Pulse 86 MON; Pulse Ox 97% ; ko2 22:39 BP 122 / 73 (auto/); ko2 22:39 Pulse 90 MON; Pulse Ox 98% ; ko2 22:54 BP 118 / 68 (auto/); ko2 22:54 Pulse 94 MON; Pulse Ox 95% ; ko2 23:09 BP 113 / 63 (auto/); ko2 23:09 Pulse 92 MON; Pulse Ox 94% ; ko2 23:23 Pulse 102 MON; Pulse Ox 95% ; ko2 23:24 BP 116 / 55 (auto/); ko2 23:39 BP 120 / 55 (auto/); ko2 23:39 Pulse 96 MON; Pulse Ox 95% ; ko2 23:54 BP 121 / 75 (auto/); ko2 23:54 Pulse 108 MON; Pulse Ox 94% ; ko2 08/10 00:27 BP 126 / 74; Pulse 97; Resp 20; Temp 98.8; Pulse Ox 94% on R/A; Pain 0/10; js15 08/09 16:41 Body Mass Index 53.30 (115.67 kg, 147.32 cm) gr2 MDM: 08/09 18:31 [facility] Payment Agreement was scanned into [employer] and attached to record. zo 19:29 -Blood Culture (Adults Only), peripheral from different site, or from device/port/PICC mm11 etc. if present ordered. 19:29 Technical Solutions Director/Pulse Ox/q 15 min VS ordered. mm11 19:29 IV Saline Lock ordered. mm11 19:29 Oxygen at 4L/Min NC or Home dosage ordered. mm11 19:29 Rhythm Strip to chart ordered. mm11 19:29 -Blood Culture Ordered. EDMS 19:29 B-Type Natiuretic Peptide Ordered. EDMS 19:29 Basic Metabolic Profile Ordered. EDMS 19:29 CBC with Diff Ordered. EDMS 19:29 Cardiac Injury Profile Ordered. EDMS 19:29 Troponin Ordered. EDMS 19:29 Venous Blood Gas (large pea green tube on ice) Ordered. EDMS 19:29 Chest, 1 View Ordered. EDMS 19:30 ECG WITH READING ER PHYS+CARDIAG ordered. EDMS 19:31 Albuterol-Ipratropium 3 ml Inhalation once ordered. mm11 19:31 -Blood Culture (Adults Only), peripheral from different site, or from device/port/PICC ml3 etc. if present complete. 19:34 BLOOD CULTURES Ordered. EDMS 20:17 Financial registration complete. zo 20:52 Basic Metabolic Profile Reviewed. mm11 20:52 CBC with Diff Reviewed. mm11 20:52 Venous Blood Gas (large pea green tube on ice) Reviewed. mm11 20:52 B-Type Natiuretic Peptide Reviewed. mm11 20:52 Cardiac Injury Profile Reviewed. mm11 20:52 Troponin Reviewed. mm11 20:52 Chest, 1 View Reviewed. mm11 20:53 CT Chest Angio R/O PE Ordered. EDMS 21:42 EKG-ADULT Reviewed. 11 08/10 00:08 Consult: Leather Colorer ordered. 11 00:23 Consult: Leather Colorer complete. david Administered Medications: 08/09 19:34 Drug: Albuterol-Ipratropium 3 ml [ipratropium-albuterol 0.5 mg-3 mg(2.5 mg base)/3 mL jc3 nebulization soln (3 mL)] Route: Inhalation; Signatures: Dispatcher [employer] EDMS Carlos Alberto Saldana, Law Office Assistant Unit ml3 Ambrosio Friend Matthew, DO DO mm11 Yoselyn Godinez, RN RN Monserrat Morse, VALERIE PSA Josefina Wills,RN RN ko2 Maureen Ch,RN RN js15 Tolu Fulton jc3 The chart was reviewed and I authenticate all verbal orders and agree with the evaluation and treatment provided.Attachments: 18:31 [facility] Payment Agreement zo MTDD
--- NOTE | 2016-08-10 00:30 | EDDOCDS ---
Nurse's Notes [facility] Name: Bridgette Morel Age: 31 yrs Sex: Female : 1985 Arrival Date: 08/09/2016 Time: 16:39 Bed 8 Private MD: Reema Parra Diagnosis: Generalized anxiety disorder;Shortness of breath Presentation: 08/09 16:50 Presenting complaint: Significant other states: seen at the ER last night for anxiety, jjr now reporting increased shortness of breath for last few days pt is on nasal cannula due to ARDS several years ago. Adult Sepsis Screening: The patient does not have new or worsening altered mentation. Patient's respiratory rate is less than 22. Systolic blood pressure is greater than 100. Patient has a qSOFA score of 0- Negative Sepsis Screen. Suicide/Homicide risk assessment- the patient denies having any suicidal and/or homicidal ideations and does not present with any other emotional, behavioral or mental health complaints. 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 Transition of care: patient was received from phone call to [place]. 16:50 Acuity: BOOGIE Level 3 jjr 16:50 Method Of Arrival: Wheelchair jjr Triage Assessment: 16:58 General: Appears in no apparent distress. Pain: Denies pain. HIV screening NA for this jjr visit Offered previously. Respiratory: Onset: The symptoms/episode began/occurred gradually, Airway is patent Respiratory effort is even, unlabored, Respiratory pattern is regular, Reports shortness of breath "the anxiety is kicking in making it more". [employer]: 16:59 LMP 08/04/2016 jjr Historical: - Allergies: Advair Diskus (lung inflammation); Codeine Sulfate (Swelling); Topamax (confused); Vyvanse (confused); - Home Meds: 1. albuterol sulfate 90 mcg/actuation Inhl HFAA 2 puffs every 4 hours 2. albuterol sulfate 2.5 mg /3 mL (0.083 %) Inhl nebu 3 mL as needed 3. Breo Ellipta 200-25 mcg/dose inhalation dsdv 1 puff once daily . 4. aripiprazole 2 mg Oral tab daily new rx 5. prazosin 2 mg Oral cap nightly 6. montelukast 10 mg oral tab 1 tab once daily 7. lorazepam 1 mg Oral tab nightly 8. prednisone 20 mg Oral tab once daily 9. Lasix 40 mg Oral tab 1 tab once daily 10. Flonase 50 mcg/actuation Nasal spsn 1 spray 2 times per day 11. loratadine 10 mg Oral tab 1 tab once daily 12. Nexium 20 mg Oral cpDR 1 cap once daily . 13. NC 3 liters - PMHx: Anxiety; ARDS; GERD; - PSHx: Appendectomy; 2 eye surgeries; D & C; tracheostomy with reversal; - Social history: Smoking status: Patient states former smoker of tobacco. No barriers to communication noted, The patient speaks fluent Wolof. - Family history: Not pertinent. - : The pt / caregiver states he / she is not on anticoagulants. Home medication list is obtained from pill bottles. - Exposure Risk Screening:: None identified. Screenin:09 Screening information is obtained from the patient. Fall risk: No risks identified. ja5 Assistance ADL's: requires no assistance with activities of daily living. Abuse/DV Screen: The patient / caregiver reports he/she is: not in a situation that causes fear, pain or injury. Nutritional screening: On low fat/low cholesterol diet. Advance Directives: Currently, there is no health care proxy. There is no active DNR order. There is no living will. There is no Power of Financial Analysis Advisor. home support is adequate. Assessment: 19:07 General: Appears in no apparent distress, Behavior is appropriate for age, cooperative. ja5 Pain: Denies pain. Neurological: Level of Consciousness is awake, alert, Oriented to person, place, time. Cardiovascular: Capillary refill < 3 seconds Heart tones S1 S2 present. Cardiovascular: Rhythm is sinus tachycardia No ectopy. Chest pain is denied. Respiratory: Airway is patent Respiratory effort is even, unlabored, Respiratory pattern is regular, symmetrical, Patient states that she still feels out of breath Breath sounds are clear bilaterally. Derm: Skin is pink, warm & dry. 19:19 General: Appears in no apparent distress, comfortable, Behavior is appropriate for age, ko2 cooperative. Pain: Denies pain. Neurological: Level of Consciousness is awake, alert, Oriented to person, place, time. Cardiovascular: Heart tones S1 S2 present Rhythm is sinus rhythm No ectopy. Respiratory: Airway is patent Respiratory effort is even, unlabored, Respiratory pattern is regular, symmetrical, Breath sounds are clear bilaterally. GI: Abdomen is non- distended obese, Bowel sounds present X 4 quads. Derm: Skin is pink, warm & dry. 20:25 General: Appears in no apparent distress, comfortable, pt currently resting on ko2 stretcher with significant other at bedside. No concerns at this time. . 21:28 General: Appears in no apparent distress, comfortable, Behavior is appropriate for age, ko2 cooperative. Pain: Denies pain. Neurological: Level of Consciousness is awake, alert, Oriented to person, place, time. Respiratory: Airway is patent Respiratory effort is even, unlabored, Respiratory pattern is regular, symmetrical. Derm: Skin is pink, warm & dry. 22:33 General: Appears in no apparent distress, comfortable. Pain: Denies pain. Neurological: ko2 Level of Consciousness is awake, alert. Respiratory: Airway is patent Respiratory effort is even, unlabored, Respiratory pattern is regular, symmetrical. Derm: Skin is pink, warm & dry. 23:30 General: Appears in no apparent distress, comfortable, Behavior is appropriate for age, ko2 cooperative. Neurological: Level of Consciousness is awake, alert. Respiratory: Airway is patent Respiratory effort is even, unlabored. Derm: Skin is pink, warm & dry. 08/10 00:27 General: Appears in no apparent distress, comfortable, Behavior is appropriate for age, js15 cooperative. Pain: Denies pain. Neurological: Level of Consciousness is awake, alert, obeys commands, Oriented to person, place, time. Cardiovascular: Rhythm is regular. Respiratory: Airway is patent Respiratory effort is even, unlabored, Respiratory pattern is regular, symmetrical. Derm: Skin is pink, warm & dry. Social Work Consult: 00:02 Social Work Note: Met with PT and her to discuss PT's presentation. PT states jfb she has been suffering with anxiety and will see different colors that give her different emotional responses. She has difficulty sleeping and required admission to [facility] a few weeks ago when she was having hallucinations. Tonight PT denies SI/HI or hallucinations except for colors and states she has been in treatment with Reema Parra to address her anxiety. states he will always support PT and that he will be with her all weekend. PT has a scheduled doctor appointment for next Friday. PT states she feels comfortable returning home with her to follow up with her providers. Status: The patient is a dependent. Vital Signs: 08/09 16:41 BP 129 / 60; Pulse 113; Resp 18 S; Temp 98.9(O); Pulse Ox 97% on 3 lpm NC; Weight gr2 115.67 kg (R); Height 4 ft. 10 in. (147.32 cm) (R); Pain 0/10; 19:54 BP 115 / 64 (auto/); ko2 19:54 Pulse 90 MON; Pulse Ox 95% ; ko2 20:09 BP 121 / 66 (auto/); ko2 20:09 Pulse 94 MON; Pulse Ox 93% ; ko2 20:24 BP 133 / 74 (auto/); ko2 20:24 Pulse 92 MON; Pulse Ox 98% ; ko2 20:39 BP 132 / 68 (auto/); ko2 20:39 Pulse 92 MON; Pulse Ox 95% ; ko2 20:54 BP 119 / 63 (auto/); ko2 20:54 Pulse 80 MON; Pulse Ox 94% ; ko2 21:08 Pulse 98 MON; Pulse Ox 96% ; ko2 21:09 BP 126 / 62 (auto/); ko2 21:23 Pulse 100 MON; Pulse Ox 97% ; ko2 21:24 BP 126 / 72 (auto/); ko2 21:39 BP 132 / 72 (auto/); ko2 21:39 Pulse 94 MON; Pulse Ox 96% ; ko2 21:54 BP 126 / 63 (auto/); ko2 21:54 Pulse 96 MON; Pulse Ox 96% ; ko2 22:09 BP 126 / 63 (auto/); ko2 22:09 Pulse 96 MON; Pulse Ox 97% ; ko2 22:32 BP 131 / 72 (auto/); ko2 22:33 Pulse 86 MON; Pulse Ox 97% ; ko2 22:39 BP 122 / 73 (auto/); ko2 22:39 Pulse 90 MON; Pulse Ox 98% ; ko2 22:54 BP 118 / 68 (auto/); ko2 22:54 Pulse 94 MON; Pulse Ox 95% ; ko2 23:09 BP 113 / 63 (auto/); ko2 23:09 Pulse 92 MON; Pulse Ox 94% ; ko2 23:23 Pulse 102 MON; Pulse Ox 95% ; ko2 23:24 BP 116 / 55 (auto/); ko2 23:39 BP 120 / 55 (auto/); ko2 23:39 Pulse 96 MON; Pulse Ox 95% ; ko2 23:54 BP 121 / 75 (auto/); ko2 23:54 Pulse 108 MON; Pulse Ox 94% ; ko2 08/10 00:27 BP 126 / 74; Pulse 97; Resp 20; Temp 98.8; Pulse Ox 94% on R/A; Pain 0/10; js15 08/09 16:41 Body Mass Index 53.30 (115.67 kg, 147.32 cm) gr2 Vitals: 08/09 16:41 Log In Time: August 09, 2016 at 16:41. gr2 16:41 RN notified that patient meets Red Flag criteria. gr2 ED Course: 16:41 Patient visited by Sheryl Godinez. gr2 16:41 Reema Parra is Private Physician. gr2 16:41 Patient moved to Waiting gr2 16:44 Patient visited by Sheryl Godinez. gr2 16:52 Triage Initiated jjr 17:05 Patient moved to Pre RCE jjr 17:49 Yoselyn Eid,RN is Primary Nurse. ld5 17:49 Sarah Fenton, OSVALDO is Primary Nurse. ld5 17:49 Patient moved to 8 ld5 18:31 [facility] Payment Agreement was scanned into [employer] and attached to record. zo 18:42 Patient visited by Fabiola Jones PCA. ct3 18:58 Josefina Branch,RN is Primary Nurse. ko2 19:08 Mark Anthony Lindsey DO is Attending Physician. mm11 19:08 Patient visited by Mark Anthony Lindsey DO. mm11 19:09 Primary Nurse role handed off by Sarah Fenton, OSVALDO jc4 19:10 Primary Nurse role handed off by Yoselyn Eid,OSVALDO jc4 19:19 Patient visited by Josefina Branch,OSVALDO. ko2 19:21 Patient visited by Josefina Branch,OSVALDO. ko2 19:28 Patient visited by Mark Anthony Lindsey DO. mm11 19:52 Venous Blood Gas (large pea green tube on ice) Sent. ko2 19:52 -Blood Culture Sent. ko2 19:52 B-Type Natiuretic Peptide Sent. ko2 19:52 Basic Metabolic Profile Sent. ko2 19:52 CBC with Diff Sent. ko2 19:52 Cardiac Injury Profile Sent. ko2 19:52 Troponin Sent. ko2 19:53 Inserted saline lock: 20 gauge in left antecubital area and blood collected. The ko2 patient tolerated the procedure well. 19:54 Patient visited by Josefina Branch,OSVALDO. ko2 20:00 Patient visited by Jeffry Smallwood PCA. jmv 20:00 EKG done. (by ED staff). Reviewed by Mark Anthony Lindsey DO. jmv 20:09 Chest, 1 View Returned. EDMS 20:43 Patient visited by Josefina Branch RN. ko2 21:04 EKG-ADULT Returned. EDMS 21:25 Patient visited by Josefina Branch RN. ko2 21:25 BLOOD CULTURES Sent. ko2 21:29 The patient / caregiver is instructed regarding the plan of care and ED course. ko2 22:33 Patient visited by Josefina Branch RN. ko2 23:15 CT Chest Angio R/O PE Returned. EDMS 23:20 Patient visited by Mark Anthony Lindsey DO. mm11 0218 00:11 Patient visited by Mark Anthony Lindsey DO. mm11 00:27 Discontinued IV lock intact, bleeding controlled, pressure dressing applied, No js15 redness/swelling at site. No procedures done that require assistance. Administered Medications: 08/09 19:34 Drug: Albuterol-Ipratropium 3 ml [ipratropium-albuterol 0.5 mg-3 mg(2.5 mg base)/3 mL jc3 nebulization soln (3 mL)] Route: Inhalation; RT: 19:35 Initial Med Neb Given as ordered. O2 via nasal cannula \\T\\ 3L/min. Respiratory: Breath jc3 sounds are clear bilaterally. Order Results: Lab Order: B-Type Natiuretic Peptide; SPEC'M 08/09/16 19:49 Test: BRAIN NATRIURETIC PEPTIDE; Value: 5.9; Range: <100; Units: PG/ML; Status: F Lab Order: Basic Metabolic Profile; SPEC'M 08/09/16 19:49 Test: GLUCOSE, FASTING; Value: 116; Range: 70-105; Abnormal: Above high normal; Units: MG/DL; Status: F Test: BLOOD UREA NITROGEN; Value: 25; Range: 7-18; Abnormal: Above high normal; Units: MG/DL; Status: F Test: CREATININE FOR GFR; Value: 0.98; Range: 0.55-1.02; Units: MG/DL; Status: F Test: SODIUM LEVEL; Value: 141; Range: 136-145; Units: MEQ/L; Status: F Test: POTASSIUM SERUM; Value: 3.9; Range: 3.5-5.1; Units: MEQ/L; Status: F Test: CHLORIDE LEVEL; Value: 102; Range: 98-107; Units: MEQ/L; Status: F Test: CARBON DIOXIDE LEVEL; Value: 30; Range: 21-32; Units: MEQ/L; Status: F Test: ANION GAP; Value: 9; Range: 8-16; Units: MEQ/L; Status: F Test: CALCIUM LEVEL; Value: 9.6; Range: 8.5-10.1; Units: MG/DL; Status: F Test: GLOMERULAR FILTRATION RATE; Value: > 60.0; Range: >60; Status: F Test: SODIUM LEVEL; Value: 141; Range: 136-145; Units: MEQ/L; Status: F Test: POTASSIUM SERUM; Value: 3.9; Range: 3.5-5.1; Units: MEQ/L; Status: F Test: CHLORIDE LEVEL; Value: 102; Range: 98-107; Units: MEQ/L; Status: F Test: CARBON DIOXIDE LEVEL; Value: 30; Range: 21-32; Units: MEQ/L; Status: F Test: ANION GAP; Value: 9; Range: 8-16; Units: MEQ/L; Status: F Test: CALCIUM LEVEL; Value: 9.6; Range: 8.5-10.1; Units: MG/DL; Status: F Test Note: ; Units are mL/min/1.73 m2 Chronic Kidney Disease Staging per NKF: Stage I & II GFR >=60 Normal to Mildly Decreased Stage III GFR 30-59 Moderately Decreased Stage IV GFR 15-29 Severely Decreased Stage V GFR <15 Very Little GFR Left ESRD GFR <15 on SKI TECHNICIAN Lab Order: CBC with Diff; SPEC'M 08/09/16 19:49 Test: WHITE BLOOD COUNT; Value: 16.8; Range: 4.0-10.0; Abnormal: Above high normal; Units: K/mm3; Status: F Test: RED BLOOD COUNT; Value: 5.21; Range: 4.00-5.40; Units: M/mm3; Status: F Test: HEMOGLOBIN; Value: 11.0; Range: 12.0-16.0; Abnormal: Below low normal; Units: g/dl; Status: F Test: HEMATOCRIT; Value: 37.7; Range: 36.0-47.0; Units: %; Status: F Test: MEAN CORPUSCULAR VOLUME; Value: 72.2; Range: 80.0-96.0; Abnormal: Below low normal; Units: fl; Status: F Test: MEAN CORPUSCULAR HEMOGLOBIN; Value: 21.1; Range: 27.0-33.0; Abnormal: Below low normal; Units: pg; Status: F Test: MEAN CORPUSCULAR HGB CONC; Value: 29.2; Range: 32.0-36.5; Abnormal: Below low normal; Units: g/dl; Status: F Test: RED CELL DISTRIBUTION WIDTH; Value: 16.0; Range: 11.5-14.5; Abnormal: Above high normal; Units: %; Status: F Test: PLATELET COUNT, AUTOMATED; Value: 407; Range: 150-450; Units: k/mm3; Status: F Test: NEUTROPHILS %; Value: 86.5; Range: 36.0-66.0; Abnormal: Above high normal; Units: %; Status: F Test: LYMPH %; Value: 10.8; Range: 24.0-44.0; Abnormal: Below low normal; Units: %; Status: F Test: MONO %; Value: 2.1; Range: 0.0-5.0; Units: %; Status: F Test: EOS %; Value: 0.0; Range: 0.0-3.0; Units: %; Status: F Test: BASO %; Value: 0.1; Range: 0.0-1.0; Units: %; Status: F Test: LARGE UNSTAINED CELL %; Value: 0.5; Range: 0.0-4.0; Units: %; Status: F Test: NEUTROPHILS #; Value: 14.6; Range: 1.8-7.7; Abnormal: Above high normal; Units: K/mm3; Status: F Test: LYMPH #; Value: 1.8; Range: 1.5-4.5; Units: K/mm3; Status: F Test: MONO #; Value: 0.4; Range: 0.0-0.8; Units: K/mm3; Status: F Test: EOS #; Value: 0.0; Range: 0.0-0.50; Units: K/mm3; Status: F Test: BASO #; Value: 0.0; Range: 0.0-0.2; Units: K/mm3; Status: F Test: LARGE UNSTAINED CELL #; Value: 0.1; Range: 0.0-0.4; Units: K/mm3; Status: F Lab Order: Cardiac Injury Profile; [facility] 08/09/16 19:49 Test: CPK CREATINE PHOSPHOKINASE; Value: 28; Range: 26-192; Units: U/L; Status: F Test: CK-MB VALUE MASS; Value: 1.0; Range: 0.0-3.6; Units: NG/ML; Status: F Test: MB/CK RELATIVE INDEX; Value: 3.57; Range: < OR =4; Status: F Test Note: ; DIAGNOSIS CRITERIA MMB ng/ml Relative Index (RI) NON-AMI < or = 5 N/A PAREDES ZONE > 5 < or = 4 AMI > 5 > 4 Lab Order: Troponin; [facility] 08/09/16 19:49 Test: TROPONIN I; Value: < 0.02; Range: < 0.10; Units: NG/ML; Status: F Test Note: ; Troponin I Reference Interval for codetag LOCI: 99th Percentile= 0.00-0.045 ng/ml Risk Stratification: <= 0.10 ng/ml Decreased Risk for Adverse Clinical Events. 0.10-1.50 ng/ml Increased Risk for Adverse Clinical Events. Evaluation of additional criterion and/or repeat testing in 2-6 hours is suggested to rule out myocardial damage. >= 1.50 ng/ml Indicative of Myocardial Injury. Lab Order: Venous Blood Gas (large pea green tube on ice); [facility] 08/09/16 19:49 Test: VENOUS PH; Value: 7.435; Range: 7.330-7.430; Abnormal: Above high normal; Units: UNITS; Status: F Test: VENOUS PARTIAL PRESSURE CO2; Value: 36.8; Range: 38.0-50.0; Abnormal: Below low normal; Units: mmHg; Status: F Test: VENOUS PARTIAL PRESSURE O2; Value: 42.8; Range: 30.0-50.0; Units: mmHg; Status: F Test: VENOUS TOTAL CO2; Value: 25.3; Range: 24.0-28.0; Units: MEQ/L; Status: F Test: VENOUS HCO3; Value: 24.2; Range: 23.0-27.0; Units: MEQ/L; Status: F Test: VENOUS BASE EXCESS; Value: 0.2; Range: -2.0-2.0; Status: F Test: VENOUS STANDARD HCO3; Value: 24.2; Units: MEQ/L; Status: F Test: VENOUS O2 SATURATION; Value: 75.7; Range: 60.0-80.0; Units: %; Status: F Radiology Order: Chest, 1 View Test: Chest, 1 View REASON FOR EXAMINATION: Shortness of Breath; Clinical: Acute shortness of breath .; ; Comparison: 08/01/2016 .; ; Findings:; The mediastinum and cardiac silhouette are stable and within normal limits for; portable technique. The lung meza are clear without acute consolidation,; effusion, or pneumothorax. Skeletal structures are intact.; ; Impression:; Normal portable chest x-ray; ; ; Signed by; Alfonzo Gardiner MD 08/09/2016 07:59 P; Radiology Order: EKG-ADULT Test: EKG-ADULT REASON FOR EXAMINATION: Shortness of Breath; Stationary ECG Study; [facility] - ED; ; Test Date: 2016-08-09; Pat Name: BRIDGETTE MOREL Department:; Room: -; Gender: F Byproducts Operator: juliette; : 1985 Requested By: MARK ANTHONY Jackson; Order Number: [id number] Shar MD: Yara Zabala; Measurements; Intervals [place]; Rate: 96 P: 14; SD: 165 QRS: 66; QRSD: 105 T: 2; QT: 335; QTc: 424; Interpretive Statements; SINUS RHYTHM; POSSIBLE RIGHT VENTRICULAR CONDUCTION DELAY; NONSPECIFIC T-WAVE ABNORMALITY; ; Electronically Signed On 08-09-2016 20:07:08 EST by Yara Zabala; Radiology Order: CT Chest Angio R/O PE Test: CT Chest Angio R/O PE REASON FOR EXAMINATION: Shortness of Breath; ; CT angiogram of the chest; Clinical statement: Chest pain and shortness of breath.; Technique: Multiple axial CT images were obtained from the thoracic inlet through the upper abdomen a; fter a bolus administration of nonionic intravenous contrast. Coronal and sagittal reconstructions we; re also obtained.; Comparison: 08/02/2016.; Findings: The pulmonary arteries are well-opacified with contrast, with no intraluminal filling defec; ts to suggest embolism. The thoracic aorta is unremarkable. Thyroid gland is within normal limits. Th; ere is no thoracic lymphadenopathy. There are no pericardial or pleural effusions. The lungs are linda; r. Limited imaging of the upper abdomen is unremarkable. There are no suspicious osseous lesions.; Impression: Unremarkable CT examination of the chest. No evidence of pulmonary embolism.; ; Outcome: 08/10 00:11 Discharge ordered by Provider. mm11 00:27 Discharge Assessment: Patient awake, alert and oriented x 3. No cognitive and/or js15 functional deficits noted. Patient verbalized understanding of disposition instructions. The following High Risk Discharge criteria are identified: None. Discharged to home ambulatory, with family. Condition: stable. Discharge instructions given to patient, Instructed on discharge instructions, follow up and referral plans. Demonstrated understanding of instructions, Pt was receptive of discharge instructions/ teaching. Property sent home with patient. 00:29 Discharge Assessment: patient administered narcotics - no. CT Study completed. js15 00:29 Patient left the ED. js15 Signatures: Dispatcher [employer] EDMS Ambrosio Friend Matthew, DO DO mm11 Yoselyn Godinez, RN RN Tolu De Oliveira jc3 Monserrat Marrero PSA PSA Greta Hodge,OSVALDO RN ld5 Sarah Fenton RN RN jc4 Fabiola Jones, ADULT BASIC EDUCATION MANAGER ADULT BASIC EDUCATION MANAGER ct3 Sheryl Godinez gr2 Josefina BranchRN RN ko2 Maureen Ch RN RN js15 Jeffry Smallwood ADULT BASIC EDUCATION MANAGER ADULT BASIC EDUCATION MANAGER jakubv Yoselyn Eid,RN RN ja5 Corrections: (The following items were deleted from the chart) 08/09 16:44 16:41 BP 129 / 60; Pulse 113bpm; Resp 18bpm; Spontaneous; Pulse Ox 97% 3 lpm Nasal gr2 Cannula; Temp 98.9F Oral; 115.67 kg Reported; Height 4 ft. 10 in. Reported; BMI: 53.2; Pain 0/10; gr2 MTDD
--- NOTE | 2016-08-12 01:30 | EDDOCDS ---
Nurse's Notes [facility] Name: Bridgette Morel Age: 31 yrs Sex: Female : 1985 Arrival Date: 08/09/2016 Time: 16:39 Bed 8 Private MD: Reema Parra Diagnosis: Generalized anxiety disorder;Shortness of breath Presentation: 08/09 16:50 Presenting complaint: Significant other states: seen at the ER last night for anxiety, jjr now reporting increased shortness of breath for last few days pt is on nasal cannula due to ARDS several years ago. Adult Sepsis Screening: The patient does not have new or worsening altered mentation. Patient's respiratory rate is less than 22. Systolic blood pressure is greater than 100. Patient has a qSOFA score of 0- Negative Sepsis Screen. Suicide/Homicide risk assessment- the patient denies having any suicidal and/or homicidal ideations and does not present with any other emotional, behavioral or mental health complaints. Status: Patient is not a director of residential services or dependent. Transition of care: patient was received from phone call to [place]. 16:50 Acuity: BOOGIE Level 3 jjr 16:50 Method Of Arrival: Wheelchair jjr Triage Assessment: 16:58 General: Appears in no apparent distress. Pain: Denies pain. HIV screening NA for this jjr visit Offered previously. Respiratory: Onset: The symptoms/episode began/occurred gradually, Airway is patent Respiratory effort is even, unlabored, Respiratory pattern is regular, Reports shortness of breath "the anxiety is kicking in making it more". 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 albuterol sulfate 90 mcg/actuation Inhl HFAA 2 puffs every 4 hours 2. albuterol sulfate 2.5 mg /3 mL (0.083 %) Inhl nebu 3 mL as needed 3. Breo Ellipta 200-25 mcg/dose inhalation dsdv 1 puff once daily . 4. aripiprazole 2 mg Oral tab daily new rx 5. prazosin 2 mg Oral cap nightly 6. montelukast 10 mg oral tab 1 tab once daily 7. lorazepam 1 mg Oral tab nightly 8. prednisone 20 mg Oral tab once daily 9. Lasix 40 mg Oral tab 1 tab once daily 10. Flonase 50 mcg/actuation Nasal spsn 1 spray 2 times per day 11. loratadine 10 mg Oral tab 1 tab once daily 12. Nexium 20 mg Oral cpDR 1 cap once daily . 13. NC 3 liters - PMHx: Anxiety; ARDS; GERD; - PSHx: Appendectomy; 2 eye surgeries; D & C; tracheostomy with reversal; - Social history: Smoking status: Patient states former smoker of tobacco. No barriers to communication noted, The patient speaks fluent Estonian. - Family history: Not pertinent. - : The pt / caregiver states he / she is not on anticoagulants. Home medication list is obtained from pill bottles. - Exposure Risk Screening:: None identified. Screenin:09 Screening information is obtained from the patient. Fall risk: No risks identified. ja5 Assistance ADL's: requires no assistance with activities of daily living. Abuse/DV Screen: The patient / caregiver reports he/she is: not in a situation that causes fear, pain or injury. Nutritional screening: On low fat/low cholesterol diet. Advance Directives: Currently, there is no health care proxy. There is no active DNR order. There is no living will. There is no Power of Guinea Pig Breeder. home support is adequate. Assessment: 19:07 General: Appears in no apparent distress, Behavior is appropriate for age, cooperative. ja5 Pain: Denies pain. Neurological: Level of Consciousness is awake, alert, Oriented to person, place, time. Cardiovascular: Capillary refill < 3 seconds Heart tones S1 S2 present. Cardiovascular: Rhythm is sinus tachycardia No ectopy. Chest pain is denied. Respiratory: Airway is patent Respiratory effort is even, unlabored, Respiratory pattern is regular, symmetrical, Patient states that she still feels out of breath Breath sounds are clear bilaterally. Derm: Skin is pink, warm & dry. 19:19 General: Appears in no apparent distress, comfortable, Behavior is appropriate for age, ko2 cooperative. Pain: Denies pain. Neurological: Level of Consciousness is awake, alert, Oriented to person, place, time. Cardiovascular: Heart tones S1 S2 present Rhythm is sinus rhythm No ectopy. Respiratory: Airway is patent Respiratory effort is even, unlabored, Respiratory pattern is regular, symmetrical, Breath sounds are clear bilaterally. GI: Abdomen is non- distended obese, Bowel sounds present X 4 quads. Derm: Skin is pink, warm & dry. 20:25 General: Appears in no apparent distress, comfortable, pt currently resting on ko2 stretcher with significant other at bedside. No concerns at this time. . 21:28 General: Appears in no apparent distress, comfortable, Behavior is appropriate for age, ko2 cooperative. Pain: Denies pain. Neurological: Level of Consciousness is awake, alert, Oriented to person, place, time. Respiratory: Airway is patent Respiratory effort is even, unlabored, Respiratory pattern is regular, symmetrical. Derm: Skin is pink, warm & dry. 22:33 General: Appears in no apparent distress, comfortable. Pain: Denies pain. Neurological: ko2 Level of Consciousness is awake, alert. Respiratory: Airway is patent Respiratory effort is even, unlabored, Respiratory pattern is regular, symmetrical. Derm: Skin is pink, warm & dry. 23:30 General: Appears in no apparent distress, comfortable, Behavior is appropriate for age, ko2 cooperative. Neurological: Level of Consciousness is awake, alert. Respiratory: Airway is patent Respiratory effort is even, unlabored. Derm: Skin is pink, warm & dry. 08/10 00:27 General: Appears in no apparent distress, comfortable, Behavior is appropriate for age, js15 cooperative. Pain: Denies pain. Neurological: Level of Consciousness is awake, alert, obeys commands, Oriented to person, place, time. Cardiovascular: Rhythm is regular. Respiratory: Airway is patent Respiratory effort is even, unlabored, Respiratory pattern is regular, symmetrical. Derm: Skin is pink, warm & dry. Social Work Consult: 00:02 Social Work Note: Met with PT and her to discuss PT's presentation. PT states jfb she has been suffering with anxiety and will see different colors that give her different emotional responses. She has difficulty sleeping and required admission to [facility] a few weeks ago when she was having hallucinations. Tonight PT denies SI/HI or hallucinations except for colors and states she has been in treatment with Reema Parra to address her anxiety. states he will always support PT and that he will be with her all weekend. PT has a scheduled doctor appointment for next Friday. PT states she feels comfortable returning home with her to follow up with her providers. Status: The patient is a dependent. Vital Signs: 08/09 16:41 BP 129 / 60; Pulse 113; Resp 18 S; Temp 98.9(O); Pulse Ox 97% on 3 lpm NC; Weight gr2 115.67 kg (R); Height 4 ft. 10 in. (147.32 cm) (R); Pain 0/10; 19:54 BP 115 / 64 (auto/); ko2 19:54 Pulse 90 MON; Pulse Ox 95% ; ko2 20:09 BP 121 / 66 (auto/); ko2 20:09 Pulse 94 MON; Pulse Ox 93% ; ko2 20:24 BP 133 / 74 (auto/); ko2 20:24 Pulse 92 MON; Pulse Ox 98% ; ko2 20:39 BP 132 / 68 (auto/); ko2 20:39 Pulse 92 MON; Pulse Ox 95% ; ko2 20:54 BP 119 / 63 (auto/); ko2 20:54 Pulse 80 MON; Pulse Ox 94% ; ko2 21:08 Pulse 98 MON; Pulse Ox 96% ; ko2 21:09 BP 126 / 62 (auto/); ko2 21:23 Pulse 100 MON; Pulse Ox 97% ; ko2 21:24 BP 126 / 72 (auto/); ko2 21:39 BP 132 / 72 (auto/); ko2 21:39 Pulse 94 MON; Pulse Ox 96% ; ko2 21:54 BP 126 / 63 (auto/); ko2 21:54 Pulse 96 MON; Pulse Ox 96% ; ko2 22:09 BP 126 / 63 (auto/); ko2 22:09 Pulse 96 MON; Pulse Ox 97% ; ko2 22:32 BP 131 / 72 (auto/); ko2 22:33 Pulse 86 MON; Pulse Ox 97% ; ko2 22:39 BP 122 / 73 (auto/); ko2 22:39 Pulse 90 MON; Pulse Ox 98% ; ko2 22:54 BP 118 / 68 (auto/); ko2 22:54 Pulse 94 MON; Pulse Ox 95% ; ko2 23:09 BP 113 / 63 (auto/); ko2 23:09 Pulse 92 MON; Pulse Ox 94% ; ko2 23:23 Pulse 102 MON; Pulse Ox 95% ; ko2 23:24 BP 116 / 55 (auto/); ko2 23:39 BP 120 / 55 (auto/); ko2 23:39 Pulse 96 MON; Pulse Ox 95% ; ko2 23:54 BP 121 / 75 (auto/); ko2 23:54 Pulse 108 MON; Pulse Ox 94% ; ko2 08/10 00:27 BP 126 / 74; Pulse 97; Resp 20; Temp 98.8; Pulse Ox 94% on R/A; Pain 0/10; js15 08/09 16:41 Body Mass Index 53.30 (115.67 kg, 147.32 cm) gr2 Vitals: 08/09 16:41 Log In Time: August 09, 2016 at 16:41. gr2 16:41 RN notified that patient meets Red Flag criteria. gr2 ED Course: 16:41 Patient visited by Sheryl Godinez. gr2 16:41 Reema Parra is Private Physician. gr2 16:41 Patient moved to Waiting gr2 16:44 Patient visited by Sheryl Godinez. gr2 16:52 Triage Initiated jjr 17:05 Patient moved to Pre RCE jjr 17:49 Yoselyn Eid,RN is Primary Nurse. ld5 17:49 Sarah Fenton, OSVALDO is Primary Nurse. ld5 17:49 Patient moved to 8 ld5 18:31 [facility] Payment Agreement was scanned into UNI5 and attached to record. zo 18:42 Patient visited by Fabiola Jones PCA. ct3 18:58 Josefina Branch,RN is Primary Nurse. ko2 19:08 Mark Anthony Lindsey DO is Attending Physician. mm11 19:08 Patient visited by Mark Anthony Lindsey DO. mm11 19:09 Primary Nurse role handed off by Sarah Fenton, OSVALDO jc4 19:10 Primary Nurse role handed off by Yoselyn Eid,OSVALDO jc4 19:19 Patient visited by Josefina Branch,OSVALDO. ko2 19:21 Patient visited by Josefina Branch,OSVALDO. ko2 19:28 Patient visited by Mark Anthony Lindsey DO. mm11 19:52 Venous Blood Gas (large pea green tube on ice) Sent. ko2 19:52 -Blood Culture Sent. ko2 19:52 B-Type Natiuretic Peptide Sent. ko2 19:52 Basic Metabolic Profile Sent. ko2 19:52 CBC with Diff Sent. ko2 19:52 Cardiac Injury Profile Sent. ko2 19:52 Troponin Sent. ko2 19:53 Inserted saline lock: 20 gauge in left antecubital area and blood collected. The ko2 patient tolerated the procedure well. 19:54 Patient visited by Josefina Branch,OSVALDO. ko2 20:00 Patient visited by Jeffry Smallwood PCA. jmv 20:00 EKG done. (by ED staff). Reviewed by Mark Anthony Lindsey DO. jmv 20:09 Chest, 1 View Returned. EDMS 20:43 Patient visited by Josefina Branch RN. ko2 21:04 EKG-ADULT Returned. EDMS 21:25 Patient visited by Josefina Branch RN. ko2 21:25 BLOOD CULTURES Sent. ko2 21:29 The patient / caregiver is instructed regarding the plan of care and ED course. ko2 22:33 Patient visited by Josefina Branch RN. ko2 23:15 CT Chest Angio R/O PE Returned. EDMS 23:20 Patient visited by Mark Anthony Lindsey DO. mm11 0218 00:11 Patient visited by Mark Anthony Lindsey DO. mm11 00:27 Discontinued IV lock intact, bleeding controlled, pressure dressing applied, No js15 redness/swelling at site. No procedures done that require assistance. 11:08 T-Sheet-- Draft Copy was scanned into UNI5 and attached to record. gb 11:08 ECG/EKG was scanned into UNI5 and attached to record. gb 11:09 Radiology Report was scanned into UNI5 and attached to record. gb Administered Medications: 08/09 19:34 Drug: Albuterol-Ipratropium 3 ml [ipratropium-albuterol 0.5 mg-3 mg(2.5 mg base)/3 mL jc3 nebulization soln (3 mL)] Route: Inhalation; RT: 19:35 Initial Med Neb Given as ordered. O2 via nasal cannula \\T\\ 3L/min. Respiratory: Breath jc3 sounds are clear bilaterally. Order Results: Lab Order: -Blood Culture; SPEC'M 08/09/16 19:49 Test: BLOOD CULTURE; Value: No growth after 24 hours . All specimens observed; Status: F Test: BLOOD CULTURE; Value: for 5 days. Results final at that time.; Status: F Test: BLOOD CULTURE; Value: No Growth after 48 hours. All Specimens observed; Status: F Test: BLOOD CULTURE; Value: for 7 days. Results final at that time.; Status: F Lab Order: B-Type Natiuretic Peptide; SPEC'M 08/09/16 19:49 Test: BRAIN NATRIURETIC PEPTIDE; Value: 5.9; Range: <100; Units: PG/ML; Status: F Lab Order: Basic Metabolic Profile; SPEC'M 08/09/16 19:49 Test: GLUCOSE, FASTING; Value: 116; Range: 70-105; Abnormal: Above high normal; Units: MG/DL; Status: F Test: BLOOD UREA NITROGEN; Value: 25; Range: 7-18; Abnormal: Above high normal; Units: MG/DL; Status: F Test: CREATININE FOR GFR; Value: 0.98; Range: 0.55-1.02; Units: MG/DL; Status: F Test: SODIUM LEVEL; Value: 141; Range: 136-145; Units: MEQ/L; Status: F Test: POTASSIUM SERUM; Value: 3.9; Range: 3.5-5.1; Units: MEQ/L; Status: F Test: CHLORIDE LEVEL; Value: 102; Range: 98-107; Units: MEQ/L; Status: F Test: CARBON DIOXIDE LEVEL; Value: 30; Range: 21-32; Units: MEQ/L; Status: F Test: ANION GAP; Value: 9; Range: 8-16; Units: MEQ/L; Status: F Test: CALCIUM LEVEL; Value: 9.6; Range: 8.5-10.1; Units: MG/DL; Status: F Test: GLOMERULAR FILTRATION RATE; Value: > 60.0; Range: >60; Status: F Test: SODIUM LEVEL; Value: 141; Range: 136-145; Units: MEQ/L; Status: F Test: POTASSIUM SERUM; Value: 3.9; Range: 3.5-5.1; Units: MEQ/L; Status: F Test: CHLORIDE LEVEL; Value: 102; Range: 98-107; Units: MEQ/L; Status: F Test: CARBON DIOXIDE LEVEL; Value: 30; Range: 21-32; Units: MEQ/L; Status: F Test: ANION GAP; Value: 9; Range: 8-16; Units: MEQ/L; Status: F Test: CALCIUM LEVEL; Value: 9.6; Range: 8.5-10.1; Units: MG/DL; Status: F Test Note: ; Units are mL/min/1.73 m2 Chronic Kidney Disease Staging per NKF: Stage I & II GFR >=60 Normal to Mildly Decreased Stage III GFR 30-59 Moderately Decreased Stage IV GFR 15-29 Severely Decreased Stage V GFR <15 Very Little GFR Left ESRD GFR <15 on 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 Lab Order: CBC with Diff; SPEC'M 08/09/16 19:49 Test: WHITE BLOOD COUNT; Value: 16.8; Range: 4.0-10.0; Abnormal: Above high normal; Units: K/mm3; Status: F Test: RED BLOOD COUNT; Value: 5.21; Range: 4.00-5.40; Units: M/mm3; Status: F Test: HEMOGLOBIN; Value: 11.0; Range: 12.0-16.0; Abnormal: Below low normal; Units: g/dl; Status: F Test: HEMATOCRIT; Value: 37.7; Range: 36.0-47.0; Units: %; Status: F Test: MEAN CORPUSCULAR VOLUME; Value: 72.2; Range: 80.0-96.0; Abnormal: Below low normal; Units: fl; Status: F Test: MEAN CORPUSCULAR HEMOGLOBIN; Value: 21.1; Range: 27.0-33.0; Abnormal: Below low normal; Units: pg; Status: F Test: MEAN CORPUSCULAR HGB CONC; Value: 29.2; Range: 32.0-36.5; Abnormal: Below low normal; Units: g/dl; Status: F Test: RED CELL DISTRIBUTION WIDTH; Value: 16.0; Range: 11.5-14.5; Abnormal: Above high normal; Units: %; Status: F Test: PLATELET COUNT, AUTOMATED; Value: 407; Range: 150-450; Units: k/mm3; Status: F Test: NEUTROPHILS %; Value: 86.5; Range: 36.0-66.0; Abnormal: Above high normal; Units: %; Status: F Test: LYMPH %; Value: 10.8; Range: 24.0-44.0; Abnormal: Below low normal; Units: %; Status: F Test: MONO %; Value: 2.1; Range: 0.0-5.0; Units: %; Status: F Test: EOS %; Value: 0.0; Range: 0.0-3.0; Units: %; Status: F Test: BASO %; Value: 0.1; Range: 0.0-1.0; Units: %; Status: F Test: LARGE UNSTAINED CELL %; Value: 0.5; Range: 0.0-4.0; Units: %; Status: F Test: NEUTROPHILS #; Value: 14.6; Range: 1.8-7.7; Abnormal: Above high normal; Units: K/mm3; Status: F Test: LYMPH #; Value: 1.8; Range: 1.5-4.5; Units: K/mm3; Status: F Test: MONO #; Value: 0.4; Range: 0.0-0.8; Units: K/mm3; Status: F Test: EOS #; Value: 0.0; Range: 0.0-0.50; Units: K/mm3; Status: F Test: BASO #; Value: 0.0; Range: 0.0-0.2; Units: K/mm3; Status: F Test: LARGE UNSTAINED CELL #; Value: 0.1; Range: 0.0-0.4; Units: K/mm3; Status: F Lab Order: Cardiac Injury Profile; SPEC' 08/09/16 19:49 Test: CPK CREATINE PHOSPHOKINASE; Value: 28; Range: 26-192; Units: U/L; Status: F Test: CK-MB VALUE MASS; Value: 1.0; Range: 0.0-3.6; Units: NG/ML; Status: F Test: MB/CK RELATIVE INDEX; Value: 3.57; Range: < OR =4; Status: F Test Note: ; DIAGNOSIS CRITERIA MMB ng/ml Relative Index (RI) NON-AMI < or = 5 N/A PAREDES ZONE > 5 < or = 4 AMI > 5 > 4 Lab Order: Troponin; SPEC' 08/09/16 19:49 Test: TROPONIN I; Value: < 0.02; Range: < 0.10; Units: NG/ML; Status: F Test Note: ; Troponin I Reference Interval for [employer] LOCI: 99th Percentile= 0.00-0.045 ng/ml Risk Stratification: <= 0.10 ng/ml Decreased Risk for Adverse Clinical Events. 0.10-1.50 ng/ml Increased Risk for Adverse Clinical Events. Evaluation of additional criterion and/or repeat testing in 2-6 hours is suggested to rule out myocardial damage. >= 1.50 ng/ml Indicative of Myocardial Injury. Lab Order: Venous Blood Gas (large pea green tube on ice); SPEC'M 08/09/16 19:49 Test: VENOUS PH; Value: 7.435; Range: 7.330-7.430; Abnormal: Above high normal; Units: UNITS; Status: F Test: VENOUS PARTIAL PRESSURE CO2; Value: 36.8; Range: 38.0-50.0; Abnormal: Below low normal; Units: mmHg; Status: F Test: VENOUS PARTIAL PRESSURE O2; Value: 42.8; Range: 30.0-50.0; Units: mmHg; Status: F Test: VENOUS TOTAL CO2; Value: 25.3; Range: 24.0-28.0; Units: MEQ/L; Status: F Test: VENOUS HCO3; Value: 24.2; Range: 23.0-27.0; Units: MEQ/L; Status: F Test: VENOUS BASE EXCESS; Value: 0.2; Range: -2.0-2.0; Status: F Test: VENOUS STANDARD HCO3; Value: 24.2; Units: MEQ/L; Status: F Test: VENOUS O2 SATURATION; Value: 75.7; Range: 60.0-80.0; Units: %; Status: F Lab Order: BLOOD CULTURES; SPEC'M 08/09/16 21:23 Test: BLOOD CULTURE; Value: No growth after 24 hours . All specimens observed; Status: F Test: BLOOD CULTURE; Value: for 5 days. Results final at that time.; Status: F Test: BLOOD CULTURE; Value: No Growth after 48 hours. All Specimens observed; Status: F Test: BLOOD CULTURE; Value: for 7 days. Results final at that time.; Status: F Radiology Order: Chest, 1 View Test: Chest, 1 View REASON FOR EXAMINATION: Shortness of Breath; Clinical: Acute shortness of breath .; ; Comparison: 08/01/2016 .; ; Findings:; The mediastinum and cardiac silhouette are stable and within normal limits for; portable technique. The lung meza are clear without acute consolidation,; effusion, or pneumothorax. Skeletal structures are intact.; ; Impression:; Normal portable chest x-ray; ; ; Signed by; Alfonzo Gardiner MD 08/09/2016 07:59 P; Radiology Order: EKG-ADULT Test: EKG-ADULT REASON FOR EXAMINATION: Shortness of Breath; Stationary ECG Study; [facility] - ED; ; Test Date: 2016-08-09; Pat Name: BRIDGETTE MOREL Department:; Room: -; Gender: F Operation Specialist: juliette; : 1985 Requested By: MARK ANTHONY Jackson; Order Number: [id number] Reading MD: Yara Zabala; Measurements; Intervals [place]; Rate: 96 P: 14; IL: 165 QRS: 66; QRSD: 105 T: 2; QT: 335; QTc: 424; Interpretive Statements; SINUS RHYTHM; POSSIBLE RIGHT VENTRICULAR CONDUCTION DELAY; NONSPECIFIC T-WAVE ABNORMALITY; ; Electronically Signed On 08-09-2016 20:07:08 EST by aYra Zabala; Radiology Order: CT Chest Angio R/O PE Test: CT Chest Angio R/O PE REASON FOR EXAMINATION: Shortness of Breath; ; CT angiogram of the chest; Clinical statement: Chest pain and shortness of breath.; Technique: Multiple axial CT images were obtained from the thoracic inlet through the upper abdomen a; fter a bolus administration of nonionic intravenous contrast. Coronal and sagittal reconstructions we; re also obtained.; Comparison: 08/02/2016.; Findings: The pulmonary arteries are well-opacified with contrast, with no intraluminal filling defec; ts to suggest embolism. The thoracic aorta is unremarkable. Thyroid gland is within normal limits. Th; ere is no thoracic lymphadenopathy. There are no pericardial or pleural effusions. The lungs are linda; r. Limited imaging of the upper abdomen is unremarkable. There are no suspicious osseous lesions.; Impression: Unremarkable CT examination of the chest. No evidence of pulmonary embolism.; ; Outcome: 08/10 00:11 Discharge ordered by Provider. mm11 00:27 Discharge Assessment: Patient awake, alert and oriented x 3. No cognitive and/or js15 functional deficits noted. Patient verbalized understanding of disposition instructions. The following High Risk Discharge criteria are identified: None. Discharged to home ambulatory, with family. Condition: stable. Discharge instructions given to patient, Instructed on discharge instructions, follow up and referral plans. Demonstrated understanding of instructions, Pt was receptive of discharge instructions/ teaching. Property sent home with patient. 00:29 Discharge Assessment: patient administered narcotics - no. CT Study completed. js15 00:29 Patient left the ED. js15 Signatures: Dispatcher [employer] EDMS Kiya Ching, Ernesto Reg gb Phuc, Mark Anthony Bentley, DO mm11 Yoselyn Godinez, RN RN Tolu De Oliveira jc3 Monserrat Marrero, PSA PSA marielb Greta Espinosa,RN RN beena5 Sarah Fenton, RN RN jc4 Fabiola Jones, ACCOUNT REVIEW SPECIALIST ACCOUNT REVIEW SPECIALIST ct3 Sheryl Godinez gr2 Josefina Branch,RN RN ko2 Maureen Ch,RN RN js15 Jeffry Smallwood, ACCOUNT REVIEW SPECIALIST ACCOUNT REVIEW SPECIALIST jmv Yoselyn Eid,RN RN ja5 Corrections: (The following items were deleted from the chart) 08/09 16:44 16:41 BP 129 / 60; Pulse 113bpm; Resp 18bpm; Spontaneous; Pulse Ox 97% 3 lpm Nasal gr2 Cannula; Temp 98.9F Oral; 115.67 kg Reported; Height 4 ft. 10 in. Reported; BMI: 53.2; Pain 0/10; gr2 Chart Complete MTDD
--- NOTE | 2016-08-12 01:30 | EDDOCDS ---
Physician Documentation [facility] Name: Conchis Morel Age: 31 yrs Sex: Female : 1985 Arrival Date: 08/09/2016 Time: 16:39 Bed 8 Private MD: Reema Parra Disposition: 08/10/16 00:11 Discharged to Home/Self Care. Impression: Generalized anxiety disorder, Shortness of breath. - Condition is Stable. - Discharge Instructions: Panic Attacks, Shortness of Breath, Shortness of Breath, Osqr-[id number], Generalized Anxiety Disorder, Panic Attacks, Dhwt-bz-[id number]. - Medication Reconciliation, Local Pharmacy Hours form. - Follow up: Private Physician; When: 2 - 3 days; Reason: Continuance of care. - Problem is an acute exacerbation. - Symptoms have improved. Historical: - Allergies: Advair Diskus (lung inflammation); Codeine Sulfate (Swelling); Topamax (confused); Vyvanse (confused); - Home Meds: 1. albuterol sulfate 90 mcg/actuation Inhl HFAA 2 puffs every 4 hours 2. albuterol sulfate 2.5 mg /3 mL (0.083 %) Inhl nebu 3 mL as needed 3. Breo Ellipta 200-25 mcg/dose inhalation dsdv 1 puff once daily . 4. aripiprazole 2 mg Oral tab daily new rx 5. prazosin 2 mg Oral cap nightly 6. montelukast 10 mg oral tab 1 tab once daily 7. lorazepam 1 mg Oral tab nightly 8. prednisone 20 mg Oral tab once daily 9. Lasix 40 mg Oral tab 1 tab once daily 10. Flonase 50 mcg/actuation Nasal spsn 1 spray 2 times per day 11. loratadine 10 mg Oral tab 1 tab once daily 12. Nexium 20 mg Oral cpDR 1 cap once daily . 13. NC 3 liters - PMHx: Anxiety; ARDS; GERD; - PSHx: Appendectomy; 2 eye surgeries; D & C; tracheostomy with reversal; - Social history: Smoking status: Patient states former smoker of tobacco. No barriers to communication noted, The patient speaks fluent Belarusian. - Family history: Not pertinent. - : The pt / caregiver states he / she is not on anticoagulants. Home medication list is obtained from pill bottles. - Exposure Risk Screening:: None identified. 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 10 in. (147.32 cm) (R); Pain 0/10; 19:54 BP 115 / 64 (auto/); ko2 19:54 Pulse 90 MON; Pulse Ox 95% ; ko2 20:09 BP 121 / 66 (auto/); ko2 20:09 Pulse 94 MON; Pulse Ox 93% ; ko2 20:24 BP 133 / 74 (auto/); ko2 20:24 Pulse 92 MON; Pulse Ox 98% ; ko2 20:39 BP 132 / 68 (auto/); ko2 20:39 Pulse 92 MON; Pulse Ox 95% ; ko2 20:54 BP 119 / 63 (auto/); ko2 20:54 Pulse 80 MON; Pulse Ox 94% ; ko2 21:08 Pulse 98 MON; Pulse Ox 96% ; ko2 21:09 BP 126 / 62 (auto/); ko2 21:23 Pulse 100 MON; Pulse Ox 97% ; ko2 21:24 BP 126 / 72 (auto/); ko2 21:39 BP 132 / 72 (auto/); ko2 21:39 Pulse 94 MON; Pulse Ox 96% ; ko2 21:54 BP 126 / 63 (auto/); ko2 21:54 Pulse 96 MON; Pulse Ox 96% ; ko2 22:09 BP 126 / 63 (auto/); ko2 22:09 Pulse 96 MON; Pulse Ox 97% ; ko2 22:32 BP 131 / 72 (auto/); ko2 22:33 Pulse 86 MON; Pulse Ox 97% ; ko2 22:39 BP 122 / 73 (auto/); ko2 22:39 Pulse 90 MON; Pulse Ox 98% ; ko2 22:54 BP 118 / 68 (auto/); ko2 22:54 Pulse 94 MON; Pulse Ox 95% ; ko2 23:09 BP 113 / 63 (auto/); ko2 23:09 Pulse 92 MON; Pulse Ox 94% ; ko2 23:23 Pulse 102 MON; Pulse Ox 95% ; ko2 23:24 BP 116 / 55 (auto/); ko2 23:39 BP 120 / 55 (auto/); ko2 23:39 Pulse 96 MON; Pulse Ox 95% ; ko2 23:54 BP 121 / 75 (auto/); ko2 23:54 Pulse 108 MON; Pulse Ox 94% ; ko2 08/10 00:27 BP 126 / 74; Pulse 97; Resp 20; Temp 98.8; Pulse Ox 94% on R/A; Pain 0/10; js15 08/09 16:41 Body Mass Index 53.30 (115.67 kg, 147.32 cm) gr2 MDM: 08/09 18:31 [facility] Payment Agreement was scanned into [employer] and attached to record. zo 19:29 -Blood Culture (Adults Only), peripheral from different site, or from device/port/PICC mm11 etc. if present ordered. 19:29 Configuration Developer/Pulse Ox/q 15 min VS ordered. mm11 19:29 IV Saline Lock ordered. mm11 19:29 Oxygen at 4L/Min NC or Home dosage ordered. mm11 19:29 Rhythm Strip to chart ordered. mm11 19:29 -Blood Culture Ordered. EDMS 19:29 B-Type Natiuretic Peptide Ordered. EDMS 19:29 Basic Metabolic Profile Ordered. EDMS 19:29 CBC with Diff Ordered. EDMS 19:29 Cardiac Injury Profile Ordered. EDMS 19:29 Troponin Ordered. EDMS 19:29 Venous Blood Gas (large pea green tube on ice) Ordered. EDMS 19:29 Chest, 1 View Ordered. EDMS 19:30 ECG WITH READING ER PHYS+CARDIAG ordered. EDMS 19:31 Albuterol-Ipratropium 3 ml Inhalation once ordered. mm11 19:31 -Blood Culture (Adults Only), peripheral from different site, or from device/port/PICC ml3 etc. if present complete. 19:34 BLOOD CULTURES Ordered. EDMS 20:17 Financial registration complete. zo 20:52 Basic Metabolic Profile Reviewed. mm11 20:52 CBC with Diff Reviewed. mm11 20:52 Venous Blood Gas (large pea green tube on ice) Reviewed. mm11 20:52 B-Type Natiuretic Peptide Reviewed. mm11 20:52 Cardiac Injury Profile Reviewed. mm11 20:52 Troponin Reviewed. mm11 20:52 Chest, 1 View Reviewed. mm11 20:53 CT Chest Angio R/O PE Ordered. EDMS 21:42 EKG-ADULT Reviewed. mm11 08/10 00:08 Consult: Senior Market Research Analyst ordered. mm11 00:23 Consult: Senior Market Research Analyst complete. jfb 11:08 T-Sheet-- Draft Copy was scanned into [employer] and attached to record. gb 11:08 ECG/EKG was scanned into [employer] and attached to record. gb 11:09 Radiology Report was scanned into [employer] and attached to record. gb Administered Medications: 08/09 19:34 Drug: Albuterol-Ipratropium 3 ml [ipratropium-albuterol 0.5 mg-3 mg(2.5 mg base)/3 mL jc3 nebulization soln (3 mL)] Route: Inhalation; Signatures: Dispatcher [employer] EDMS LyleKiya lackey, Reg Reg gb Les, Carlos Alberto, Electronics Recycler Unit ml3 Ambrosio Friend Matthew, DO mm11 Yoselyn Godinez, RN RN Monserrat Morse, PSA PSA jfb Josefina Branch,RN RN ko2 Maureen Ch,RN RN Tolu Elias3 The chart was reviewed and I authenticate all verbal orders and agree with the evaluation and treatment provided.Attachments: 18:31 [facility] Payment Agreement zo 08/10 11:08 T-Sheet-- Draft Copy gb 11:08 ECG/EKG gb Chart Complete MTDD
--- NOTE | 2016-08-12 01:30 | EDDOCDS ---
Physician Documentation [facility] Name: Conchis Morel Age: 31 yrs Sex: Female : 1985 Arrival Date: 08/09/2016 Time: 16:39 Bed 8 Private MD: Reema Parra Disposition: 08/10/16 00:11 Discharged to Home/Self Care. Impression: Generalized anxiety disorder, Shortness of breath. - Condition is Stable. - Discharge Instructions: Panic Attacks, Shortness of Breath, Shortness of Breath, Tqkv-[id number], Generalized Anxiety Disorder, Panic Attacks, Rdqd-[id number]-Pwai. - Medication Reconciliation, Local Pharmacy Hours form. - Follow up: Private Physician; When: 2 - 3 days; Reason: Continuance of care. - Problem is an acute exacerbation. - Symptoms have improved. Historical: - Allergies: Advair Diskus (lung inflammation); Codeine Sulfate (Swelling); Topamax (confused); Vyvanse (confused); - Home Meds: 1. albuterol sulfate 90 mcg/actuation Inhl HFAA 2 puffs every 4 hours 2. albuterol sulfate 2.5 mg /3 mL (0.083 %) Inhl nebu 3 mL as needed 3. Breo Ellipta 200-25 mcg/dose inhalation dsdv 1 puff once daily . 4. aripiprazole 2 mg Oral tab daily new rx 5. prazosin 2 mg Oral cap nightly 6. montelukast 10 mg oral tab 1 tab once daily 7. lorazepam 1 mg Oral tab nightly 8. prednisone 20 mg Oral tab once daily 9. Lasix 40 mg Oral tab 1 tab once daily 10. Flonase 50 mcg/actuation Nasal spsn 1 spray 2 times per day 11. loratadine 10 mg Oral tab 1 tab once daily 12. Nexium 20 mg Oral cpDR 1 cap once daily . 13. NC 3 liters - PMHx: Anxiety; ARDS; GERD; - PSHx: Appendectomy; 2 eye surgeries; D & C; tracheostomy with reversal; - Social history: Smoking status: Patient states former smoker of tobacco. No barriers to communication noted, The patient speaks fluent Hungarian. - Family history: Not pertinent. - : The pt / caregiver states he / she is not on anticoagulants. Home medication list is obtained from pill bottles. - Exposure Risk Screening:: None identified. 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 10 in. (147.32 cm) (R); Pain 0/10; 19:54 BP 115 / 64 (auto/); ko2 19:54 Pulse 90 MON; Pulse Ox 95% ; ko2 20:09 BP 121 / 66 (auto/); ko2 20:09 Pulse 94 MON; Pulse Ox 93% ; ko2 20:24 BP 133 / 74 (auto/); ko2 20:24 Pulse 92 MON; Pulse Ox 98% ; ko2 20:39 BP 132 / 68 (auto/); ko2 20:39 Pulse 92 MON; Pulse Ox 95% ; ko2 20:54 BP 119 / 63 (auto/); ko2 20:54 Pulse 80 MON; Pulse Ox 94% ; ko2 21:08 Pulse 98 MON; Pulse Ox 96% ; ko2 21:09 BP 126 / 62 (auto/); ko2 21:23 Pulse 100 MON; Pulse Ox 97% ; ko2 21:24 BP 126 / 72 (auto/); ko2 21:39 BP 132 / 72 (auto/); ko2 21:39 Pulse 94 MON; Pulse Ox 96% ; ko2 21:54 BP 126 / 63 (auto/); ko2 21:54 Pulse 96 MON; Pulse Ox 96% ; ko2 22:09 BP 126 / 63 (auto/); ko2 22:09 Pulse 96 MON; Pulse Ox 97% ; ko2 22:32 BP 131 / 72 (auto/); ko2 22:33 Pulse 86 MON; Pulse Ox 97% ; ko2 22:39 BP 122 / 73 (auto/); ko2 22:39 Pulse 90 MON; Pulse Ox 98% ; ko2 22:54 BP 118 / 68 (auto/); ko2 22:54 Pulse 94 MON; Pulse Ox 95% ; ko2 23:09 BP 113 / 63 (auto/); ko2 23:09 Pulse 92 MON; Pulse Ox 94% ; ko2 23:23 Pulse 102 MON; Pulse Ox 95% ; ko2 23:24 BP 116 / 55 (auto/); ko2 23:39 BP 120 / 55 (auto/); ko2 23:39 Pulse 96 MON; Pulse Ox 95% ; ko2 23:54 BP 121 / 75 (auto/); ko2 23:54 Pulse 108 MON; Pulse Ox 94% ; ko2 08/10 00:27 BP 126 / 74; Pulse 97; Resp 20; Temp 98.8; Pulse Ox 94% on R/A; Pain 0/10; js15 08/09 16:41 Body Mass Index 53.30 (115.67 kg, 147.32 cm) gr2 MDM: 08/09 18:31 [facility] Payment Agreement was scanned into [employer] and attached to record. zo 19:29 -Blood Culture (Adults Only), peripheral from different site, or from device/port/PICC mm11 etc. if present ordered. 19:29 Ship Propeller Finisher/Pulse Ox/q 15 min VS ordered. mm11 19:29 IV Saline Lock ordered. mm11 19:29 Oxygen at 4L/Min NC or Home dosage ordered. mm11 19:29 Rhythm Strip to chart ordered. mm11 19:29 -Blood Culture Ordered. EDMS 19:29 B-Type Natiuretic Peptide Ordered. EDMS 19:29 Basic Metabolic Profile Ordered. EDMS 19:29 CBC with Diff Ordered. EDMS 19:29 Cardiac Injury Profile Ordered. EDMS 19:29 Troponin Ordered. EDMS 19:29 Venous Blood Gas (large pea green tube on ice) Ordered. EDMS 19:29 Chest, 1 View Ordered. EDMS 19:30 ECG WITH READING ER PHYS+CARDIAG ordered. EDMS 19:31 Albuterol-Ipratropium 3 ml Inhalation once ordered. mm11 19:31 -Blood Culture (Adults Only), peripheral from different site, or from device/port/PICC ml3 etc. if present complete. 19:34 BLOOD CULTURES Ordered. EDMS 20:17 Financial registration complete. zo 20:52 Basic Metabolic Profile Reviewed. mm11 20:52 CBC with Diff Reviewed. mm11 20:52 Venous Blood Gas (large pea green tube on ice) Reviewed. mm11 20:52 B-Type Natiuretic Peptide Reviewed. mm11 20:52 Cardiac Injury Profile Reviewed. mm11 20:52 Troponin Reviewed. mm11 20:52 Chest, 1 View Reviewed. mm11 20:53 CT Chest Angio R/O PE Ordered. EDMS 21:42 EKG-ADULT Reviewed. mm11 08/10 00:08 Consult: New Account Interviewer ordered. mm11 00:23 Consult: New Account Interviewer complete. jfb 11:08 T-Sheet-- Draft Copy was scanned into [employer] and attached to record. gb 11:08 ECG/EKG was scanned into [employer] and attached to record. gb 11:09 Radiology Report was scanned into [employer] and attached to record. gb Administered Medications: 08/09 19:34 Drug: Albuterol-Ipratropium 3 ml [ipratropium-albuterol 0.5 mg-3 mg(2.5 mg base)/3 mL jc3 nebulization soln (3 mL)] Route: Inhalation; Signatures: Dispatcher [employer] EDMS LyleKiya lackey, Reg Reg gb Les, Carlos Alberto, National Sales Associate Unit ml3 Ambrosio Friend Matthew, DO mm11 Yoselyn Godinez, RN RN Monserrat Morse, PSA PSA jfb Josefina Branch,RN RN ko2 Maureen Ch,RN RN Tolu Elias3 The chart was reviewed and I authenticate all verbal orders and agree with the evaluation and treatment provided.Attachments: 18:31 [facility] Payment Agreement zo 08/10 11:08 T-Sheet-- Draft Copy gb 11:08 ECG/EKG gb Chart Complete MTDD
== END 2016-08-10 00:29 | disposition home or self-care (01) ==
LOC: M ED 16:39
DX: F41.1 Generalized anxiety disorder (principal); J80 Acute respiratory distress syndrome; K21.9 Gastro-esophageal reflux disease without esophagitis; Z87.891 Personal history of nicotine dependence; Z92.240 Personal history of inhaled steroid therapy; Z79.52 Long term (current) use of systemic steroids; Z99.81 Dependence on supplemental oxygen; Z79.899 Other long term (current) drug therapy; Z88.5 Allergy status to narcotic agent; Z88.8 Allergy status to other drugs, medicaments and biological substances
CPT/HCPCS: 36415; 71010; 71275; 80048; 82550; 82553; 82803; 83880; 85025; 87040; 93005; 93041; 94640; 99285; Q9967

== ENCOUNTER 2016-08-10 19:30 | Emergency (ER) | payer OTHER ==
--- NOTE | 2016-08-10 22:42 | EDDOCDS ---
Physician Documentation [facility] Name: Conchis Morel Age: 31 yrs Sex: Female : 1985 Arrival Date: 08/10/2016 Time: 19:30 Bed [facility] Private MD: Reema Parra Disposition: 08/10 22:17 Critical Care: Critical care not applicable. le Disposition: 08/10/16 22:15 Discharged to Home/Self Care. Impression: Anxiety disorder, unspecified. - Condition is Stable. - Discharge Instructions: Generalized Anxiety Disorder. - Medication Reconciliation, Local Pharmacy Hours form. - Follow up: Reema Parra; When: Keep your scheduled appointment; Reason: Recheck today's complaints, Continuance of care. - Problem is new. - Symptoms have improved. - Notes: Return to the ED for any further concerns Historical: - Allergies: Advair Diskus (lung inflammation); Codeine Sulfate (Swelling); Topamax (confused); Vyvanse (confused); - Home Meds: 1. Lasix 40 mg Oral tab 1 tab once daily (Last dose: 08/10/2016 08:00) 2. albuterol sulfate 90 mcg/actuation Inhl HFAA 2 puffs every 4 hours (Last dose: Unknown) 3. albuterol sulfate 2.5 mg /3 mL (0.083 %) Inhl nebu 3 mL as needed (Last dose: Unknown) 4. aripiprazole 2 mg Oral tab daily new rx (Last dose: 08/10/2016 09:00) 5. Breo Ellipta 200-25 mcg/dose inhalation dsdv 1 puff once daily . (Last dose: 08/10/2016 08:00) 6. Flonase 50 mcg/actuation Nasal spsn 1 spray 2 times per day (Last dose: 08/10/2016 08:00) 7. loratadine 10 mg Oral tab 1 tab once daily (Last dose: 08/10/2016 08:00) 8. lorazepam 1 mg Oral tab nightly (Last dose: 08/10/2016 08:00) 9. montelukast 10 mg oral tab 1 tab once daily (Last dose: 08/10/2016 08:00) 10. NC 3 liters 11. Nexium 20 mg Oral cpDR 1 cap once daily . (Last dose: 08/10/2016 08:00) 12. prazosin 2 mg Oral cap nightly (Last dose: 08/10/2016 08:00) 13. prednisone 20 mg Oral tab once daily (Last dose: 08/10/2016 08:00) - PMHx: Anxiety; ARDS; GERD; - PSHx: Appendectomy; D & C; tracheostomy with reversal; 2 eye surgeries; - Social history: Smoking status: Patient states former smoker of tobacco. No barriers to communication noted, The patient speaks fluent Brazilian, Speaks appropriately for age. - Family history: Not pertinent. - : The pt / caregiver states he / she is not on anticoagulants. Home medication list is obtained from family members. - Exposure Risk Screening:: None identified. Vital Signs: 19:33 BP 131 / 66; Pulse 102; Resp 18 S; Temp 99.4(O); Pulse Ox 90% on R/A; Weight 115.67 kg gr2 / 255.01 lbs (R); Height 4 ft. 10 in. (147.32 cm) (R); Pain 2/10; 22:38 BP 138 / 90; Pulse 92; Resp 18; Temp 99.2(TE); Pulse Ox 94% on R/A; Pain 0/10; rw1 19:33 Body Mass Index 53.29 (115.67 kg, 147.32 cm) gr2 MDM: 22:13 Vital Signs ordered. casa 22:24 Financial registration complete. brielle 22:26 [facility] Payment Agreement was scanned into [employer] and attached to record. brielle Signatures: Ce Crawley RN RN jan Workman, Robert, LPN LPN rw1 Alisia Cheatham, Anjana Schmid RN RN dsf Beck, Gabriela gjb The chart was reviewed and I authenticate all verbal orders and agree with the evaluation and treatment provided.Attachments: 22:26 [facility] Payment Agreement brielle [facility]
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
--- NOTE | 2016-08-12 23:42 | EDDOCDS ---
Physician Documentation [facility] Name: Conchis Morel Age: 31 yrs Sex: Female : 1985 Arrival Date: 08/10/2016 Time: 19:30 Bed [facility] [place] Private MD: Reema Parra Disposition: 08/10 22:17 Critical Care: Critical care not applicable. le Disposition: 08/10/16 22:15 Discharged to Home/Self Care. Impression: Anxiety disorder, unspecified. - Condition is Stable. - Discharge Instructions: Generalized Anxiety Disorder. - Medication Reconciliation, Local Pharmacy Hours form. - Follow up: Reema Parra; When: Keep your scheduled appointment; Reason: Recheck today's complaints, Continuance of care. - Problem is new. - Symptoms have improved. - Notes: Return to the ED for any further concerns Historical: - Allergies: Advair Diskus (lung inflammation); Codeine Sulfate (Swelling); Topamax (confused); Vyvanse (confused); - Home Meds: 1. Lasix 40 mg Oral tab 1 tab once daily (Last dose: 08/10/2016 08:00) 2. albuterol sulfate 90 mcg/actuation Inhl HFAA 2 puffs every 4 hours (Last dose: Unknown) 3. albuterol sulfate 2.5 mg /3 mL (0.083 %) Inhl nebu 3 mL as needed (Last dose: Unknown) 4. aripiprazole 2 mg Oral tab daily new rx (Last dose: 08/10/2016 09:00) 5. Breo Ellipta 200-25 mcg/dose inhalation dsdv 1 puff once daily . (Last dose: 08/10/2016 08:00) 6. Flonase 50 mcg/actuation Nasal spsn 1 spray 2 times per day (Last dose: 08/10/2016 08:00) 7. loratadine 10 mg Oral tab 1 tab once daily (Last dose: 08/10/2016 08:00) 8. lorazepam 1 mg Oral tab nightly (Last dose: 08/10/2016 08:00) 9. montelukast 10 mg oral tab 1 tab once daily (Last dose: 08/10/2016 08:00) 10. NC 3 liters 11. Nexium 20 mg Oral cpDR 1 cap once daily . (Last dose: 08/10/2016 08:00) 12. prazosin 2 mg Oral cap nightly (Last dose: 08/10/2016 08:00) 13. prednisone 20 mg Oral tab once daily (Last dose: 08/10/2016 08:00) - PMHx: Anxiety; ARDS; GERD; - PSHx: Appendectomy; D & C; tracheostomy with reversal; 2 eye surgeries; - Social history: Smoking status: Patient states former smoker of tobacco. No barriers to communication noted, The patient speaks fluent Panamanian, Speaks appropriately for age. - Family history: Not pertinent. - : The pt / caregiver states he / she is not on anticoagulants. Home medication list is obtained from family members. - Exposure Risk Screening:: None identified. Vital Signs: 19:33 BP 131 / 66; Pulse 102; Resp 18 S; Temp 99.4(O); Pulse Ox 90% on R/A; Weight 115.67 kg gr2 / 255.01 lbs (R); Height 4 ft. 10 in. (147.32 cm) (R); Pain 2/10; 22:38 BP 138 / 90; Pulse 92; Resp 18; Temp 99.2(TE); Pulse Ox 94% on R/A; Pain 0/10; rw1 19:33 Body Mass Index 53.29 (115.67 kg, 147.32 cm) gr2 MDM: 22:13 Vital Signs ordered. le 22:24 Financial registration complete. [facility] 22:26 [facility] Payment Agreement was scanned into [employer] and attached to record. [facility] 08/11 09:46 T-Sheet-- Draft Copy was scanned into [employer] and attached to record. jp5 Signatures: Ce Crawley, RN Vlad Valdez LPN CHARGE OPERATOR rw1 Alisia Cheatham, SENIOR FACILITIES MANAGER SENIOR FACILITIES MANAGER Anjana Baez,RN Rupali Clark jp5 Tamiko Arias The chart was reviewed and I authenticate all verbal orders and agree with the evaluation and treatment provided.Attachments: 08/10 22:26 [facility] Payment Agreement [facility] 08/11 09:46 T-Sheet-- Draft Copy jp5 Chart Complete MTDD
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
--- NOTE | 2016-08-12 23:42 | EDDOCDS ---
Physician Documentation [facility] Name: Conchis Morel Age: 31 yrs Sex: Female : 1985 Arrival Date: 08/10/2016 Time: 19:30 Bed [facility] Private MD: Reema Parra Disposition: 08/10 22:17 Critical Care: Critical care not applicable. le Disposition: 08/10/16 22:15 Discharged to Home/Self Care. Impression: Anxiety disorder, unspecified. - Condition is Stable. - Discharge Instructions: Generalized Anxiety Disorder. - Medication Reconciliation, Local Pharmacy Hours form. - Follow up: Reema Parra; When: Keep your scheduled appointment; Reason: Recheck today's complaints, Continuance of care. - Problem is new. - Symptoms have improved. - Notes: Return to the ED for any further concerns Historical: - Allergies: Advair Diskus (lung inflammation); Codeine Sulfate (Swelling); Topamax (confused); Vyvanse (confused); - Home Meds: 1. Lasix 40 mg Oral tab 1 tab once daily (Last dose: 08/10/2016 08:00) 2. albuterol sulfate 90 mcg/actuation Inhl HFAA 2 puffs every 4 hours (Last dose: Unknown) 3. albuterol sulfate 2.5 mg /3 mL (0.083 %) Inhl nebu 3 mL as needed (Last dose: Unknown) 4. aripiprazole 2 mg Oral tab daily new rx (Last dose: 08/10/2016 09:00) 5. Breo Ellipta 200-25 mcg/dose inhalation dsdv 1 puff once daily . (Last dose: 08/10/2016 08:00) 6. Flonase 50 mcg/actuation Nasal spsn 1 spray 2 times per day (Last dose: 08/10/2016 08:00) 7. loratadine 10 mg Oral tab 1 tab once daily (Last dose: 08/10/2016 08:00) 8. lorazepam 1 mg Oral tab nightly (Last dose: 08/10/2016 08:00) 9. montelukast 10 mg oral tab 1 tab once daily (Last dose: 08/10/2016 08:00) 10. NC 3 liters 11. Nexium 20 mg Oral cpDR 1 cap once daily . (Last dose: 08/10/2016 08:00) 12. prazosin 2 mg Oral cap nightly (Last dose: 08/10/2016 08:00) 13. prednisone 20 mg Oral tab once daily (Last dose: 08/10/2016 08:00) - PMHx: Anxiety; ARDS; GERD; - PSHx: Appendectomy; D & C; tracheostomy with reversal; 2 eye surgeries; - Social history: Smoking status: Patient states former smoker of tobacco. No barriers to communication noted, The patient speaks fluent Bhutanese, Speaks appropriately for age. - Family history: Not pertinent. - : The pt / caregiver states he / she is not on anticoagulants. Home medication list is obtained from family members. - Exposure Risk Screening:: None identified. Vital Signs: 19:33 BP 131 / 66; Pulse 102; Resp 18 S; Temp 99.4(O); Pulse Ox 90% on R/A; Weight 115.67 kg gr2 / 255.01 lbs (R); Height 4 ft. 10 in. (147.32 cm) (R); Pain 2/10; 22:38 BP 138 / 90; Pulse 92; Resp 18; Temp 99.2(TE); Pulse Ox 94% on R/A; Pain 0/10; rw1 19:33 Body Mass Index 53.29 (115.67 kg, 147.32 cm) gr2 MDM: 22:13 Vital Signs ordered. le 22:24 Financial registration complete. [facility] 22:26 [facility] Payment Agreement was scanned into [employer] and attached to record. [facility] 08/11 09:46 T-Sheet-- Draft Copy was scanned into [employer] and attached to record. jp5 Signatures: Ce Crawley, RN Vlad Valdez LPN [employer]EE ARCHITECT rw1 Alisia Cheatham, NEEDLE PROCESS FELT GOODS SUPERVISOR NEEDLE PROCESS FELT GOODS SUPERVISOR Anjana Baez,RN Rupali Clark jp5 Tamiko Arias The chart was reviewed and I authenticate all verbal orders and agree with the evaluation and treatment provided.Attachments: 08/10 22:26 [facility] Payment Agreement [facility] 08/11 09:46 T-Sheet-- Draft Copy jp5 Chart Complete MTDD
== END 2016-08-10 22:41 | disposition home or self-care (01) ==
LOC: M ED 19:30
DX: F41.1 Generalized anxiety disorder (principal); R41.0 Disorientation, unspecified; K21.9 Gastro-esophageal reflux disease without esophagitis; Z87.09 Personal history of other diseases of the respiratory system; Z79.899 Other long term (current) drug therapy; Z79.52 Long term (current) use of systemic steroids; Z79.51 Long term (current) use of inhaled steroids; Z99.81 Dependence on supplemental oxygen; Z88.2 Allergy status to sulfonamides; Z88.5 Allergy status to narcotic agent; Z88.8 Allergy status to other drugs, medicaments and biological substances; F17.210 Nicotine dependence, cigarettes, uncomplicated

== ENCOUNTER 2016-08-11 02:57 | Emergency (ER) | payer OTHER ==
[2016-08-11 03:31] LABS: MEAN CORPUSCULAR HGB CONC 30.3 g/dl (32.0-36.5); MEAN CORPUSCULAR VOLUME 72.5 fl (80.0-96.0); RED CELL DISTRIBUTION WIDTH 16.2 % (11.5-14.5); WHITE BLOOD COUNT 21.4 K/mm3 (4.0-10.0)
[2016-08-11 04:09] LABS: ALBUMIN/GLOBULIN RATIO 1.21 (1.00-1.93); ALKALINE PHOSPHATASE 70 U/L (45-117); ALT/SGPT 23 U/L (12-78); ANION GAP 12 MEQ/L (8-16); AST/SGOT 7 U/L (15-37); BILIRUBIN,DIRECT 0.3 MG/DL (0.0-0.2); BILIRUBIN,TOTAL 1.5 MG/DL (0.2-1.0); BLOOD UREA NITROGEN 28 MG/DL (7-18); CALCIUM LEVEL 9.1 MG/DL (8.5-10.1); CARBON DIOXIDE LEVEL 28 MEQ/L (21-32); CHLORIDE LEVEL 102 MEQ/L (98-107); CREATININE FOR GFR 1.21 MG/DL (0.55-1.02); GLOMERULAR FILTRATION RATE 55.3 (>60); GLUCOSE, FASTING 96 MG/DL (70-105); POTASSIUM SERUM 3.8 MEQ/L (3.5-5.1); SODIUM LEVEL 142 MEQ/L (136-145); TOTAL PROTEIN 7.3 GM/DL (6.4-8.2)
[2016-08-11 04:23] LABS: CONTROL LINE INT CTR LINE PRESENT; METHADONE URINE NEGATIVE (NEGATIVE); TRICYCLIC ANTIDEPRESS URINE NEGATIVE (NEGATIVE)
[2016-08-11] MEDS ORDERED: ALBUTEROL 90 MCG/ACT 8GM HFA INHALER As Ordered ONE (07:50)
[2016-08-11] MEDS ORDERED: predniSONE 20 MG TAB As Ordered ONE (07:50)
[2016-08-11] MEDS ORDERED: LORATADINE 10 MG TAB As Ordered ONE (07:50)
[2016-08-11] MEDS ORDERED: FUROSEMIDE 20 MG TAB As Ordered ONE (07:51)
[2016-08-11] MEDS ORDERED: OMEPRAZOLE 20 MG CAP As Ordered ONE (08:09)
[2016-08-11] MEDS ORDERED: FLUTICASONE PROP 0.05% NASAL SPRAY 16 GM (FLONASE) ONE (08:15)
[2016-08-11] MEDS ORDERED: MONTELUKAST 10 MG TAB PO ONE (08:15)
[2016-08-11] MEDS ORDERED: ARIPiprazole 2 MG TAB PO ONE (08:15)
--- NOTE | 2016-08-11 13:07 | EDDOCDS ---
Nurse's Notes [facility] [place] Name: Conchis Morel Age: 31 yrs Sex: Female : 1985 Arrival Date: 08/11/2016 Time: 02:57 Bed OBSERVATION Private MD: Diagnosis: Adjustment disorder with depressed mood Presentation: 08/11 03:07 Presenting complaint: Patient states: she doesn't feel safe at home after having been cz here and requesting discharge earlier in shift. pt states she has a fever of 99.4 and her doesn't want to change her medications until Friday. Mental Health Triage Level: Level 1- Pt displays no suicidal or homicidal ideations and does not appear to be a danger to self or others. Adult Sepsis Screening: The patient does not have new or worsening altered mentation. Patient's respiratory rate is less than 22. Systolic blood pressure is greater than 100. Patient has a qSOFA score of 0- Negative Sepsis Screen. Mental Health Triage Level: Level 1- Pt displays no suicidal or homicidal ideations and does not appear to be a danger to self or others. Suicide/Homicide risk assessment- the patient denies having any suicidal and/or homicidal ideations and does not present with any other emotional, behavioral or mental health complaints. Status: Patient is not a creative services intern or dependent. Transition of care: patient was not received from another setting of care. 03:07 Acuity: BOOGIE Level 3 cz 03:07 Method Of Arrival: Walkin/Carried/Asstd cz Triage Assessment: 03:12 General: Appears in no apparent distress. HIV screening NA for this visit Offered cz previously. 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 albuterol sulfate 90 mcg/actuation Inhl HFAA 2 puffs every 4 hours 2. albuterol sulfate 2.5 mg /3 mL (0.083 %) Inhl nebu 3 mL as needed 3. aripiprazole 2 mg Oral tab daily new rx 4. Breo Ellipta 200-25 mcg/dose inhalation dsdv 1 puff once daily . 5. Flonase 50 mcg/actuation Nasal spsn 1 spray 2 times per day 6. Lasix 40 mg Oral tab 1 tab once daily 7. loratadine 10 mg Oral tab 1 tab once daily 8. lorazepam 1 mg Oral tab nightly 9. montelukast 10 mg oral tab 1 tab once daily 10. NC 3 liters 11. Nexium 20 mg Oral cpDR 1 cap once daily . 12. prazosin 2 mg Oral cap nightly 13. prednisone 20 mg Oral tab once daily - PMHx: Anxiety; ARDS; GERD; - PSHx: Appendectomy; D & C; eye surgery X 2; tracheostomy with reversal; - Social history: Smoking status: Patient states former smoker of tobacco. No barriers to communication noted, The patient speaks fluent Maltese, Speaks appropriately for age. - Family history: Not pertinent. - : The pt / caregiver states he / she is not on anticoagulants. Home medication list is obtained from [employer] import data. - Exposure Risk Screening:: None identified. Screenin:16 Screening information is obtained from the patient. Fall risk: No risks identified. senia Assistance ADL's: requires no assistance with activities of daily living. Abuse/DV Screen: The patient / caregiver reports he/she is: in a living situation that causes fear, pain or injury. Intervention for positive screen: PSA notified. Nutritional screening: No deficits noted. Advance Directives: Currently, there is no health care proxy. There is no active DNR order. There is no living will. There is no Power of Information Technology Data Analyst. Advance directive information has not previously been placed in an [facility] medical record. Further advance directive information is declined. home support is adequate. Assessment: 03:16 General: Appears in no apparent distress, comfortable, Behavior is cooperative, crying. senia Pain: Denies pain. Neurological: Level of Consciousness is awake, alert, obeys commands, Oriented to person, place, time, Gait is steady, Speech is normal. EENT: No deficits noted. Cardiovascular: Capillary refill < 3 seconds Heart tones S1 S2 present. Respiratory: No deficits noted. Airway is patent Respiratory effort is even, unlabored, Respiratory pattern is regular, symmetrical, Breath sounds are clear bilaterally. GI: Abdomen is obese, Bowel sounds present X 4 quads. Derm: Skin is pink, warm & dry. 04:30 General: Appears in no apparent distress, comfortable, Behavior is appropriate for age, ko2 cooperative. Pain: Denies pain. Neurological: Level of Consciousness is awake, alert, obeys commands, Oriented to person, place, time. Respiratory: Airway is patent Respiratory effort is even, unlabored, Respiratory pattern is regular, symmetrical. Derm: Skin is normal. 05:50 General: Appears in no apparent distress, comfortable, Behavior is appropriate for age, rw1 cooperative. Pain: Denies pain. Neurological: Level of Consciousness is awake, alert, obeys commands, Oriented to person, place, time. Respiratory: Airway is patent Respiratory effort is even, unlabored. Derm: Skin is pink, warm & dry. normal. 06:42 Reassessment: Patient appears in no apparent distress at this time. resting quietly on rw1 stretcher, safety maintained will monitor.. 07:45 General: Appears in no apparent distress, comfortable, Behavior is appropriate for age, pml cooperative. Neurological: Level of Consciousness is awake, alert, Oriented to person, place, time. Respiratory: Airway is patent Respiratory effort is even, unlabored. Derm: Skin is pink, warm & dry. 09:26 General: Appears to be sleeping. Respiratory: Airway is patent Respiratory effort is dsf even, unlabored, Respiratory pattern is regular, symmetrical. Derm: Skin is pink, warm & dry. 10:26 General: Appears in no apparent distress, comfortable, Behavior is cooperative, crying. dsf Neurological: Level of Consciousness is awake, alert. Cardiovascular: Capillary refill < 3 seconds. Respiratory: Airway is patent Respiratory effort is even, unlabored, Respiratory pattern is regular, symmetrical. Derm: Skin is pink, warm & dry. 11:21 General: pt pacing in room. appears in no distress. respirations easy and unlabored. dsf skin pink warm and dry . 11:56 General: Appears in no apparent distress, visiting with . Behavior is dsf appropriate for age, cooperative. Neurological: Level of Consciousness is awake, alert. Cardiovascular: Capillary refill < 3 seconds. Respiratory: Airway is patent Respiratory effort is even, unlabored, Respiratory pattern is regular, symmetrical. Derm: Skin is pink, warm & dry. 13:01 Adult Sepsis Screening: The patient does not have new or worsening altered mentation. dsf Patient's respiratory rate is less than 22. Systolic blood pressure is greater than 100. Patient has a qSOFA score of 0- Negative Sepsis Screen. General: Appears in no apparent distress, comfortable, Behavior is appropriate for age, cooperative. Pain: Denies pain. Neurological: Level of Consciousness is awake, alert, Oriented to person, place, time. Cardiovascular: Capillary refill < 3 seconds Heart tones S1 S2 present. Respiratory: Airway is patent Respiratory effort is even, unlabored, Respiratory pattern is regular, symmetrical, Breath sounds are clear bilaterally. GI: Abdomen is obese, Bowel sounds present X 4 quads. Abd is soft and non tender X 4 quads. Derm: Skin is pink, warm & dry. Mental Health Eval: 04:39 Status: The patient is a dependent. [facility] Behavioral Health: The jfb patient is not an established patient of [facility] Behavioral [facility]. Referral Information: Evaluation referral is generated by the patient himself / herself. The patient was referred for evaluation because PT is experiencing anxiety and paranoia. Subjective: The patients chief complaint is PT has been seen in the ED 5x for similar complaints since 07/14/2016 and was seen earlier and then discharged home with her . She had an episode of feeling as if she was 7 years old again but it quickly resolved. PT states that when she left earlier she was ok until she got home and she was then fearful to sleep in her bedroom so her suggest they sleep on the couch. At one point "He was so mean to me" PT woke her to tell him she needed to return to the ED because she had a fever therefore something was terribly wrong. She also accused him of working with her provider as he is encouraging her to take her medications until she sees her doctor Friday "One of the side effects of Abilify is and my and doctor want me to take it" encouraged her to go back to sleep and they would take care of things Friday. PT waited for to fall asleep and she packed a bag and came to the ED without his knowledge. He arrived awhile later distraught looking for her and then cried when he realized she was ok. PT has returned home and will wait for PT to call when she is ready. Both PT and feel her emotional upset was triggered when she was prescribed two weight loss medications in May. She began to have a spike in anxiety and 07/14 she was delusional and hallucinating requiring admission to [facility]. The medications were discontinued but PT has not fully recovered emotionally. Last Jeancarlos her provider prescribe her Abilify and that same night PT came to ED for anxiety and SOB stating she had not yet filled the script. PT currently states she is not SI or HI but that she is afraid to sleep and no longer feels safe at home. . Delusions are paranoid, Patient's mood is anxious, depressed, hallucinations are PT will see colors that elicit different emotional responses . Mental Health history: anxiety, depression, psychosis, sleep disturbance, Mental Health Admissions: 07/14/2016 [facility]. In [place] 1x as a teenager for depression and cutting Current Outpatient Mental Health Services: PT's PCP Reema Parra is currently prescribing medications and has referred PT to a mental health clinic but forewarned there is a waiting list. . Current living environment is The patient currently lives with his / her significant other, and their pets. The patient is . Patient presents to Emergency Department with the following symptoms within the past 2 weeks: agitation, anxiety, depressed mood, labile mood, poor concentration, poor impulse control, sleep disturbance - insomnia. Substance abuse: Pt denies. Mental status exam: Patients appearance is obese, Patient's behavior is cooperative, Speech is normal. Affect is appropriate. Mood is anxious. depressed. Hallucinations are colors. Appetite is normal. Memory is good. Energy level is normal. Content of thought is delusional. feels and doctor want her to take medications that will kill her. Afraid to sleep in her room. Thought process is intact. Cognitive level is oriented to person, place, time and situation Patient's insight is poor. Judgement is poor. Rapport with interviewer is good. Suicidal Ideation is denied. Homicidal ideation is denied. [facility] Admission Criteria: The patient displays symptoms of severe psychiatric disorder resulting in disordered behavior and significant interference with his / her ability to maintain self care. Delusions. Severe Anxiety. The patient requires continuous observation and/or control to protect self, others or property. The patient's care requires a multi-modal treatment plan under close supervision and coordination due to the complexity and severity of the patient's symptoms. The patient requires administration and monitoring of psychoactive medications by skilled medical providers due to the side effects of the psychoactive medications or significant dosage adjustments. Legal Status: Patient's legal status will be [facility] Services admission: . 07:37 Disposition: Medically cleared for disposition by Matt Lindsey DO Psychiatric jfb Consult is performed by phone with Dr Isac Garcia MD. DSM-V Differential Diagnosis: Generalized Anxiety Disorder (F41.1) Delusional Disorder (F22.0). Vital Signs: 03:20 BP 160 / 95; Pulse 116; Resp 20; Temp 97.5(O); Pulse Ox 94% on R/A; Weight 113.4 kg rw1 (R); Height 4 ft. 10 in. (147.32 cm) (R); Pain 0/10; 05:50 BP 122 / 69; Pulse 105; Resp 18; Temp 96.8(TE); Pulse Ox 94% on R/A; Pain 0/10; rw1 07:45 BP 147 / 70; Pulse 120; Resp 18; Temp 97.1(O); Pulse Ox 95% on R/A; dpm 13:01 BP 148 / 81; Pulse 107; Resp 18; Temp 97.6(T); Pulse Ox 90% on R/A; Pain 0/10; dsf 03:20 Body Mass Index 52.25 (113.40 kg, 147.32 cm) rw1 Vitals: 03:12 Log In Time: August 11, 2016 at 03:13. cz ED Course: 02:59 Patient visited by Tamiko Arias. gjb 02:59 Patient moved to Waiting gjb 03:01 Patient moved to [facility] cz 03:02 Matt Lindsey DO is Attending Physician. mm11 03:02 Patient visited by Matt Lindsey DO. mm11 03:04 Patient visited by Primo Figueroa. tr 03:09 Triage Initiated cz 03:15 Patient visited by Primo Figueroa. tr 03:16 The patient / caregiver is instructed regarding the plan of care and ED course. Patient senia has correct armband on for positive identification. Placed in psych safe attire. Bed in low position. Call light in reach. Security observing. 03:35 Patient visited by Primo Figueroa. tr 03:45 Patient visited by Tim. [place] tr 03:56 Vlad Castillo LPN is Primary Nurse. rw1 04:04 Patient visited by Primo Figueroa. tr 04:17 Patient visited by Primo Figueroa. tr 04:47 Patient visited by Primo Figueroa. tr 05:01 Patient visited by Primo Figueroa. tr 05:14 Patient visited by Primo Figueroa. tr 05:45 Patient visited by Primo Figueroa. tr 05:57 Patient visited by Primo Figueroa. tr 06:17 Patient visited by Primo Figueroa. tr 06:32 Patient visited by Primo Figueroa. tr 06:42 Patient visited by Matt Lindsey DO. mm11 06:44 Patient visited by Primo Figueroa. tr 06:53 Patient moved to OBSERVATION mm11 06:57 Primary Nurse role handed off by Vlad Castillo LPN jlf 07:11 Patient visited by Zia Payne. dpm 07:34 Patient visited by Zia Payne. dpm 07:51 Patient visited by Zia Payne. dpm 07:57 Patient visited by Zia Payne. dpm 08:16 Patient visited by Zia Payne. dpm 08:38 Patient visited by Zia Payne. dpm 09:04 Patient visited by Zia Payne. dpm 09:19 Patient visited by Zia Payne. dpm 09:26 Patient visited by Anjana Dobson RN. dsf 10:36 Patient visited by Zia Payne. dpm 10:59 Patient visited by Anjana Dobson RN. dsf 11:16 Patient visited by Zia Payne. dpm 11:29 Patient visited by Zia Payne. dpm 11:44 Patient visited by Zia Payne. dpm 11:57 Patient visited by Anjana Dobson RN. dsf 12:00 Patient visited by Zia Payne. dpm 12:18 Patient visited by Zia Payne. dpm 12:38 Patient visited by Zia Payne. dpm 12:46 Patient visited by Zia Payne. dpm 13:01 No IV's were initiated during this patient's visit. No procedures done that require dsf assistance. Administered Medications: 08:08 CANCELLED (Other Intervention Used): Advair Inhaler 250 mcg-50 mcg/Dose 1 inhalations pml Inhalation once 08:36 Drug: Ventolin 2 puffs [Ventolin HFA 90 mcg/actuation aerosol inhaler (2 puffs)] Route: pml Inhalation; 08:36 Drug: Furosemide 40 mg [furosemide 20 mg tablet (2 tabs)] Route: PO; pml 08:36 Drug: Loratadine 10 mg [loratadine 10 mg tablet (1 tabs)] Route: PO; pml 08:36 Drug: omeprazole 40 mg [omeprazole 20 mg capsule,delayed release (2 caps)] Route: PO; pml 08:36 Drug: predniSONE 20 mg [prednisone 20 mg tablet (1 tabs)] Route: PO; pml 08:37 Drug: Abilify 2 mg Route: PO; pml 08:37 Drug: Flonase L[place]y 50 mcg 50 mcg Route: Intranasal; Site: both nares; pml 08:37 Drug: Montelukast 10 mg Route: PO; pml 08:37 Drug: Breo Ellipta Inhaler 200 mcg-25 mcg/dose 1 inhalations Route: Inhalation; [facility] Order Results: Lab Order: Acetaminophen Level; SPEC'M 08/11/16 03:23 Test: ACETAMINOPHEN LEVEL; Value: 4.5; Range: 10.0-30.0; Abnormal: Below low normal; Units: UG/ML; Status: F Lab Order: Basic Metabolic Profile; SPEC'M 08/11/16 03:23 Test: GLUCOSE, FASTING; Value: 96; Range: 70-105; Units: MG/DL; Status: F Test: BLOOD UREA NITROGEN; Value: 28; Range: 7-18; Abnormal: Above high normal; Units: MG/DL; Status: F Test: CREATININE FOR GFR; Value: 1.21; Range: 0.55-1.02; Abnormal: Above high normal; Units: MG/DL; Status: F Test: GLOMERULAR FILTRATION RATE; Value: 55.3; Range: >60; Abnormal: Below low normal; Status: F Test: SODIUM LEVEL; Value: 142; Range: 136-145; Units: MEQ/L; Status: F Test: POTASSIUM SERUM; Value: 3.8; Range: 3.5-5.1; Units: MEQ/L; Status: F Test: CHLORIDE LEVEL; Value: 102; Range: 98-107; Units: MEQ/L; Status: F Test: CARBON DIOXIDE LEVEL; Value: 28; Range: 21-32; Units: MEQ/L; Status: F Test: ANION GAP; Value: 12; Range: 8-16; Units: MEQ/L; Status: F Test: CALCIUM LEVEL; Value: 9.1; Range: 8.5-10.1; Units: MG/DL; Status: F Test Note: ; Units are mL/min/1.73 m2 Chronic Kidney Disease Staging per NKF: Stage I & II GFR >=60 Normal to Mildly Decreased Stage III GFR 30-59 Moderately Decreased Stage IV GFR 15-29 Severely Decreased Stage V GFR <15 Very Little GFR Left ESRD GFR <15 on DAIRY CLERK Lab Order: Complete Blood Count; SPEC'M 08/11/16 03:23 Test: WHITE BLOOD COUNT; Value: 21.4; Range: 4.0-10.0; Abnormal: Above high normal; Units: K/mm3; Status: F Test: RED BLOOD COUNT; Value: 5.23; Range: 4.00-5.40; Units: M/mm3; Status: F Test: HEMOGLOBIN; Value: 11.5; Range: 12.0-16.0; Abnormal: Below low normal; Units: g/dl; Status: F Test: HEMATOCRIT; Value: 37.9; Range: 36.0-47.0; Units: %; Status: F Test: MEAN CORPUSCULAR VOLUME; Value: 72.5; Range: 80.0-96.0; Abnormal: Below low normal; Units: fl; Status: F Test: MEAN CORPUSCULAR HEMOGLOBIN; Value: 22.0; Range: 27.0-33.0; Abnormal: Below low normal; Units: pg; Status: F Test: MEAN CORPUSCULAR HGB CONC; Value: 30.3; Range: 32.0-36.5; Abnormal: Below low normal; Units: g/dl; Status: F Test: RED CELL DISTRIBUTION WIDTH; Value: 16.2; Range: 11.5-14.5; Abnormal: Above high normal; Units: %; Status: F Test: PLATELET COUNT, AUTOMATED; Value: 432; Range: 150-450; Units: k/mm3; Status: F Lab Order: Drug Eval Toxicology ED Only; SPEC'M 08/11/16 03:23 Test: AMPHETAMINES LEVEL URINE; Value: NEGATIVE; Range: NEGATIVE; Status: F Test: BARBITURATES URINE; Value: NEGATIVE; Range: NEGATIVE; Status: F Test: BENZODIAZEPINES URINE; Value: POSITIVE; Range: NEGATIVE; Abnormal: Above high normal; Status: F Test: CANNABINOIDS URINE; Value: NEGATIVE; Range: NEGATIVE; Status: F Test: COCAINE METABOLITE URINE; Value: NEGATIVE; Range: NEGATIVE; Status: F Test: METHADONE URINE; Value: NEGATIVE; Range: NEGATIVE; Status: F Test: OPIATES URINE; Value: NEGATIVE; Range: NEGATIVE; Status: F Test: TRICYCLIC ANTIDEPRESS URINE; Value: NEGATIVE; Range: NEGATIVE; Status: F Test Note: ; ALL PRESUMPTIVE POSITIVE FINDINGS ARE UNCONFIRMED NORMAL VALUES THRESHOLD IN NG/ML AMPHETAMINES 1000 METHAMPHETAMINES 1000 BARBITURATES 300 BENZODIAZEPINES 300 CANNABINOIDS (THC) 50 COCAINE METABOLITE 300 METHADONE 300 OPIATES 300 PHENCYCLIDINE 25 TRICYCLIC ANTIDEPRESSANTS 1000 RESULTS ARE FOR MEDICAL PURPOSES ONLY. ALL URINE SPECIMENS WILL BE SAVED FOR 3 DAYS. IF CONFIRMATION OF A PRESUMPTIVE POSTIVE SCREEN RESULT IS DESIRED, CALL CHEMISTRY ([phone]) AND REQUEST URINE TO BE SENT TO REFERENCE LAB. FOR A LIST OF CLOSELY RELATED COMPOUNDS PLEASE CALL THE LAB. Lab Order: Ethyl Alcohol (ethanol); SPEC'M 08/11/16 03:23 Test: ETHYL ALCOHOL (ETHANOL); Value: < 0.003; Range: 0.000-0.010; Units: %; Status: F Lab Order: Liver Profile; SPEC'M 08/11/16 03:23 Test: AST/SGOT; Value: 7; Range: 15-37; Abnormal: Below low normal; Units: U/L; Status: F Test: ALT/SGPT; Value: 23; Range: 12-78; Units: U/L; Status: F Test: ALKALINE PHOSPHATASE; Value: 70; Range: 45-117; Units: U/L; Status: F Test: BILIRUBIN,TOTAL; Value: 1.5; Range: 0.2-1.0; Abnormal: Above high normal; Units: MG/DL; Status: F Test: BILIRUBIN,DIRECT; Value: 0.3; Range: 0.0-0.2; Abnormal: Above high normal; Units: MG/DL; Status: F Test: TOTAL PROTEIN; Value: 7.3; Range: 6.4-8.2; Units: GM/DL; Status: F Test: ALBUMIN; Value: 4.0; Range: 3.2-5.2; Units: GM/DL; Status: F Test: ALBUMIN/GLOBULIN RATIO; Value: 1.21; Range: 1.00-1.93; Status: F Lab Order: Salicylate Level; SPEC'M 08/11/16 03:23 Test: SALICYLATE LEVEL; Value: < 1.7; Range: 5.0-30.0; Abnormal: Below low normal; Units: MG/DL; Status: F Lab Order: Thyroid Stimulating Hormone; SPEC'M 08/11/16 03:23 Test: THYROID STIMULATING HORMONE; Value: 5.050; Range: 0.358-3.740; Abnormal: Above high normal; Units: uIU/ML; Status: F Outcome: 11:10 ER care complete, transfer ordered by Provider. fg 11:56 Admission hand-off: Report called to Krysta Goss RN. dsf 13:01 No special radiology studies were completed. dsf 13:01 Discharge Assessment: Patient awake, alert and oriented x 3. No cognitive and/or dsf functional deficits noted. Patient verbalized understanding of disposition instructions. patient administered narcotics - no. The following High Risk Discharge criteria are identified: Yes, pt transferred . Transferred to [facility] . by EMS ground [facility] ambulance report to accompanying personnel Amauri Shelton screw down , Transfer form completed. Condition: stable. Property :Personal belongings accompany Pt. 13:06 Patient left the ED. dsf Signatures: Ce Crawley RN RN jan Zecher, Calvin, RN RN cz Rasmussen, Tim tr Workman, Robert, LPN LPN rw1 Matt Lindsey, DO DO mm11 MarreroMonserrat, PSA PSA jfb Anjana Dobson RN RN dsf Radha Johnson RN RN pml Marolf, Dustin dpm Forney, Jordain, SERVER MANAGER SERVER MANAGER Josefina Stephen RN RN ko2 Gill, Frances, MD MD fg Beck, Gabriela gjb Corrections: (The following items were deleted from the chart) 07:39 04:39 DSM-V Differential Diagnosis: Unspecified Anxiety Disorder (F41.9) david hernandez MTDD
--- NOTE | 2016-08-11 13:07 | EDDOCDS ---
Physician Documentation [facility] Name: Conchis Morel Age: 31 yrs Sex: Female : 1985 Arrival Date: 08/11/2016 Time: 02:57 Bed OBSERVATION Private MD: Disposition: 08/11/16 11:10 Transfer ordered to [facility]. Diagnosis is Adjustment disorder with depressed mood. - Reason for transfer: Higher level of care. - Accepting physician is Dr. Kimberly Gill. - Condition is Stable. - Problem is new. - Symptoms have improved. Historical: - Allergies: Advair Diskus (lung inflammation); Codeine Sulfate (Swelling); Topamax (confused); Vyvanse (confused); - Home Meds: 1. albuterol sulfate 90 mcg/actuation Inhl HFAA 2 puffs every 4 hours 2. albuterol sulfate 2.5 mg /3 mL (0.083 %) Inhl nebu 3 mL as needed 3. aripiprazole 2 mg Oral tab daily new rx 4. Breo Ellipta 200-25 mcg/dose inhalation dsdv 1 puff once daily . 5. Flonase 50 mcg/actuation Nasal spsn 1 spray 2 times per day 6. Lasix 40 mg Oral tab 1 tab once daily 7. loratadine 10 mg Oral tab 1 tab once daily 8. lorazepam 1 mg Oral tab nightly 9. montelukast 10 mg oral tab 1 tab once daily 10. NC 3 liters 11. Nexium 20 mg Oral cpDR 1 cap once daily . 12. prazosin 2 mg Oral cap nightly 13. prednisone 20 mg Oral tab once daily - PMHx: Anxiety; ARDS; GERD; - PSHx: Appendectomy; D & C; eye surgery X 2; tracheostomy with reversal; - Social history: Smoking status: Patient states former smoker of tobacco. No barriers to communication noted, The patient speaks fluent Malay, Speaks appropriately for age. - Family history: Not pertinent. - : The pt / caregiver states he / she is not on anticoagulants. Home medication list is obtained from [facility] import data. - Exposure Risk Screening:: None identified. 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 10 in. (147.32 cm) (R); Pain 0/10; 05:50 BP 122 / 69; Pulse 105; Resp 18; Temp 96.8(TE); Pulse Ox 94% on R/A; Pain 0/10; rw1 07:45 BP 147 / 70; Pulse 120; Resp 18; Temp 97.1(O); Pulse Ox 95% on R/A; dpm 13:01 BP 148 / 81; Pulse 107; Resp 18; Temp 97.6(T); Pulse Ox 90% on R/A; Pain 0/10; dsf 03:20 Body Mass Index 52.25 (113.40 kg, 147.32 cm) rw1 MDM: 03:02 Consult PFS/PSA/Night Cleaner ordered. mm11 03:02 Consult PFS/PSA/Night Cleaner: Patient's case requires discussion with on-call mm11 Psychiatrist ordered. 03:02 PSA/PFS to call Nursing Pasta Press Operator, to enter patient data on [place] Safe Act if patient mm11 involuntarily admitted or transferred for SI or HI ordered. 03:02 Confirm accurate psychiatric medication list and times of last dosage ordered. mm11 03:02 Detain Pt Until Medically/PFS Cleared ordered. mm11 03:03 Acetaminophen Level Ordered. EDMS 03:03 Basic Metabolic Profile Ordered. EDMS 03:03 Complete Blood Count Ordered. EDMS 03:03 Drug Eval Toxicology ED Only Ordered. EDMS 03:03 Ethyl Alcohol (ethanol) Ordered. EDMS 03:03 Liver Profile Ordered. EDMS 03:03 Salicylate Level Ordered. EDMS 03:03 Thyroid Stimulating Hormone Ordered. EDMS 04:18 REGULAR DIET PLASTIC NIEVES+DIET ordered. EDMS 05:32 Consult PFS/PSA/Night Cleaner complete. jfb 05:32 Consult PFS/PSA/Night Cleaner: Patient's case requires discussion with on-call jfb Psychiatrist complete. 05:32 PSA/PFS to call Nursing Pasta Press Operator, to enter patient data [place] Safe [place] if patient jfb involuntarily admitted or transferred for SI or HI complete. 06:43 Financial registration complete. pm4 08:01 Acetaminophen Level Reviewed. mm11 08:01 Basic Metabolic Profile Reviewed. mm11 08:01 Complete Blood Count Reviewed. mm11 08:01 Drug Eval Toxicology ED Only Reviewed. mm11 08: Liver Profile Reviewed. mm11 08: Salicylate Level Reviewed. mm11 08: Thyroid Stimulating Hormone Reviewed. mm11 08: Ethyl Alcohol (ethanol) Reviewed. mm11 08:04 Abilify 2 mg PO once ordered. pml 08:04 Flonase Juncos 50 mcg 50 mcg Intranasal once ordered. pml 08:04 Montelukast 10 mg PO once ordered. pml 08:08 Ventolin Inhaler 2 puffs Inhalation once ordered. pml 08:08 Furosemide 40 mg PO once ordered. pml 08:08 Loratadine 10 mg PO once ordered. pml 08:08 omeprazole Delayed Release Capsule 40 mg PO once; swallow whole (do not crush or chew) pml OR open capsule, sprinkle contents over tablespoonful applesauce; swallow all immediately/do not chew pellets ordered. 08:08 predniSONE 20 mg PO once; administer with food or milk ordered. pml 08:37 Breo Ellipta Inhaler 200 mcg-25 mcg/dose 1 inhalations Inhalation once; after pml inhalation, rinse mouth with water and spit out; do not swallow ordered. 12:54 REGULAR DIET PLASTIC NIEVES+DIET ordered. EDMS Administered Medications: 08:08 CANCELLED (Other Intervention Used): Advair Inhaler 250 mcg-50 mcg/Dose 1 inhalations pml Inhalation once 08:36 Drug: Ventolin 2 puffs [Ventolin HFA 90 mcg/actuation aerosol inhaler (2 puffs)] Route: pml Inhalation; 08:36 Drug: Furosemide 40 mg [furosemide 20 mg tablet (2 tabs)] Route: PO; pml 08:36 Drug: Loratadine 10 mg [loratadine 10 mg tablet (1 tabs)] Route: PO; pml 08:36 Drug: omeprazole 40 mg [omeprazole 20 mg capsule,delayed release (2 caps)] Route: PO; pml 08:36 Drug: predniSONE 20 mg [prednisone 20 mg tablet (1 tabs)] Route: PO; pml 08:37 Drug: Abilify 2 mg Route: PO; pml 08:37 Drug: Flonase Juncos 50 mcg 50 mcg Route: Intranasal; Site: both nares; pml 08:37 Drug: Montelukast 10 mg Route: PO; pml 08:37 Drug: Breo Ellipta Inhaler 200 mcg-25 mcg/dose 1 inhalations Route: Inhalation; pml Signatures: Dispatcher [employer] Ce Das RN RN jan Zecher, Calvin, RN RN cz Maynard, Matthew, DO mm11 Marrero, Monserrat, PSA PSA jfb Anjana Dobson RN RN dsf Quay, Paulina, RN RN pml Gill, Frances, MD MD Cortez Proctor, Reg Reg pm4 The chart was reviewed and I authenticate all verbal orders and agree with the evaluation and treatment provided.Corrections: (The following items were deleted from the chart) 08:08 08:04 Advair Inhaler 250 mcg-50 mcg/Dose 1 inhalations Inhalation once ordered. pml pml MTDD
--- NOTE | 2016-08-13 14:07 | EDDOCDS ---
Physician Documentation [facility] Name: Conchis Morel Age: 31 yrs Sex: Female : 1985 Arrival Date: 08/11/2016 Time: 02:57 Bed [facility]ERVATION Private MD: Disposition: 08/11/16 11:10 Transfer ordered to [facility]. Diagnosis is Adjustment disorder with depressed mood. - Reason for transfer: Higher level of care. - Accepting physician is Dr. Kimberly Gill. - Condition is Stable. - Problem is new. - Symptoms have improved. Historical: - Allergies: Advair Diskus (lung inflammation); Codeine Sulfate (Swelling); Topamax (confused); Vyvanse (confused); - Home Meds: 1. albuterol sulfate 90 mcg/actuation Inhl HFAA 2 puffs every 4 hours 2. albuterol sulfate 2.5 mg /3 mL (0.083 %) Inhl nebu 3 mL as needed 3. aripiprazole 2 mg Oral tab daily new rx 4. Breo Ellipta 200-25 mcg/dose inhalation dsdv 1 puff once daily . 5. Flonase 50 mcg/actuation Nasal spsn 1 spray 2 times per day 6. Lasix 40 mg Oral tab 1 tab once daily 7. loratadine 10 mg Oral tab 1 tab once daily 8. lorazepam 1 mg Oral tab nightly 9. montelukast 10 mg oral tab 1 tab once daily 10. NC 3 liters 11. Nexium 20 mg Oral cpDR 1 cap once daily . 12. prazosin 2 mg Oral cap nightly 13. prednisone 20 mg Oral tab once daily - PMHx: Anxiety; ARDS; GERD; - PSHx: Appendectomy; D & C; eye surgery X 2; tracheostomy with reversal; - Social history: Smoking status: Patient states former smoker of tobacco. No barriers to communication noted, The patient speaks fluent Estonian, Speaks appropriately for age. - Family history: Not pertinent. - : The pt / caregiver states he / she is not on anticoagulants. Home medication list is obtained from [employer] import data. - Exposure Risk Screening:: None identified. 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 10 in. (147.32 cm) (R); Pain 0/10; 05:50 BP 122 / 69; Pulse 105; Resp 18; Temp 96.8(TE); Pulse Ox 94% on R/A; Pain 0/10; rw1 07:45 BP 147 / 70; Pulse 120; Resp 18; Temp 97.1(O); Pulse Ox 95% on R/A; dpm 13:01 BP 148 / 81; Pulse 107; Resp 18; Temp 97.6(T); Pulse Ox 90% on R/A; Pain 0/10; dsf 03:20 Body Mass Index 52.25 (113.40 kg, 147.32 cm) rw1 MDM: 03:02 Consult PFS/PSA/Computer Systems Security Administrator ordered. mm11 03:02 Consult PFS/PSA/Computer Systems Security Administrator: Patient's case requires discussion with on-call mm11 Psychiatrist ordered. 03:02 PSA/PFS to call Nursing Gumming Machine Operator, to enter patient data on [place] Safe Act if patient mm11 involuntarily admitted or transferred for SI or HI ordered. 03:02 Confirm accurate psychiatric medication list and times of last dosage ordered. mm11 03:02 Detain Pt Until Medically/PFS Cleared ordered. mm11 03:03 Acetaminophen Level Ordered. EDMS 03:03 Basic Metabolic Profile Ordered. EDMS 03:03 Complete Blood Count Ordered. EDMS 03:03 Drug Eval Toxicology ED Only Ordered. EDMS 03:03 Ethyl Alcohol (ethanol) Ordered. EDMS 03:03 Liver Profile Ordered. EDMS 03:03 Salicylate Level Ordered. EDMS 03:03 Thyroid Stimulating Hormone Ordered. EDMS 04:18 REGULAR DIET PLASTIC NIEVES+DIET ordered. EDMS 05:32 Consult PFS/PSA/Computer Systems Security Administrator complete. jfb 05:32 Consult PFS/PSA/Computer Systems Security Administrator: Patient's case requires discussion with on-call jfb Psychiatrist complete. 05:32 PSA/PFS to call Nursing Gumming Machine Operator, to enter patient data [place] if patient jfb involuntarily admitted or transferred for SI or HI complete. 06:43 Financial registration complete. pm4 08:01 Acetaminophen Level Reviewed. mm11 08:01 Basic Metabolic Profile Reviewed. mm11 08:01 Complete Blood Count Reviewed. mm11 08:01 Drug Eval Toxicology ED Only Reviewed. mm11 08:01 Liver Profile Reviewed. mm11 08:01 Salicylate Level Reviewed. mm11 08:01 Thyroid Stimulating Hormone Reviewed. mm11 08:01 Ethyl Alcohol (ethanol) Reviewed. mm11 08:04 Abilify 2 mg PO once ordered. pml 08:04 Flonase [place] 50 mcg 50 mcg Intranasal once ordered. pml 08:04 Montelukast 10 mg PO once ordered. pml 08:08 Ventolin Inhaler 2 puffs Inhalation once ordered. pml 08:08 Furosemide 40 mg PO once ordered. pml 08:08 Loratadine 10 mg PO once ordered. pml 08:08 omeprazole Delayed Release Capsule 40 mg PO once; swallow whole (do not crush or chew) pml OR open capsule, sprinkle contents over tablespoonful applesauce; swallow all immediately/do not chew pellets ordered. 08:08 predniSONE 20 mg PO once; administer with food or milk ordered. pml 08:37 Breo Ellipta Inhaler 200 mcg-25 mcg/dose 1 inhalations Inhalation once; after pml inhalation, rinse mouth with water and spit out; do not swallow ordered. 12:54 REGULAR DIET PLASTIC NIEVES+DIET ordered. EDMS 13:07 [facility] Legal paperwork was scanned into [employer] and attached to record. mb10 17:34 T-Sheet-- Draft Copy was scanned into [employer] and attached to record. klr Administered Medications: 08:08 CANCELLED (Other Intervention Used): Advair Inhaler 250 mcg-50 mcg/Dose 1 inhalations pml Inhalation once 08:36 Drug: Ventolin 2 puffs [Ventolin HFA 90 mcg/actuation aerosol inhaler (2 puffs)] Route: pml Inhalation; 08:36 Drug: Furosemide 40 mg [furosemide 20 mg tablet (2 tabs)] Route: PO; pml 08:36 Drug: Loratadine 10 mg [loratadine 10 mg tablet (1 tabs)] Route: PO; pml 08:36 Drug: omeprazole 40 mg [omeprazole 20 mg capsule,delayed release (2 caps)] Route: PO; pml 08:36 Drug: predniSONE 20 mg [prednisone 20 mg tablet (1 tabs)] Route: PO; pml 08:37 Drug: Abilify 2 mg Route: PO; pml 08:37 Drug: Flonase [place] 50 mcg 50 mcg Route: Intranasal; Site: both nares; pml 08:37 Drug: Montelukast 10 mg Route: PO; pml 08:37 Drug: Breo Ellipta Inhaler 200 mcg-25 mcg/dose 1 inhalations Route: Inhalation; pml Signatures: Dispatcher [employer] Ce Das RN RN jan Zecher, Calvin, RN RN cz Maynard, Matthew, DO mm11 Marrero, Monserrat, PSA PSA Anjana Meeks RN RN dsf Quay, Paulina, RN RN pml Gill, Frances, MD MD fg Beagle, Melissa mb10 Redder, Kathie klr Montondo, Paul, Reg Reg pm4 The chart was reviewed and I authenticate all verbal orders and agree with the evaluation and treatment provided.Corrections: (The following items were deleted from the chart) 08:08 08:04 Advair Inhaler 250 mcg-50 mcg/Dose 1 inhalations Inhalation once ordered. pml pml Attachments: 17:34 T-Sheet-- Draft Copy klr Chart Complete MTDD
--- NOTE | 2016-08-13 14:07 | EDDOCDS ---
Physician Documentation [facility] Name: Conchis Morel Age: 31 yrs Sex: Female : 1985 Arrival Date: 08/11/2016 Time: 02:57 Bed OBSERVATION Private MD: Disposition: 08/11/16 11:10 Transfer ordered to [facility]. Diagnosis is Adjustment disorder with depressed mood. - Reason for transfer: Higher level of care. - Accepting physician is Dr. Kimberly Gill. - Condition is Stable. - Problem is new. - Symptoms have improved. Historical: - Allergies: Advair Diskus (lung inflammation); Codeine Sulfate (Swelling); Topamax (confused); Vyvanse (confused); - Home Meds: 1. albuterol sulfate 90 mcg/actuation Inhl HFAA 2 puffs every 4 hours 2. albuterol sulfate 2.5 mg /3 mL (0.083 %) Inhl nebu 3 mL as needed 3. aripiprazole 2 mg Oral tab daily new rx 4. Breo Ellipta 200-25 mcg/dose inhalation dsdv 1 puff once daily . 5. Flonase 50 mcg/actuation Nasal spsn 1 spray 2 times per day 6. Lasix 40 mg Oral tab 1 tab once daily 7. loratadine 10 mg Oral tab 1 tab once daily 8. lorazepam 1 mg Oral tab nightly 9. montelukast 10 mg oral tab 1 tab once daily 10. NC 3 liters 11. Nexium 20 mg Oral cpDR 1 cap once daily . 12. prazosin 2 mg Oral cap nightly 13. prednisone 20 mg Oral tab once daily - PMHx: Anxiety; ARDS; GERD; - PSHx: Appendectomy; D & C; eye surgery X 2; tracheostomy with reversal; - Social history: Smoking status: Patient states former smoker of tobacco. No barriers to communication noted, The patient speaks fluent Azeri, Speaks appropriately for age. - Family history: Not pertinent. - : The pt / caregiver states he / she is not on anticoagulants. Home medication list is obtained from [employer] import data. - Exposure Risk Screening:: None identified. DATA OPERATIONS DIRECTOR: 08/11 03:20 LMP 08/08/2015 rw1 Vital Signs: 03:20 BP 160 / 95; Pulse 116; Resp 20; Temp 97.5(O); Pulse Ox 94% on R/A; Weight 113.4 kg / rw1 250 lbs (R); Height 4 ft. 10 in. (147.32 cm) (R); Pain 0/10; 05:50 BP 122 / 69; Pulse 105; Resp 18; Temp 96.8(TE); Pulse Ox 94% on R/A; Pain 0/10; rw1 07:45 BP 147 / 70; Pulse 120; Resp 18; Temp 97.1(O); Pulse Ox 95% on R/A; dpm 13:01 BP 148 / 81; Pulse 107; Resp 18; Temp 97.6(T); Pulse Ox 90% on R/A; Pain 0/10; dsf 03:20 Body Mass Index 52.25 (113.40 kg, 147.32 cm) rw1 MDM: 03:02 Consult PFS/PSA/Hammerer ordered. mm11 03:02 Consult PFS/PSA/Hammerer: Patient's case requires discussion with on-call mm11 Psychiatrist ordered. 03:02 PSA/PFS to call Nursing Multi Purpose Machine Operator, to enter [place] data [place] if patient mm11 involuntarily admitted or transferred for SI or HI ordered. 03:02 Confirm accurate psychiatric medication list and times of last dosage ordered. mm11 03:02 Detain Pt Until Medically/PFS Cleared ordered. mm11 03:03 Acetaminophen Level Ordered. EDMS 03:03 Basic Metabolic Profile Ordered. EDMS 03:03 Complete Blood Count Ordered. EDMS 03:03 Drug Eval Toxicology ED Only Ordered. EDMS 03:03 Ethyl Alcohol (ethanol) Ordered. EDMS 03:03 Liver Profile Ordered. EDMS 03:03 Salicylate Level Ordered. EDMS 03:03 Thyroid Stimulating Hormone Ordered. EDMS 04:18 REGULAR DIET PLASTIC NIEVES+DIET ordered. EDMS 05:32 Consult PFS/PSA/Hammerer complete. jfb 05:32 Consult PFS/PSA/Hammerer: Patient's case requires discussion with on-call jfb Psychiatrist complete. 05:32 PSA/PFS to call Nursing Multi Purpose Machine Operator, to [place] if patient jfb involuntarily admitted or transferred for SI or HI complete. 06:43 Financial registration complete. pm4 08:01 Acetaminophen Level Reviewed. mm11 08:01 Basic Metabolic Profile Reviewed. mm11 08:01 Complete Blood Count Reviewed. mm11 08:01 Drug Eval Toxicology ED Only Reviewed. mm11 08:01 Liver Profile Reviewed. mm11 08:01 Salicylate Level Reviewed. mm11 08:01 Thyroid Stimulating Hormone Reviewed. mm11 08:01 Ethyl Alcohol (ethanol) Reviewed. mm11 08:04 Abilify 2 mg PO once ordered. pml 08:04 Flonase [place] 50 mcg 50 mcg Intranasal once ordered. pml 08:04 Montelukast 10 mg PO once ordered. pml 08:08 Ventolin Inhaler 2 puffs Inhalation once ordered. pml 08:08 Furosemide 40 mg PO once ordered. pml 08:08 Loratadine 10 mg PO once ordered. pml 08:08 omeprazole Delayed Release Capsule 40 mg PO once; swallow whole (do not crush or chew) pml OR open capsule, sprinkle contents over tablespoonful applesauce; swallow all immediately/do not chew pellets ordered. 08:08 predniSONE 20 mg PO once; administer with food or milk ordered. pml 08:37 Breo Ellipta Inhaler 200 mcg-25 mcg/dose 1 inhalations Inhalation once; after pml inhalation, rinse mouth with water and spit out; do not swallow ordered. 12:54 REGULAR DIET PLASTIC NIEVES+DIET ordered. EDMS 13:07 M[facility] Legal paperwork was scanned into [employer] and attached to record. mb10 17:34 T-Sheet-- Draft Copy was scanned into [employer] and attached to record. klr Administered Medications: 08:08 CANCELLED (Other Intervention Used): Advair Inhaler 250 mcg-50 mcg/Dose 1 inhalations pml Inhalation once 08:36 Drug: Ventolin 2 puffs [Ventolin HFA 90 mcg/actuation aerosol inhaler (2 puffs)] Route: pml Inhalation; 08:36 Drug: Furosemide 40 mg [furosemide 20 mg tablet (2 tabs)] Route: PO; pml 08:36 Drug: Loratadine 10 mg [loratadine 10 mg tablet (1 tabs)] Route: PO; pml 08:36 Drug: omeprazole 40 mg [omeprazole 20 mg capsule,delayed release (2 caps)] Route: PO; pml 08:36 Drug: predniSONE 20 mg [prednisone 20 mg tablet (1 tabs)] Route: PO; pml 08:37 Drug: Abilify 2 mg Route: PO; pml 08:37 Drug: Flonase [place] 50 mcg 50 mcg Route: Intranasal; Site: both nares; pml 08:37 Drug: Montelukast 10 mg Route: PO; pml 08:37 Drug: Breo Ellipta Inhaler 200 mcg-25 mcg/dose 1 inhalations Route: Inhalation; pml Signatures: Dispatcher [employer] Ce Das RN RN jan Zecher, Calvin, RN RN cz Maynard, Matthew, DO mm11 Marrero, Monserrat, PSA PSA Anjana Meeks RN RN dsf Quay, Paulina, RN RN pml Gill, Frances, MD MD fg Beagle, Melissa mb10 Redder, Kathie klr Montondo, Paul, Reg Reg pm4 The chart was reviewed and I authenticate all verbal orders and agree with the evaluation and treatment provided.Corrections: (The following items were deleted from the chart) 08:08 08:04 Advair Inhaler 250 mcg-50 mcg/Dose 1 inhalations Inhalation once ordered. pml pml Attachments: 17:34 T-Sheet-- Draft Copy klr Chart Complete MTDD
--- NOTE | 2016-08-13 14:07 | EDDOCDS ---
Nurse's Notes [facility] Name: Conchis Morel Age: 31 yrs Sex: Female : 1985 Arrival Date: 08/11/2016 Time: 02:57 Bed OBSERVATION Private MD: Diagnosis: Adjustment disorder with depressed mood Presentation: 08/11 03:07 Presenting complaint: Patient states: she doesn't feel safe at home after having been cz here and requesting discharge earlier in shift. pt states she has a fever of 99.4 and her doesn't want to change her medications until Friday. Mental Health Triage Level: Level 1- Pt displays no suicidal or homicidal ideations and does not appear to be a danger to self or others. Adult Sepsis Screening: The patient does not have new or worsening altered mentation. Patient's respiratory rate is less than 22. Systolic blood pressure is greater than 100. Patient has a qSOFA score of 0- Negative Sepsis Screen. Mental Health Triage Level: Level 1- Pt displays no suicidal or homicidal ideations and does not appear to be a danger to self or others. Suicide/Homicide risk assessment- the patient denies having any suicidal and/or homicidal ideations and does not present with any other emotional, behavioral or mental health complaints. Status: Patient is not a service operations manager or dependent. Transition of care: patient was not received from another setting of care. 03:07 Acuity: BOOGIE Level 3 cz 03:07 Method Of Arrival: Walkin/Carried/Asstd cz Triage Assessment: 03:12 General: Appears in no apparent distress. HIV screening NA for this visit Offered cz previously. 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 albuterol sulfate 90 mcg/actuation Inhl HFAA 2 puffs every 4 hours 2. albuterol sulfate 2.5 mg /3 mL (0.083 %) Inhl nebu 3 mL as needed 3. aripiprazole 2 mg Oral tab daily new rx 4. Breo Ellipta 200-25 mcg/dose inhalation dsdv 1 puff once daily . 5. Flonase 50 mcg/actuation Nasal spsn 1 spray 2 times per day 6. Lasix 40 mg Oral tab 1 tab once daily 7. loratadine 10 mg Oral tab 1 tab once daily 8. lorazepam 1 mg Oral tab nightly 9. montelukast 10 mg oral tab 1 tab once daily 10. NC 3 liters 11. Nexium 20 mg Oral cpDR 1 cap once daily . 12. prazosin 2 mg Oral cap nightly 13. prednisone 20 mg Oral tab once daily - PMHx: Anxiety; ARDS; GERD; - PSHx: Appendectomy; D & C; eye surgery X 2; tracheostomy with reversal; - Social history: Smoking status: Patient states former smoker of tobacco. No barriers to communication noted, The patient speaks fluent Estonian, Speaks appropriately for age. - Family history: Not pertinent. - : The pt / caregiver states he / she is not on anticoagulants. Home medication list is obtained from [employer] import data. - Exposure Risk Screening:: None identified. Screenin:16 Screening information is obtained from the patient. Fall risk: No risks identified. senia Assistance ADL's: requires no assistance with activities of daily living. Abuse/DV Screen: The patient / caregiver reports he/she is: in a living situation that causes fear, pain or injury. Intervention for positive screen: PSA notified. Nutritional screening: No deficits noted. Advance Directives: Currently, there is no health care proxy. There is no active DNR order. There is no living will. There is no Power of Asset Protection Detective. Advance directive information has not previously been placed in an [facility] medical record. Further advance directive information is declined. home support is adequate. Assessment: 03:16 General: Appears in no apparent distress, comfortable, Behavior is cooperative, crying. senia Pain: Denies pain. Neurological: Level of Consciousness is awake, alert, obeys commands, Oriented to person, place, time, Gait is steady, Speech is normal. EENT: No deficits noted. Cardiovascular: Capillary refill < 3 seconds Heart tones S1 S2 present. Respiratory: No deficits noted. Airway is patent Respiratory effort is even, unlabored, Respiratory pattern is regular, symmetrical, Breath sounds are clear bilaterally. GI: Abdomen is obese, Bowel sounds present X 4 quads. Derm: Skin is pink, warm & dry. 04:30 General: Appears in no apparent distress, comfortable, Behavior is appropriate for age, ko2 cooperative. Pain: Denies pain. Neurological: Level of Consciousness is awake, alert, obeys commands, Oriented to person, place, time. Respiratory: Airway is patent Respiratory effort is even, unlabored, Respiratory pattern is regular, symmetrical. Derm: Skin is normal. 05:50 General: Appears in no apparent distress, comfortable, Behavior is appropriate for age, rw1 cooperative. Pain: Denies pain. Neurological: Level of Consciousness is awake, alert, obeys commands, Oriented to person, place, time. Respiratory: Airway is patent Respiratory effort is even, unlabored. Derm: Skin is pink, warm & dry. normal. 06:42 Reassessment: Patient appears in no apparent distress at this time. resting quietly on rw1 stretcher, safety maintained will monitor.. 07:45 General: Appears in no apparent distress, comfortable, Behavior is appropriate for age, pml cooperative. Neurological: Level of Consciousness is awake, alert, Oriented to person, place, time. Respiratory: Airway is patent Respiratory effort is even, unlabored. Derm: Skin is pink, warm & dry. 09:26 General: Appears to be sleeping. Respiratory: Airway is patent Respiratory effort is dsf even, unlabored, Respiratory pattern is regular, symmetrical. Derm: Skin is pink, warm & dry. 10:26 General: Appears in no apparent distress, comfortable, Behavior is cooperative, crying. dsf Neurological: Level of Consciousness is awake, alert. Cardiovascular: Capillary refill < 3 seconds. Respiratory: Airway is patent Respiratory effort is even, unlabored, Respiratory pattern is regular, symmetrical. Derm: Skin is pink, warm & dry. 11:21 General: pt pacing in room. appears in no distress. respirations easy and unlabored. dsf skin pink warm and dry . 11:56 General: Appears in no apparent distress, visiting with . Behavior is dsf appropriate for age, cooperative. Neurological: Level of Consciousness is awake, alert. Cardiovascular: Capillary refill < 3 seconds. Respiratory: Airway is patent Respiratory effort is even, unlabored, Respiratory pattern is regular, symmetrical. Derm: Skin is pink, warm & dry. 13:01 Adult Sepsis Screening: The patient does not have new or worsening altered mentation. dsf Patient's respiratory rate is less than 22. Systolic blood pressure is greater than 100. Patient has a qSOFA score of 0- Negative Sepsis Screen. General: Appears in no apparent distress, comfortable, Behavior is appropriate for age, cooperative. Pain: Denies pain. Neurological: Level of Consciousness is awake, alert, Oriented to person, place, time. Cardiovascular: Capillary refill < 3 seconds Heart tones S1 S2 present. Respiratory: Airway is patent Respiratory effort is even, unlabored, Respiratory pattern is regular, symmetrical, Breath sounds are clear bilaterally. GI: Abdomen is obese, Bowel sounds present X 4 quads. Abd is soft and non tender X 4 quads. Derm: Skin is pink, warm & dry. Mental Health Eval: 04:39 Status: The patient is a dependent. [facility] Behavioral Health: The jfb patient is not an established patient of [facility] Behavioral [facility]. Referral Information: Evaluation referral is generated by the patient himself / herself. The patient was referred for evaluation because PT is experiencing anxiety and paranoia. Subjective: The patients chief complaint is PT has been seen in the ED 5x for similar complaints since 07/14/2016 and was seen earlier and then discharged home with her . She had an episode of feeling as if she was 7 years old again but it quickly resolved. PT states that when she left earlier she was ok until she got home and she was then fearful to sleep in her bedroom so her suggest they sleep on the couch. At one point "He was so mean to me" PT woke her to tell him she needed to return to the ED because she had a fever therefore something was terribly wrong. She also accused him of working with her provider as he is encouraging her to take her medications until she sees her doctor Friday "One of the side effects of Abilify is and my and doctor want me to take it" encouraged her to go back to sleep and they would take care of things Friday. PT waited for to fall asleep and she packed a bag and came to the ED without his knowledge. He arrived awhile later distraught looking for her and then cried when he realized she was ok. PT has returned home and will wait for PT to call when she is ready. Both PT and feel her emotional upset was triggered when she was prescribed two weight loss medications in May. She began to have a spike in anxiety and 07/14 she was delusional and hallucinating requiring admission to [facility]. The medications were discontinued but PT has not fully recovered emotionally. Last Jeancarlos her provider prescribe her Abilify and that same night PT came to ED for anxiety and SOB stating she had not yet filled the script. PT currently states she is not SI or HI but that she is afraid to sleep and no longer feels safe at home. . Delusions are paranoid, Patient's mood is anxious, depressed, hallucinations are PT will see colors that elicit different emotional responses . Mental Health history: anxiety, depression, psychosis, sleep disturbance, Mental Health Admissions: 07/14/2016 [facility]. In [place] 1x as a teenager for depression and cutting Current Outpatient Mental Health Services: PT's PCP Reema Parra is currently prescribing medications and has referred PT to a mental health clinic but forewarned there is a waiting list. . Current living environment is The patient currently lives with his / her significant other, and their pets. The patient is . Patient presents to Emergency Department with the following symptoms within the past 2 weeks: agitation, anxiety, depressed mood, labile mood, poor concentration, poor impulse control, sleep disturbance - insomnia. Substance abuse: Pt denies. Mental status exam: Patients appearance is obese, Patient's behavior is cooperative, Speech is normal. Affect is appropriate. Mood is anxious. depressed. Hallucinations are colors. Appetite is normal. Memory is good. Energy level is normal. Content of thought is delusional. feels and doctor want her to take medications that will kill her. Afraid to sleep in her room. Thought process is intact. Cognitive level is oriented to person, place, time and situation Patient's insight is poor. Judgement is poor. Rapport with interviewer is good. Suicidal Ideation is denied. Homicidal ideation is denied. [facility] Admission Criteria: The patient displays symptoms of severe psychiatric disorder resulting in disordered behavior and significant interference with his / her ability to maintain self care. Delusions. Severe Anxiety. The patient requires continuous observation and/or control to protect self, others or property. The patient's care requires a multi-modal treatment plan under close supervision and coordination due to the complexity and severity of the patient's symptoms. The patient requires administration and monitoring of psychoactive medications by skilled medical providers due to the side effects of the psychoactive medications or significant dosage adjustments. Legal Status: Patient's legal status will be [facility] Services admission: . 07:37 Disposition: Medically cleared for disposition by Matt Lindsey DO Psychiatric jfb Consult is performed by phone with Dr Isac Garcia MD. DSM-V Differential Diagnosis: Generalized Anxiety Disorder (F41.1) Delusional Disorder (F22.0). Vital Signs: 03:20 BP 160 / 95; Pulse 116; Resp 20; Temp 97.5(O); Pulse Ox 94% on R/A; Weight 113.4 kg rw1 (R); Height 4 ft. 10 in. (147.32 cm) (R); Pain 0/10; 05:50 BP 122 / 69; Pulse 105; Resp 18; Temp 96.8(TE); Pulse Ox 94% on R/A; Pain 0/10; rw1 07:45 BP 147 / 70; Pulse 120; Resp 18; Temp 97.1(O); Pulse Ox 95% on R/A; dpm 13:01 BP 148 / 81; Pulse 107; Resp 18; Temp 97.6(T); Pulse Ox 90% on R/A; Pain 0/10; dsf 03:20 Body Mass Index 52.25 (113.40 kg, 147.32 cm) rw1 Vitals: 03:12 Log In Time: August 11, 2016 at 03:13. cz ED Course: 02:59 Patient visited by Tamiko Arias. gjb 02:59 Patient moved to Waiting gjb 03:01 Patient moved to [facility] cz 03:02 Matt Lindsey DO is Attending Physician. mm11 03:02 Patient visited by Matt Lindsey DO. mm11 03:04 Patient visited by Primo Figueroa. tr 03:09 Triage Initiated cz 03:15 Patient visited by Primo Figueroa. tr 03:16 The patient / caregiver is instructed regarding the plan of care and ED course. Patient senia has correct armband on for positive identification. Placed in psych safe attire. Bed in low position. Call light in reach. Security observing. 03:35 Patient visited by Primo Figueroa. tr 03:45 Patient visited by Tim. [place] tr 03:56 Vlad Castillo LPN is Primary Nurse. rw1 04:04 Patient visited by Primo Figueroa. tr 04:17 Patient visited by Primo Figueroa. tr 04:47 Patient visited by FigueroaPrimo. tr 05:01 Patient visited by FigueroaPrimo. tr 05:14 Patient visited by FigueroaPrimo. tr 05:45 Patient visited by Figueroa Primo. tr 05:57 Patient visited by Figueroa Primo. tr 06:17 Patient visited by FigueroaPrimo. tr 06:32 Patient visited by FigueroaPrimo. tr 06:42 Patient visited by Matt Lindsey DO. mm11 06:44 Patient visited by FigueroaPrimo. tr 06:53 Patient moved to OBSERVATION mm11 06:57 Primary Nurse role handed off by Vlad Castillo LPN jlf 07:11 Patient visited by Zia Payne. dpm 07:34 Patient visited by Zia Payne. dpm 07:51 Patient visited by Zia Payne. dpm 07:57 Patient visited by Zia Payne. dpm 08:16 Patient visited by Zia Payne. dpm 08:38 Patient visited by Zia Payne. dpm 09:04 Patient visited by Zia Payne. dpm 09:19 Patient visited by Zia Payne. dpm 09:26 Patient visited by Anjana Dobson RN. dsf 10:36 Patient visited by Zia Payne. dpm 10:59 Patient visited by Anjana Dobson RN. dsf 11:16 Patient visited by Zia Payne. dpm 11:29 Patient visited by Zia Payne. dpm 11:44 Patient visited by Zia Payne. dpm 11:57 Patient visited by Anjana Dobson RN. dsf 12:00 Patient visited by Zia Payne. dpm 12:18 Patient visited by Zia Payne. dpm 12:38 Patient visited by Zia Payne. dpm 12:46 Patient visited by Zia Payne. dpm 13:01 No IV's were initiated during this patient's visit. No procedures done that require dsf assistance. 13:07 [facility] Legal paperwork was scanned into [employer] and attached to record. [id number] 17:34 T-Sheet-- Draft Copy was scanned into [employer] and attached to record. klr Administered Medications: 08:08 CANCELLED (Other Intervention Used): Advair Inhaler 250 mcg-50 mcg/Dose 1 inhalations pml Inhalation once 08:36 Drug: Ventolin 2 puffs [Ventolin HFA 90 mcg/actuation aerosol inhaler (2 puffs)] Route: pml Inhalation; 08:36 Drug: Furosemide 40 mg [furosemide 20 mg tablet (2 tabs)] Route: PO; pml 08:36 Drug: Loratadine 10 mg [loratadine 10 mg tablet (1 tabs)] Route: PO; pml 08:36 Drug: omeprazole 40 mg [omeprazole 20 mg capsule,delayed release (2 caps)] Route: PO; pml 08:36 Drug: predniSONE 20 mg [prednisone 20 mg tablet (1 tabs)] Route: PO; pml 08:37 Drug: Abilify 2 mg Route: PO; pml 08:37 Drug: Flonase [place] 50 mcg 50 mcg Route: Intranasal; Site: both nares; pml 08:37 Drug: Montelukast 10 mg Route: PO; pml 08:37 Drug: Breo Ellipta Inhaler 200 mcg-25 mcg/dose 1 inhalations Route: Inhalation; pml Attachments: 13:07 [facility] Legal paperwork [id number] Order Results: Lab Order: Acetaminophen Level; SPEC'M 08/11/16 03:23 Test: ACETAMINOPHEN LEVEL; Value: 4.5; Range: 10.0-30.0; Abnormal: Below low normal; Units: UG/ML; Status: F Lab Order: Basic Metabolic Profile; SPEC'M 08/11/16 03:23 Test: GLUCOSE, FASTING; Value: 96; Range: 70-105; Units: MG/DL; Status: F Test: BLOOD UREA NITROGEN; Value: 28; Range: 7-18; Abnormal: Above high normal; Units: MG/DL; Status: F Test: CREATININE FOR GFR; Value: 1.21; Range: 0.55-1.02; Abnormal: Above high normal; Units: MG/DL; Status: F Test: GLOMERULAR FILTRATION RATE; Value: 55.3; Range: >60; Abnormal: Below low normal; Status: F Test: SODIUM LEVEL; Value: 142; Range: 136-145; Units: MEQ/L; Status: F Test: POTASSIUM SERUM; Value: 3.8; Range: 3.5-5.1; Units: MEQ/L; Status: F Test: CHLORIDE LEVEL; Value: 102; Range: 98-107; Units: MEQ/L; Status: F Test: CARBON DIOXIDE LEVEL; Value: 28; Range: 21-32; Units: MEQ/L; Status: F Test: ANION GAP; Value: 12; Range: 8-16; Units: MEQ/L; Status: F Test: CALCIUM LEVEL; Value: 9.1; Range: 8.5-10.1; Units: MG/DL; Status: F Test Note: ; Units are mL/min/1.73 m2 Chronic Kidney Disease Staging per NKF: Stage I & II GFR >=60 Normal to Mildly Decreased Stage III GFR 30-59 Moderately Decreased Stage IV GFR 15-29 Severely Decreased Stage V GFR <15 Very Little GFR Left ESRD GFR <15 on MANAGER NEONATAL Lab Order: Complete Blood Count; [facility]08/11/16 03:23 Test: WHITE BLOOD COUNT; Value: 21.4; Range: 4.0-10.0; Abnormal: Above high normal; Units: K/mm3; Status: F Test: RED BLOOD COUNT; Value: 5.23; Range: 4.00-5.40; Units: M/mm3; Status: F Test: HEMOGLOBIN; Value: 11.5; Range: 12.0-16.0; Abnormal: Below low normal; Units: g/dl; Status: F Test: HEMATOCRIT; Value: 37.9; Range: 36.0-47.0; Units: %; Status: F Test: MEAN CORPUSCULAR VOLUME; Value: 72.5; Range: 80.0-96.0; Abnormal: Below low normal; Units: fl; Status: F Test: MEAN CORPUSCULAR HEMOGLOBIN; Value: 22.0; Range: 27.0-33.0; Abnormal: Below low normal; Units: pg; Status: F Test: MEAN CORPUSCULAR HGB CONC; Value: 30.3; Range: 32.0-36.5; Abnormal: Below low normal; Units: g/dl; Status: F Test: RED CELL DISTRIBUTION WIDTH; Value: 16.2; Range: 11.5-14.5; Abnormal: Above high normal; Units: %; Status: F Test: PLATELET COUNT, AUTOMATED; Value: 432; Range: 150-450; Units: k/mm3; Status: F Lab Order: Drug Eval Toxicology ED Only; SPEC'M 08/11/16 03:23 Test: AMPHETAMINES LEVEL URINE; Value: NEGATIVE; Range: NEGATIVE; Status: F Test: BARBITURATES URINE; Value: NEGATIVE; Range: NEGATIVE; Status: F Test: BENZODIAZEPINES URINE; Value: POSITIVE; Range: NEGATIVE; Abnormal: Above high normal; Status: F Test: CANNABINOIDS URINE; Value: NEGATIVE; Range: NEGATIVE; Status: F Test: COCAINE METABOLITE URINE; Value: NEGATIVE; Range: NEGATIVE; Status: F Test: METHADONE URINE; Value: NEGATIVE; Range: NEGATIVE; Status: F Test: OPIATES URINE; Value: NEGATIVE; Range: NEGATIVE; Status: F Test: TRICYCLIC ANTIDEPRESS URINE; Value: NEGATIVE; Range: NEGATIVE; Status: F Test Note: ; ALL PRESUMPTIVE POSITIVE FINDINGS ARE UNCONFIRMED NORMAL VALUES THRESHOLD IN NG/ML AMPHETAMINES 1000 METHAMPHETAMINES 1000 BARBITURATES 300 BENZODIAZEPINES 300 CANNABINOIDS (THC) 50 COCAINE METABOLITE 300 METHADONE 300 OPIATES 300 PHENCYCLIDINE 25 TRICYCLIC ANTIDEPRESSANTS 1000 RESULTS ARE FOR MEDICAL PURPOSES ONLY. ALL URINE SPECIMENS WILL BE SAVED FOR 3 DAYS. IF CONFIRMATION OF A PRESUMPTIVE POSTIVE SCREEN RESULT IS DESIRED, CALL CHEMISTRY ([phone]) AND REQUEST URINE TO BE SENT TO REFERENCE LAB. FOR A LIST OF CLOSELY RELATED COMPOUNDS PLEASE CALL THE LAB. Lab Order: Ethyl Alcohol (ethanol); SPEC'M 08/11/16 03:23 Test: ETHYL ALCOHOL (ETHANOL); Value: < 0.003; Range: 0.000-0.010; Units: %; Status: F Lab Order: Liver Profile; SPEC'M 08/11/16 03:23 Test: AST/SGOT; Value: 7; Range: 15-37; Abnormal: Below low normal; Units: U/L; Status: F Test: ALT/SGPT; Value: 23; Range: 12-78; Units: U/L; Status: F Test: ALKALINE PHOSPHATASE; Value: 70; Range: 45-117; Units: U/L; Status: F Test: BILIRUBIN,TOTAL; Value: 1.5; Range: 0.2-1.0; Abnormal: Above high normal; Units: MG/DL; Status: F Test: BILIRUBIN,DIRECT; Value: 0.3; Range: 0.0-0.2; Abnormal: Above high normal; Units: MG/DL; Status: F Test: TOTAL PROTEIN; Value: 7.3; Range: 6.4-8.2; Units: GM/DL; Status: F Test: ALBUMIN; Value: 4.0; Range: 3.2-5.2; Units: GM/DL; Status: F Test: ALBUMIN/GLOBULIN RATIO; Value: 1.21; Range: 1.00-1.93; Status: F Lab Order: Salicylate Level; SPEC'M 08/11/16 03:23 Test: SALICYLATE LEVEL; Value: < 1.7; Range: 5.0-30.0; Abnormal: Below low normal; Units: MG/DL; Status: F Lab Order: Thyroid Stimulating Hormone; SPEC'M 08/11/16 03:23 Test: THYROID STIMULATING HORMONE; Value: 5.050; Range: 0.358-3.740; Abnormal: Above high normal; Units: uIU/ML; Status: F Outcome: 11:10 ER care complete, transfer ordered by Provider. fg 11:56 Admission hand-off: Report called to Krysta Goss RN. dsf 13:01 No special radiology studies were completed. dsf 13:01 Discharge Assessment: Patient awake, alert and oriented x 3. No cognitive and/or dsf functional deficits noted. Patient verbalized understanding of disposition instructions. patient administered narcotics - no. The following High Risk Discharge criteria are identified: Yes, pt transferred . Transferred to [facility] . 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 Condition: stable. Property :Personal belongings accompany Pt. 13:06 Patient left the ED. dsf Signatures: Ce Crawley RN Trev Flannery RN RN cz Rasmussen, Tim tr Workman, Robert, LPN LPN rw1 Matt Lindsey, DO POWELL mm11 Monserrat Marrero, VALERIE PSA Anjana Meeks RN RN dsf Radha Johnson RN RN pml Marolf, Dustin dpBladimir Mon, BILLING TYPIST BILLING TYPIST Josefina Stephen RN RN ko2 Lashawn Mccarty MD MD fg Beck, Gabriela gjb Beagle, Melissa mb10 Vandana Easley Corrections: (The following items were deleted from the chart) 07:39 04:39 DSM-V Differential Diagnosis: Unspecified Anxiety Disorder (F41.9) david hernandez Chart Complete MTDD
== END 2016-08-11 13:06 ==
LOC: M ED 02:57
DX: F22 Delusional disorders (principal); F41.9 Anxiety disorder, unspecified; J80 Acute respiratory distress syndrome; K21.9 Gastro-esophageal reflux disease without esophagitis; Z79.899 Other long term (current) drug therapy; Z79.51 Long term (current) use of inhaled steroids; Z79.52 Long term (current) use of systemic steroids; Z88.8 Allergy status to other drugs, medicaments and biological substances; Z88.5 Allergy status to narcotic agent; Z99.81 Dependence on supplemental oxygen
CPT/HCPCS: 36415; 80048; 80076; 80306; 84443; 85027; 99285; G0480

== ENCOUNTER → 2016-09-02 | Outpatient (CLI) | payer OTHER ==
--- NOTE | 2016-09-03 02:19 | REP ---
Clinical: Chronic interstitial disease . Comparison: 08/09/2016 . Technique: PA and lateral. Findings: The mediastinum and cardiac silhouette are normal. The lung meza are clear and without acute consolidation, effusion, or pneumothorax. The skeletal structures are intact and normal. Impression: 1. No acute cardiopulmonary process. Signed by Alfonzo Gardiner MD 09/03/2016 02:11 A
== END ==
LOC: M SMT 13:59
PROVIDERS: ATTEND Internal Medicine Pulmonary Disease
DX: J84.9 Interstitial pulmonary disease, unspecified (principal)

== ENCOUNTER → 2016-09-16 | Outpatient (REF) | payer OTHER ==
[2016-09-16 14:44] LABS: FREE T4 1.24 NG/DL (0.76-1.46)
== END ==
LOC: M LAB REF 13:34
PROVIDERS: ATTEND Internal Medicine Pulmonary Disease
DX: R53.83 Other fatigue (principal)

== ENCOUNTER → 2017-01-24 | Outpatient (CLI) | payer OTHER ==
[~2017-01-24] MED LIST changes: -PROA1AER INH; +PROAAER10 INH; -RISP1TAB41 PO; +RISP1TAB42 PO; -RISP2TAB30 PO; +RISP2TAB32 PO; +TOPA100T12 PO; -TOPA100T8 PO; -TOPA50TA7 PO; +TOPA50TA8 PO
[2017-01-24 10:06] LABS: BASO % 0.5 % (0.0-1.0); EOS # 0.1 K/mm3 (0.0-0.50); EOS % 0.7 % (0.0-3.0); LYMPH # 1.7 K/mm3 (1.5-4.5); LYMPH % 21.5 % (24.0-44.0); MEAN CORPUSCULAR HEMOGLOBIN 26.4 pg (27.0-33.0); MEAN CORPUSCULAR HGB CONC 32.7 g/dl (32.0-36.5); MEAN CORPUSCULAR VOLUME 80.5 fl (80.0-96.0); MONO # 0.5 K/mm3 (0.0-0.8); MONO % 6.3 % (0.0-5.0); NEUTROPHILS # 5.4 K/mm3 (1.8-7.7); RED CELL DISTRIBUTION WIDTH 16.3 % (11.5-14.5); WHITE BLOOD COUNT 7.6 K/mm3 (4.0-10.0)
[2017-01-24 10:17] LABS: ALBUMIN 3.4 GM/DL (3.2-5.2); ALBUMIN/GLOBULIN RATIO 1.13 (1.00-1.93); ALKALINE PHOSPHATASE 84 U/L (45-117); ALT/SGPT 28 U/L (12-78); ANION GAP 9 MEQ/L (8-16); AST/SGOT 13 U/L (15-37); BILIRUBIN,TOTAL 0.7 MG/DL (0.2-1.0); BLOOD UREA NITROGEN 15 MG/DL (7-18); CALCIUM LEVEL 8.9 MG/DL (8.5-10.1); CARBON DIOXIDE LEVEL 29 MEQ/L (21-32); CHLORIDE LEVEL 103 MEQ/L (98-107); CHOLESTEROL LEVEL 168 MG/DL (<200); CREATININE FOR GFR 0.75 MG/DL (0.55-1.02); GLOMERULAR FILTRATION RATE > 60.0 (>60); GLUCOSE, FASTING 87 MG/DL (70-105); POTASSIUM SERUM 4.2 MEQ/L (3.5-5.1); SODIUM LEVEL 141 MEQ/L (136-145); TOTAL PROTEIN 6.4 GM/DL (6.4-8.2); TRIGLYCERIDES LEVEL 229 MG/DL (<150)
--- NOTE | 2017-01-24 10:27 | REP ---
Bilateral feet: Right foot four views : There is no fracture or dislocation. Mineralization and joint spaces are normal. There are no calcifications or foreign bodies. There is a small calcaneal Achilles spur. Impression: Essentially Negative right foot . Left foot four views : There is no fracture or dislocation. Mineralization and joint spaces are normal. There are no calcifications or foreign bodies. There is a small calcaneal Achilles spur. Impression: Essentially Negative left foot . Signed by Stuart Olea MD 01/24/2017 10:18 A
== END ==
LOC: M SMT 08:03
PROVIDERS: ATTEND Nurse Practitioner Adult Health
DX: Z51.81 Encounter for therapeutic drug level monitoring (principal); Z79.899 Other long term (current) drug therapy; E55.9 Vitamin D deficiency, unspecified; E03.9 Hypothyroidism, unspecified; E87.70 Fluid overload, unspecified; D64.9 Anemia, unspecified; M79.672 Pain in left foot; M79.671 Pain in right foot

== ENCOUNTER → 2017-02-27 | Outpatient (CLI) | payer OTHER ==
--- NOTE | 2017-02-27 16:47 | REP ---
Chest x-ray: Two views: History: Persistent asthma. Cough. Interstitial pulmonary disease. Comparison study: September 02, 2016. Findings: Cardiomediastinal silhouette is unremarkable and unchanged. No definite infiltrate is seen. Pleural angles are sharp. Pulmonary vasculature is not increased. Impression: No definite infiltrate. Signed by Kristofer Garcia MD 02/27/2017 04:54 P
== END ==
LOC: M SMT 15:08
PROVIDERS: ATTEND Internal Medicine Pulmonary Disease
DX: J45.40 Moderate persistent asthma, uncomplicated (principal); J84.9 Interstitial pulmonary disease, unspecified; R05 Cough

== ENCOUNTER → 2017-02-28 | Outpatient (REF) | payer OTHER | LOC: M LAB REF 14:43 | PROVIDERS: ATTEND Internal Medicine Pulmonary Disease | DX: J45.50 Severe persistent asthma, uncomplicated (principal); J84.9 Interstitial pulmonary disease, unspecified; R05 Cough ==

== ENCOUNTER 2017-05-14 17:50 | Emergency (ER) | payer OTHER ==
[~2017-05-14] VITALS: Ht 147.3 cm; Wt 120.0 kg
[2017-05-14 17:50] VITALS: BP 123/76
[2017-05-14] MEDS ORDERED: PANT20TA PO (18:00)
[2017-05-14] MEDS ORDERED: IBUP-1022 PO (19:04)
--- NOTE | 2017-05-14 19:18 | REP ---
Clinical: Trauma. Fall. Technique: AP, lateral, bilateral oblique views of the right ankle. Findings: Moderate to significant diffuse soft tissue swelling is appreciated. Bilateral cortical irregularities and degenerative changes suggest old injuries. No obvious acute fracture or dislocation. Ankle mortise appears grossly intact. No subcutaneous emphysema or radiodense foreign body. Impression: Soft tissue swelling and chronic-appearing changes possibly related to old injuries. No acute fracture or dislocation identified. Signed by Alfonzo Gardiner MD 05/14/2017 07:09 P
== END 2017-05-14 19:32 | disposition home or self-care (01) ==
LOC: M ED 17:50
DX: S93.401A Sprain of unspecified ligament of right ankle, initial encounter (principal); X50.1XXA Overexertion from prolonged static or awkward postures, initial encounter; Y92.099 Unspecified place in other non-institutional residence as the place of occurrence of the external cause; Y93.9 Activity, unspecified; Y99.9 Unspecified external cause status; Z87.891 Personal history of nicotine dependence; Z79.899 Other long term (current) drug therapy; Z88.5 Allergy status to narcotic agent; Z88.8 Allergy status to other drugs, medicaments and biological substances

== ENCOUNTER 2017-05-24 01:06 | Inpatient (IN) | payer OTHER ==
[~2017-05-24] VITALS: Ht 147.3 cm; Wt 111.4 kg
[~2017-05-24 01:06] MED LIST changes: +IBUP-1022 PO; +PANT20TA PO
[2017-05-24] MEDS ORDERED: RISP1TAB3 PO (01:41)
[2017-05-24] MEDS ORDERED: PRAZ5CAP PO (01:41)
[2017-05-24 02:08] LABS: MEAN CORPUSCULAR HEMOGLOBIN 28.2 pg (27.0-33.0); MEAN CORPUSCULAR HGB CONC 33.6 g/dl (32.0-36.5); MEAN CORPUSCULAR VOLUME 83.7 fl (80.0-96.0); PLATELET COUNT, AUTOMATED 274 10^3/uL (150-450); RED CELL DISTRIBUTION WIDTH 13.8 % (11.5-14.5); WHITE BLOOD COUNT 11.2 10^3/uL (4.0-10.0)
[2017-05-24 02:23] LABS: CONTROL LINE HCG INT CTR LINE PRESENT
[2017-05-24 02:40] LABS: ALBUMIN/GLOBULIN RATIO 1.21 (1.00-1.93); ALKALINE PHOSPHATASE 87 U/L (45-117); ALT/SGPT 29 U/L (12-78); ANION GAP 11 MEQ/L (8-16); AST/SGOT 25 U/L (7-37); BILIRUBIN,DIRECT 0.3 MG/DL (0.0-0.2); BILIRUBIN,TOTAL 1.3 MG/DL (0.2-1.0); BLOOD UREA NITROGEN 18 MG/DL (7-18); CALCIUM LEVEL 8.8 MG/DL (8.5-10.1); CARBON DIOXIDE LEVEL 25 MEQ/L (21-32); CHLORIDE LEVEL 105 MEQ/L (98-107); CREATININE FOR GFR 0.82 MG/DL (0.55-1.02); GLOMERULAR FILTRATION RATE > 60.0 (>60); GLUCOSE, FASTING 122 MG/DL (70-105); POTASSIUM SERUM 3.3 MEQ/L (3.5-5.1); SODIUM LEVEL 141 MEQ/L (136-145); TOTAL PROTEIN 7.3 GM/DL (6.4-8.2)
[2017-05-24 02:53] LABS: METHADONE URINE NEGATIVE (NEGATIVE)
[2017-05-24] MEDS ORDERED: OLANZapine ORAL DISINTEGRATING TAB 5MG PO PRN (03:15)
[2017-05-24] MEDS ORDERED: MAALOX 30 ML SUSP *UDC PO PRN (03:15)
[2017-05-24] MEDS ORDERED: traZODone 50 MG TAB PO PRN (03:15)
[2017-05-24] MEDS ORDERED: MOM 30ML SUSPENSION UDC PO PRN (03:15)
[2017-05-24] MEDS ORDERED: ACETAMINOPHEN TAB 650MG DOSE (2X325MG) PO PRN (03:15)
[2017-05-24 03:34] VITALS: BP 139/98
[2017-05-24 07:01] VITALS: BP 151/80
[2017-05-24 11:15] VITALS: BP 136/72
[2017-05-24 18:00] VITALS: BP 136/70
[2017-05-24] MEDS: risperiDONE 1 MG TAB PO SCH (20:41)
--- NOTE | 2017-05-24 22:33 | MHHPE ---
DATE OF ADMISSION: 05/24/2017 CHIEF COMPLAINT: She has been agitated. SUBJECTIVE: She is 32 years old. She is . She lives with her , her brother lives with them as well currently. The patient apparently has a history of psychosis and has been hospitalized in the past. Attends [facility] ([facility]) as an outpatient. She has been on risperidone, though currently the dose is unclear, but suggests has been on 1 mg twice a day in the past. She had apparently gone off her medicine about a month or so ago and more recently began feeling somewhat tired, confused, per the as well, and more agitated. Began developing delusions related to satanic matters, angels, demons, which her , who I interviewed separately with the patient's permission, suggested was quite unusual for her, but does tend to happen when she has not been doing well. He came in earlier from his job as a senior it recruiter in [place], stays there during the week and returns on the weekends, but had to come in early this week as she was not doing well. He says that he found out from his [id number] that she had been quieter and somewhat confused. Yesterday had difficulties with sleep, tried throwing herself on the floor and up against the glass in the bathroom. Apparently she has tried breaking the glass to harm herself. She herself does not recall this but does acknowledge has had trouble with sleep lately. Says has trouble keeping her CPAP machine on. I understand from the that she uses oxygen during the daytime as well. When doing well, has generally been stable, sleeps well, appetite is good. She had improved enough to start college and was doing well until a couple of weeks ago. She does not recall why she was brought to the hospital or the journey itself, but does remember coming in a police car. The says that when she went off medications that she did well for a number of weeks and her clinicians at [facility] wanted to hold off on resuming them. Risperidone apparently was resumed a day or so ago by primary care, given the patient's deterioration. The says that his presence helps her adhere to the medicine. He has been commuting for work, but says is arranging to have his work transferred locally, and apparently Aggie Reyes is cooperating with that. PAST PSYCHIATRIC HISTORY: As indicated above. Had developed psychotic symptoms about a year or so ago, this was after she had been using over the counter products to help with weight loss, per the , and felt tired and Vyvanse was added to it by one of her clinicians. She was hospitalized here in June of this year with what was thought to be symptoms of agitation, some confusion, racing thoughts, and she was deluded. These were mostly delusions of persecution, felt people were after her and tunneling under her home and trying to poison her. She has also thought of burning her stuffed animals, felt they were "false idols." Was stabilized, discharged, and has been following up at [facility], but I am not quite sure how regularly she has been. MEDICAL HISTORY: Significant for asthma, allergic rhinitis, hypertension, gastroesophageal reflux disease (GERD), sleep apnea, obesity. She has been on oxygen, including daytime. Per the , her oxygen saturations drop significantly when she is not using the oxygen. Tends to use it when very active during the day, and apparently is supposed to use only as needed. SUBSTANCE ABUSE HISTORY: None significantly at present. SOCIAL HISTORY: As indicated above. Please refer to previous summaries. She and the live together. They have no children. Her brother, who is 23 years old, also lives with them. MENTAL STATUS EXAMINATION: She is a bit unkempt, guarded, but cooperates overall with the interview. She is obese. No agitation. No psychomotor retardation as such, possibly mild latency of response. She is coherent for the most part. Affect is restricted. Denies any thoughts of harming herself or anyone else at present. No fluctuation of consciousness. She is able to maintain and shift attention adequately. She is alert. She is oriented to time, place and person. She is possibly responding to internal stimuli. Currently no overt delusions are elicited. Her judgment and insight are quite questionable. VITAL SIGNS: Blood pressure 136/72, pulse is 88, temperature is 98.2. INVESTIGATIONS: These show a complete blood count with a white cell count of 11.2, the rest of the parameters are within normal limits. Metabolic profile essentially shows a potassium of 3.3, which is slightly low. Other parameters are normal. Urine toxicology is negative. ASSESSMENT: 1. Unspecified psychotic disorder. 2. Rule out schizoaffective disorder. 3. Sleep apnea. 4. Limited supports, commuting to work. PLAN: She is admitted to the inpatient psychiatry unit. Has had psychotic symptoms, possibly some confusion, has been agitated, and endangers herself and potentially others as well. We will look at obtaining further collateral information and resume her risperidone, initially at 1 mg twice a day, to be titrated up as indicated. She will receive a medicine consult if indicated. Will resume CPAP and daytime oxygen as well. She will be encouraged to participate in activities on the unit. She will be discharged with followup once she is stable. I anticipate a 5 to 7 day stay. The assessment took 45 minutes.
[2017-05-25 06:46] VITALS: BP 146/84
[2017-05-25] MEDS: risperiDONE 1 MG TAB PO SCH ×2 (09:04→20:54)
[2017-05-25 12:24] VITALS: BP 130/87
--- NOTE | 2017-05-25 17:20 | MHIPN ---
DATE: 05/25/2017 CHIEF COMPLAINT: Says feels okay. SUBJECTIVE: Seen for followup. Indicates feels okay, but is somewhat vague on this. Says had a fair night. She had oxygen at night, and has tended to use it during the day on occasion. MENTAL STATUS EXAMINATION: Neat. She is a bit guarded, superficially cooperative. Has a restricted affect. Answers questions briefly and logically. Denies any suicidal thoughts or intents. Does not appear to be internally preoccupied at present, though that is sometimes hard to ascertain. Cognition grossly intact. Judgment and insight remain compromised. ASSESSMENT: 1. Unspecified psychotic disorder. 2. Rule out schizoaffective disorder. 3. Rule out bipolar disorder. PLAN: Continue current care, including the risperidone at 1 mg twice a day, which may need to be titrated up as indicated, and I would suggest obtaining old records from her outpatient clinicians. Encourage activities in the unit. She will be seeing the treatment team assigned to her, including the psychiatrist, tomorrow.
[2017-05-25 18:00] VITALS: BP 136/80
[2017-05-25] MEDS ORDERED: MICONAZOLE 2 % POWDER (DESENEX) TOP SCH (21:00)
[2017-05-25] MEDS: NYSTATIN 100,000 UNITS/GM TOPICAL PWD 15 GM TOP SCH (21:00)
[2017-05-26 06:00] VITALS: BP 144/93
[2017-05-26] MEDS ORDERED: INFLUENZA QUADRIVALENT PF VACCINE 0.5ML SYRINGE (90686) IM ONE (09:00)
[2017-05-26] MEDS: risperiDONE 1 MG TAB PO SCH ×2 (09:26→21:06)
[2017-05-26] MEDS: NYSTATIN 100,000 UNITS/GM TOPICAL PWD 15 GM TOP SCH ×2 (09:28→21:08)
[2017-05-26] MEDS: LOTRISONE CREAM 15 GM (BETAMETH/CLOTRIMAZOLE) TOP SCH ×2 (09:28→21:07)
--- NOTE | 2017-05-26 09:39 | HPE ---
DATE OF ADMISSION: 05/24/2017 HISTORY OF PRESENT ILLNESS: Please refer to psychiatric history and evaluation for further details on this admission. This examination and history is intended for medical issues, which may need treatment, followup or consultation on this 32-year-old female. ALLERGIES: CODEINE, FLUTICASONE, LEVMETAMFETAMINE, SALMETEROL, TOPAMAX. PRIMARY CARE PROVIDER: Reema Parra NP GUEST SERVICE MANAGER: Dr. Paulino Dominique. SOCIAL HISTORY: She is . EtOH none. Smokes: She quit 1-1/2 years ago. Recreational drug use is none. PAST MEDICAL HISTORY: Obstructive sleep apnea on CPAP, asthma, acute respiratory distress syndrome. PAST SURGICAL HISTORY: Appendectomy, repair of deviated septum, tonsillectomy, soft palate reconstruction, corrective surgery on wall eye and cross eye as a child. She had a trach and feeding tube secondary to ARDS. LABORATORY STUDIES: WBC 11.2, hemoglobin 14.9, hematocrit 43.3, platelets 274. Sodium 141, potassium 3.3, chloride 105, CO2 of 25, BUN 18, creatinine 0.82, nonfasting glucose 122, total bilirubin 1.3, direct bilirubin 0.3, TSH within normal limits. Toxicology was negative. HOME MEDICATIONS: - albuterol every 2 hours as needed for shortness of breath or wheeze - nebulizer four times a day as needed for shortness of breath or wheeze - Nexium 20 mg by mouth daily - loratadine 10 mg by mouth daily - Xolair 150 mg every 2 weeks FAMILY HISTORY: Noncontributory. REVIEW OF SYSTEMS: Negative other than a rash in her abdominal fold and athlete's foot on her right foot. Currently, no respiratory complaints. PHYSICAL EXAMINATION: GENERAL: 32-year-old cooperative female in no acute distress. Height 58 inches, weight 111 kg, Body Mass Index (BMI) 51.3, blood pressure 136/70, pulse 84, respirations 16, temperature 98. 32-year-old obese female in no acute distress. The patient is alert and oriented times three. HEENT: Pupils are equal and reactive to light. Extraocular muscles intact. Sclerae clear. Conjunctivae normal. No facial asymmetry. Pharynx, gums and tongue pink and moist. Tongue is midline. NECK: Supple without lymphadenopathy, thyromegaly or goiter. Carotids are 2+ without bruit. CHEST: Clear to auscultation without wheeze or retraction. HEART: Regular. ABDOMEN: Soft, nontender. No masses, pulsations or bruits. No organomegaly. Bowel sounds are positive. Yeast rash noticed in the abdominal fold. GENITOURINARY/RECTAL: Not done. EXTREMITIES: Equal strength, full range of motion. Right foot has a rash with no drainage, redness or swelling. Peripheral pulses are equal and palpable bilaterally. IMPRESSION/PLAN: 1. Psychiatric plan per psychiatry. 2. Obstructive sleep apnea, continue CPAP. 3. Asthma, currently clinically stable. 4. Tinea pedis right foot. Lotrisone cream twice a day after washing with soap and water and drying well. 5. Nystatin powder twice a day to the abdominal folds. 6. Hypokalemia. We will recheck BMP. No other acute medical issues.
[2017-05-26] MEDS ORDERED: PRAZ5CAP PO (12:13)
[2017-05-26] MEDS ORDERED: RISP1TAB3 PO (12:14)
[2017-05-26 18:00] VITALS: BP 148/91
--- NOTE | 2017-05-26 18:41 | MHIPN ---
DATE: 05/26/2017 HISTORY: A 32-year-old female with history of psychosis admitted for paranoid delusions about satanic matters, "angels and demons." The patient was displaying psychotic behavior, described that she threw herself to the floor and up against the glass in the bathroom. SUBJECTIVE: "When can I go home." OBJECTIVE: The patient is tearful during the interview. Appears depressed. The patient started crying when I was asking the questions about her delusions and when she was talking about angels and demons. The patient appears to have mood congruent psychotic features. MEDICATIONS: Risperdal 1 mg by mouth twice a day. MENTAL STATUS EXAMINATION: The patient is dressed in [facility]. The patient is cooperative. Speech is slow and monotone. Mood is depressed and anxious. Affect is restricted. The patient continues to be paranoid. Denies auditory or visual hallucinations. The patient is able to contract for safety during the interview. Insight and judgment is limited. ASSESSMENT: 1. Depression. 2. Suicidal ideation. 3. Psychosis. PLAN: 1. Continue Risperdal 1 mg by mouth twice a day. 2. Continue trazodone as needed for insomnia. 3. Continue medication management, individual and group therapy.
[2017-05-27 07:00] VITALS: BP 132/70
[2017-05-27 07:50] LABS: ANION GAP 9 MEQ/L (8-16); BLOOD UREA NITROGEN 13 MG/DL (7-18); CALCIUM LEVEL 8.8 MG/DL (8.5-10.1); CARBON DIOXIDE LEVEL 29 MEQ/L (21-32); CHLORIDE LEVEL 107 MEQ/L (98-107); CREATININE FOR GFR 0.78 MG/DL (0.55-1.02); GLOMERULAR FILTRATION RATE > 60.0 (>60); GLUCOSE, FASTING 86 MG/DL (70-105); POTASSIUM SERUM 3.9 MEQ/L (3.5-5.1); SODIUM LEVEL 145 MEQ/L (136-145)
[2017-05-27] MEDS: risperiDONE 1 MG TAB PO SCH (08:02)
[2017-05-27] MEDS: LOTRISONE CREAM 15 GM (BETAMETH/CLOTRIMAZOLE) TOP SCH ×2 (08:03→20:50)
[2017-05-27] MEDS: NYSTATIN 100,000 UNITS/GM TOPICAL PWD 15 GM TOP SCH ×2 (08:03→21:00)
[2017-05-27] MEDS: ADVAIR HFA 115/21MCG INHALER INH SCH ×2 (09:00→21:00)
[2017-05-27] MEDS ORDERED: ALBU83IN INH (09:19)
[2017-05-27] MEDS ORDERED: VENTAER INH (09:19)
[2017-05-27] MEDS ORDERED: FURO40TA2 PO (09:19)
[2017-05-27] MEDS ORDERED: PANT40TA2 PO (09:19)
[2017-05-27] MEDS ORDERED: XOLA150S SC (09:19)
[2017-05-27] MEDS ORDERED: ARNU1INH3 INH (09:19)
[2017-05-27] MEDS ORDERED: LEVO25TA34 PO (09:19)
[2017-05-27] MEDS ORDERED: BREO1INH3 INH (09:19)
[2017-05-27] MEDS ORDERED: LORA10TA2 PO (09:19)
[2017-05-27] MEDS ORDERED: DRIS50002 PO (09:19)
[2017-05-27] MEDS ORDERED: ALBUTEROL SULFATE 2.5 MG/0.5 ML INH NEB SOLN INH PRN (09:30)
[2017-05-27] MEDS ORDERED: ALBUTEROL 90 MCG/ACT 8GM HFA INHALER INH PRN (09:30)
[2017-05-27] MEDS: FUROSEMIDE 40 MG TAB PO SCH (09:42)
[2017-05-27] MEDS: LORATADINE 10 MG TAB PO SCH (09:42)
[2017-05-27] MEDS: PANTOPRAZOLE 40MG TAB (PROTONIX) PO SCH (09:42)
[2017-05-27 10:40] LABS: MEAN CORPUSCULAR HGB CONC 32.2 g/dl (32.0-36.5); MEAN CORPUSCULAR VOLUME 86.9 fl (80.0-96.0); PLATELET COUNT, AUTOMATED 273 10^3/uL (150-450); RED CELL DISTRIBUTION WIDTH 14.2 % (11.5-14.5); WHITE BLOOD COUNT 8.9 10^3/uL (4.0-10.0)
[2017-05-27] MEDS: LEVOTHYROXINE 25MCG TABLET (0.025MG) PO SCH (10:49)
[2017-05-27 10:57] LABS: ANION GAP 9 MEQ/L (8-16); BLOOD UREA NITROGEN 13 MG/DL (7-18); CALCIUM LEVEL 8.9 MG/DL (8.5-10.1); CARBON DIOXIDE LEVEL 28 MEQ/L (21-32); CHLORIDE LEVEL 105 MEQ/L (98-107); GLOMERULAR FILTRATION RATE > 60.0 (>60); GLUCOSE, FASTING 95 MG/DL (70-105); POTASSIUM SERUM 4.1 MEQ/L (3.5-5.1); SODIUM LEVEL 142 MEQ/L (136-145)
--- NOTE | 2017-05-27 16:37 | MHIPN ---
DATE: 05/27/2017 HISTORY: 32-year-old female with a history of psychosis, admitted for paranoid delusions about satanic matters, "angels and demons." The patient was displaying psychotic behavior. It is described that she threw herself to the floor and up against the glass in the bathroom. SUBJECTIVE: "I am very sleepy." OBJECTIVE: The patient reports excessive sedation from Risperdal. The patient continues depressed, delusional, paranoid with blunted affect. MENTAL STATUS EXAMINATION: The patient is dressed in [facility]. The patient is partially cooperative. Speech is slow and monotone. Mood appears depressed. Affect is blunted. The patient continues with paranoid delusions. Denies auditory or visual hallucinations. The patient is able to contract for safety during the interview. Insight and judgment poor. ASSESSMENT: 1. Depression. 2. Suicidal ideation. 3. Paranoid delusions. PLAN: 1. Increase Risperdal to 1 mg by mouth in the morning and 2 mg by mouth at night. 2. Continue medication management, individual and group therapy.
[2017-05-27 18:00] VITALS: BP 117/77
[2017-05-27] MEDS ORDERED: risperiDONE 2 MG TAB PO SCH (21:00)
[2017-05-28] MEDS: LEVOTHYROXINE 25MCG TABLET (0.025MG) PO SCH (06:01)
[2017-05-28 06:50] VITALS: BP 155/84
[2017-05-28] MEDS: ADVAIR HFA 115/21MCG INHALER INH SCH ×2 (08:31→20:57)
[2017-05-28] MEDS: LORATADINE 10 MG TAB PO SCH (08:33)
[2017-05-28] MEDS: FUROSEMIDE 40 MG TAB PO SCH (08:33)
[2017-05-28] MEDS: PANTOPRAZOLE 40MG TAB (PROTONIX) PO SCH (08:33)
[2017-05-28] MEDS ORDERED: risperiDONE 1 MG TAB PO SCH (09:00)
[2017-05-28] MEDS: NYSTATIN 100,000 UNITS/GM TOPICAL PWD 15 GM TOP SCH ×2 (09:00→20:59)
[2017-05-28] MEDS: LOTRISONE CREAM 15 GM (BETAMETH/CLOTRIMAZOLE) TOP SCH ×2 (09:00→20:59)
--- NOTE | 2017-05-28 16:15 | MHIPN ---
DATE: 05/28/2017 HISTORY: 32-year-old female with a history of psychosis, admitted for paranoid delusions about satanic matters "angels and demons." The patient was displaying psychotic behavior. It is described that she threw herself to the floor and up against the glass in the bathroom. SUBJECTIVE: "I am feeling a little better." OBJECTIVE: The patient has improved slightly since admission. She is less delusional. She is somewhat more insightful. The patient is able to connect the fact that she stopped the medication with her current symptoms. The patient is denying side effects from the medication. MENTAL STATUS EXAMINATION: The patient is dressed in [facility]. The patient is cooperative. Speech is slow and monotone. Mood is depressed. Affect is blunted. The patient continues with paranoid delusions but has improved. No auditory or visual hallucinations. The patient is able to contract for safety during the interview. Insight and judgment are limited. ASSESSMENT: 1. Depression. 2. Suicidal ideation. 3. Paranoid delusions. PLAN: 1. Decrease Risperdal to 1 mg by mouth twice a day. 2. Continue close observation.
[2017-05-28 18:00] VITALS: BP 137/82
[2017-05-28] MEDS: risperiDONE 1 MG TAB PO SCH (20:59)
[2017-05-29] MEDS: LEVOTHYROXINE 25MCG TABLET (0.025MG) PO SCH (06:06)
[2017-05-29 07:33] VITALS: BP 129/89
[2017-05-29] MEDS: NYSTATIN 100,000 UNITS/GM TOPICAL PWD 15 GM TOP SCH ×2 (08:31→21:14)
[2017-05-29] MEDS: risperiDONE 1 MG TAB PO SCH ×2 (08:31→21:13)
[2017-05-29] MEDS: LOTRISONE CREAM 15 GM (BETAMETH/CLOTRIMAZOLE) TOP SCH ×2 (08:31→21:14)
[2017-05-29] MEDS: PANTOPRAZOLE 40MG TAB (PROTONIX) PO SCH (08:31)
[2017-05-29] MEDS: FUROSEMIDE 40 MG TAB PO SCH (08:31)
[2017-05-29] MEDS: LORATADINE 10 MG TAB PO SCH (08:31)
[2017-05-29] MEDS: ADVAIR HFA 115/21MCG INHALER INH SCH ×2 (09:00→21:00)
--- NOTE | 2017-05-29 16:21 | MHIPN ---
DATE: 05/29/2017 HISTORY: A 32-year-old female with a history of psychosis, admitted for paranoid delusions about "satanic matters," "angels and demons." Patient was displaying psychotic behavior. It is described that she threw herself to the floor and up against the glass in the bathroom. SUBJECTIVE: "I'm feeling much better." OBJECTIVE: Patient is improving. Is less paranoid and psychotic. Is tolerating the medication well, although she feels she is excessively drowsy. MENTAL STATUS EXAMINATION: Patient dressed in [facility]. Patient is cooperative. Speech is slow and monotone. Mood is depressed. Affect is blunted. Patient continues with paranoid delusions but has improved. No auditory or visual hallucinations. Patient is hamzah for safety during the interview. Insight and judgment are improving. ASSESSMENT: Paranoid delusions. PLAN: 1. Continue Risperdal 1 mg by mouth twice a day. 2. Continue close observation.
[2017-05-29 18:00] VITALS: BP 148/98
[2017-05-30] MEDS: LEVOTHYROXINE 25MCG TABLET (0.025MG) PO SCH (06:21)
[2017-05-30 06:44] VITALS: BP 140/81
[2017-05-30] MEDS: ADVAIR HFA 115/21MCG INHALER INH SCH (08:17)
[2017-05-30] MEDS: risperiDONE 1 MG TAB PO SCH (08:19)
[2017-05-30] MEDS: FUROSEMIDE 40 MG TAB PO SCH (08:19)
[2017-05-30] MEDS: PANTOPRAZOLE 40MG TAB (PROTONIX) PO SCH (08:19)
[2017-05-30] MEDS: NYSTATIN 100,000 UNITS/GM TOPICAL PWD 15 GM TOP SCH (08:19)
[2017-05-30] MEDS: LOTRISONE CREAM 15 GM (BETAMETH/CLOTRIMAZOLE) TOP SCH (08:19)
[2017-05-30] MEDS: LORATADINE 10 MG TAB PO SCH (08:19)
[2017-05-30] MEDS ORDERED: RISP1TAB42 PO (10:48)
--- NOTE | 2017-05-31 12:44 | MHDS ---
DATE OF ADMISSION: 05/24/2017 DATE OF DISCHARGE: 05/30/2017 LEGAL STATUS AT ADMISSION: 9.39 legal status. HISTORY OF PRESENT ILLNESS: The following information is according to the initial evaluation Dr. Huffman, his progress note and my own progress note. On admission, Dr. Huffman wrote she is 32 years old, , she lives with her , her brother lives with them as well currently. Patient apparently has history of psychosis and has been hospitalized in the past. Attends [facility] as an outpatient. She has been on Risperdal though the current dose is unclear. She got 1 mg by mouth twice daily in the past. She had apparently gone off her medications about a month or so, more recently began feeling somewhat tired, confused and more agitated. Began developing delusions related to satanic matters, angels, demons which her who I interviewed separately with the patient's permission suggested was quite unusual for her. It does tend to happen when she has not been doing well. 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 He says that he found out from his [id number] that she had been quieter and somewhat confused. Yesterday had difficulties with sleep, tried throwing herself on the floor and up against the glass in the bathroom. Apparently she had tried breaking the glass to harm herself. She herself does not recall this but does acknowledge had trouble with sleep lately. Says has trouble keeping her CPAP machine on and understands from the that she uses oxygen during the daytime as well. When doing well, has generally been stable, sleeps well, appetite is good. She had improved enough to start college and was doing well until a couple of weeks ago. She does not recall why she was brought to the hospital. Her says that when she went off medication, that she did well for a number of weeks and her clinicians at [facility] wanted to hold off on resuming them. Risperdal was restarted a day or so ago by her primary care, given the patient's deterioration. says that his presence helps here adhere to the medicine. He has been commuting to work but says he is arranging to have his work transferred locally and apparently Aggie Reyes is cooperating with that. LABS AT ADMISSION: Her CBC shows WBC of 11.2, rest was within normal limits. CMP was unremarkable except potassium of 3.3 that was normalized in later labs. Total bilirubin was 1.3, direct bilirubin was 0.3, rest within normal limits. TSH was within normal limits. test was negative. Blood alcohol level was negative. Urine drug screen was negative. HOSPITAL COURSE: After the first evaluation, patient was placed on Risperdal 2 mg by mouth daily at bedtime and 1 mg by mouth every morning and she tolerated it well the medication. After a few days of taking the Risperdal, her paranoid delusions significantly decreased and totally disappeared. The Risperdal was tapered slowly down up to 1 mg by mouth twice daily. On 05/30/2017, patient is in stable condition. Patient is requesting to be discharged. She wants to go back to school and she says she is getting behind on the homework. She says that does not have the thoughts that were very disturbing to her and she understands it was a mistake to stop taking her medication, so she is discharged in stable condition with no auditory or visual hallucinations, delusions, suicidal or homicidal ideation. MEDICATIONS AT DISCHARGE: - Risperdal 1 mg by mouth twice daily MENTAL STATUS EXAMINATION AT DISCHARGE: Patient dressed in [facility]. Patient is calm and cooperative. Patient is euthymic. Affect is congruent with mood. Speech is clear, coherent with normal rate and is spontaneous. Patient is oriented to time, place, person and situation. Maintains attention and concentration correctly. Instant recovery and remote memory are intact. Thought processes are coherent, logical and goal directed. Patient does not have auditory or visual hallucinations. Patient does not have paranoid, presecretory, somatic, grandiose or adventist delusions. Patient denies suicidal or homicidal ideation. Insight and judgment is fair. DIAGNOSIS: Sharon I: Paranoid schizophrenia. Sharon II: Deferred. Sharon III: Obstructive sleep apnea, asthma, hypokalemia. INSTRUCTIONS TO THE PATIENT: Patient is to continue taking her medications as prescribed from followup appointments. She is advised to maintain absolute sobriety from drugs and alcohol. Patient has scheduled appointment for medication management, individual psychotherapy and primary care physician.
== END 2017-05-30 16:20 | disposition home or self-care (01) | DRG 885 ==
LOC: M ED 01:06 → M PSY 03:27
PROVIDERS: ADMIT Psychiatry & Neurology Psychiatry; ATTEND Psychiatry & Neurology Psychiatry
DX: F20.0 Paranoid schizophrenia (principal); G47.33 Obstructive sleep apnea (adult) (pediatric); E87.6 Hypokalemia; J45.909 Unspecified asthma, uncomplicated; Z88.5 Allergy status to narcotic agent; Z88.8 Allergy status to other drugs, medicaments and biological substances; Z87.891 Personal history of nicotine dependence; Z79.899 Other long term (current) drug therapy; B35.3 Tinea pedis

== ENCOUNTER → 2017-08-08 | Outpatient (CLI) | payer OTHER ==
[2017-08-08 14:19] LABS: BASO % 0.5 % (0.0-1.0); EOS # 0.1 10^3/uL (0.0-0.50); EOS % 0.6 % (0.0-3.0); HEMATOCRIT 42.3 % (36.0-47.0); HEMOGLOBIN 13.2 g/dl (12.0-16.0); IMMATURE GRANULOCYTE % 0.5 % (0-3.0); LYMPH % 23.9 % (24.0-44.0); MEAN CORPUSCULAR HEMOGLOBIN 25.1 pg (27.0-33.0); MEAN CORPUSCULAR HGB CONC 31.2 g/dl (32.0-36.5); MEAN CORPUSCULAR VOLUME 80.4 fl (80.0-96.0); MONO # 0.6 10^3/uL (0.0-0.8); MONO % 6.5 % (0.0-5.0); NEUTROPHILS # 5.7 10^3/uL (1.8-7.7); PLATELET COUNT, AUTOMATED 337 10^3/uL (150-450); RED BLOOD COUNT 5.26 10^6/uL (4.00-5.40); RED CELL DISTRIBUTION WIDTH 13.9 % (11.5-14.5); WHITE BLOOD COUNT 8.4 10^3/uL (4.0-10.0)
[2017-08-08 14:39] LABS: TOTAL 25(OH) VITAMIN D 34.4 NG/ML (30.0-100.0); VITAMIN B12 LEVEL 808 PG/ML (247-911)
[2017-08-08 14:43] LABS: ESTIMATED AVERAGE GLUCOSE 126 MG/DL (60-110)
[2017-08-08 15:02] LABS: ALBUMIN 3.6 GM/DL (3.2-5.2); ALBUMIN/GLOBULIN RATIO 1.09 (1.00-1.93); ALKALINE PHOSPHATASE 109 U/L (45-117); ALT/SGPT 22 U/L (12-78); ANION GAP 10 MEQ/L (8-16); AST/SGOT 17 U/L (7-37); BILIRUBIN,TOTAL 0.8 MG/DL (0.2-1.0); BLOOD UREA NITROGEN 9 MG/DL (7-18); CALCIUM LEVEL 8.7 MG/DL (8.5-10.1); CARBON DIOXIDE LEVEL 26 MEQ/L (21-32); CHLORIDE LEVEL 105 MEQ/L (98-107); CHOLESTEROL LEVEL 189 MG/DL (<200); CHOLESTEROL RISK RATIO 4.846 (<5); CREATININE FOR GFR 0.85 MG/DL (0.55-1.30); GLOMERULAR FILTRATION RATE > 60.0 (>60); GLUCOSE, FASTING 94 MG/DL (70-100); HDL CHOLESTEROL 39 MG/DL (>40); NON-HDL-C 150 MG/DL; POTASSIUM SERUM 3.7 MEQ/L (3.5-5.1); SODIUM LEVEL 141 MEQ/L (136-145); TOTAL PROTEIN 6.9 GM/DL (6.4-8.2); TRIGLYCERIDES LEVEL 205 MG/DL (<150)
== END ==
LOC: M SMT 10:31
DX: F43.20 Adjustment disorder, unspecified (principal)

== ENCOUNTER 2017-08-20 08:18 | Inpatient (IN) | payer OTHER ==
[2017-08-20 10:39] LABS: HEMATOCRIT 46.2 % (36.0-47.0); HEMOGLOBIN 14.2 g/dl (12.0-16.0); MEAN CORPUSCULAR HEMOGLOBIN 24.8 pg (27.0-33.0); MEAN CORPUSCULAR HGB CONC 30.7 g/dl (32.0-36.5); MEAN CORPUSCULAR VOLUME 80.8 fl (80.0-96.0); PLATELET COUNT, AUTOMATED 327 10^3/uL (150-450); RED BLOOD COUNT 5.72 10^6/uL (4.00-5.40); RED CELL DISTRIBUTION WIDTH 14.4 % (11.5-14.5); WHITE BLOOD COUNT 11.8 10^3/uL (4.0-10.0)
[2017-08-20 10:49] LABS: CONTROL LINE HCG INT CTR LINE PRESENT; HCG, SERUM QUALITATIVE NEGATIVE (NEGATIVE)
[2017-08-20 10:53] LABS: AMPHETAMINES LEVEL URINE NEGATIVE (NEGATIVE); BARBITURATES URINE NEGATIVE (NEGATIVE); BENZODIAZEPINES URINE NEGATIVE (NEGATIVE); CANNABINOIDS URINE NEGATIVE (NEGATIVE); COCAINE METABOLITE URINE NEGATIVE (NEGATIVE); METHADONE URINE NEGATIVE (NEGATIVE); OPIATES URINE NEGATIVE (NEGATIVE); PHENCYCLIDINE URINE NEGATIVE (NEGATIVE)
[2017-08-20 11:04] LABS: ALBUMIN 4.4 GM/DL (3.2-5.2); ALBUMIN/GLOBULIN RATIO 1.26 (1.00-1.93); ALKALINE PHOSPHATASE 108 U/L (45-117); ALT/SGPT 24 U/L (12-78); ANION GAP 8 MEQ/L (8-16); AST/SGOT 16 U/L (7-37); BILIRUBIN,DIRECT 0.3 MG/DL (0.0-0.2); BILIRUBIN,TOTAL 1.4 MG/DL (0.2-1.0); BLOOD UREA NITROGEN 15 MG/DL (7-18); CARBON DIOXIDE LEVEL 29 MEQ/L (21-32); CHLORIDE LEVEL 105 MEQ/L (98-107); CREATININE FOR GFR 0.98 MG/DL (0.55-1.30); ETHYL ALCOHOL (ETHANOL) < 0.003 % (0.000-0.010); GLOMERULAR FILTRATION RATE > 60.0 (>60); GLUCOSE, FASTING 101 MG/DL (70-100); POTASSIUM SERUM 3.9 MEQ/L (3.5-5.1); SALICYLATE LEVEL < 1.7 MG/DL (5.0-30.0); SODIUM LEVEL 142 MEQ/L (136-145); TOTAL PROTEIN 7.9 GM/DL (6.4-8.2)
[2017-08-20 11:06] LABS: ACETAMINOPHEN LEVEL < 2.0 UG/ML (10.0-30.0)
[2017-08-20] MEDS ORDERED: ALBUTEROL 90 MCG/ACT 8GM HFA INHALER INH (14:45)
[2017-08-20] MEDS ORDERED: ALBUTEROL SULFATE 2.5 MG/0.5 ML INH NEB SOLN INH (14:45)
[2017-08-20] MEDS ORDERED: MOM 30ML SUSPENSION UDC PO (15:00)
[2017-08-20] MEDS ORDERED: MAALOX 30 ML SUSP *UDC PO (15:00)
[2017-08-20] MEDS: PALIPERIDONE 3 MG ER TAB (INVEGA) PO (16:19)
[2017-08-20] MEDS: traZODone 50 MG TAB PO (20:58)
[2017-08-20] MEDS: PRAZOSIN 1 MG CAP PO (20:58)
[2017-08-20] MEDS ORDERED: **hydrALAZINE HCL** 25 MG TAB PO (21:00)
[2017-08-21] MEDS: LEVOTHYROXINE 25MCG TABLET (0.025MG) PO (05:41)
[2017-08-21 07:05] LABS: BASO % 0.3 % (0.0-1.0); EOS % 0.3 % (0.0-3.0); HEMATOCRIT 43.2 % (36.0-47.0); HEMOGLOBIN 13.5 g/dl (12.0-16.0); IMMATURE GRANULOCYTE % 0.3 % (0-3.0); LYMPH # 2.4 10^3/uL (1.5-4.5); LYMPH % 20.6 % (24.0-44.0); MEAN CORPUSCULAR HGB CONC 31.3 g/dl (32.0-36.5); MEAN CORPUSCULAR VOLUME 79.9 fl (80.0-96.0); MONO # 0.8 10^3/uL (0.0-0.8); MONO % 6.7 % (0.0-5.0); NEUTROPHILS # 8.2 10^3/uL (1.8-7.7); NEUTROPHILS % 71.8 % (36.0-66.0); PLATELET COUNT, AUTOMATED 319 10^3/uL (150-450); RED BLOOD COUNT 5.41 10^6/uL (4.00-5.40); RED CELL DISTRIBUTION WIDTH 14.5 % (11.5-14.5); WHITE BLOOD COUNT 11.4 10^3/uL (4.0-10.0)
[2017-08-21] MEDS: PANTOPRAZOLE 40MG TAB (PROTONIX) PO (08:59)
[2017-08-21] MEDS: SERTRALINE HCL 50 MG TAB PO (08:59)
[2017-08-21] MEDS: MONTELUKAST 10 MG TAB PO (08:59)
[2017-08-21] MEDS: PALIPERIDONE 3 MG ER TAB (INVEGA) PO (08:59)
[2017-08-21] MEDS: FUROSEMIDE 40 MG TAB PO (08:59)
[2017-08-21] MEDS: LORATADINE 10 MG TAB PO (08:59)
[2017-08-21] MEDS: SYMBICORT 80/4.5MCG INHALER 6GM INH ×2 (09:00→20:31)
[2017-08-21] MEDS: PALIPERIDONE PALMITATE 234 MG/1.5 ML INJ (INVEGA SUSTENNA)(J2426) IM (13:24)
[2017-08-21] MEDS: traZODone 50 MG TAB PO (20:31)
[2017-08-21] MEDS: ACETAMINOPHEN TAB 650MG DOSE (2X325MG) PO (20:31)
[2017-08-21] MEDS: hydrOXYzine 10 MG TAB PO (20:32)
[2017-08-21] MEDS: PRAZOSIN 1 MG CAP PO (20:39)
[2017-08-21] MEDS ORDERED: ADVAIR HFA 115/21MCG INHALER INH (21:00)
[2017-08-21] MEDS: OLANZapine ORAL DISINTEGRATING TAB 5MG PO (22:57)
[2017-08-22] MEDS: LEVOTHYROXINE 25MCG TABLET (0.025MG) PO (06:03)
[2017-08-22 07:35] LABS: HEMATOCRIT 43.4 % (36.0-47.0); HEMOGLOBIN 13.5 g/dl (12.0-16.0); MEAN CORPUSCULAR HEMOGLOBIN 24.9 pg (27.0-33.0); MEAN CORPUSCULAR HGB CONC 31.1 g/dl (32.0-36.5); MEAN CORPUSCULAR VOLUME 80.1 fl (80.0-96.0); PLATELET COUNT, AUTOMATED 328 10^3/uL (150-450); RED BLOOD COUNT 5.42 10^6/uL (4.00-5.40); RED CELL DISTRIBUTION WIDTH 14.6 % (11.5-14.5); WHITE BLOOD COUNT 10.4 10^3/uL (4.0-10.0)
[2017-08-22] MEDS: SYMBICORT 80/4.5MCG INHALER 6GM INH (10:04)
[2017-08-22] MEDS: PALIPERIDONE 3 MG ER TAB (INVEGA) PO (10:04)
[2017-08-22] MEDS: MONTELUKAST 10 MG TAB PO (10:04)
[2017-08-22] MEDS: FUROSEMIDE 40 MG TAB PO (10:05)
[2017-08-22] MEDS: LORATADINE 10 MG TAB PO (10:05)
[2017-08-22] MEDS: PANTOPRAZOLE 40MG TAB (PROTONIX) PO (10:05)
== END 2017-08-22 13:35 | disposition home or self-care (01) | DRG 885 ==
LOC: M ED 08:18 → M ED INP 12:57 → M PSY 14:28
DX: F20.9 Schizophrenia, unspecified (principal); Z68.43 Body mass index [BMI] 50.0-59.9, adult; F51.5 Nightmare disorder; E03.9 Hypothyroidism, unspecified; E66.9 Obesity, unspecified; J45.909 Unspecified asthma, uncomplicated; F41.9 Anxiety disorder, unspecified; G47.33 Obstructive sleep apnea (adult) (pediatric); I10 Essential (primary) hypertension; K21.9 Gastro-esophageal reflux disease without esophagitis; Z79.899 Other long term (current) drug therapy; Z88.5 Allergy status to narcotic agent; Z88.8 Allergy status to other drugs, medicaments and biological substances; Z91.5 Personal history of self-harm; Z99.89 Dependence on other enabling machines and devices

== ENCOUNTER → 2017-09-01 | Outpatient (CLI) | payer OTHER ==
[2017-09-01 14:30] LABS: ALKALINE PHOSPHATASE 90 U/L (45-117); ALT/SGPT 26 U/L (12-78); ANION GAP 9 MEQ/L (8-16); AST/SGOT 13 U/L (7-37); BASO % 0.3 % (0.0-1.0); BILIRUBIN,TOTAL 0.7 MG/DL (0.2-1.0); BLOOD UREA NITROGEN 12 MG/DL (7-18); CALCIUM LEVEL 8.6 MG/DL (8.5-10.1); CARBON DIOXIDE LEVEL 28 MEQ/L (21-32); CHLORIDE LEVEL 104 MEQ/L (98-107); CHOLESTEROL LEVEL 166 MG/DL (<200); CHOLESTEROL RISK RATIO 5.354 (<5); CREATININE FOR GFR 0.64 MG/DL (0.55-1.30); EOS # 0.1 10^3/uL (0.0-0.50); EOS % 0.6 % (0.0-3.0); GLOMERULAR FILTRATION RATE > 60.0 (>60); GLUCOSE, FASTING 84 MG/DL (70-100); HDL CHOLESTEROL 31 MG/DL (>40); HEMATOCRIT 39.8 % (36.0-47.0); HEMOGLOBIN 12.4 g/dl (12.0-16.0); IMMATURE GRANULOCYTE % 0.4 % (0-3.0); LDL CHOLESTEROL 65.2 MG/DL (<100); LYMPH # 2.3 10^3/uL (1.5-4.5); LYMPH % 23.6 % (24.0-44.0); MEAN CORPUSCULAR HEMOGLOBIN 24.9 pg (27.0-33.0); MEAN CORPUSCULAR HGB CONC 31.2 g/dl (32.0-36.5); MEAN CORPUSCULAR VOLUME 79.9 fl (80.0-96.0); MONO # 0.7 10^3/uL (0.0-0.8); MONO % 7.2 % (0.0-5.0); NEUTROPHILS # 6.7 10^3/uL (1.8-7.7); NEUTROPHILS % 67.9 % (36.0-66.0); NON-HDL-C 135 MG/DL; PLATELET COUNT, AUTOMATED 303 10^3/uL (150-450); RED BLOOD COUNT 4.98 10^6/uL (4.00-5.40); RED CELL DISTRIBUTION WIDTH 14.7 % (11.5-14.5); SODIUM LEVEL 141 MEQ/L (136-145); TOTAL PROTEIN 6.4 GM/DL (6.4-8.2); TRIGLYCERIDES LEVEL 349 MG/DL (<150); WHITE BLOOD COUNT 9.8 10^3/uL (4.0-10.0)
[2017-09-01 14:31] LABS: ALBUMIN 3.4 GM/DL (3.2-5.2); ALBUMIN/GLOBULIN RATIO 1.13 (1.00-1.93); FREE T4 0.94 NG/DL (0.76-1.46)
[2017-09-01 15:30] LABS: ESTIMATED AVERAGE GLUCOSE 117 MG/DL (60-110); HEMOGLOBIN A1c 5.7 %
== END ==
LOC: M SMT 09:17
DX: D64.9 Anemia, unspecified (principal); E87.70 Fluid overload, unspecified; E03.9 Hypothyroidism, unspecified; E55.9 Vitamin D deficiency, unspecified; Z79.899 Other long term (current) drug therapy

== ENCOUNTER → 2017-09-01 | Outpatient (CLI) | payer OTHER ==
[2017-09-01 14:41] LABS: NT-PRO BNP 80 PG/ML (<125)
== END ==
LOC: M SMT 09:09
DX: J45.50 Severe persistent asthma, uncomplicated (principal); J96.11 Chronic respiratory failure with hypoxia

== ENCOUNTER 2017-09-16 10:32 | Emergency (ER) | payer OTHER ==
[2017-09-16] MEDS: ALBUTEROL SULFATE 2.5 MG/0.5 ML INH NEB SOLN NEB ×3 (13:11→13:52)
[2017-09-16 13:32] LABS: BASO % 0.4 % (0.0-1.0); EOS # 0.1 10^3/uL (0.0-0.50); EOS % 0.5 % (0.0-3.0); HEMATOCRIT 44.2 % (36.0-47.0); HEMOGLOBIN 13.6 g/dl (12.0-16.0); IMMATURE GRANULOCYTE % 0.5 % (0-3.0); LYMPH # 1.9 10^3/uL (1.5-4.5); LYMPH % 17.1 % (24.0-44.0); MEAN CORPUSCULAR HEMOGLOBIN 24.3 pg (27.0-33.0); MEAN CORPUSCULAR HGB CONC 30.8 g/dl (32.0-36.5); MEAN CORPUSCULAR VOLUME 78.9 fl (80.0-96.0); MONO # 0.7 10^3/uL (0.0-0.8); MONO % 5.9 % (0.0-5.0); NEUTROPHILS # 8.4 10^3/uL (1.8-7.7); NEUTROPHILS % 75.6 % (36.0-66.0); PLATELET COUNT, AUTOMATED 349 10^3/uL (150-450); RED CELL DISTRIBUTION WIDTH 15.2 % (11.5-14.5); WHITE BLOOD COUNT 11.1 10^3/uL (4.0-10.0)
[2017-09-16] MEDS: methylPREDNISolone INJ 125 MG/2 ML VIAL (J2930) IV (13:45)
[2017-09-16 13:55] LABS: ANION GAP 6 MEQ/L (8-16); BLOOD UREA NITROGEN 12 MG/DL (7-18); CALCIUM LEVEL 8.8 MG/DL (8.5-10.1); CARBON DIOXIDE LEVEL 29 MEQ/L (21-32); CHLORIDE LEVEL 104 MEQ/L (98-107); CREATININE FOR GFR 0.82 MG/DL (0.55-1.30); GLOMERULAR FILTRATION RATE > 60.0 (>60); GLUCOSE, FASTING 81 MG/DL (70-100); POTASSIUM SERUM 4.7 MEQ/L (3.5-5.1); SODIUM LEVEL 139 MEQ/L (136-145)
[2017-09-16 14:01] LABS: NT-PRO BNP 73 PG/ML (<125)
[2017-09-16 14:10] LABS: INFLUENZA A AMPLIFICATION NEGATIVE (NEGATIVE); INFLUENZA B AMPLIFICATION NEGATIVE (NEGATIVE)
[2017-09-16] MEDS: LevoFLOXacin IV 750 MG in APPROPRIATE DILUENT 1 EA IV (14:45)
== END 2017-09-16 16:35 | disposition home or self-care (01) ==
LOC: M ED 10:32
DX: J45.901 Unspecified asthma with (acute) exacerbation (principal); J40 Bronchitis, not specified as acute or chronic; I10 Essential (primary) hypertension; G47.33 Obstructive sleep apnea (adult) (pediatric); E03.9 Hypothyroidism, unspecified; K21.9 Gastro-esophageal reflux disease without esophagitis; F33.9 Major depressive disorder, recurrent, unspecified; F41.9 Anxiety disorder, unspecified; F20.9 Schizophrenia, unspecified; Z99.81 Dependence on supplemental oxygen; Z79.899 Other long term (current) drug therapy; Z79.51 Long term (current) use of inhaled steroids; Z79.890 Hormone replacement therapy; Z87.891 Personal history of nicotine dependence; Z98.890 Other specified postprocedural states; Z88.8 Allergy status to other drugs, medicaments and biological substances; Z88.5 Allergy status to narcotic agent
CPT/HCPCS: J1956

== ENCOUNTER → 2017-12-10 | Outpatient (CLI) | payer OTHER ==
[2017-12-10 16:30] LABS: BASO % 0.4 % (0.0-1.0); EOS # 0.1 10^3/uL (0.0-0.50); EOS % 0.5 % (0.0-3.0); HEMOGLOBIN 12.7 g/dl (12.0-15.5); IMMATURE GRANULOCYTE % 0.5 % (0-3.0); LYMPH # 2.4 10^3/uL (1.5-4.5); LYMPH % 23.9 % (24.0-44.0); MEAN CORPUSCULAR HGB CONC 30.2 g/dl (32.0-36.5); MEAN CORPUSCULAR VOLUME 76.2 fl (80.0-96.0); MONO # 0.7 10^3/uL (0.0-0.8); MONO % 6.6 % (0.0-5.0); NEUTROPHILS # 6.9 10^3/uL (1.8-7.7); NEUTROPHILS % 68.1 % (36.0-66.0); PLATELET COUNT, AUTOMATED 342 10^3/uL (150-450); RED BLOOD COUNT 5.51 10^6/uL (4.00-5.40); RED CELL DISTRIBUTION WIDTH 15.9 % (11.5-14.5); WHITE BLOOD COUNT 10.2 10^3/uL (4.0-10.0)
[2017-12-10 16:47] LABS: TOTAL 25(OH) VITAMIN D 40.1 NG/ML (30.0-100.0)
[2017-12-10 16:48] LABS: ESTIMATED AVERAGE GLUCOSE 111 MG/DL (60-110); HEMOGLOBIN A1c 5.5 %
[2017-12-10 16:57] LABS: ALBUMIN 3.7 GM/DL (3.2-5.2); ALBUMIN/GLOBULIN RATIO 1.12 (1.00-1.93); ALKALINE PHOSPHATASE 106 U/L (45-117); ALT/SGPT 27 U/L (12-78); ANION GAP 10 MEQ/L (8-16); AST/SGOT 13 U/L (7-37); BILIRUBIN,TOTAL 1.2 MG/DL (0.2-1.0); BLOOD UREA NITROGEN 9 MG/DL (7-18); CALCIUM LEVEL 8.5 MG/DL (8.5-10.1); CARBON DIOXIDE LEVEL 29 MEQ/L (21-32); CHLORIDE LEVEL 103 MEQ/L (98-107); CHOLESTEROL LEVEL 173 MG/DL (<200); CHOLESTEROL RISK RATIO 5.088 (<5); CREATININE FOR GFR 0.84 MG/DL (0.55-1.30); FREE T4 1.09 NG/DL (0.76-1.46); GLOMERULAR FILTRATION RATE > 60.0 (>60); GLUCOSE, FASTING 89 MG/DL (70-100); HDL CHOLESTEROL 34 MG/DL (>40); LDL CHOLESTEROL 89.6 MG/DL (<100); NON-HDL-C 139 MG/DL; SODIUM LEVEL 142 MEQ/L (136-145); TRIGLYCERIDES LEVEL 247 MG/DL (<150)
[2017-12-10 17:12] LABS: CREATININE, URINE < 13.0 MG/DL; MALB URINE SIEMENS < 5.0 MG/L
== END ==
LOC: M LRY 13:25
DX: Z51.81 Encounter for therapeutic drug level monitoring (principal); Z79.899 Other long term (current) drug therapy; D64.9 Anemia, unspecified; E03.9 Hypothyroidism, unspecified; E55.9 Vitamin D deficiency, unspecified; F20.9 Schizophrenia, unspecified; F31.9 Bipolar disorder, unspecified
CPT/HCPCS: 84443

== ENCOUNTER → 2017-12-17 | Outpatient (CLI) | payer OTHER | LOC: M SMT 15:26 | DX: R09.02 Hypoxemia (principal) | CPT/HCPCS: 85379 ==

== ENCOUNTER → 2017-12-17 | Outpatient (REF) | payer OTHER ==
[2017-12-17 18:26] LABS: D-DIMER QUANT < 270.0 ng/ml (<500)
== END ==
LOC: M LAB REF 16:57
DX: R09.02 Hypoxemia (principal)

== ENCOUNTER → 2018-02-12 | Outpatient (CLI) | payer OTHER | LOC: M RAD 12:36 | DX: J84.9 Interstitial pulmonary disease, unspecified (principal) | CPT/HCPCS: 71250 ==

== ENCOUNTER 2018-03-06 17:54 | Emergency (ER) | payer OTHER ==
[2018-03-06] MEDS: NS 1,000 ML IV (22:10)
[2018-03-06] MEDS: KETOROLAC 30 MG/ML VIAL (J1885) IV (22:11)
[2018-03-06] MEDS: METOCLOPRAMIDE INJ 10MG/2ML VIAL (J2765) IV (22:11)
[2018-03-06] MEDS: diphenhydrAMINE INJ 50MG/ML VIAL (J1200) IV (22:11)
[2018-03-06 22:15] LABS: BASO # 0.1 10^3/uL (0.0-0.2); BASO % 0.4 % (0.0-1.0); EOS # 0.1 10^3/uL (0.0-0.50); EOS % 0.4 % (0.0-3.0); HEMATOCRIT 35.6 % (36.0-47.0); HEMOGLOBIN 10.1 g/dl (12.0-15.5); IMMATURE GRANULOCYTE % 0.4 % (0-3.0); LYMPH # 3.3 10^3/uL (1.5-4.5); LYMPH % 24.2 % (24.0-44.0); MEAN CORPUSCULAR HEMOGLOBIN 20.6 pg (27.0-33.0); MEAN CORPUSCULAR HGB CONC 28.4 g/dl (32.0-36.5); MEAN CORPUSCULAR VOLUME 72.5 fl (80.0-96.0); MONO # 0.8 10^3/uL (0.0-0.8); NEUTROPHILS # 9.2 10^3/uL (1.8-7.7); NEUTROPHILS % 68.6 % (36.0-66.0); PLATELET COUNT, AUTOMATED 376 10^3/uL (150-450); RED BLOOD COUNT 4.91 10^6/uL (4.00-5.40); RED CELL DISTRIBUTION WIDTH 16.6 % (11.5-14.5); WHITE BLOOD COUNT 13.4 10^3/uL (4.0-10.0)
[2018-03-06 22:56] LABS: ANION GAP 9 MEQ/L (8-16); BLOOD UREA NITROGEN 9 MG/DL (7-18); CALCIUM LEVEL 8.8 MG/DL (8.5-10.1); CARBON DIOXIDE LEVEL 27 MEQ/L (21-32); CHLORIDE LEVEL 102 MEQ/L (98-107); CREATININE FOR GFR 0.79 MG/DL (0.55-1.30); FREE T4 1.15 NG/DL (0.76-1.46); GLOMERULAR FILTRATION RATE > 60.0 (>60); GLUCOSE, FASTING 92 MG/DL (70-100); MAGNESIUM LEVEL 1.7 MG/DL (1.8-2.4); POTASSIUM SERUM 3.9 MEQ/L (3.5-5.1); SODIUM LEVEL 138 MEQ/L (136-145)
[2018-03-06 23:44] LABS: KETONE, URINE AUTO RFX NEGATIVE (NEGATIVE); LEUKOCYTE ESTERASE UR AUTO RFX NEGATIVE (NEGATIVE); NITRITE, URINE AUTO RFX NEGATIVE (NEGATIVE); RBC, URINE AUTO RFX 1 /HPF (0-3); SPECIFIC GRAVITY UR AUTO RFX 1.013 (1.002-1.035); SQUAM EPITHELIAL CELL UR AURFX 1 /HPF (0-6); WBC, URINE AUTO RFX 4 /HPF (0-3)
== END 2018-03-07 00:17 | disposition home or self-care (01) ==
LOC: M ED 03-07 00:17
DX: R51 Headache (principal); D64.9 Anemia, unspecified; I10 Essential (primary) hypertension; J45.909 Unspecified asthma, uncomplicated; F41.9 Anxiety disorder, unspecified; F32.9 Major depressive disorder, single episode, unspecified; F20.9 Schizophrenia, unspecified; J80 Acute respiratory distress syndrome; G47.33 Obstructive sleep apnea (adult) (pediatric); K21.9 Gastro-esophageal reflux disease without esophagitis; E03.9 Hypothyroidism, unspecified; N92.6 Irregular menstruation, unspecified; Z88.5 Allergy status to narcotic agent; Z88.8 Allergy status to other drugs, medicaments and biological substances; Z79.899 Other long term (current) drug therapy; Z79.51 Long term (current) use of inhaled steroids; Z99.81 Dependence on supplemental oxygen; Z87.42 Personal history of other diseases of the female genital tract
CPT/HCPCS: J1200

== ENCOUNTER → 2018-04-13 | Outpatient (CLI) | payer OTHER ==
[2018-04-13 22:30] LABS: ESTRADIOL 56.9 PG/ML
[2018-04-13 22:30] LABS: FOLLICLE STIMULATING HORMONE 3.5 mIU/mL; LUTEINIZING HORMONE 5.9 mIU/mL; PROLACTIN 26.2 NG/ML
[2018-04-17 00:08] LABS: 17 HYDROXY PROGESTERONE 30 ng/dL (.); TESTOSTERONE FREE (DIRECT) 0.6 pg/mL (0.0-4.2)
== END ==
LOC: M SMT 13:49
DX: N92.1 Excessive and frequent menstruation with irregular cycle (principal)
CPT/HCPCS: 83001

== ENCOUNTER → 2018-04-13 | Outpatient (REF) | payer OTHER ==
[2018-04-15 14:10] LABS: HPV HYBRID CAPTURE II Negative (Negative)
== END ==
LOC: M LAB REF 18:34
DX: Z12.4 Encounter for screening for malignant neoplasm of cervix (principal)

== ENCOUNTER → 2018-04-24 | Outpatient (CLI) | payer OTHER | LOC: M RAD 13:30 | DX: N92.1 Excessive and frequent menstruation with irregular cycle (principal) | CPT/HCPCS: 76856 ==

== ENCOUNTER → 2018-05-25 | Outpatient (CLI) | payer OTHER ==
[2018-05-25 19:11] LABS: HEMOGLOBIN 10.9 g/dl (12.0-15.5); MEAN CORPUSCULAR HEMOGLOBIN 19.9 pg (27.0-33.0); MEAN CORPUSCULAR HGB CONC 26.6 g/dl (32.0-36.5); MEAN CORPUSCULAR VOLUME 74.7 fl (80.0-96.0); PLATELET COUNT, AUTOMATED 313 10^3/uL (150-450); RED BLOOD COUNT 5.49 10^6/uL (4.00-5.40); RED CELL DISTRIBUTION WIDTH 19.9 % (11.5-14.5); RETIC HEMOGLOBIN EQUIVALENT 21.8 pg (24-36); RETICULOCYTE # 133.4 10^9/L (17-77); RETICULOCYTE % 2.4 % (0.5-1.5); WHITE BLOOD COUNT 11.4 10^3/uL (4.0-10.0)
[2018-05-25 19:25] LABS: ALBUMIN 3.9 GM/DL (3.2-5.2); ALBUMIN/GLOBULIN RATIO 1.18 (1.00-1.93); ALKALINE PHOSPHATASE 107 U/L (45-117); ALT/SGPT 18 U/L (12-78); ANION GAP 8 MEQ/L (8-16); AST/SGOT 15 U/L (7-37); BILIRUBIN,TOTAL 1.4 MG/DL (0.2-1.0); BLOOD UREA NITROGEN 14 MG/DL (7-18); CALCIUM LEVEL 8.2 MG/DL (8.5-10.1); CARBON DIOXIDE LEVEL 30 MEQ/L (21-32); CHLORIDE LEVEL 102 MEQ/L (98-107); CHOLESTEROL LEVEL 143 MG/DL (<200); CHOLESTEROL RISK RATIO 5.107 (<5); CREATININE FOR GFR 1.01 MG/DL (0.55-1.30); FERRITIN 4 NG/ML (8-252); FREE T4 1.14 NG/DL (0.76-1.46); GLOMERULAR FILTRATION RATE > 60.0 (>60); GLUCOSE, FASTING 89 MG/DL (70-100); HDL CHOLESTEROL 28 MG/DL (>40); IRON (FE) 20 UG/DL (50-170); LDL CHOLESTEROL 59 MG/DL (<100); NON-HDL-C 115 MG/DL; PERCENT SATURATION 4.6 % (13.2-45.0); POTASSIUM SERUM 3.7 MEQ/L (3.5-5.1); SODIUM LEVEL 140 MEQ/L (136-145); TOTAL IRON BINDING CAPACITY 434 UG/DL (250-450); TOTAL PROTEIN 7.2 GM/DL (6.4-8.2); TRIGLYCERIDES LEVEL 279 MG/DL (<150); VITAMIN B12 LEVEL 997 PG/ML
== END ==
LOC: M SMT 13:02
DX: D50.9 Iron deficiency anemia, unspecified (principal); Z13.220 Encounter for screening for lipoid disorders; E03.9 Hypothyroidism, unspecified; F20.9 Schizophrenia, unspecified
CPT/HCPCS: 82746

== ENCOUNTER → 2018-07-10 | Outpatient (CLI) | payer OTHER ==
[~2018-07-10] MED LIST changes: +ARNU1INH3 INH; +DRIS50003 PO; +FURO40TA2 PO; +INVE156I IM; +IPRA0.00 INH; -IPRASOL4 INH; -LASI40TA PO; +LASI40TA9 PO; +LEVO25TA34 PO; +LEVO750T13 PO; +LORA10TA3 PO; +PALI1TAB3 PO; -PANT20TA PO; +PANT20TA2 PO; +PANT40TA3 PO; +PRAZ5CAP PO; +TRAZ-160; +TRAZO50TA PO; +VENTAER INH; +oxygen
[2018-07-10 10:07] LABS: HEMATOCRIT 41.1 % (36.0-47.0); HEMOGLOBIN 11.4 g/dl (12.0-15.5); MEAN CORPUSCULAR HEMOGLOBIN 20.7 pg (27.0-33.0); MEAN CORPUSCULAR HGB CONC 27.7 g/dl (32.0-36.5); MEAN CORPUSCULAR VOLUME 74.5 fl (80.0-96.0); PLATELET COUNT, AUTOMATED 353 10^3/uL (150-450); RED BLOOD COUNT 5.52 10^6/uL (4.00-5.40); WHITE BLOOD COUNT 15.1 10^3/uL (4.0-10.0)
[2018-07-10 10:14] LABS: PERCENT SATURATION 17.9 % (13.2-45.0)
[2018-07-10 10:27] LABS: TOTAL 25(OH) VITAMIN D 24.6 NG/ML (30.0-100.0)
== END ==
LOC: M SMT 08:22
PROVIDERS: ATTEND Physician Assistant
DX: D50.9 Iron deficiency anemia, unspecified (principal); E55.9 Vitamin D deficiency, unspecified

== ENCOUNTER 2018-07-20 13:19 | Outpatient (CLI) | payer OTHER ==
[~2018-07-20] VITALS: Ht 142.2 cm; Wt 132.3 kg
[2018-07-20] MEDS ORDERED: IRON SUCROSE 25 MG in NS 50 ML IV ONE (13:30)
[2018-07-20 13:35] VITALS: BP 145/82
[2018-07-20 14:15] VITALS: BP 135/81
[2018-07-20] MEDS ORDERED: IRON SUCROSE 75 MG in NS 100 ML IV ONE (14:30)
[2018-07-20 15:15] VITALS: BP 133/81
[2018-07-20 16:15] VITALS: BP 133/82
[2018-07-20 16:40] VITALS: BP 135/82
[2018-07-20 17:00] VITALS: BP 131/86
== END 2018-07-20 17:05 | disposition home or self-care (01) ==
LOC: M INFU 13:19
PROVIDERS: ATTEND Physician Assistant
DX: D50.9 Iron deficiency anemia, unspecified (principal); Z88.5 Allergy status to narcotic agent
CPT/HCPCS: 96365; 96366; J1756

== ENCOUNTER 2018-07-28 13:59 | Outpatient (CLI) | payer OTHER ==
[~2018-07-28] VITALS: Ht 147.3 cm; Wt 132.0 kg
[2018-07-28 14:18] VITALS: BP 133/88
[2018-07-28] MEDS ORDERED: IRON SUCROSE 300 MG in NS 250 ML OVER 90 MIN. IV ONE (15:00)
[2018-07-28 15:25] VITALS: BP 130/80
[2018-07-28 16:21] VITALS: BP 126/77
[2018-07-28 17:14] VITALS: BP 130/79
[2018-07-28 17:29] VITALS: BP 122/91
== END 2018-07-28 17:30 | disposition home or self-care (01) ==
LOC: M INFU 13:59
PROVIDERS: ATTEND Physician Assistant
DX: D50.9 Iron deficiency anemia, unspecified (principal); Z88.5 Allergy status to narcotic agent
CPT/HCPCS: 96365; 96366; J1756

== ENCOUNTER 2018-08-03 13:46 | Outpatient (CLI) | payer OTHER ==
[~2018-08-03] VITALS: Ht 142.2 cm; Wt 132.0 kg
[2018-08-03 14:00] VITALS: BP 123/66
[2018-08-03 14:45] VITALS: BP 137/93
[2018-08-03] MEDS ORDERED: IRON SUCROSE 200 MG in NS 200 ML IV ONE (15:30)
[2018-08-03 15:45] VITALS: BP 127/74
[2018-08-03 16:30] VITALS: BP 118/81
== END 2018-08-03 16:45 | disposition home or self-care (01) ==
LOC: M INFU 13:46
PROVIDERS: ATTEND Physician Assistant
DX: D50.9 Iron deficiency anemia, unspecified (principal); Z88.5 Allergy status to narcotic agent
CPT/HCPCS: 96365; 96366; J1756

== ENCOUNTER → 2018-12-02 | Outpatient (CLI) | payer OTHER ==
[~2018-12-02] MED LIST changes: -TRAZ-160; +TRAZ-252; +TRAZ1TAB10 PO; -TRAZO50TA PO
--- NOTE | 2018-12-03 09:08 | REP ---
MRI study without and with intravenous gadolinium: History: Abnormal findings on imaging. Comparison pelvic sonography April 24, 2018 showed relatively poor sonographic penetration of the uterine parenchyma. There is a history of excessive and frequent menstrual bleeding. Gadolinium enhancement dose: 20 mL of intravenous ProHance. MRI technique: Axial, coronal and sagittal imaging planes were utilized. T1 and T2-weighted scans were included with without fat saturation. MRI findings: There are Nabothian cysts in the upper cervix. No focal uterine mass is seen. The uterine endometrium measures 1.6 cm in thickness. Overall uterine dimensions are 10.5 x 4.6 x 7.0 cm. Normal ovaries are seen bilaterally. No free fluid is noted. Urinary bladder tan are smooth. Diffusion weighted images are obtained and show no significant abnormality. Postcontrast images show normal enhancement in the uterine myometrium as expected fairly homogeneously. No abnormal gadolinium enhancement is appreciated. Impression: Nabothian cysts in the upper cervix. Mildly enlarged uterus. No focal uterine lesion. Normal ovaries. Electronically Signed by Kristofer Garcia MD 12/03/2018 03:01 P
== END ==
LOC: M LAB 07-23 12:51
PROVIDERS: ATTEND Obstetrics & Gynecology
DX: N88.8 Other specified noninflammatory disorders of cervix uteri (principal); N85.2 Hypertrophy of uterus; R93.89 Abnormal findings on diagnostic imaging of other specified body structures
CPT/HCPCS: 72197; A9576

== ENCOUNTER → 2018-12-02 | Outpatient (CLI) | payer OTHER ==
[~2018-12-02] MED LIST changes: +PROHANCE 279.3MG/ML 15ML VIAL (A9576) As Ordered ONE; +PROHANCE 279.3MG/ML 5ML VIAL (A9576) As Ordered ONE
== END ==
LOC: M RAD 15:33
PROVIDERS: ATTEND Obstetrics & Gynecology
DX: R93.89 Abnormal findings on diagnostic imaging of other specified body structures (principal)

== ENCOUNTER 2018-12-10 08:05 | Inpatient (IN) | payer OTHER ==
[~2018-12-10] VITALS: Ht 162.6 cm; Wt 131.2 kg
[~2018-12-10 08:05] MED LIST changes: -PROHANCE 279.3MG/ML 15ML VIAL (A9576) As Ordered ONE; -PROHANCE 279.3MG/ML 5ML VIAL (A9576) As Ordered ONE; -TRAZ-252; +TRAZ-252 PO
[2018-12-10] MEDS ORDERED: INVE1INJ (08:54)
[2018-12-10 10:19] LABS: HEMATOCRIT 37.8 % (36.0-47.0); HEMOGLOBIN 11.2 g/dl (12.0-15.5); MEAN CORPUSCULAR HEMOGLOBIN 22.4 pg (27.0-33.0); MEAN CORPUSCULAR HGB CONC 29.6 g/dl (32.0-36.5); MEAN CORPUSCULAR VOLUME 75.8 fl (80.0-96.0); PLATELET COUNT, AUTOMATED 355 10^3/uL (150-450); RED BLOOD COUNT 4.99 10^6/uL (4.00-5.40); WHITE BLOOD COUNT 13.6 10^3/uL (4.0-10.0)
[2018-12-10 10:32] LABS: AMPHETAMINES LEVEL URINE NEGATIVE (NEGATIVE); BARBITURATES URINE NEGATIVE (NEGATIVE); BENZODIAZEPINES URINE NEGATIVE (NEGATIVE); CANNABINOIDS URINE NEGATIVE (NEGATIVE); COCAINE METABOLITE URINE NEGATIVE (NEGATIVE); METHADONE URINE NEGATIVE (NEGATIVE); OPIATES URINE NEGATIVE (NEGATIVE); PHENCYCLIDINE URINE NEGATIVE (NEGATIVE)
[2018-12-10 10:58] LABS: ACETAMINOPHEN LEVEL < 2.0 UG/ML (10.0-30.0); ALBUMIN 3.6 GM/DL (3.2-5.2); ALT/SGPT 18 U/L (12-78); BILIRUBIN,DIRECT 0.3 MG/DL (0.0-0.2); BILIRUBIN,TOTAL 1.4 MG/DL (0.2-1.0); BLOOD UREA NITROGEN 12 MG/DL (7-18); CALCIUM LEVEL 8.8 MG/DL (8.5-10.1); CARBON DIOXIDE LEVEL 28 MEQ/L (21-32); CHLORIDE LEVEL 106 MEQ/L (98-107); CREATININE FOR GFR 0.93 MG/DL (0.55-1.30); ETHYL ALCOHOL (ETHANOL) < 0.003 % (0.000-0.010); FREE T4 1.18 NG/DL (0.76-1.46); GLOMERULAR FILTRATION RATE > 60.0 (>60); GLUCOSE, FASTING 81 MG/DL (70-100); POTASSIUM SERUM 4.1 MEQ/L (3.5-5.1); SALICYLATE LEVEL < 1.7 MG/DL (5.0-30.0); SODIUM LEVEL 142 MEQ/L (136-145); TOTAL PROTEIN 7.2 GM/DL (6.4-8.2)
[2018-12-10] MEDS ORDERED: PHARMACY COMMENT (12:35)
[2018-12-10] MEDS ORDERED: traZODone 50 MG TAB PO PRN (14:00)
[2018-12-10] MEDS ORDERED: MAALOX 30 ML SUSP *UDC PO PRN (14:00)
[2018-12-10] MEDS ORDERED: OLANZapine ORAL DISINTEGRATING TAB 5MG PO PRN (14:00)
[2018-12-10] MEDS ORDERED: LORazepam 2 MG TAB PO PRN (14:00)
[2018-12-10] MEDS ORDERED: ACETAMINOPHEN TAB 650MG DOSE (2X325MG) PO PRN (14:00)
[2018-12-10] MEDS ORDERED: MOM 30ML SUSPENSION UDC PO PRN (14:00)
[2018-12-10] MEDS: NICOTINE 21MG/24HR 1 EA TRANSDERMAL TD SCH (17:15)
[2018-12-10] MEDS ORDERED: ALBUTEROL 90 MCG/ACT 8GM HFA INHALER INH PRN (17:30)
[2018-12-10] MEDS ORDERED: ALBUTEROL SULFATE 2.5 MG/0.5 ML INH NEB SOLN INH PRN (17:30)
[2018-12-10 18:02] LABS: ABG BASE EXCESS -3.3 (-2.0-2.0); ABG HCO3 20.9 MEQ/L (22.0-26.0); ABG O2 SATURATION 90.7 % (95.0-99.0); ABG PARTIAL PRESSURE CO2 34.7 mmHg (35.0-45.0); ABG PARTIAL PRESSURE O2 63.5 mmHg (75.0-100.0); ABG STANDARD HCO3 21.6 MEQ/L (22.0-26.0); ABG pH (ARTERIAL) 7.398 UNITS (7.350-7.450)
--- NOTE | 2018-12-10 18:11 | HPEPDOC ---
[facility] Medical History & Physical Date of Admission Dec 10, 2018 Date of Service: Dec 10, 2018 History and Physical CHIEF COMPLAINT: The patient is unable to distinctly state a chief complaint HISTORY OF PRESENT ILLNESS: The patient appears to have had a decompensation of her underlying schizophrenia. Additionally, she is noted upon presentation to the mental health unit to have desaturations on room air to 81%. The patient states she is normally on 2-3 L/m of oxygen per nasal cannula. She is also on CPAP at night. However, she states she's had very poor sleep and has been off of it for 3-4 nights. PAST MEDICAL HISTORY: Reported schizophrenia, depression with anxiety features, asthma, allergic rhinitis, essential hypertension, gastroesophageal reflux disease, obstructive sleep apnea for which she sleeps with a CPAP mask, hypothyroidism, morbid obesity with a body mass index of 60.5 PAST SURGICAL HISTORY: Surgical history includes prior repair of ankle fracture and right foot fracture, appendectomy, unspecified eye surgery, deviated septum repair, D&C, lung biopsy SOCIAL HISTORY: The patient is . She is not currently employed. She cannot recall what she used to do. She tells me that she used to smoke, but that she has quit. She denies any alcohol or drug use. FAMILY HISTORY: The patient tells me there is a family history of family members with diabetes. Review of the medical record shows a paternal history of pancreatic cancer. ALLERGIES: Please see below. REVIEW OF SYSTEMS: Patient currently demonstrates remarkable cognition and memory deficits. She does not have any distinct respiratory complaint. Otherwise, review of 10 systems is otherwise negative. HOME MEDICATIONS: Please see below. PHYSICAL EXAMINATION: VITAL SIGNS: Temperature afebrile, pulse 115, respiratory rate 18 - 22, blood pressure 130/85, pulse oximetry 91-95%% on 2 L/m, reported 81% on room air. GENERAL APPEARANCE: The patient is visibly morbidly obese, she is otherwise well kempt. HEENT: Neck is supple, no appreciable adenopathy or thyromegaly, oral mucosa is moist, good dentition, no active nasal drainage, no scleral icterus or injection. CARDIOVASCULAR: Regular rate and rhythm with a normal S1 and S2, no murmur. LUNGS: Clear to auscultation, good air movement, no rhonchi, rales, wheezes or cough. ABDOMEN: Remarkable morbid central obesity, soft, nondistended, bowel tones present. Nontender. EXTREMITIES: Patient does not exhibit any peripheral edema, pedal pulses are palpable, she does not have any remarkable joint changes. NEUROLOGICAL: Patient does not exhibit any focal neuromotor or sensory deficit. PSYCHIATRIC: Patient is cooperative, but otherwise has flat affect and currently cognition and memory deficits. LABORATORY DATA: See below. IMAGING: MICROBIOLOGY: Please see below. ASSESSMENT/PLAN: 1. Reported hypoxia--the patient is oxygen dependent by history. She is on continuous O2 at 2-3 L/m at home. She also makes uses CPAP at night. She has been noncompliant with it for the past 4 nights. O2 sats are 91-95% on her 2 L/m. Plans are to obtain a blood gas and chest x-ray to determine if she needs further intervention. She can use her own CPAP on the mental health unit if s omeone will bring it in for her, otherwise it will not be available for her. She otherwise does not appear to be having acute exacerbation of her underlying asthma or allergic rhinitis. She can continue on her usual inhaler regimen from home. 2. Gastroesophageal reflux disease--she continues on proton pump inhibitor 3. Hypothyroidism--the patient will continue with her usual medication regimen with Levoxyl. 4. Mental health--the patient's depression, anxiety and schizophrenia will be deferred to the primary mental health team. Vital Signs Vital Signs Date Time Temp Pulse Resp B/P (MAP) Pulse Ox O2 Delivery O2 Flow Rate FiO2 12/10/18 14:54 99.3 115 20 130/85 (100) 91 Nasal Cannula 2.0 Laboratory Data Labs 24H Laboratory Tests 2 12/10/18 09:39: Nucleated Red Blood Cells % (auto) 0.0, Anion Gap 8, Glomerular Filtration Rate > 60.0, Calcium Level 8.8, Aspartate Amino Transf (AST/SGOT) 28, Alanine Aminotransferase (ALT/SGPT) 18, Alkaline Phosphatase 94, Total Bilirubin 1.4H, Direct Bilirubin 0.3H, Total Protein 7.2, Albumin 3.6, Albumin/Globulin Ratio 1.00, Thyroid Stimulating Hormone (TSH) 3.390, Free Thyroxine 1.18, Salicylates Level < 1.7L, Urine Amphetamines Screen NEGATIVE, Urine Benzodiazepines Screen NEGATIVE, Urine Opiates Screen NEGATIVE, Urine Methadone Screen NEGATIVE, Acetaminophen Level < 2.0L, Urine Barbiturates Screen NEGATIVE, Urine Phencyclidine Screen NEGATIVE, Urine Cocaine Metabolite Screen NEGATIVE, Urine Cannabinoids Screen NEGATIVE, Ethyl Alcohol Level < 0.003 CBC/BMP Laboratory Tests 12/10/18 09:39 Red Blood Count 4.99, Mean Corpuscular Volume 75.8 L, Mean Corpuscular Hemoglobin 22.4 L, Mean Corpuscular Hemoglobin Concent 29.6 L, Red Cell Distribution Width 15.9 H Home Medications Scheduled Fluticasone/Vilanterol (Breo Ellipta 200-25 Mcg INH) 1 Inh Inh, 1 PUFF INH DAILY Furosemide (Furosemide) 40 Mg Tab, 40 MG PO DAILY Levothyroxine Sodium (Levoxyl) 25 Mcg Tab, 25 MCG PO DAILY Loratadine (Loratadine) 10 Mg Tab, 10 MG PO DAILY for ALLERGIES Montelukast Sodium (Singulair) 10 Mg Tab, 10 MG PO DAILY Omalizumab (Xolair) 150 Mg Jennifer, 150 MG SC Q2WK Pantoprazole Sodium (Pantoprazole Sodium) 40 Mg Tab, 40 MG PO DAILY Trazodone HCl (Trazodone HCl) 50 Mg Tab, 50 MG PO QHS LAST FILL WAS 08/22/17 FOR 7 TABLETS FROM [facility] Scheduled PRN Albuterol Sulf (Albuterol Sulfate) 2.5 Mg/3 Ml Nebu, 2.5 MG INH QID PRN for SHORTNESS OF BREATH Albuterol Sulfate (Ventolin Hfa) 108 Mcg/Act Aer, 2 PUFFS INH QID PRN for SHORTNESS OF BREATH Miscellaneous Medications [Pharmacy Comment] PATIENT STATES THAT THESE ARE THE MEDS SHE IS SUPPOSED TO BE TAKING BUT CANNOT RECALL THE LAST TIME SHE TOOK ANY OF THEM. PATIENT VERIFIED THAT SHE WAS DUE FOR XOLAIR YESTERDAY 12/09/18 AND THAT SHE TOOK ONE TRAZODONE TABLET ON 12/09/18 IN THE EVENING. Allergies Coded Allergies: codeine (Verified Allergy, Unknown, 12/10/18) SWELLING fluticasone (Verified Adverse Reaction, Unknown, 12/10/18) CHEST PAIN lisdexamfetamine (Verified Adverse Reaction, Unknown, 12/10/18) CONFUSION salmeterol (Verified Adverse Reaction, Unknown, 12/10/18) CHEST PAIN topiramate (Verified Adverse Reaction, Unknown, 12/10/18) CONFUSION A-FIB/CHADSVASC A-FIB History Current/History of A-Fib/PAF?: No Current PO Anticoag Therapy: No LUISANA PRESSLEY MD Dec 10, 2018 18:11
--- NOTE | 2018-12-10 18:23 | REP ---
Single view PA chest x-ray: History: Oxygen desaturation. Comparison study: December 17, 2017. Findings: The lungs are well inflated and clear. Pleural angles are sharp. Cardiomediastinal silhouette and bony thorax are unremarkable. Impression: No active disease. Electronically Signed by Kristofer Garcia MD 12/10/2018 06:14 P
[2018-12-10] MEDS ORDERED: traZODone 50 MG TAB PO SCH (21:00)
[2018-12-11] MEDS: LEVOTHYROXINE 25MCG TABLET (0.025MG) PO SCH (05:46)
[2018-12-11 07:02] VITALS: BP 149/89
[2018-12-11] MEDS: NICOTINE 21MG/24HR 1 EA TRANSDERMAL TD SCH (09:00)
[2018-12-11] MEDS: PANTOPRAZOLE 40MG TAB (PROTONIX) PO SCH (09:26)
[2018-12-11] MEDS: MONTELUKAST 10 MG TAB PO SCH (09:26)
[2018-12-11] MEDS: FUROSEMIDE 40 MG TAB PO SCH (09:26)
[2018-12-11] MEDS: LORATADINE 10 MG TAB PO SCH (09:26)
--- NOTE | 2018-12-11 16:12 | IPNPDOC ---
Text Note Date of Service The patient was seen on 12/11/18. NOTE SUBJECTIVE: Ms. Morel is seen in follow-up after reports of respiratory distress yesterday. She has not had any respiratory distress overnight. She has been maintained on her baseline FiO2 2 L/m. BiPAP has been obtained for her. O2 sats have been 90-95% on 2 L/m overnight. OBJECTIVE: Physical Exam: GENERAL APPEARANCE: The patient is seen supine in bed on BiPAP. She does not have any distress. HEENT: Neck is supple, no appreciable adenopathy or thyromegaly, oral mucosa is moist, good dentition, no active nasal drainage, no scleral icterus or injection. CARDIOVASCULAR: Regular rate and rhythm with a normal S1 and S2, no murmur. LUNGS: Clear to auscultation, good air movement, no rhonchi, rales, wheezes or cough. ABDOMEN: Remarkable morbid central obesity, soft, nondistended, bowel tones present. Nontender. EXTREMITIES: Patient does not exhibit any peripheral edema, pedal pulses are p alpable, she does not have any remarkable joint changes. NEUROLOGICAL: Patient does not exhibit any focal neuromotor or sensory deficit. PSYCHIATRIC: Patient is cooperative, but otherwise has flat affect and currently cognition and memory deficits. ASSESSMENT/PLAN: 1. Reported hypoxia--the patient was hypoxic on room air. The patient is oxygen dependent by history. She is on continuous O2 at 2-3 L/m at home. She also makes use of CPAP at night as she has obstructive sleep apnea. She had unfortunately been noncompliant with it for the past 4 nights. O2 sats are 91-95% on her usual 2 L/m. Blood gas did not indicate CO2 retention and her chest x-ray was unremarkable. She can use her own CPAP on the mental health unit if someone will bring it in for her. She otherwise does not appear to be having acute exacerbation of her underlying asthma or allergic rhinitis. She can continue on her usual inhaler regimen from home. 2. Gastroesophageal reflux disease--she continues on proton pump inhibitor 3. Hypothyroidism--the patient will continue with her usual medication regimen with Levoxyl. The patient is otherwise stable from a medical standpoint. Again, we defer to the primary mental health team for psych management. Please reconsult if medical issues arise. VS,Fishbone, I+O VS, Fishbone, I+O Vital Signs Date Time Temp Pulse Resp B/P (MAP) Pulse Ox O2 Delivery O2 Flow Rate FiO2 12/11/18 07:02 98.3 97 16 149/89 (109) 92 2.0 12/10/18 14:54 Nasal Cannula LUISANA PRESSLEY MD Dec 11, 2018 16:12
[2018-12-11 18:10] VITALS: BP 124/72
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
[2018-12-12] MEDS: LEVOTHYROXINE 25MCG TABLET (0.025MG) PO SCH (06:02)
[2018-12-12 06:29] VITALS: BP 159/94
[2018-12-12] MEDS: PANTOPRAZOLE 40MG TAB (PROTONIX) PO SCH (08:53)
[2018-12-12] MEDS: LORATADINE 10 MG TAB PO SCH (08:54)
[2018-12-12] MEDS: FUROSEMIDE 40 MG TAB PO SCH (08:54)
[2018-12-12] MEDS: PALIPERIDONE 3 MG ER TAB (INVEGA) PO SCH ×2 (08:54→22:05)
[2018-12-12] MEDS: NICOTINE 21MG/24HR 1 EA TRANSDERMAL TD SCH (08:54)
[2018-12-12] MEDS: MONTELUKAST 10 MG TAB PO SCH (08:54)
[2018-12-12 19:11] VITALS: BP 143/90
[2018-12-13] MEDS: LEVOTHYROXINE 25MCG TABLET (0.025MG) PO SCH (06:06)
[2018-12-13 06:54] VITALS: BP 159/90
--- NOTE | 2018-12-13 08:53 | MHIPN ---
DATE OF SERVICE: 12/12/2018 The patient is laying in bed, and she is on nasal oxygen. I asked her how she was doing even though she had her eyes closed throughout. She shook her head up and down, I believe that she was signifying that she was okay as far her mood went. However, she would not answer any further questions, especially I even asked her if she was hearing any voices. MENTAL STATUS EXAMINATION: I am unable to do a mental status examination as the patient is really not answering any of my questions other than to shake her head up and down. DIAGNOSES: Unspecified psychotic disorder. Rule out schizoaffective disorder. Generalized anxiety disorder. TREATMENT PLAN: At this point, will continue to monitor the patient for continued resolution of any auditory hallucinations and stabilization of her mood and will continue to titrate her medications as indicated. We do have her on one to one observation level because of the fact that she is on nasal oxygen.
[2018-12-13] MEDS: NICOTINE 21MG/24HR 1 EA TRANSDERMAL TD SCH (08:54)
[2018-12-13] MEDS: PALIPERIDONE 3 MG ER TAB (INVEGA) PO SCH ×2 (08:56→22:23)
[2018-12-13] MEDS: MONTELUKAST 10 MG TAB PO SCH (08:56)
[2018-12-13] MEDS: PANTOPRAZOLE 40MG TAB (PROTONIX) PO SCH (08:56)
[2018-12-13] MEDS: FUROSEMIDE 40 MG TAB PO SCH (08:56)
[2018-12-13] MEDS: LORATADINE 10 MG TAB PO SCH (08:56)
[2018-12-13 18:20] VITALS: BP 135/68
--- NOTE | 2018-12-13 23:47 | IPN ---
DATE: 12/13/2018 The patient today states remains on one-to-one observation level. She is lying in bed with her oxygen on and she is soundly asleep. I attempted to wake the patient up and she responded or awoke only briefly and fell back asleep. MENTAL STATUS EXAMINATION: I am not able to do a mental status examination. DIAGNOSIS: Unspecified psychotic disorder, rule out schizoaffective disorder and generalized anxiety disorder. TREATMENT AND PLAN: At this point we will continue to further evaluate and monitor the patient for any psychotic symptoms and titrate her medications as indicated.
[2018-12-14] MEDS: LEVOTHYROXINE 25MCG TABLET (0.025MG) PO SCH (05:47)
[2018-12-14 06:47] VITALS: BP 133/88
[2018-12-14] MEDS: PALIPERIDONE 3 MG ER TAB (INVEGA) PO SCH (09:00)
[2018-12-14] MEDS: NICOTINE 21MG/24HR 1 EA TRANSDERMAL TD SCH (09:00)
[2018-12-14] MEDS: LORATADINE 10 MG TAB PO SCH (09:39)
[2018-12-14] MEDS: PANTOPRAZOLE 40MG TAB (PROTONIX) PO SCH (09:39)
[2018-12-14] MEDS: FUROSEMIDE 40 MG TAB PO SCH (09:39)
[2018-12-14] MEDS: MONTELUKAST 10 MG TAB PO SCH (09:39)
[2018-12-14 18:00] VITALS: BP 136/90
[2018-12-14] MEDS ORDERED: SERTRALINE HCL 50 MG TAB PO SCH (21:00)
[2018-12-14] MEDS ORDERED: PALIPERIDONE 3 MG ER TAB (INVEGA) PO SCH (21:00)
[2018-12-14] MEDS ORDERED: MIRTAZAPINE 7.5MG PER 1/2 TABLET PO SCH (21:00)
--- NOTE | 2018-12-14 23:32 | MHIPNPDOC ---
[facility] Progress Note Progress Note DATE OF SERVICE: 12/14/18 HISTORY: Patient is a 33-year-old female, who, according to ED records: "Pt. states she came to ER because she has not been sleeping for past four days. Pt. appears that she was responding to internal stimuli, whispering "I'm fighting for my country" and "it's not my fault." Pt. stares off during conversation. Pt. states she has been having AH for past several days, states voices are mumbled, not sure what they are saying but states "I'm not sure" when asked if voices are wanting her to harm herself. She denies SI/HI. Pt. stated " having trust issues" when this worker asked about her medications, asking" how would you know that?" Pt. states she had stopped her medications several weeks ago because she had to much going on in her life and it was just one more thing. She reports she has been getting Invega Sustenna injections but does not want to take them anymore and she is being weened off it. Pt. stes she drove herself to ER and states it was probably unsafe for her to do so because of lack of sleep and AH" VITAL SIGNS: See below. NEW TEST RESULTS: See below CURRENT MEDICATIONS: See below. MENTAL STATUS EXAMINATION: General Appearance: disheveled, hospital scrubs/clothing, receiving Oxygen by cannula Build: overweight (Obese) Demeanor: withdrawn,anxious, a little bit guarded Eye Contact: avoidant Activity: slow, she is sitting on her bed, she gets agitated when moving or making efforts (she is receiving Oxygen by cannula) Behavior: cooperative Speech: low in volume, delayed responses Mood "I'm not depressed, I'm anxious" Affect: flat, incongruent Thought Process: blocked, depressed Thought Content (Delusions): denies SI, HI, AVH Perception (Hallucinations): auditory Cognition (Impairment of): attention/concentration Cognition(Intelligence Est.): average Oriented: Awake, Oriented times three Insight: fair Judgment: Fair Psychosis: Psychotic Perceptions Diagnoses 1. Unspecified psychotic disorder, r/o Schizoaffective disorder 2. Generalized Anxiety disorder. ASSESSMENT: The patient is pleasant and cooperative. She wants to go home, she adamantly denies SI, she says she doesn't like to go to groups because being with a group of people makes her feel very anxious. She stopped using her Invega Sustenna injection because she said it didn't help her with anxiety but I explained this medication is not geared to treating anxiety but psychosis. She says she asked [facility] workers to give her something for anxiety and they repeatedly told her that Invega should calme her down. I think her "anxiety" might have been tardive dyskinesia or generalized anxiety and they probably thought she wanted to get some controlled substances but she was never offered Zoloft, Paxil or Effexor that could have helped her with anxiety. The patient has accepted to take Zoloft 50 mgs PO QHS, Remeron and has accepted to continue taking Invega 3 mgs PO QHS. She will be d/c/d tomorrow MANAGEMENT PLAN: As above TIME SPENT: 30 minutes. Vital Signs Vital Signs Date Time Temp Pulse Resp B/P (MAP) Pulse Ox O2 Delivery O2 Flow Rate FiO2 12/14/18 18:00 99.0 98 16 136/90 (105) 97 12/14/18 06:47 2.0 12/10/18 14:54 Nasal Cannula Current Medications Current Medications Acetaminophen (Tylenol Tab) 650 mg Q6HP PRN PO HEADACHE or DISCOMFORT Last administered on 12/10/18at 23:11; Start 12/10/18 at 14:00 Al Hydrox/Mg Hydrox/Simethicone (Mylanta) 30 ml Q4HP PRN PO HEARTBURN/INDIGESTION; Start 12/10/18 at 14:00 Albuterol Sulfate (Proventil Neb) 2.5 mg QID PRN INH SHORTNESS OF BREATH; Start 12/10/18 at 17:30 Albuterol Sulfate (Proventil, Ventolin Hfa) 2 puff QID PRN INH SHORTNESS OF BREATH; Start 12/10/18 at 17:30 Furosemide (Lasix) 40 mg DAILY PO Last administered on 12/14/18at 09:39; Start 12/11/18 at 09:00 Home Med (Med Rec Complete!) ASDIRECTED XX ; Start 12/10/18 at 12:45; Stop 12/10/18 at 12:45; Status DC Levothyroxine Sodium (Synthroid) 25 mcg DAILY@0600 PO Last administered on 12/14/18at 05:47; Start 12/11/18 at 06:00 Loratadine (Claritin) 10 mg DAILY PO Last administered on 12/14/18 09:39; Start 12/11/18 at 09:00 Lorazepam (Ativan) 2 mg Q6HP PRN PO ANXIETY/AGITATION; Start 12/10/18 at 14:00 Magnesium Hydroxide (Milk Of Magnesia) 30 ml DAILYPRN PRN PO CONSTIPATION; Start 12/10/18 at 14:00 Mirtazapine (Remeron) 7.5 mg QHS PO Last administered on 12/14/18 20:21; Start 12/14/18 at 21:00 Montelukast Sodium (Singulair) 10 mg DAILY PO Last administered on 12/14/18 09:39; Start 12/11/18 at 09:00 Nicotine (Nicoderm Cq 21mg) 1 patch DAILY TD ; Start 12/10/18 at 09:00 Olanzapine (ZyPREXA ZYDIS) 5 mg Q6HP PRN PO ANXIETY/AGITATION Last administ ered on 12/11/18 23:49; Start 12/10/18 at 14:00 Paliperidone (Invega) 3 mg BID PO Last administered on 12/13/18 22:23; Start 12/12/18 at 09:00; Stop 12/14/18 at 16:27; Status DC Paliperidone (Invega) 3 mg QHS PO Last administered on 12/14/18 20:21; Start 12/14/18 at 21:00 Pantoprazole Sodium (Protonix) 40 mg DAILY PO Last administered on 12/14/18 09:39; Start 12/11/18 at 09:00 Sertraline HCl (Zoloft) 50 mg QHS PO Last administered on 12/14/18 20:21; Start 12/14/18 at 21:00 Trazodone HCl (Desyrel) 50 mg QHS PO ; Start 12/10/18 at 21:00; Stop 12/11/18 at 12:21; Status DC Trazodone HCl (Desyrel) 50 mg QHSP PRN PO INSOMNIA Last administered on 12/11/18 23:49; Start 12/10/18 at 14:00 Allergies Coded Allergies: codeine (Verified Allergy, Intermediate, SWELLING, 12/10/18) fluticasone (Verified Adverse Reaction, Intermediate, CHEST PAIN, 12/10/18) salmeterol (Verified Adverse Reaction, Intermediate, CHEST PAIN, 12/10/18) lisdexamfetamine (Verified Adverse Reaction, Mild, CONFUSION, 12/10/18) topiramate (Verified Adverse Reaction, Mild, CONFUSION, 12/10/18) DURGA GUERRERO MD Dec 14, 2018 23:26
[2018-12-15] MEDS: LEVOTHYROXINE 25MCG TABLET (0.025MG) PO SCH (05:43)
[2018-12-15 06:14] VITALS: BP 149/94
[2018-12-15] MEDS: NICOTINE 21MG/24HR 1 EA TRANSDERMAL TD SCH (08:50)
[2018-12-15] MEDS: LORATADINE 10 MG TAB PO SCH (08:52)
[2018-12-15] MEDS: FUROSEMIDE 40 MG TAB PO SCH (08:52)
[2018-12-15] MEDS: MONTELUKAST 10 MG TAB PO SCH (08:52)
[2018-12-15] MEDS: PANTOPRAZOLE 40MG TAB (PROTONIX) PO SCH (08:52)
[2018-12-15] MEDS ORDERED: SERT-155 PO (10:40)
[2018-12-15] MEDS ORDERED: PALI1TAB2 PO (10:40)
[2018-12-15] MEDS ORDERED: REME15TA PO (10:40)
--- NOTE | 2019-01-05 08:52 | MHDSPDOC ---
[facility] Discharge Summary Discharge Summary DATE OF ADMISSION: Dec 10, 2018 at 13:55 DATE OF DISCHARGE: Dec 15, 2018 at 12:22 DISCHARGE DIAGNOSES: 1. Schizoaffective disorder 2. Generalized Anxiety disorder. REASON FOR ADMISSION: Patient is a 33-year-old female, who, according to ED records: "Pt. states she came to ER because she has not been sleeping for past four days. Pt. appears that she was responding to internal stimuli, whispering "I'm fighting for my country" and "it's not my fault." Pt. stares off during conversation. Pt. states she has been having AH for past several days, states voices are mumbled, not sure what they are saying but states "I'm not sure" when asked if voices are wanting her to harm herself. She denies SI/HI. Pt. stated " having trust issues" when this worker asked about her medications, asking" how would you know that?" Pt. states she had stopped her medications several weeks ago because she had to much going on in her life and it was just one more thing. She reports she has been getting Invega Sustenna injections but does not want to take them anymore and she is being weened off it. Pt. stes she drove herself to ER and states it was probably unsafe for her to do so because of lack of sleep and AH". CONSULTANTS INVOLVED: None TREATMENT AND PROGRESS ON THE UNIT : Upon initial evaluation the patient was seen in her room. she was receiving Oxygen by cannula while sitting on her bed. She was very sleepy and got easily fatigued when answering questions. She was ambiguous when she talked about hearing voices. At times she said she had heard them the week before and at times she said the last time she heard them was 4 months ago. Meeting with her and with her she said she had stopped taking the Invega Sustenna because she was not hearing voices and that they had weaned her off the medication because she was not hearing voices anymore. this chief underwriter mentioned that maybe she was not hearing voices anymore because she was on the medication. she said that she had requested to get off the medication because it was not doing anything for her anxiety and this chief underwriter told her that this medication is not geared to treat anxiety but to help people who are delusional or hallucinating. She said she was told they wouldn't give her medications for anxiety and she thinks it's because they thought she had medication seeking behavior and I said that they couldn't give her benzodiazepines but they could have given her Zoloft, Paxil or Effexor. At that time it was clear that she and her had been very confused about the medications and her illness. When this chief underwriter explained this to her, she was able to understand and accepted to continue taking Invega (oral) 3 mgs PO QHS, she accepted to be treated with Zoloft 50 mgs PO QHS, 24 hours before her discharge but next day she reported she felt less anxious and that she had been able to sleep well. She also took Rmeron 7.5 mgs PO QHS HOSPITAL COURSE: As above DISCHARGE ASSESSMENT: The patient was not suicidal, not homicidal, not psychotic at the time of her discharge. She was future orientated, she wanted to go home, spend some time with her . She said she would f/u with her appointments. She didn't report, not was she observed to develop medications side effects. MENTAL STATUS EXAMINATION ON DISCHARGE: General Appearance: grooming and attire are appropriate, wearing personal clothes Build: overweight (Obese) Demeanor: less anxious, eager to leave the Inpatient Mental Health Unit Eye Contact: improved,, less avoidant Activity: less anxious Behavior: cooperative Speech: low in volume, normal rate, rhythm and tone Mood "I'm feeling better, I'm still anxious but it's less" Affect: less flat, more reactive Thought Process: linear more coherent. She doesn't repsent thought blocking at this time (has improved compared to her admission) Thought Content (Delusions): denies SI, HI, AVH Perception (Hallucinations): denies auditory/visual hallucinations Cognition (Impairment of): shoshana attention and concentration have improved Cognition(Intelligence Est.): average Oriented: Awake, Oriented times three Insight: fair Judgment: Fair Psychosis: none reported at this time MEDICATIONS ON DISCHARGE: Scheduled Fluticasone/Vilanterol (Breo Ellipta 200-25 Mcg INH) 1 Inh Inh, 1 PUFF INH DAILY, (Reported) Furosemide (Furosemide) 40 Mg Tab, 40 MG PO DAILY, (Reported) Levothyroxine Sodium (Levoxyl) 25 Mcg Tab, 25 MCG PO DAILY, (Reported) Loratadine (Loratadine) 10 Mg Tab, 10 MG PO DAILY for ALLERGIES, (Reported) Mirtazapine (Remeron) 15 Mg Tablet, 7.5 MG PO QHS for insomnia, #4 Montelukast Sodium (Singulair) 10 Mg Tab, 10 MG PO DAILY, (Reported) Omalizumab (Xolair) 150 Mg Jennifer, 150 MG SC Q2WK, (Reported) Paliperidone (Paliperidone ER) 3 Mg Tab.er.24, 3 MG PO QHS for psychosis, #7 Pantoprazole Sodium (Pantoprazole Sodium) 40 Mg Tab, 40 MG PO DAILY, (Reported) Sertraline HCl (Sertraline HCl) 50 Mg Tablet, 50 MG PO QHS for depression/anxiety, #7 Trazodone HCl (Trazodone HCl) 50 Mg Tab, 50 MG PO QHS, (Reported) LAST FILL WAS 08/22/17 FOR 7 TABLETS FROM [facility] Scheduled PRN Albuterol Sulf (Albuterol Sulfate) 2.5 Mg/3 Ml Nebu, 2.5 MG INH QID PRN for SHORTNESS OF BREATH, (Reported) Albuterol Sulfate (Ventolin Hfa) 108 Mcg/Act Aer, 2 PUFFS INH QID PRN for SHORTNESS OF BREATH, (Reported) PLAN/FOLLOWUP ARRANGEMENTS: Follow Up Care Education Label * Medical * Medical Follow Up [facility] * Established With This Provider Yes * Therapist TOMEKA ORR * Date Dec 25, 2018 * Time 10:00 * Address of Clinic or Practice [facility] * Follow Up Care Education Label * Mental Health Appt 1 * Mental Health [facility] * Established With This Provider Yes * Therapist DANIELLE MCFADDEN * Date Dec 18, 2018 * Time 10:00 * Address of Clinic or Practice [address] [place] [address] * The amount of time spent in the coordination of care for this patient was approximately 30 minutes. Medications Scheduled Fluticasone/Vilanterol (Breo Ellipta 200-25 Mcg INH) 1 Inh Inh, 1 PUFF INH DAILY, (Reported) Furosemide (Furosemide) 40 Mg Tab, 40 MG PO DAILY, (Reported) Levothyroxine Sodium (Levoxyl) 25 Mcg Tab, 25 MCG PO DAILY, (Reported) Loratadine (Loratadine) 10 Mg Tab, 10 MG PO DAILY for ALLERGIES, (Reported) Mirtazapine (Remeron) 15 Mg Tablet, 7.5 MG PO QHS for insomnia, #4 Montelukast Sodium (Singulair) 10 Mg Tab, 10 MG PO DAILY, (Reported) Omalizumab (Xolair) 150 Mg Jennifer, 150 MG SC Q2WK, (Reported) Paliperidone (Paliperidone ER) 3 Mg Tab.er.24, 3 MG PO QHS for psychosis, #7 Pantoprazole Sodium (Pantoprazole Sodium) 40 Mg Tab, 40 MG PO DAILY, (Reported) Sertraline HCl (Sertraline HCl) 50 Mg Tablet, 50 MG PO QHS for depression/anxiety, #7 Trazodone HCl (Trazodone HCl) 50 Mg Tab, 50 MG PO QHS, (Reported) LAST FILL WAS 08/22/17 FOR 7 TABLETS FROM [facility] Scheduled PRN Albuterol Sulf (Albuterol Sulfate) 2.5 Mg/3 Ml Nebu, 2.5 MG INH QID PRN for SHORTNESS OF BREATH, (Reported) Albuterol Sulfate (Ventolin Hfa) 108 Mcg/Act Aer, 2 PUFFS INH QID PRN for SHORTNESS OF BREATH, (Reported) Miscellaneous Medications [Pharmacy Comment] , (Reported) PATIENT STATES THAT THESE ARE THE MEDS SHE IS SUPPOSED TO BE TAKING BUT CANNOT RECALL THE LAST TIME SHE TOOK ANY OF THEM. PATIENT VERIFIED THAT SHE WAS DUE FOR XOLAIR YESTERDAY 12/09/18 AND THAT SHE TOOK ONE TRAZODONE TABLET ON 12/09/18 IN THE EVENING. Allergies Coded Allergies: codeine (Verified Allergy, Intermediate, SWELLING, 12/10/18) fluticasone (Verified Adverse Reaction, Intermediate, CHEST PAIN, 12/10/18) salmeterol (Verified Adverse Reaction, Intermediate, CHEST PAIN, 12/10/18) lisdexamfetamine (Verified Adverse Reaction, Mild, CONFUSION, 12/10/18) topiramate (Verified Adverse Reaction, Mild, CONFUSION, 12/10/18) DURGA GUERRERO MD Dec 23, 2018 22:16
== END 2018-12-15 12:22 | disposition home or self-care (01) | DRG 885 ==
LOC: M ED 08:05 → M ED INP 13:55 → M PSY 15:05
PROVIDERS: ADMIT Psychiatry & Neurology Psychiatry; ATTEND Psychiatry & Neurology Psychiatry
DX: F25.9 Schizoaffective disorder, unspecified (principal); F41.1 Generalized anxiety disorder; Z79.899 Other long term (current) drug therapy; Z88.5 Allergy status to narcotic agent; Z88.8 Allergy status to other drugs, medicaments and biological substances

== ENCOUNTER 2019-03-12 12:57 | Outpatient (RCR) | payer OTHER ==
[~2019-03-12 12:57] MED LIST changes: +INVE1INJ; +PALI1TAB2 PO; +PHARMACY COMMENT; +REME15TA PO; +SERT-155 PO
[2019-03-12] MEDS ORDERED: SERT-141 PO (14:08)
[2019-03-12] MEDS ORDERED: TRAZ-163 PO (14:08)
== END 2019-03-22 ==
LOC: M PR 12:57
PROVIDERS: ATTEND Internal Medicine Pulmonary Disease
DX: J45.909 Unspecified asthma, uncomplicated (principal)

== ENCOUNTER → 2019-04-22 | Outpatient (RCR) | payer OTHER ==
[~2019-04-22] MED LIST changes: +SERT-141 PO; -SERT-155 PO; +SERT50TA29 PO; +TRAZ-163 PO
== END ==
LOC: M PR 04-09 14:43
PROVIDERS: ATTEND Internal Medicine Pulmonary Disease
DX: J45.909 Unspecified asthma, uncomplicated (principal)

== ENCOUNTER 2019-06-17 14:30 | Outpatient (RCR) | payer OTHER | END 2019-06-22 | LOC: M PR 14:30 | PROVIDERS: ATTEND Internal Medicine Pulmonary Disease | DX: J45.909 Unspecified asthma, uncomplicated (principal) ==

== ENCOUNTER → 2019-06-25 | Outpatient (REF) | payer OTHER ==
[~2019-06-25] MED LIST changes: -TRAZ-163 PO; +TRAZ-257 PO
[2019-06-25 11:46] LABS: HEMATOCRIT 38.3 % (36.0-47.0); HEMOGLOBIN 10.1 g/dl (12.0-15.5); MEAN CORPUSCULAR HEMOGLOBIN 19.8 pg (27.0-33.0); MEAN CORPUSCULAR HGB CONC 26.4 g/dl (32.0-36.5); PLATELET COUNT, AUTOMATED 301 10^3/uL (150-450); RED BLOOD COUNT 5.11 10^6/uL (4.00-5.40); WHITE BLOOD COUNT 8.7 10^3/uL (4.0-10.0)
[2019-06-25 12:04] LABS: BLOOD UREA NITROGEN 12 MG/DL (7-18); CALCIUM LEVEL 8.7 MG/DL (8.5-10.1); CARBON DIOXIDE LEVEL 33 MEQ/L (21-32); CHLORIDE LEVEL 103 MEQ/L (98-107); CREATININE FOR GFR 0.69 MG/DL (0.55-1.30); FERRITIN 5 NG/ML (8-252); FREE T4 0.79 NG/DL (0.76-1.46); GLOMERULAR FILTRATION RATE > 60.0 (>60); GLUCOSE, FASTING 73 MG/DL (70-100); POTASSIUM SERUM 4.3 MEQ/L (3.5-5.1); SODIUM LEVEL 140 MEQ/L (136-145); TOTAL 25(OH) VITAMIN D 21.2 NG/ML (30.0-100.0)
[2019-06-25 12:52] LABS: HEMOGLOBIN A1c 5.6 %
== END ==
LOC: M SFHCPLAZ 09:20
PROVIDERS: ATTEND Nurse Practitioner Family
DX: D50.9 Iron deficiency anemia, unspecified (principal); E03.9 Hypothyroidism, unspecified; E55.9 Vitamin D deficiency, unspecified; E66.01 Morbid (severe) obesity due to excess calories
CPT/HCPCS: 36415; 80048; 82306; 82728; 83036; 84439; 84443; 85027; G0463

== ENCOUNTER 2019-07-15 15:58 | Outpatient (RCR) | payer OTHER | END 2019-07-23 | LOC: M PR 15:58 | PROVIDERS: ATTEND Internal Medicine Pulmonary Disease | DX: J45.909 Unspecified asthma, uncomplicated (principal) ==

== ENCOUNTER 2019-08-23 14:53 | Outpatient (RCR) | payer OTHER ==
[~2019-08-23] VITALS: Ht 142.2 cm; Wt 141.4 kg
[2019-08-23 14:24] VITALS: BP 140/80
[2019-08-23 14:40] VITALS: BP 150/90
[2019-08-23 15:29] VITALS: BP 112/80
[2019-08-25 15:03] VITALS: BP 112/70
[2019-08-25 15:04] VITALS: BP 118/70
[2019-08-25 15:05] VITALS: BP 124/80
[2019-08-31] MEDS ORDERED: PRED20TA PO (03:17)
[2019-08-31] MEDS ORDERED: LEVO50TA45 PO (17:26)
[2019-08-31] MEDS ORDERED: SERT-138 PO (17:26)
[2019-08-31] MEDS ORDERED: TRAZ-252 PO (17:27)
[2019-08-31] MEDS ORDERED: XOLA75IN SC (17:27)
[2019-08-31] MEDS ORDERED: HYDR-643 PO (17:27)
[2019-08-31] MEDS ORDERED: SPIR12.9 INH (17:27)
[2019-08-31] MEDS ORDERED: ARNU1INH3 INH (17:27)
[2019-08-31] MEDS ORDERED: PALI1TAB3 PO (17:27)
[2019-08-31] MEDS ORDERED: VITA50005 PO (17:27)
[2019-09-02] MEDS ORDERED: PRED20TA PO (08:34)
[2019-09-02] MEDS ORDERED: DOXY100T PO (08:42)
== END 2019-09-21 ==
LOC: M PR 14:53
PROVIDERS: ATTEND Internal Medicine Pulmonary Disease
DX: J45.909 Unspecified asthma, uncomplicated (principal)

== ENCOUNTER 2019-08-30 23:09 | Emergency (ER) | payer OTHER ==
[~2019-08-30] VITALS: Ht 147.3 cm; Wt 141.4 kg
[2019-08-31 00:20] LABS: BASO % 0.4 % (0.0-1.0); EOS # 0.1 10^3/uL (0.0-0.5); EOS % 1.1 % (0.0-3.0); HEMATOCRIT 38.1 % (36.0-47.0); HEMOGLOBIN 10.8 g/dl (12.0-15.5); LYMPH # 1.9 10^3/uL (1.5-5.0); LYMPH % 18.1 % (24.0-44.0); MEAN CORPUSCULAR HGB CONC 28.3 g/dl (32.0-36.5); MONO # 0.8 10^3/uL (0.0-0.8); MONO % 7.3 % (0.0-5.0); NEUTROPHILS # 7.4 10^3/uL (1.5-8.5); NEUTROPHILS % 72.4 % (36.0-66.0); PLATELET COUNT, AUTOMATED 304 10^3/uL (150-450); RED BLOOD COUNT 5.15 10^6/uL (4.00-5.40); WHITE BLOOD COUNT 10.3 10^3/uL (4.0-10.0)
[2019-08-31 00:41] LABS: HCG, SERUM QUALITATIVE NEGATIVE (NEGATIVE)
[2019-08-31 00:45] LABS: INFLUENZA A AMPLIFICATION NEGATIVE (NEGATIVE); INFLUENZA B AMPLIFICATION NEGATIVE (NEGATIVE)
[2019-08-31 00:50] LABS: BLOOD UREA NITROGEN 14 MG/DL (7-18); CALCIUM LEVEL 8.6 MG/DL (8.5-10.1); CARBON DIOXIDE LEVEL 30 MEQ/L (21-32); CHLORIDE LEVEL 104 MEQ/L (98-107); CREATININE FOR GFR 0.76 MG/DL (0.55-1.30); GLOMERULAR FILTRATION RATE > 60.0 (>60); GLUCOSE, FASTING 103 MG/DL (70-100); POTASSIUM SERUM 4.4 MEQ/L (3.5-5.1); SODIUM LEVEL 139 MEQ/L (136-145)
[2019-08-31] MEDS ORDERED: ISOVUE-370 76% 100ML VIAL (Q9967) As Ordered ONE (01:07)
--- NOTE | 2019-08-31 02:09 | REPVR ---
PROCEDURE INFORMATION: Exam: CT Angiography Chest With Contrast Exam date and time: 08/31/2019 12:56 AM Age: 34 years old Clinical indication: Dyspnea; Additional info: Dysp TECHNIQUE: Imaging protocol: Computed tomographic angiography of the chest with intravenous contrast. 3D rendering: MIP and/or 3D reconstructed images were created by the technologist. Radiation optimization: All CT scans at this facility use at least one of these dose optimization techniques: automated exposure control; mA and/or kV adjustment per patient size (includes targeted exams where dose is matched to clinical indication); or iterative reconstruction. Contrast material: ISO; Contrast volume: 75 ml; Contrast route: AC; COMPARISON: CT ANGIO CHEST 08/09/2016 10:23 PM FINDINGS: Pulmonary arteries: No central pulmonary embolism is seen. Evaluation of peripheral pulmonary arteries is limited due to excessive motion. Aorta: Unremarkable. No aortic aneurysm. No aortic dissection. Lungs: No diffuse ground-glass opacities throughout both lungs. No masses are seen. Airways are clear. Pleural space: Unremarkable. No pneumothorax. No pleural effusion. Heart: Stable mild cardiomegaly. Trace pericardial effusion. Lymph nodes: Unremarkable. No enlarged lymph nodes. Bones/joints: Unremarkable. No acute fracture. Soft tissues: Unremarkable. Other findings: The exam is degraded by patient motion artifact. IMPRESSION: 1. Motion limited exam. 2. Pulmonary edema with mild cardiomegaly and trace pericardial effusion. 3. No central pulmonary embolism is seen. Evaluation of peripheral pulmonary arteries is limited due to excessive motion. Electronically signed by: Ronak Mayen On 08/31/2019 02:08:39 AM
--- NOTE | 2019-08-31 02:16 | REP ---
Clinical: Dyspnea . Comparison: 12/10/2018 . Findings: Evaluation is limited by portable technique including underpenetration. The mediastinum and cardiac silhouette are stable and within normal limits for portable technique. No focal consolidation or effusion. No pneumothorax. Skeletal structures intact. Impression: No obvious focal consolidation or effusion. Electronically Signed by Alfonzo Gardiner MD 08/31/2019 02:08 A
[2019-08-31] MEDS ORDERED: FUROSEMIDE 100 MG/10 ML VIAL (J1940) IV ONE (02:30)
[2019-08-31] MEDS ORDERED: PRED20TA PO (03:17)
[2019-08-31 03:38] VITALS: BP 135/80
[2019-08-31] MEDS ORDERED: SERT-138 PO (17:26)
[2019-08-31] MEDS ORDERED: LEVO50TA45 PO (17:26)
[2019-08-31] MEDS ORDERED: VITA50005 PO (17:27)
[2019-08-31] MEDS ORDERED: PALI1TAB3 PO (17:27)
[2019-08-31] MEDS ORDERED: XOLA75IN SC (17:27)
[2019-08-31] MEDS ORDERED: TRAZ-252 PO (17:27)
[2019-08-31] MEDS ORDERED: ARNU1INH3 INH (17:27)
[2019-08-31] MEDS ORDERED: HYDR-643 PO (17:27)
[2019-08-31] MEDS ORDERED: SPIR12.9 INH (17:27)
== END 2019-08-31 03:40 | disposition home or self-care (01) ==
LOC: M ED 23:09
DX: J84.9 Interstitial pulmonary disease, unspecified (principal); I51.7 Cardiomegaly; E66.01 Morbid (severe) obesity due to excess calories; Z99.81 Dependence on supplemental oxygen

== ENCOUNTER 2019-08-31 13:22 | Observation (INO) | payer OTHER ==
[~2019-08-31] VITALS: Ht 147.3 cm; Wt 139.3 kg
[2019-08-31 13:54] LABS: ABG BASE EXCESS 5.1 (-2.0-2.0); ABG HCO3 30.5 MEQ/L (22.0-26.0); ABG O2 SATURATION 93.9 % (95.0-99.0); ABG PARTIAL PRESSURE CO2 48.1 mmHg (35.0-45.0); ABG PARTIAL PRESSURE O2 71.8 mmHg (75.0-100.0)
[2019-08-31 14:11] LABS: BASO % 0.4 % (0.0-1.0); EOS # 0.1 10^3/uL (0.0-0.5); HEMATOCRIT 39.7 % (36.0-47.0); HEMOGLOBIN 11.1 g/dl (12.0-15.5); LYMPH # 1.7 10^3/uL (1.5-5.0); LYMPH % 16.5 % (24.0-44.0); MEAN CORPUSCULAR HEMOGLOBIN 20.5 pg (27.0-33.0); MEAN CORPUSCULAR VOLUME 73.2 fl (80.0-96.0); MONO # 0.8 10^3/uL (0.0-0.8); MONO % 7.6 % (0.0-5.0); NEUTROPHILS # 7.6 10^3/uL (1.5-8.5); NEUTROPHILS % 74.1 % (36.0-66.0); PLATELET COUNT, AUTOMATED 310 10^3/uL (150-450); RED BLOOD COUNT 5.42 10^6/uL (4.00-5.40); WHITE BLOOD COUNT 10.3 10^3/uL (4.0-10.0)
--- NOTE | 2019-08-31 14:14 | REP ---
REASON FOR EXAM: Cough and dyspnea. COMPARISON: Multiple, the latest yesterday. FINDINGS: The technique utilized in obtaining the radiograph has magnified the cardiac silhouette and accentuated the interstitial markings. The superior mediastinal structures are midline. The cardiac silhouette is unremarkable in size, shape, and position. The diaphragmatic surfaces of the lungs are regular, and the costophrenic angles are clear. The pulmonary meza are clear. The imaged osseous structures are intact. IMPRESSION: There is no acute cardiopulmonary disease. Electronically Signed by Valentino Mejía DO 08/31/2019 02:46 P
[2019-08-31 14:39] LABS: ALBUMIN 3.6 GM/DL (3.2-5.2); ALT/SGPT 22 U/L (12-78); BILIRUBIN,DIRECT 0.2 MG/DL (0.0-0.2); BILIRUBIN,TOTAL 0.7 MG/DL (0.2-1.0); BLOOD UREA NITROGEN 14 MG/DL (7-18); CALCIUM LEVEL 8.8 MG/DL (8.5-10.1); CARBON DIOXIDE LEVEL 32 MEQ/L (21-32); CHLORIDE LEVEL 100 MEQ/L (98-107); CK-MB VALUE MASS < 1.0 NG/ML (<3.6); CPK CREATINE PHOSPHOKINASE 91 U/L (26-192); GLOMERULAR FILTRATION RATE > 60.0 (>60); GLUCOSE, FASTING 93 MG/DL (70-100); NT-PRO BNP 37 PG/ML (<125); SODIUM LEVEL 138 MEQ/L (136-145); TOTAL PROTEIN 7.1 GM/DL (6.4-8.2); TROPONIN I < 0.02 NG/ML (< 0.10)
[2019-08-31 16:43] VITALS: O2SAT 84
[2019-08-31] MEDS ORDERED: IPRATROPIUM 0.5MG/ALBUTEROL 2.5MG INH SOL UD 3ML (DUONEB)(J7620) NEB ONE (17:15)
[2019-08-31] MEDS ORDERED: ALBUTEROL SULFATE 2.5 MG/0.5 ML INH NEB SOLN NEB PRN (17:15)
[2019-08-31] MEDS ORDERED: IPRATROPIUM 0.5MG/ALBUTEROL 2.5MG INH SOL UD 3ML (DUONEB)(J7620) NEB PRN (17:15)
[2019-08-31] MEDS ORDERED: SERT-138 PO (17:26)
[2019-08-31] MEDS ORDERED: LEVO50TA45 PO (17:26)
[2019-08-31] MEDS ORDERED: SPIR12.9 INH (17:27)
[2019-08-31] MEDS ORDERED: TRAZ-252 PO (17:27)
[2019-08-31] MEDS ORDERED: PALI1TAB3 PO (17:27)
[2019-08-31] MEDS ORDERED: VITA50005 PO (17:27)
[2019-08-31] MEDS ORDERED: ARNU1INH3 INH (17:27)
[2019-08-31] MEDS ORDERED: XOLA75IN SC (17:27)
[2019-08-31] MEDS ORDERED: HYDR-643 PO (17:27)
[2019-08-31] MEDS: FUROSEMIDE 40 MG/4 ML VIAL (J1940) IV SCH (18:53)
[2019-08-31] MEDS: DOXYCYCLINE HYCLATE 100 MG in D5W MINI-BAG PLUS 100 ML IV SCH (19:00)
[2019-08-31] MEDS: methylPREDNISolone INJ 125 MG/2 ML VIAL (J2930) IV SCH (19:00)
--- NOTE | 2019-08-31 19:14 | HPE ---
DATE OF ADMISSION: 08/31/2019 CHIEF COMPLAINT: Shortness of breath. HISTORY OF PRESENT ILLNESS: This is a 34-year-old morbidly obese female with body mass index (BMI) of 64.8, obesity hypoventilation syndrome, obstructive sleep apnea on chronic continuous positive airway pressure (CPAP), home oxygen 2-3 liters with chronic hypoxic respiratory failure at home, presents to the emergency room with two-day history of worsening shortness of breath without fever, accompanied with a dry cough, worse when she ambulates. The patient had some headache and nausea, runny nose, but no vomiting. No muscle aches or joint pains. No sick contacts. The patient lives at home with her and came in to the emergency room yesterday, was found to have pulmonary edema, was given IV Lasix with some improvement, and was discharged home this morning. After a few hours of sleeping at home, the patient woke up and felt very short of breath with dyspnea on exertion with walking about 3-5 feet, prompting her to come back to the emergency room (ER). The patient's usual peak flow is 750 mL and was 400 when she woke up today. She has had no recent travel. She complains of a bit of a sore throat when she woke up. She has previously lost weight, about 20-30 pounds while doing pulmonary rehabilitation but she has not been there for about a month since she was not feeling well and subsequently regained it all back at home. The patient has had no changes in appetite. No diarrhea. No bright red blood per rectum, melena, or any black tarry stools. Hospitalist was called to admit when she was found to have a positive coronavirus. Chest x-ray was unchanged and had no acute disease at 1345 on 08/31/2019. Arterial blood gas had an oxygen level of 71, carbon dioxide (CO2) of 48 compensated with pH of 7.4. She was chronically on five liters nasal cannula and was 84% and was increased to six liters with subsequent increase to 95%. On arrival to the ER, she was 79% on three liters nasal cannula. PAST MEDICAL HISTORY: Obesity hypoventilation syndrome, obstructive sleep apnea with continuous positive airway pressure (CPAP), hypothyroidism, morbid obesity, body mass index (BMI) of 64.8, reflux, hypertension, allergic rhinitis, asthma, anxiety, essential hypertension, schizophrenia, depression. PAST SURGICAL HISTORY: Dilation and curettage, lung biopsy, repair of ankle fracture, right foot fracture, appendectomy, unspecified eye surgery, deviated septal repair. SOCIAL HISTORY: , unemployed, on disability, can not recall what she previously did. Previously smoked but has since quit. Denies alcohol or recreational drug use. HOME MEDICATIONS: - Breo Ellipta one inhalation daily - sertraline 100 mg at bedtime - trazodone 100 mg at bedtime - albuterol 2.5 four times a day as needed - vitamin D 50,000 units weekly - Lasix 40 daily - hydroxyzine 10 mg four times a day - Synthroid 50 mcg daily - loratadine 100 daily - Singulair 100 daily - Xolair 75 mg subcutaneous every two weeks - Xolair 150 mg subcutaneous every two weeks - paliperidone 6 mg at bedtime - Arnuity Ellipta one puff inhaled daily - Spiriva two puffs inhaled daily REVIEW OF SYSTEMS: Per history of present illness (HPI), 12-point system otherwise negative. FAMILY HISTORY: Diabetes, pancreatic cancer on the paternal side. PHYSICAL EXAMINATION: Morbidly obese female, in no respiratory distress. No use of respiratory accessory muscles. No cyanosis. No stridor. VITAL SIGNS: Temperature 97.6, pulse 91, respiratory rate 20, blood pressure 100/56, 95% on six liters nasal cannula, 79% on three liters nasal cannula. Pupils round and reactive to light. Extraocular muscles are intact. Unable to assess jugular venous distention (JVD) due to thick neck. LUNGS: Air entry is equal. Diminished breath sounds. No wheezing or rales. No coarse rhonchi. No adventitious breath sounds. ABDOMEN: Obese, soft, nontender, nondistended. Positive bowel sounds. EXTREMITIES: Trace edema. LABORATORY DATA: White count 10, hemoglobin 11, hematocrit 39, platelet count 310, 74% neutrophils. Sodium 138, potassium 4, chloride 100, bicarbonate 32, BUN 14, creatinine 0.9, glucose of 93, calcium 8.8, total bilirubin 0.7, direct bilirubin 0.2, AST 9, ALT 22, alkaline phosphatase 86, total CK 91, MB fraction less than 1, relative index 1.2, troponin less than 0.02, BNP of 37, total protein 7, albumin 3.6, TSH 2.34. Arterial blood gas: PH of 7.4, pO2 of 48, O2 of 71, bicarbonate of 30.5. IMAGING STUDIES: CT chest 08/31/2019, 0056 at midnight: Pulmonary edema with mild cardiomegaly, trace pericardial effusion, no central pulmonary embolism. Evaluation of peripheral pulmonary arteries limited due to excessive motion. No diffuse ground-glass opacity throughout both lungs. No masses are seen. Airways are clear. EKG pending. The patient has incomplete right bundle branch block from previous EKG. ASSESSMENT AND PLAN: This is a 34-year-old morbidly obese female, body mass index (BMI) of 64.8, interstitial lung disease, asthma, allergic rhinitis, schizophrenia, depression with anxiety features, reflux, hypertension, obstructive sleep apnea (JERI) with continuous positive airway pressure (CPAP), hypothyroidism, presented to the emergency room with worsening shortness of breath and a runny nose, was found to have positive coronavirus, admitted for exacerbation of her chronic fibrosis secondary to a viral infection. IMPRESSION: 1. Acute on chronic hypoxic respiratory failure, secondary to coronavirus and possible exacerbation of her chronic interstitial lung disease. The patient is chronically on three liters nasal cannula, usually saturates above 90%, currently 79% on three liters on arrival. CT chest that was obtained at midnight last night shows some pulmonary edema. She did receive some Lasix with some improvement. Her blood pressure right now, however, is about 100 mmHg. Therefore, Lasix has been held. The patient will be treated with supportive care with nebulizer treatments, supplemental oxygen, and continued use of her continuous positive airway pressure (CPAP). 2. History of interstitial lung disease with acute exacerbation due to coronavirus. The patient will be given Solu-Medrol intravenously every eight hours, nebulizer treatments every four hours and every two hours as needed in between. She can be resumed on her home Spiriva, Breo Ellipta, and Arnuity Ellipta. For the antiinflammatory effect, she will be started on doxycycline. Droplet precautions due to coronavirus and strict handwashing. 3. Coronavirus upper respiratory infection. The patient will be started on strict handwashing regime as well as droplet precautions. 4. Supermorbid obesity with body mass index (BMI) of 64.8 with probable pulmonary hypertension. Check a two-dimensional echocardiogram to rule out cor pulmonale, gentle diuresis if blood pressure permits. No Lasix if pressure is less than 120. 5. Obstructive sleep apnea. Resume on home CPAP settings. will be bringing this in. He is driving in from [place]. 6. History of schizophrenia with affective symptoms, anxiety, depression. The patient has a service dog with her which her will have to remove out of the premises as the patient is not permitted to come to a medical/surgical floor with a service animal. She is unfortunately kept in the emergency room until her can come and get the service animal. 7. Depression. Continue on Zoloft. 8. Chronic insomnia, on trazodone. 9. History of asthma. No wheezing on examination. She may be continued on her montelukast. 10. Allergic rhinitis. Continue on loratadine. 11. Code status: Full code. 12. Diet is low-fat, low-cholesterol, weight loss encouraged. 13. History of prior smoking. Tobacco cessation counseling has been provided.
[2019-08-31] MEDS ORDERED: IPRATROPIUM 0.5MG/ALBUTEROL 2.5MG INH SOL UD 3ML (DUONEB)(J7620) NEB SCH (20:00)
[2019-08-31] MEDS: ALBUTEROL SULFATE 2.5 MG/0.5 ML INH NEB SOLN NEB SCH (20:00)
[2019-08-31] MEDS: NYSTATIN 100,000 UNITS/GM TOPICAL PWD 15 GM TOP SCH (21:00)
[2019-08-31] MEDS: SYMBICORT 80/4.5MCG INHALER 6GM INH SCH (21:13)
[2019-08-31 22:00] VITALS: BP 141/75
[2019-08-31] MEDS: traZODone 100 MG TAB PO SCH (23:29)
[2019-08-31] MEDS: PALIPERIDONE 6 MG ER TAB (INVEGA) PO SCH (23:29)
[2019-08-31] MEDS: SERTRALINE 100 MG TAB PO SCH (23:29)
[2019-08-31 23:34] LABS: BLOOD UREA NITROGEN 15 MG/DL (7-18); CALCIUM LEVEL 8.8 MG/DL (8.5-10.1); CARBON DIOXIDE LEVEL 31 MEQ/L (21-32); CHLORIDE LEVEL 100 MEQ/L (98-107); CREATININE FOR GFR 0.88 MG/DL (0.55-1.30); GLOMERULAR FILTRATION RATE > 60.0 (>60); GLUCOSE, FASTING 131 MG/DL (70-100); SODIUM LEVEL 139 MEQ/L (136-145)
[2019-08-31 23:41] LABS: CK-MB VALUE MASS < 1.0 NG/ML (<3.6); CPK CREATINE PHOSPHOKINASE 88 U/L (26-192); MAGNESIUM LEVEL 2.2 MG/DL (1.8-2.4); MB/CK RELATIVE INDEX 1.14 (< OR =4); TROPONIN I < 0.02 NG/ML (< 0.10)
[2019-09-01] VITALS: BP 146/89
[2019-09-01] MEDS: FUROSEMIDE 40 MG/4 ML VIAL (J1940) IV SCH ×3 (00:16→12:10)
[2019-09-01] MEDS: methylPREDNISolone INJ 125 MG/2 ML VIAL (J2930) IV SCH ×3 (02:06→17:28)
[2019-09-01] MEDS: LEVOTHYROXINE 50MCG TABLET (0.05MG) PO SCH (05:38)
[2019-09-01] MEDS: DOXYCYCLINE HYCLATE 100 MG in D5W MINI-BAG PLUS 100 ML IV SCH (05:57)
[2019-09-01 06:00] VITALS: BP 127/77
[2019-09-01 06:01] LABS: HEMATOCRIT 41.4 % (36.0-47.0); HEMOGLOBIN 11.9 g/dl (12.0-15.5); MEAN CORPUSCULAR HEMOGLOBIN 21.1 pg (27.0-33.0); MEAN CORPUSCULAR HGB CONC 28.7 g/dl (32.0-36.5); MEAN CORPUSCULAR VOLUME 73.3 fl (80.0-96.0); PLATELET COUNT, AUTOMATED 342 10^3/uL (150-450); RED BLOOD COUNT 5.65 10^6/uL (4.00-5.40); WHITE BLOOD COUNT 13.1 10^3/uL (4.0-10.0)
[2019-09-01] MEDS: ALBUTEROL SULFATE 2.5 MG/0.5 ML INH NEB SOLN NEB SCH ×7 (06:11→23:11)
[2019-09-01 06:30] LABS: BLOOD UREA NITROGEN 20 MG/DL (7-18); CARBON DIOXIDE LEVEL 32 MEQ/L (21-32); CHLORIDE LEVEL 101 MEQ/L (98-107); CREATININE FOR GFR 0.99 MG/DL (0.55-1.30); GLOMERULAR FILTRATION RATE > 60.0 (>60); GLUCOSE, FASTING 154 MG/DL (70-100); POTASSIUM SERUM 3.8 MEQ/L (3.5-5.1); SODIUM LEVEL 139 MEQ/L (136-145)
[2019-09-01] MEDS: SYMBICORT 80/4.5MCG INHALER 6GM INH SCH ×2 (07:39→18:23)
[2019-09-01] MEDS: TIOTROPIUM INHALER/CAPSULE (SPIRIVA) INH SCH (07:39)
[2019-09-01] MEDS: LORATADINE 10 MG TAB PO SCH (08:29)
[2019-09-01] MEDS: NYSTATIN 100,000 UNITS/GM TOPICAL PWD 15 GM TOP SCH ×2 (08:29→22:44)
[2019-09-01] MEDS: MONTELUKAST 10 MG TAB PO SCH (08:29)
[2019-09-01] MEDS ORDERED: NON-FORMULARY 1 EA EA INH SCH (09:00)
--- NOTE | 2019-09-01 12:27 | IPNPDOC ---
Subjective Date Seen The patient was seen on 09/01/19. Subjective Chief Complaint/HPI Conchis is feeling better today, she's back to 5 L (nc), afebrile this am. Objective Physical Examination General Exam: Positive: Alert, No Acute Distress, Other (morbidly obese, mild tachypnea) Eye Exam: Positive: Conjunctiva & lids normal; Negative: Sclera icteric ENT Exam: Positive: Mucous membr. moist/pink, Pharynx Normal (no thrush) Neck Exam: Positive: Supple; Negative: JVD Chest Exam: Positive: Clear to auscultation Abdomen Exam: Positive: Normal bowel sounds Female Exam: Positive: Nl Ext Genitalia Extremity Exam: Positive: Clubbing; Negative: Edema Skin Exam: Negative: Nl turgor and temperature, Rash, Breakdown Neuro Exam: Positive: Normal Speech, Strength at 5/5 X4 ext, Normal Tone Assessment /Plan Assessment # Acute on chronic hypoxic respiratory failure 2/2 rocha virus # Acute on chronic ILD due 2/2 coronavirus # Leukocytosis due to steroid therapy and viral infection - supportive care, droplet and contact precautions in place - CPAP qhs - solumedrol 80 mg q 6, can start taper in am - nebs - continue home respiratory medications - doxycycline x 2/5 days, can transition to oral from IV # Pulmonary edema - echo pending - stop lasix therapy due to worsening lactic acidemia # Lactic acidemia likely due to underlying chronic liver disease (fatty liver) - procalcitonin normal - no hypotension noted - has increased from 2.7 to 4.2 this am, repeat in am - will stop IV lasix # DVT prophylaxis Plan/VTE VTE Prophylaxis Ordered?: Yes VTE Exclusion Mechanical Proph: N/A:VTE Prophy Ordered VTE Exclusion Pharmacological: N/A:VTE Prophy Ordered VS, I&O, 24H, Fishbone Vital Signs/I&O Vital Signs Date Time Temp Pulse Resp B/P (MAP) Pulse Ox O2 Delivery O2 Flow Rate FiO2 09/01/19 08:00 5.0 09/01/19 06:00 98.9 76 17 127/77 (94) 94 08/31/19 22:00 Nasal Cannula I&O- Last 24 Hours up to 6 AM 09/01/19 06:00 Intake Total 300 ml Output Total 650 ml Balance -350 ml Laboratory Data 24H LABS Laboratory Tests 2 08/31/19 13:34: Immature Granulocyte % (Auto) 0.4, Neutrophils (%) (Auto) 74.1H, Lymphocytes (%) (Auto) 16.5L, Monocytes (%) (Auto) 7.6H, Eosinophils (%) (Auto) 1.0, Basophils (%) (Auto) 0.4, Neutrophils # (Auto) 7.6, Lymphocytes # (Auto) 1.7, Monocytes # (Auto) 0.8, Eosinophils # (Auto) 0.1, Basophils # (Auto) 0.0, Nucleated Red Blood Cells % (auto) 0.0, Anion Gap 6L, Glomerular Filtration Rate > 60.0, Calcium Level 8.8, Total Bilirubin 0.7, Direct Bilirubin 0.2, Aspartate Amino Transf (AST/SGOT) 9, Alanine Aminotransferase (ALT/SGPT) 22, Alkaline Phosphatase 86, Total Creatine Kinase 91, Creatine Kinase MB < 1.0, Creatine Kinase MB Relative Index 1.10, Troponin I < 0.02, [id number]-Type Natriuretic Peptide 37, Total Protein 7.1, Albumin 3.6, Albumin/Globulin Ratio 1.03, Thyroid Stimulating Hormone (TSH) 2.340 08/31/19 13:42: Blood Gas Bicarbonate Standard 29.0H, Arterial Blood pH 7.420, Arterial Blood Partial Pressure CO2 48.1H, Arterial Blood Partial Pressure O2 71.8L, Arterial Blood Total CO2 32.0H, Arterial Blood HCO3 30.5H, Arterial Blood Base Excess 5.1H, Arterial Blood Oxygen Saturation 93.9L 08/31/19 18:56: Lactic Acid Level 1.9 08/31/19 22:52: Anion Gap 8, Glomerular Filtration Rate > 60.0, Calcium Level 8.8, Total Creatine Kinase 88, Creatine Kinase MB < 1.0, Creatine Kinase MB Relative Index 1.14, Troponin I < 0.02, Magnesium Level 2.2 09/01/19 05:48: Nucleated Red Blood Cells % (auto) 0.0, Anion Gap 6L, Glomerular Filtration Rate > 60.0, Lactic Acid Level 2.7*H, Calcium Level 9.0 09/01/19 10:11: Lactic Acid Followup at 4 Hours 4.2*H CBC/BMP Laboratory Tests 08/31/19 13:34 08/31/19 22:52 09/01/19 05:48 Microbiology Microbiology 08/31/19 Respiratory Virus Panel (PCR) ([facility]) - Final, Complete Coronavirus Nl63 08/31/19 Blood Culture, Received Pending 08/31/19 Blood Culture, Received Pending ZHANG ROSALES MD Sep 01, 2019 12:27
[2019-09-01 14:00] VITALS: BP 132/80
--- NOTE | 2019-09-01 20:48 | ECGEPIP ---
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
[2019-09-01 22:00] VITALS: BP 131/74
[2019-09-01] MEDS: PALIPERIDONE 6 MG ER TAB (INVEGA) PO SCH (22:43)
[2019-09-01] MEDS: traZODone 100 MG TAB PO SCH (22:43)
[2019-09-01] MEDS: SERTRALINE 100 MG TAB PO SCH (22:44)
[2019-09-01] MEDS: DOXYCYCLINE HYCLATE 100 MG TAB PO SCH (22:44)
[2019-09-02] MEDS: methylPREDNISolone INJ 125 MG/2 ML VIAL (J2930) IV SCH ×2 (01:48→10:46)
[2019-09-02] MEDS: ALBUTEROL SULFATE 2.5 MG/0.5 ML INH NEB SOLN NEB SCH ×3 (04:11→11:48)
[2019-09-02] MEDS: LEVOTHYROXINE 50MCG TABLET (0.05MG) PO SCH (05:36)
[2019-09-02 06:00] VITALS: BP 133/82
--- NOTE | 2019-09-02 06:26 | ECHO ---
DATE OF PROCEDURE: 09/01/2019 DATE OF : 1985 AGE: 34 GENDER: Female. HEIGHT: 58 inches WEIGHT: 310 pounds BODY SURFACE AREA: 2.19 meters squared INPATIENT: 4 [place] - Room 4219 REFERRING PHYSICIAN: Dr. Juanis Callaway INDICATION: Heart failure. MEASUREMENTS 2-D Measurements: RV: 4.5 cm LV: 4.5 cm Septum: 1.3 cm Posterior wall: 1.3 cm Aortic root: 2.9 cm LA: 4.0 cm LVEF: 75% Doppler Measurements: AV: 1.83 m/s LVOT: 0.85 m/s LVOT diameter: 1.8 cm MV - E 97 A 84 E/A ratio 1.2 Early mitral deceleration time: 310 ms E prime medial: 6.7 A prime medial: 7.2 E prime lateral: 7.3 Average E/E prime ratio: 13.9/PCWP: 19 mmHg PV: 0.9 m/s Pulmonary artery acceleration time: 100 ms PASP: 34 mmHg? IVC: 2.1 cm-2.4 cm COMMENTS: Normal sinus rhythm without intraventricular conduction disturbance. Somewhat technically challenging study in light of the patient's body habitus, but diagnostically useful information was still obtained. M-mode and two-dimensional echocardiography was performed with pulsed, continuous wave, color flow and tissue Doppler studies. Mild concentric left ventricle hypertrophy with hyperkinetic wall motion. Mildly dilated left atrium with grade 2 LV diastolic dysfunction and elevated mean left atrial pressure. Mildly dilated right heart chambers with normal wall motion with at least mild and suspected at least moderately severe pulmonary hypertension. Mildly dilated IVC with reduced respiratory collapse in keeping with an elevated central venous pressure/right heart failure. Normal appearing and functioning valvular structures. Normal aortic dimensions. No apparent intracardiac mass. Minuscule posterior pericardial effusion.
[2019-09-02] MEDS: TIOTROPIUM INHALER/CAPSULE (SPIRIVA) INH SCH (07:31)
[2019-09-02] MEDS: SYMBICORT 80/4.5MCG INHALER 6GM INH SCH (07:31)
[2019-09-02] MEDS ORDERED: PRED20TA PO (08:34)
--- NOTE | 2019-09-02 08:41 | IPNPDOC ---
Subjective Date Seen The patient was seen on 09/02/19. Subjective Chief Complaint/HPI Conchis feels well this morning, she's moving around well. Objective Physical Examination General Exam: Positive: Alert, No Acute Distress, Other (morbidly obese, mild tachypnea) Eye Exam: Positive: Conjunctiva & lids normal; Negative: Sclera icteric ENT Exam: Positive: Mucous membr. moist/pink, Pharynx Normal (no thrush) Neck Exam: Positive: Supple; Negative: JVD Chest Exam: Positive: Clear to auscultation Abdomen Exam: Positive: Normal bowel sounds Female Exam: Positive: Nl Ext Genitalia Extremity Exam: Positive: Clubbing; Negative: Edema Skin Exam: Negative: Nl turgor and temperature, Rash, Breakdown Neuro Exam: Positive: Normal Speech, Strength at 5/5 X4 ext, Normal Tone Assessment /Plan Assessment # Acute on chronic hypoxic respiratory failure 2/2 rocha virus # Acute on chronic ILD due 2/2 coronavirus # Leukocytosis due to steroid therapy and viral infection - supportive care, droplet and contact precautions in place - CPAP qhs - discharge home today - prednisone 40 mg daily - nebs - continue home respiratory medications - doxycycline x 3/5 days, script sent # Pulmonary edema 2/2 acute diastolic CHF - echo pending - stop lasix therapy due to worsening lactic acidemia - f/u with PCP as outpatient to determine if she needs long-term lasix # Lactic acidemia likely due to underlying chronic liver disease (fatty liver) - procalcitonin normal - no hypotension noted - has increased from 2.7 to 4.2 this am, repeat in am - will stop IV lasix # DVT prophylaxis Plan/VTE VTE Prophylaxis Ordered?: Yes VTE Exclusion Mechanical Proph: N/A:VTE Prophy Ordered VTE Exclusion Pharmacological: N/A:VTE Prophy Ordered VS, I&O, 24H, Fishbone Vital Signs/I&O Vital Signs Date Time Temp Pulse Resp B/P (MAP) Pulse Ox O2 Delivery O2 Flow Rate FiO2 09/02/19 06:00 97.0 77 15 133/82 (99) 93 Nasal Cannula 5.0 I&O- Last 24 Hours up to 6 AM 09/02/19 05:59 Intake Total 1330 ml Output Total 1400 ml Balance -70 ml Laboratory Data 24H LABS Laboratory Tests 2 09/01/19 10:11: Lactic Acid Followup at 4 Hours 4.2*H Microbiology Microbiology 08/31/19 Respiratory Virus Panel (PCR) ([facility]) - Final, Complete Coronavirus Nl63 08/31/19 Blood Culture - Preliminary, Resulted No growth after 24 hours . All specim... 08/31/19 Blood Culture - Preliminary, Resulted No growth after 24 hours . All specim... ZHANG ROSALES MD Sep 02, 2019 08:41
[2019-09-02] MEDS ORDERED: DOXY100T PO (08:42)
[2019-09-02] MEDS: LORATADINE 10 MG TAB PO SCH (10:45)
[2019-09-02] MEDS: MONTELUKAST 10 MG TAB PO SCH (10:45)
[2019-09-02] MEDS: DOXYCYCLINE HYCLATE 100 MG TAB PO SCH (10:45)
[2019-09-02] MEDS: NYSTATIN 100,000 UNITS/GM TOPICAL PWD 15 GM TOP SCH (10:46)
--- NOTE | 2019-09-04 19:26 | DSES ---
DATE OF ADMISSION: 08/31/2019 DATE OF DISCHARGE: 09/02/2019 DISCHARGE DIAGNOSES: 1. Acute on chronic hypoxic respiratory failure secondary to Coronavirus NL63 infection causing acute bronchitis. 2. Acute on chronic interstitial lung disease secondary to Coronavirus. 3. Obstructive sleep apnea. 4. Leukocytosis secondary to steroid therapy and viral infection. 5. Pulmonary edema, likely secondary to acute diastolic congestive heart failure (CHF), which is resolved. 6. Lactic acidemia, likely secondary to receiving diuretic therapy, as well as underlying fatty liver disease. No evidence of bacterial infection was noted. PROCEDURES PERFORMED THIS HOSPITALIZATION: None. CONSULTANTS ON THE CASE: None. DISPOSITION: The patient is discharged home with resumption of home oxygen. DISCHARGE INSTRUCTIONS: The patient is instructed to followup with her primary care provider in approximately 1 week. She is to take prednisone 40 mg daily for the next 5 days, as well as doxycycline 100 mg twice a day. She is to avoid large crowds. She is to wear a mask when she is out in public. CONDITION ON DISCHARGE: Improved from admission. RELEVANT LABORATORIES DURING HOSPITALIZATION: Respiratory viral panel was positive for Coronavirus NL63. Blood cultures times 72 hours did not grow any organisms. White blood cell count on admission was 7.3 and with steroid therapy increased to 13.1. Hemoglobin 11.9, hematocrit 41, platelet count 342. Procalcitonin was 0.05, TSH was 2.34. Cardiac markers times two were negative. Sodium 139, potassium 3.8, chloride 101, bicarbonate 32, BUN 20, creatinine 0.99, calcium 9. IMAGING STUDIES: Chest x-ray showed no acute cardiopulmonary process. DISCHARGE MEDICATIONS: - doxycycline 100 mg by mouth twice a day for 2 more days - prednisone 40 mg for 5 days - albuterol nebulizer every four to six hours as needed for shortness of breath - albuterol Ventolin inhaler every 6 hours as needed for shortness of breath - ergocalciferol 50,000 units weekly - Arnuity Ellipta one puff daily - Breo Ellipta one pull daily - furosemide 40 mg by mouth daily - hydroxyzine 10 mg four times a day as needed for anxiety - Synthroid 50 mcg by mouth daily - loratadine 10 mg by mouth daily - Singulair 10 mg by mouth daily - Xolair 225 mg every 2 weeks - Paliperidone extended release 6 mg at bedtime - sertraline 100 mg at bedtime - Spiriva one capsule daily - trazodone 100 mg at bedtime HOSPITAL COURSE: Ms. Morel is a 34-year-old woman who had presented to the hospital with worsening shortness of breath following a previous emergency room visit, which found her to have some pulmonary edema on CT scan of the chest. She was given Lasix and released home. Upon returning home, the patient developed increasing dyspnea at rest, as well as with exertion. She was brought back to the emergency room by her . She was noted to have oxygen saturation of 84% on her chronic 5 liters of oxygen that she wears at home. A respiratory viral swab was done, which indicated that she had Coronavirus. She was admitted to the hospitalist service. She was empirically placed on doxycycline, as well as treated with intravenous Solu-Medrol 60 mg IV every 6 hours. The patient gradually improved over 48 hours. She was resumed on her Lasix. Chest x-ray on admission showed no focal infiltrate and only her chronic interstitial lung disease. She was subsequently discharged home in stable condition. A total of 30 minutes was spent completing all discharge paperwork.
== END 2019-09-02 11:57 | disposition home or self-care (01) ==
LOC: M ED 13:22 → M ED INP 13:23 → ENRESERVDT 21:22 → ENRESERVTM 21:22 → M MSPAV 22:01 → M ED INP 22:01 → UNDODISOB 09-02 11:57
PROVIDERS: ADMIT General Practice; ATTEND Internal Medicine
DX: J96.21 Acute and chronic respiratory failure with hypoxia (principal); B97.29 Other coronavirus as the cause of diseases classified elsewhere; J84.9 Interstitial pulmonary disease, unspecified; D72.829 Elevated white blood cell count, unspecified; E87.2 Acidosis; I50.31 Acute diastolic (congestive) heart failure; I11.0 Hypertensive heart disease with heart failure; R00.0 Tachycardia, unspecified; R94.31 Abnormal electrocardiogram [ECG] [EKG]; E66.2 Morbid (severe) obesity with alveolar hypoventilation; Z68.44 Body mass index [BMI] 60.0-69.9, adult; Z99.81 Dependence on supplemental oxygen; E03.9 Hypothyroidism, unspecified; K21.9 Gastro-esophageal reflux disease without esophagitis; J45.909 Unspecified asthma, uncomplicated; F41.9 Anxiety disorder, unspecified; F32.9 Major depressive disorder, single episode, unspecified; F20.9 Schizophrenia, unspecified; G47.00 Insomnia, unspecified; Z87.891 Personal history of nicotine dependence; Z79.51 Long term (current) use of inhaled steroids; Z79.52 Long term (current) use of systemic steroids; Z79.899 Other long term (current) drug therapy
CPT/HCPCS: 36415; 36600; 71045; 71275; 80048; 80076; 82550; 82553; 82803; 83605; 83735; 83880; 84145; 84443; 84484; 85025; 85027; 87040; 87486; 87581; 87633; 87798; 93005; 93041; 93306; 94667; 96365; 96375; 96376; 97161; 99285; J1940; J2930; Q9967

== ENCOUNTER → 2019-10-14 | Outpatient (CLI) | payer OTHER ==
[~2019-10-14] MED LIST changes: +DOXY100T PO; +HYDR-643 PO; +LEVO50TA45 PO; +SERT-138 PO; +SPIR12.9 INH; +VITA50005 PO; +XOLA75IN SC
--- NOTE | 2019-10-15 03:32 | REP ---
Clinical: Persistent asthma. Technique: Axial noncontrast images from the thoracic inlet to the upper abdomen with coronal and sagittal re-formations. Comparison: 08/31/2019, 02/12/2018, 08/02/2016. Findings: Very subtle scattered ground-glass opacities which are significantly improved as compared to prior examination. Minimal perihilar to basilar areas of linear fibroatelectatic changes likely related to chronic reactive airway disease. No discrete focal consolidation or atelectasis. No effusion or pneumothorax. A small 3 mm density in the left upper lobe (image 40) as well as a small 7 mm density in the deep left posterior sulcus (image 82) represent chronic stable benign findings and are unchanged compared to 08/02/2016. No significant adenopathy. The mediastinum demonstrates normal pulmonary vasculature, thoracic aorta, and heart/pericardium. Musculoskeletal structures are intact. Impression: 1. Very subtle residual and likely resolving scattered ground-glass opacities significantly improved as compared to 08/31/2019. No acute consolidation or effusion. 2. Minimal scattered chronic linear fibroatelectatic changes consistent with sequelae of reactive airway disease. 3. No new acute mediastinal or pleuroparenchymal process appreciated. Electronically Signed by Alfonzo Gardiner MD 10/15/2019 03:24 A
== END ==
LOC: M RAD 14:29
PROVIDERS: ATTEND Physician Assistant
DX: J45.50 Severe persistent asthma, uncomplicated (principal)

== ENCOUNTER → 2019-10-29 | Outpatient (REF) | payer OTHER | LOC: M SFHCLERA 12:07 | PROVIDERS: ATTEND Physician Assistant | DX: H92.11 Otorrhea, right ear (principal) | CPT/HCPCS: 87070; 87077; 87186; G0463 ==

== ENCOUNTER → 2019-12-08 | Outpatient (REF) | payer OTHER ==
[2019-12-08 15:35] LABS: BASO % 0.3 % (0.0-1.0); EOS # 0.1 10^3/uL (0.0-0.5); EOS % 0.7 % (0.0-3.0); HEMATOCRIT 36.4 % (36.0-47.0); HEMOGLOBIN 9.9 g/dl (12.0-15.5); LYMPH # 1.3 10^3/uL (1.5-5.0); LYMPH % 12.7 % (24.0-44.0); MEAN CORPUSCULAR HEMOGLOBIN 19.7 pg (27.0-33.0); MEAN CORPUSCULAR HGB CONC 27.2 g/dl (32.0-36.5); MEAN CORPUSCULAR VOLUME 72.4 fl (80.0-96.0); MONO # 0.5 10^3/uL (0.0-0.8); MONO % 4.5 % (0.0-5.0); NEUTROPHILS # 8.3 10^3/uL (1.5-8.5); NEUTROPHILS % 81.2 % (36.0-66.0); PLATELET COUNT, AUTOMATED 297 10^3/uL (150-450); RED BLOOD COUNT 5.03 10^6/uL (4.00-5.40); WHITE BLOOD COUNT 10.2 10^3/uL (4.0-10.0)
[2019-12-08 16:11] LABS: FREE T4 1.01 NG/DL (0.76-1.46); THYROID STIMULATING HORMONE 2.15 uIU/ML (0.358-3.740)
[2019-12-08 16:12] LABS: TOTAL 25(OH) VITAMIN D 14.2 NG/ML (30.0-100.0)
== END ==
LOC: M SFHCPLAZ 11:27
PROVIDERS: ATTEND Nurse Practitioner Family
DX: E03.9 Hypothyroidism, unspecified (principal); E55.9 Vitamin D deficiency, unspecified; H60.501 Unspecified acute noninfective otitis externa, right ear
CPT/HCPCS: 82306; 84439; 84443; 85025; G0463

== ENCOUNTER → 2020-01-24 | Emergency (ER) | payer OTHER ==
[~2020-01-24] MED LIST changes: -PANT20TA2 PO; +PANT20TA6 PO; +PANT40TA29 PO; -PANT40TA3 PO
[2020-02-27 03:00] LABS: INR 0.98; PARTIAL THROMBOPLASTIN TIME 29.9 SECONDS (25.0-38.4); PROTHROMBIN TIME 13.2 SECONDS (11.8-14.0)
[2020-02-27 03:28] LABS: BASO % 0.3 % (0.0-1.0); EOS # 0.1 10^3/uL (0.0-0.5); EOS % 1.1 % (0.0-3.0); HEMATOCRIT 34.8 % (36.0-47.0); HEMOGLOBIN 9.3 g/dl (12.0-15.5); LYMPH # 2.1 10^3/uL (1.5-5.0); LYMPH % 21.1 % (24.0-44.0); MEAN CORPUSCULAR HEMOGLOBIN 19.1 pg (27.0-33.0); MEAN CORPUSCULAR HGB CONC 26.7 g/dl (32.0-36.5); MEAN CORPUSCULAR VOLUME 71.5 fl (80.0-96.0); MONO # 0.6 10^3/uL (0.0-0.8); PLATELET COUNT, AUTOMATED 329 10^3/uL (150-450); RED BLOOD COUNT 4.87 10^6/uL (4.00-5.40); WHITE BLOOD COUNT 9.8 10^3/uL (4.0-10.0)
--- NOTE | 2020-03-09 11:16 | ECGEPIP ---
SINUS RHYTHM LOW QRS VOLTAGE IN PRECORDIAL LEADS POSSIBLE RIGHT VENTRICULAR CONDUCTION DELAY BORDERLINE ECG NONSPECIFIC ST & T-WAVE ABNORMALITY NO OLD AVAILABLE SEE SCANNED DOWNTIME REPORT MTDD
[2020-04-03 00:51] LABS: VENOUS BASE EXCESS 4.4 (-2.0-2.0); VENOUS O2 SATURATION 97.2 % (60.0-80.0); VENOUS PARTIAL PRESSURE CO2 52.1 mmHg (38.0-50.0); VENOUS PH 7.383 UNITS (7.330-7.430); VENOUS STANDARD HCO3 28.4 MEQ/L; VENOUS TOTAL CO2 31.9 MEQ/L (24.0-28.0)
[2020-04-03 01:20] LABS: ALBUMIN 3.5 GM/DL (3.2-5.2); ALT/SGPT 19 U/L (12-78); BILIRUBIN,TOTAL 0.7 MG/DL (0.2-1.0); BLOOD UREA NITROGEN 12 MG/DL (7-18); CALCIUM LEVEL 8.7 MG/DL (8.5-10.1); CARBON DIOXIDE LEVEL 32 MEQ/L (21-32); CHLORIDE LEVEL 103 MEQ/L (98-107); CK-MB VALUE MASS 1.3 NG/ML (<3.6); CPK CREATINE PHOSPHOKINASE 141 U/L (26-192); CREATININE FOR GFR 0.83 MG/DL (0.55-1.30); GLOMERULAR FILTRATION RATE > 60.0 (>60); GLUCOSE, FASTING 94 MG/DL (70-100); MB/CK RELATIVE INDEX 0.92 (< OR =4); NT-PRO BNP 45 PG/ML (<125); POTASSIUM SERUM 3.9 MEQ/L (3.5-5.1); SODIUM LEVEL 139 MEQ/L (136-145); TOTAL PROTEIN 6.7 GM/DL (6.4-8.2); TROPONIN I < 0.02 NG/ML (< 0.10)
== END | disposition home or self-care (01) ==
LOC: M ED 15:00
DX: J96.11 Chronic respiratory failure with hypoxia (principal); I50.9 Heart failure, unspecified; E03.9 Hypothyroidism, unspecified; J98.4 Other disorders of lung; G47.33 Obstructive sleep apnea (adult) (pediatric); R91.8 Other nonspecific abnormal finding of lung field; Z88.6 Allergy status to analgesic agent; Z79.51 Long term (current) use of inhaled steroids; Z79.899 Other long term (current) drug therapy

== ENCOUNTER 2021-02-24 02:07 | Emergency (ER) | payer OTHER ==
[~2021-02-24] VITALS: Ht 147.3 cm; Wt 136.4 kg
[~2021-02-24 02:07] MED LIST changes: +ERGO500029 PO; +LISI10TA22 PO; -LISI10TA4 PO; +MIRT-62 PO; -REME15TA PO; +RISP-8 PO; -RISP1TAB3 PO; -VITA50005 PO
[2021-02-24] MEDS ORDERED: BISO5TAB14 PO (02:24)
[2021-02-24 04:09] LABS: BASO % 0.4 % (0.0-1.0); EOS # 0.2 10^3/uL (0.0-0.5); EOS % 1.6 % (0.0-3.0); HEMATOCRIT 35.2 % (36.0-47.0); HEMOGLOBIN 9.3 g/dl (12.0-15.5); LYMPH % 18.8 % (24.0-44.0); MEAN CORPUSCULAR HEMOGLOBIN 19.8 pg (27.0-33.0); MEAN CORPUSCULAR HGB CONC 26.4 g/dl (32.0-36.5); MEAN CORPUSCULAR VOLUME 75.1 fl (80.0-96.0); MONO # 0.6 10^3/uL (0.0-0.8); MONO % 5.7 % (2.0-8.0); NEUTROPHILS # 7.7 10^3/uL (1.5-8.5); NEUTROPHILS % 72.8 % (36.0-66.0); PLATELET COUNT, AUTOMATED 318 10^3/uL (150-450); RED BLOOD COUNT 4.69 10^6/uL (4.00-5.40); WHITE BLOOD COUNT 10.6 10^3/uL (4.0-10.0)
[2021-02-24 04:20] LABS: INR 1.03; PROTHROMBIN TIME 13.9 SECONDS (12.7-14.5)
[2021-02-24 04:21] LABS: PARTIAL THROMBOPLASTIN TIME 28.1 SECONDS (25.9-37.0)
[2021-02-24 04:23] LABS: D-DIMER QUANT 719.68 ng/ml (<500)
[2021-02-24 04:40] LABS: ALBUMIN 2.7 GM/DL (3.2-5.2); ALT/SGPT 19 U/L (12-78); BILIRUBIN,DIRECT 0.1 MG/DL (0.0-0.2); BILIRUBIN,TOTAL 0.6 MG/DL (0.2-1.0); BLOOD UREA NITROGEN 9 MG/DL (7-18); CALCIUM LEVEL 8.8 MG/DL (8.5-10.1); CARBON DIOXIDE LEVEL 32 MEQ/L (21-32); CHLORIDE LEVEL 108 MEQ/L (98-107); CK-MB VALUE MASS < 1.0 NG/ML (<3.6); CPK CREATINE PHOSPHOKINASE 39 U/L (26-192); CREATININE FOR GFR 0.54 MG/DL (0.55-1.30); GLOMERULAR FILTRATION RATE > 60.0 (>60); GLUCOSE, FASTING 97 MG/DL (70-100); MB/CK RELATIVE INDEX 2.56 (< OR =4); SODIUM LEVEL 144 MEQ/L (136-145); TOTAL PROTEIN 5.9 GM/DL (6.4-8.2); TROPONIN I < 0.02 NG/ML (< 0.10)
[2021-02-24 04:41] LABS: HCG, SERUM QUALITATIVE NEGATIVE (NEGATIVE)
[2021-02-24 04:45] LABS: RSV AMPLIFICATION NEGATIVE (NEGATIVE)
[2021-02-24] MEDS ORDERED: ISOVUE-370 76% 100ML VIAL As Ordered ONE (05:56)
[2021-02-24] MEDS ORDERED: KETOROLAC 30 MG/ML 1ML VIAL IV ONE (06:35)
--- NOTE | 2021-02-24 07:00 | REPVR ---
PROCEDURE INFORMATION: Exam: XR Chest Exam date and time: 02/24/2021 4:50 AM Age: 35 years old Clinical indication: Pain; On breathing and right-sided; Additional info: Dyspnea/cough TECHNIQUE: Imaging protocol: XR of the chest. Views: 1 view. COMPARISON: CR Chest, 2 view PA, Lat 01/24/2020 3:23 PM FINDINGS: Lungs: Study is partly limited due to body habitus and underpenetration. No consolidation. Pleural spaces: Unremarkable. No pleural effusion. No pneumothorax. Heart/Mediastinum: Unremarkable. No cardiomegaly. Bones/joints: Unremarkable. IMPRESSION: No focal consolidations seen. Electronically signed by: Quique Rehman On 02/24/2021 07:00:10 AM
--- NOTE | 2021-02-24 07:26 | REPVR ---
PROCEDURE INFORMATION: Exam: CTA Chest With Contrast Exam date and time: 02/24/2021 6:20 AM Age: 35 years old Clinical indication: Dyspnea and other: Sob/hypoxia, elevated ddimer, h/o pe TECHNIQUE: Imaging protocol: Computed tomographic angiography of the chest with contrast. 3D rendering (Not supervised by radiologist): MIP and/or 3D reconstructed images were created by the technologist. Radiation optimization: All CT scans at this facility use at least one of these dose optimization techniques: automated exposure control; mA and/or kV adjustment per patient size (includes targeted exams where dose is matched to clinical indication); or iterative reconstruction. Contrast material: ISOVUE 370; Contrast volume: 75 ml; Contrast route: INTRAVENOUS (IV); COMPARISON: CT ANGIO CHEST 08/31/2019 1:08 AM FINDINGS: Pulmonary arteries: The study is suboptimal for the evaluation of segmental and subsegmental pulmonary arteries due to heterogeneous enhancement. No central pulmonary emboli seen through the lobar pulmonary arteries. The pulmonary trunk is mildly dilated at 3.4 centimetres. Aorta: Unremarkable. No aortic aneurysm. No aortic dissection. Lungs: There is diffuse bilateral ground-glass infiltrates. Pleural spaces: Unremarkable. No pneumothorax. No pleural effusion. Heart: The heart is normal in size. There is apparent right heart dilatation. Lymph nodes: Unremarkable. No enlarged lymph nodes. Spleen: The partially imaged spleen is upper normal in size. Bones/joints: Unremarkable. No acute fracture. Soft tissues: Unremarkable. IMPRESSION: 1. No central pulmonary embolism through the lobar pulmonary arteries. 2. Nonspecific diffuse ground-glass lung infiltrates.Imaging features can be seen with COVID-19 pneumonia, though are nonspecific and can occur with a variety of infectious and noninfectious processes. (Reference: Mervin) 3. Dilated pulmonary trunk at 3.4 cm and dilated right heart suggestive of pulmonary hypertension and increased right heart pressure. REFERENCES: Mervin Nice, et al., [employer] Society of [place] Expert Consensus Statement on Reporting Chest CT Findings Related to COVID-19. Endorsed by the Society of Thor[employer] Radiology, the [place] [employer], and [employer]NA. Published September 15, 2019. Electronically signed by: Quique Rehman On 02/24/2021 07:26:12 AM
[2021-02-24] MEDS ORDERED: methylPREDNISolone 125MG 2ML VIAL IV ONE (07:40)
[2021-02-24] MEDS ORDERED: KETO10TAB PO (07:41)
[2021-02-24] MEDS ORDERED: PRED20TA PO (07:41)
[2021-02-24 07:52] VITALS: BP 133/83
--- NOTE | 2021-02-25 08:03 | ED PDOC ---
Post-Departure Follow-Up radiology rpeor tfaxed to [facility] Yara Greenfield MD Feb 25, 2021 08:03
--- NOTE | 2021-02-26 16:36 | ECGEPIP ---
[facility] - ED Test Date: 2021-02-24 Pat Name: BRIDGETTE PAYNE Department: Room: - Gender: Female [employer]: SANJANA : 1985 Requested By: CECI Mccullough Order Number: [id number] Reading MD: Yara Zabala Measurements Intervals [place] Rate: 84 P: 37 [place]: 182 QRS: 85 QRSD: 90 T: 25 QT: 374 QTc: 441 Interpretive Statements Normal sinus rhythm RSR' or QR pattern in V1 suggests right ventricular conduction delay NSTTW abnormalities decreased rate 08/31/19 Electronically Signed on 02-26-2021 16:35:42 EDT by Yara Zabala
== END 2021-02-24 08:05 | disposition home or self-care (01) ==
LOC: M ED 02:07
DX: R06.00 Dyspnea, unspecified (principal); R07.9 Chest pain, unspecified; F17.200 Nicotine dependence, unspecified, uncomplicated; Z88.6 Allergy status to analgesic agent; Z88.8 Allergy status to other drugs, medicaments and biological substances
CPT/HCPCS: 71045; 71275; 80048; 80076; 82550; 82553; 84484; 84703; 85025; 85379; 85610; 85730; 87631; 93005; 93041; 94760; 96374; 96375; 99285; J1885; J2930; Q9967